=== PATIENT | male | born 1935 | race Caucasian/White ===

== ENCOUNTER 2017-04-21 10:52 | Outpatient (CLI) | payer MEDICARE, OTHER ==
--- NOTE | 2017-04-21 18:25 | XRAY Report ---
EXAM: RIGHT TIBIA/FIBULA RADIOGRAPHY EXAM DATE: 04/21/2017 12:42 PM. CLINICAL HISTORY: PAINFUL SWELLING RT LEG,. COMPARISON: None. TECHNIQUE: 2 views. FINDINGS: Bones: Old, healed proximal tibia and fibula fractures. No acute fracture. Joints: Osteoarthritis of the knee. Soft Tissues: Normal. No soft tissue swelling. IMPRESSION: Old, healed proximal tibia and fibula fractures. Right knee osteoarthritis. [facility] Referring Provider Line: [phone] SITE ID: [id number]
--- NOTE | 2017-04-23 09:01 | Ultrasound Report ---
EXAM: LEFT LOWER EXTREMITY ARTERIAL DOPPLER ULTRASOUND EXAM DATE: 04/21/2017 11:15 AM. CLINICAL HISTORY: Painful swelling left leg. History of fracture. Decreased vascular pulse COMPARISON: None. TECHNIQUE: Real-time sonographic vascular imaging was performed by the automobile service station manager, utilizing color-f low, Doppler flow, and spectral analysis. Multiple international sales representative static images were saved for review . FINDINGS: Left Leg: SEMICONDUCTOR PROCESSING TECHNICIAN: PSV 169 cm/sec. Triphasic waveform. PSFA: PSV 66 cm/sec. Triphasic waveform. MSFA: PSV 59 cm/sec. Biphasic waveform. DSFA: PSV 82 cm/sec. Triphasic waveform. PFA: PSV 59 cm/sec. Biphasic waveform. POP: PSV 63 cm/sec. Biphasic waveform. JANAY: PSV 47 cm/sec. Biphasic waveform. ACCOUNTS PAYABLE ADMINISTRATOR: PSV 60 cm/sec. Biphasic waveform. PER: PSV 30 cm/sec. Biphasic waveform. DPA: PSV 25 cm/sec. Biphasic waveform. IMPRESSION: No evidence of a hemodynamically significant stenosis in the left lower extremity. Tripha sic blood flow in the common femoral and femoral arteries. Biphasic blood flow in the remaining left lower extremity arterial system. [facility] Referring Provider Line: [phone] SITE ID: [id number]
== END 2017-04-21 10:53 | disposition home or self-care (01) ==
LOC: DI 10:52
PROVIDERS: ATTEND Specialist
DX: M17.11 Unilateral primary osteoarthritis, right knee (principal); I99.8 Other disorder of circulatory system

== ENCOUNTER 2017-06-21 14:21 | Outpatient (CLI) | payer MEDICARE, OTHER ==
--- NOTE | 2017-06-21 14:56 | XRAY Preliminary Report ---
Exam: XR HAND 3 VIEW LT IMPRESSION: 1. Mildly displaced and mildly angulated fracture of the fifth metacarpal shaft. 2. Multifocal osteoarthritis. [facility] SITE ID: [id number]
--- NOTE | 2017-06-21 14:59 | XRAY Report ---
EXAM: LEFT HAND RADIOGRAPHY EXAM DATE: 06/21/2017 02:36 PM. CLINICAL HISTORY: Left hand pain. COMPARISON: None. TECHNIQUE: 4 views. FINDINGS: Bones: Acute oblique and vertically oriented fractures of the mid-distal fifth metacarpal shaft, with up to 3 mm medial displacement and mild radial volar angulation of the dominant distal component. No apparent intra-articular fracture extension. No other acute bony abnormality. Joints: No subluxation. Multifocal hypertrophic osteoarthritis including IP joints, most advanced and severe at the third DIP joint. Moderate to severe degenerative changes radial intercarpal and first CMC joints. Soft Tissues: Soft tissue swelling about the fifth metacarpal fracture. IMPRESSION: 1. Mildly displaced and mildly angulated fracture of the fifth metacarpal shaft. 2. Multifocal osteoarthritis. [facility] Referring Provider Line: [phone] SITE ID: [id number]
== END 2017-06-21 14:22 | disposition home or self-care (01) ==
LOC: DI.N 14:21
PROVIDERS: ATTEND Specialist
DX: S62.327A Displaced fracture of shaft of fifth metacarpal bone, left hand, initial encounter for closed fracture (principal); M19.042 Primary osteoarthritis, left hand

== ENCOUNTER 2018-01-28 13:34 | Outpatient (CLI) | payer MEDICARE, OTHER ==
--- NOTE | 2018-01-28 14:35 | XRAY Report ---
Procedure Date: 01/28/2018 Accession Number: [id number] / [id number] Procedure: XR - Hip w/Pelvis 2-3V LT CPT Code: FULL RESULT: EXAM: Hip w/Pelvis 2-3V LT DATE: 01/28/2018 2:20 PM CLINICAL HISTORY: L HIP PAIN COMPARISON: None. TECHNIQUE: 1 view of the pelvis and 1 view of the hip. FINDINGS: Bones: No fracture or aggressive osseous lesion. Joints: Loss of the bilateral femoral acetabular joint space, right somewhat greater than left. Advanced degenerative changes of the lower lumbar spine are partially imaged. Soft Tissues: Vascular calcifications are noted. IMPRESSION: Osteoarthrosis. [facility]
== END 2018-01-28 13:35 | disposition home or self-care (01) ==
LOC: DI 13:34
PROVIDERS: ATTEND Specialist
DX: M25.552 Pain in left hip (principal); M16.12 Unilateral primary osteoarthritis, left hip

== ENCOUNTER 2018-06-25 09:39 | Outpatient (CLI) | payer MEDICARE, OTHER | END 2018-06-25 09:40 | disposition EMS.NT | LOC: EMS 09:39 | PROVIDERS: ATTEND Surgery | DX: R53.1 Weakness (principal) ==

== ENCOUNTER 2018-06-26 13:18 | Emergency (ER) | payer MEDICARE, OTHER ==
--- NOTE | 2018-06-26 16:16 | ED Physician Documentation ---
History of Present Illness - Stated complaint Stated Complaint: BACK PX - Chief complaint Chief Complaint: General - History obtained from History obtained from: Patient, Family - History of Present Illness Timing: Today Pain level max: 0 Pain level now: 0 - Additonal information Additional information: 83-year-old male with history of Parkinson's here with family for evaluation because they noticed that the patient was sleeping more today. Per patient had a fall 3 days ago but did not hit his head and she was able to hold onto him so he slowly drops on the floor. However he had been sleeping more since then. Patient did not go to his sleep study today because the son noticed that patient was not responding and sleeping To deeply while seated in the chair. However,Patient while waiting in the emergency room had Perk up and is back to his baseline. Review of Systems Ten Systems: 10 systems reviewed and negative Constitutional: denies: Fever, Chills, Myalgias Throat: denies: Sore throat Cardiac: denies: Chest pain / pressure Respiratory: denies: Dyspnea, Cough GI: denies: Abdominal Pain, Nausea, Vomiting, Diarrhea : denies: Dysuria, Frequency, Hematuria Musculoskeletal: denies: Neck pain, Back pain, Extremity pain Neurologic: denies: Generalized weakness, Focal weakness, Syncope, Altered mental status, Head injury, LOC PD PAST MEDICAL HISTORY - Past Medical History Cardiovascular: High cholesterol, Coronary artery disease, Atrial fibrillation, Murmur Respiratory: None Endocrine/Autoimmune: None GI: Ulcers : Benign prostate hypertrophy, Nocturia HEENT: Glaucoma Psych: None Musculoskeletal: Scoliosis Derm: None - Past Surgical History Past Surgical History: Yes General: Colonoscopy, Other Ortho: Other Cardiovascular: Coronary stent, Cardiac catheterization Neuro: Other HEENT: Cataracts, Tonsil/Adenoidectomy - Present Medications Home Medications: Ambulatory Orders Medication Instructions Recorded Confirmed Aspirin Chewable [St Kevin 81 mg PO DAILY 06/19/13 06/19/13 Aspirin] Brimonidine 0.15% Ophth Drops 1 drops OPTH BID 06/19/13 06/19/13 [Alphagan P 0.15%] Calcium Carbonate/Vitamin D3 1 each PO DAILY 06/19/13 06/19/13 [Calcium + Vitamin D Tablet] Glucosa Baum 2Kcl/Chondroitin Baum 1 each PO BID 06/19/13 06/19/13 [Glucosamine & Chondroitin Cap] Multivitamin [Multivitamins] 1 each PO DAILY 06/19/13 06/19/13 Saw [place] 500 mg PO BID 06/19/13 06/19/13 Timolol 0.25% Ophth Drops 1 drops OPTH BID 06/19/13 06/19/13 [Timoptic] Atorvastatin Calcium [Lipitor] 40 mg PO 06/20/13 06/20/13 Carbidopa/Levodopa [Carbidopa-Levo 1 each PO 05/28/16 05/28/16 ER 50-200 Tab] Mirabegron [Myrbetriq] 50 mg PO DAILY 06/26/18 06/26/18 Rivastigmine Tartrate 6 mg PO BID 06/26/18 06/26/18 [Rivastigmine] - Allergies Allergies/Adverse Reactions: Allergies Allergy/AdvReac Type Severity Reaction Status Date / Time No Known Drug Allergies Allergy Verified 06/19/13 10:13 - Social History Does the pt smoke?: No Smoking Status: Never smoker - Immunizations Immunizations are current?: No Immunizations: TDAP >10years/unknown PD ED PE NORMAL - Vitals Vital signs reviewed: Yes - General General: Alert and oriented X 3, No acute distress, Well developed/nourished - HEENT HEENT: PERRL, EOMI, Moist mucous membranes, Pharynx benign - Neck Neck: Supple, no meningeal sign, No bony TTP - Cardiac Cardiac: RRR, No murmur - Respiratory Respiratory: Clear bilaterally - Abdomen Abdomen: Normal bowel sounds, Soft, Non tender, Non distended - Back Back: No CVA TTP, No spinal TTP - Derm Derm: Warm and dry - Extremities Extremities: No deformity - Neuro Neuro: Alert and oriented X 3, Normal speech - Psych Psych: Normal mood, Normal affect Results - Vitals Vitals: Vital Signs - 24 hr 06/26/18 13:27 Temperature 36.2 C L Heart Rate 88 Respiratory 16 Rate Blood Pressure 104/68 O2 Saturation 100 Oxygen O2 Source Room air PD MEDICAL DECISION MAKING - ED course Complexity details: considered differential (Parkinson's, sleep disorder), d/w patient, d/w family ED course: Family believes that he does not require any kinds of labs or radiological studies. Patient was able to stand up from the wheelchair with very minimal assistance and ambulated carefully with very minimal assistance. Family stated that this is his norm. So they would just want to go home and follow-up with his primary doctor and reschedule his sleep study appointment. Departure - Departure Disposition: 01 Home, Self Care Clinical Impression: Parkinsons disease Condition: Stable Instructions: Parkinson Disease Comments: Follow-up with your primary doctor and sleep study program. Maintain safety. I f worse return to the emergency room.
[2018-06-26 16:36] VITALS: BP 106/65
== END 2018-06-26 16:34 | disposition home or self-care (01) ==
LOC: ED 13:18
DX: G20 Parkinson's disease (principal)
CPT/HCPCS: 99282; 99283

== ENCOUNTER 2018-09-06 12:35 | Outpatient (CLI) | payer MEDICARE, OTHER ==
--- NOTE | 2018-09-06 15:38 | CONSULTATION NOTE ---
Palliative Care Consultation - Referral Referring Provider: Dr. Chas Coughlin Time of Visit: [id number] Referral setting: Home (It is a taxing considerable effort for the patient to leave the home, also to facilitate a family conference and improve treatment plan.) Referral Reason: Parkinsons with lewey body dementia/narcolepsy - Information Sources Records reviewed: Previous records reviewed History/Review of Systems obtained from: Patient, Family (met with Lara, son Lonnie, and DIL Kyra) Exam limitations: Clinical condition (patient with few words only) - History of Present Illness Brief History of Present Illness: This is an 83-year-old gentleman who has atypical Parkinson's, poorly responsive to carbidopa levodopa. He does have a shuffling gait, has had a decline in his walking, and increased lower extremity weakness. He fluctuates as far as his ability to participate in his day-to-day activities, including sleeping for long periods of time and difficulty getting out of bed. He has most likely been diagnosed about 5 years ago, has had some fluctuating delusions, hallucinations, but is cooperative and care. He does get quite fatigued when he gets out and is more active. He does have frequent falls, has had limited trauma but did have epidural hematoma as a result of 1 fall. Patient presents with high anxiety with new player in the room, was eventually able to engage. He does have difficulty getting from sitting to standing, severe shuffling gait, difficulty falling cues. As he relaxed, he was more likely to make eye contact, and smile, and answer yes no questions though not always accurately. Family are concerned about moving into the future, expected changes, have multiple questions regarding current caregiving issues. Patient has participated in the big and loud program, paid caregivers to try to keep up activity program. Palliative care to provide support regarding defining goals of care, evaluating and addressing caregiving issues regarding incontinence, and provide anticipatory guidance regarding expected ongoing decline Medical/Surgical History - Past Medical History Cardiovascular: reports: High cholesterol, Coronary artery disease, Atrial fibrillation, Murmur Respiratory: reports: None Neuro: reports: Dementia (lewey body), Head injury (eipdural hematoma 2017), Parkinson's, Tremors Endocrine/Autoimmune: reports: None GI: reports: Ulcers, Chronic constipation : reports: Benign prostate hypertrophy, Incontinence, Nocturia HEENT: reports: Glaucoma Psych: reports: None Musculoskeletal: reports: Scoliosis Derm: reports: None MRSA Hx?: No - Past Surgical History General: reports: Colonoscopy, Other Ortho: reports: Other (leg surgery) Cardiovascular: reports: Coronary stent, Cardiac catheterization Neuro: reports: Other (evacuation epidural hematoma) HEENT: reports: Cataracts, Tonsil/Adenoidectomy - Substance History Use: Uses substance without health or social issues: NONE, Alcohol (rare) Social History - Living Situation Living arrangement: At home Living Situation: With spouse/s.o. 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 He and his have been 58 years, he did have long-term care insurance, so they do have caregivers 4 days a week for 4-5 hours. The sons Tarun and Lonnie, rotate every other weekend from Sunday to Sunday to assist with care. Patient is incontinent, requiring increased care needs, recently had episode where he was minimally responsive for almost 3 days. Family History - Family History Family History: Mother: (unknown cause of in 70s; mother of pneumonia 65), Father: , Other family: Alive and Well (2 siblings alive and well) Medications/Allergies - Medications Home Medications: Ambulatory Orders Medication Instructions Recorded Confirmed Aspirin Chewable [St Kevin 81 mg PO DAILY 06/19/13 09/06/18 Aspirin] Brimonidine 0.15% Ophth Drops 1 drops OPTH BID 06/19/13 09/06/18 [Alphagan P 0.15%] Glucosa Baum 2Kcl/Chondroitin Baum 1 each PO BID 06/19/13 09/06/18 [Glucosamine & Chondroitin Cap] Atorvastatin Calcium [Lipitor] 40 mg PO ACHS 06/20/13 09/06/18 Carbidopa/Levodopa [Carbidopa-Levo 1 each PO ACHS 05/28/16 09/06/18 ER 50-200 Tab] Mirabegron [Myrbetriq] 50 mg PO DAILY 06/26/18 09/06/18 Rivastigmine Tartrate 6 mg PO BID 06/26/18 09/06/18 [Rivastigmine] Carbidopa/Levodopa [Carbidopa-Levo 25 - 100 mg PO .1.5 TAB 8,12, 09/06/18 09/06/18 ER 25-100 Tab] Dorzolamide/Timolol Ophth Soln 1 drops EACHEYE BID 09/06/18 09/06/18 [Cosopt] Latanoprost 0.005% Ophth Drops 1 drops EACHEYE BID 09/06/18 09/06/18 [Xalatan Ophth Drops] Multivitamin/Iron/Folic Acid 1 tab PO DAILY 09/06/18 09/06/18 [Centrum Adults Tablet] Senna [Senokot] 2 tab PO .QOD MDD 50 mg docusate 09/06/18 09/06/18 sodium+ Tamsulosin [Flomax] 0.4 mg PO DAILY 09/06/18 09/06/18 - Allergies Allergies/Adverse Reactions: Allergies Allergy/AdvReac Type Severity Reaction Status Date / Time No Known Drug Allergies Allergy Verified 06/19/13 10:13 Review of Systems - Constitutional Constitutional: reports: Fatigue, Weakness, Night sweats, Weight loss - Eyes Eyes: reports: Vision loss, Other (glaucoma) - Ears, Nose & Throat Ears, Nose & Throat: reports: Hearing loss - Cardiovascular Cardiovascular: reports: Decr. exercise tolerance - Respiratory Respiratory: reports: SOB with exertion - Gastrointestinal Gastrointestinal: reports: Constipation (intermittent), Good appetite - Genitourinary Genitourinary: reports: Hematuria, Incontinence - Musculoskeletal Musculoskeletal: reports: Muscle pain, Back pain, Muscle aches, Stiffness, Limited range of motion, Muscle weakness, Assistive devices (walker) - Integumentary Integumentary: reports: Lesions, Dryness - Neurological Neurological: reports: General weakness, Memory problems - Psychiatric Psychiatric: reports: Anxiety, Hallucinations - All Other Systems All Other Systems: reports: Other (limited ROS) Physical Exam - Physical Exam General Appearance: positive: No acute distress, Anxious Eyes Bilateral: positive: Normal inspection Neck: positive: No JVD, Trachea midline Cardiovascular: positive: Regular rate & rhythm Respiratory: positive: Diminished in bases. negative: Wheezes, Rales, Rhonchi Abdomen: positive: Non-tender, Soft, Nml bowel sounds Skin: positive: Dryness Extremities: positive: No pedal edema, Other (stiffness; gait shuffled; difficulty getting from sitting to standing; using walker with cueing; needing visual cues/not always able to follow verbal cues) Neurologic/Psychiatric: positive: Disoriented to person, Disoriented to place, Disoriented to time, Weakness, Flat affect, Other (speech fluctuating; delayed in response; some answers appropriate;sentences inconsistent in content/length; no word salad currently;) Palliative Care - POLST Patient has POLST: No Pain: No pain Tiredness/Fatigue: Severe (7-10) Drowsiness/Sedation: Severe (7-10) Nausea: None Depression: None Anxiety: None Dyspnea: None Anorexia: None Sleep: Variable sleep pattern (up at night to void;) Constipation: Yes, Intermittent constipation Feelings of wellbeing/Perceived Quality of Life: Fair, Worsening Performance Status: Patient has caregiving support, they do assist him with dressing, cueing, ambulation. Patient is totally dependent for bathing and incontinence management. Patient fluctuates as far as his ability to participate and engage. Patient does have periods of time he is more sedentary, this makes it more difficult to manage his care needs. They are unable to get him out of the bed particularly first thing in the morning. - Palliative Care Discussion: Patient unable to participate in any goals of care conversation, I did try and set up some rapport with patient he was unable to smile in response to some of our interactions. He did agree I could come back and visit. Met with separately, she does definitely feel overwhelmed and stressed. Some of this is related to his fluctuating status, but also with his increasing care needs despite caregiver support. She does have significant feelings of guilt, when considering placement or respite. He has had frequent falls, which is difficult for the both of them. They have been 58 years, she appears to have very little insight into the expected decline and disease trajectory. She does notice he has days of extreme fatigue, this is difficult to differentiate related to his underlying diagnosis of narcolepsy. He is also has a pending sleep study. Patient's gait on observation is not steady, he should be using a gait belt and walker at all times, this seems somewhat overwhelming to the . Did discuss about caregiver fatigue, need to participate in self- care activities. Family meeting with patient in the room, , son Lonnie and [id number] Kyra. Did introduce the IESHA as T, patient on his living well was a do not attempt resuscitation. We did discuss though in the context of EMS, we would need to complete the pulsed. Reviewed the different choices, poor outcomes would be expected for him and his current fragile state, as well as being able to weigh benefits and burdens in the future for care needs. D POA for healthcare is Lonnie Cesar [phone]. had not participated in any advanced care planning conversations with her prior to his decline, does feel overwhelmed by this. Did provide her with a copy of the IESHA ST, and the book "hard choices for loving People". Did discuss separately with the son we can follow through incomplete list at her next meeting, given has not really explored much looking at the end of life. Lonnie and Tarun, sons, by spending every other weekend, wondering if mother would make a different choice regarding patient's care needs if she had to manage more on her own. Reports though she does get overwhelmed and distressed easily. Impression and Recommendations - Palliative Care Impression: This is an 83-year-old gentleman with atypical Parkinson's, presents with dementia, and ongoing functional and cognitive decline. Part of his caregiving issues is he is fluctuating in status, very supportive family which does include regular paid caregivers. Palliative care to provide support regarding and focus on caregiving issues, caregiver, quality of life and symptom management as well as anticipatory guidance Recommendations/Counseling Done: 1. Parkinson's, atypical with dementia/Lewy body. Patient is declining both functionally and cognitively. It does appear overestimates patient's abilities, patient has had frequent falls and does have lower extremity weaknes s. I did encourage them to use the walker as well as gait belt for safety. Reviewed fall recovery with use of lift assist from 911. Discussed benefits and burdens of moving forward with a hospital bed. Patient most likely would not meet criteria, they could get one from [facility], or we could prevent one from [facility]. Encouraged to balance activity with patient's energy. They are looking at a sleep study appointment, counseling provided regarding weighing benefits and burdens of tests depending on expected outcome to change treatment plan. I suspect patient would not be able to tolerate any kind of BiPAP/CPAP support. Patient has longtime history of narcolepsy, does seem to be intensified over the last few years with his Parkinson's. Anticipatory guidance provided regarding disease process. 2. Urinary incontinence. Counseling provided regarding incontinence management, skin care with the initiation of Cavilon barrier cream, suggested explore truckers/condom urinal set up did not do well with condom catheter. 3. Advanced care planning. Patient does have D POA in [facility] [phone]. Initiate conversation regarding goals of care and IESHA as T. Counseling provided along with form, encouraged him to talk among themselves and read the information to be able to translate at our next visit. Counseling provided regarding anticipatory guidance and the role of palliative care. Explored with ways to engage in self-care, encouraged support groups, and began conversation regarding end-of-life care and wishes for her . Time Spent: 75 minutes with greater than 50% of this done in counseling regarding advanced care planning, disease education, setting up rapport, caregiving issues, and family conference
== END 2018-09-06 12:36 | disposition home or self-care (01) ==
LOC: PC 12:35
PROVIDERS: ATTEND Nurse Practitioner Adult Health
DX: Z51.5 Encounter for palliative care (principal); G31.83 Neurocognitive disorder with Lewy bodies; F02.80 Dementia in other diseases classified elsewhere, unspecified severity, without behavioral disturbance, psychotic disturbance, mood disturbance, and anxiety; G47.419 Narcolepsy without cataplexy; N40.1 Benign prostatic hyperplasia with lower urinary tract symptoms; N39.498 Other specified urinary incontinence; R35.1 Nocturia; Z91.81 History of falling
CPT/HCPCS: 99345

== ENCOUNTER 2018-09-11 13:15 | Outpatient (CLI) | payer MEDICARE, OTHER | END 2018-09-11 13:16 | disposition critical access hospital (66) | LOC: EMS 13:15 | PROVIDERS: ATTEND Surgery | DX: R40.20 Unspecified coma (principal) | CPT/HCPCS: A0425; A0427 ==

== ENCOUNTER 2018-09-11 13:31 | Inpatient (IN) | payer MEDICARE, OTHER ==
[2018-09-11] MEDS ORDERED: SODIUM CHLORIDE 0.9% 1,000 ML IV ONE ×2 (13:39→15:04)
--- NOTE | 2018-09-11 13:41 | ED Physician Documentation ---
PD HPI ALTERED MENTAL STATUS - Stated complaint Stated Complaint: UNRESPONSIVE - History obtained from History obtained from: Family (), EMS - History of Present Illness Timing - onset: Today (This is an 83-year-old gentleman with Parkinson's and Lewy body dementia. At baseline he still walks with assistance and feeds himself. He is incontinent and has in-home care. They have not decided on CODE STATUS nor have they filled out a IES[facility] form. He had an episode maybe a month ago where he was unresponsive for 3 days. That may have been related to UTI, he was treated with antibiotics maybe 3 weeks ago. Today he slept and then they just were not able to get him out of bed and he was pretty much unresponsive. All of the history is from the family, the patient will say yes in response to questions, but is otherwise in unhelpful historian.) Review of Systems Unable to obtain: AMS, Confused PD PAST MEDICAL HISTORY - Past Medical History Cardiovascular: High cholesterol, Coronary artery disease, Atrial fibrillation, Murmur Respiratory: None Endocrine/Autoimmune: None GI: Ulcers, Chronic constipation : Benign prostate hypertrophy, Incontinence, Nocturia HEENT: Glaucoma Psych: None Musculoskeletal: Scoliosis Derm: None - Past Surgical History Past Surgical History: Yes General: Colonoscopy, Other Ortho: Other (leg surgery) Cardiovascular: Coronary stent, Cardiac catheterization Neuro: Other (evacuation epidural hematoma) HEENT: Cataracts, Tonsil/Adenoidectomy - Present Medications Home Medications: Ambulatory Orders Medication Instructions Recorded Confirmed Aspirin Chewable [St Kevin 81 mg PO DAILY 06/19/13 09/06/18 Aspirin] Brimonidine 0.15% Ophth Drops 1 drops OPTH BID 06/19/13 09/06/18 [Alphagan P 0.15%] Glucosa Baum 2Kcl/Chondroitin Baum 1 each PO BID 06/19/13 09/06/18 [Glucosamine & Chondroitin Cap] Atorvastatin Calcium [Lipitor] 40 mg PO ACHS 06/20/13 09/06/18 Carbidopa/Levodopa [Carbidopa-Levo 1 each PO ACHS 05/28/16 09/06/18 ER 50-200 Tab] Mirabegron [Myrbetriq] 50 mg PO DAILY 06/26/18 09/06/18 Rivastigmine Tartrate 6 mg PO BID 06/26/18 09/06/18 [Rivastigmine] Carbidopa/Levodopa [Carbidopa-Levo 25 - 100 mg PO .1.5 TAB 8,12, 09/06/18 09/06/18 ER 25-100 Tab] Dorzolamide/Timolol Ophth Soln 1 drops EACHEYE BID 09/06/18 09/06/18 [Cosopt] Latanoprost 0.005% Ophth Drops 1 drops EACHEYE BID 09/06/18 09/06/18 [Xalatan Ophth Drops] Multivitamin/Iron/Folic Acid 1 tab PO DAILY 09/06/18 09/06/18 [Centrum Adults Tablet] Senna [Senokot] 2 tab PO .QOD MDD 50 mg docusate 09/06/18 09/06/18 sodium+ Tamsulosin [Flomax] 0.4 mg PO DAILY 09/06/18 09/06/18 Docusate Sodium [Colace Clear] 50 mg PO DAILY 09/11/18 09/11/18 - Allergies Allergies/Adverse Reactions: Allergies Allergy/AdvReac Type Severity Reaction Status Date / Time niacin Allergy Unknown Verified 09/11/18 13:40 - Social History Does the pt smoke?: No Smoking Status: Never smoker Does the pt drink ETOH?: No Does the pt have substance abuse?: No - Immunizations Immunizations are current?: No Immunizations: TDAP >10years/unknown - POLST Patient has POLST: No PD ED PE NORMAL - Vitals Vital signs reviewed: Yes - General General: Other (He is laying in bed with his eyes closed. He will actually follow very simple commands and say yes to certain things like when I asked him if he is Chandra Cesar. Otherwise he is not saying anything.) - HEENT HEENT: PERRL, Other (Dry mucous membranes) - Neck Neck: Supple, no meningeal sign, No bony TTP - Cardiac Cardiac: RRR, No murmur - Respiratory Respiratory: No respiratory distress, Clear bilaterally - Abdomen Abdomen: Normal bowel sounds, Soft, Non tender - Back Back: No CVA TTP, No spinal TTP - Derm Derm: Normal color, Warm and dry - Extremities Extremities: No edema, No calf tenderness / cord - Neuro Eye Opening: None Motor: Obeys Commands Verbal: Inappropriate GCS Score: 10 Results - Vitals Vitals: Vital Signs - 24 hr 09/11/18 09/11/18 13:36 14:52 Temperature 37.4 C Heart Rate 87 87 Respiratory 20 10 L Rate Blood Pressure 123/81 H 148/78 H O2 Saturation 96 99 Oxygen O2 Source Room air - Labs Labs: Laboratory Tests 09/11/18 09/11/18 09/11/18 13:38 13:47 14:03 WBC 13.1 H RBC 4.43 L Hgb 14.2 Hct 42.1 MCV 95.0 H MCH 32.0 H MCHC 33.7 RDW 14.4 Plt Count 232 MPV 8.1 Neut # (Auto) 10.9 H Lymph # (Auto) 1.0 L [place] # (Auto) 1.0 Eos # (Auto) 0.0 Baso # (Auto) 0.1 Absolute Nucleated RBC 0.01 Nucleated RBC % 0.1 Sodium 138 Potassium 3.8 Chloride 103 Carbon Dioxide 26 Anion Gap 9.0 BUN 15 Creatinine 0.7 Estimated GFR (MDRD) 108 Glucose 94 Calcium 8.8 Total Bilirubin 1.9 H AST 17 ALT < 10 L Alkaline Phosphatase 62 Total Creatine Kinase 13 L CK-MB (CK-2) Troponin I Total Protein 6.7 Albumin 3.4 Globulin 3.3 Albumin/Globulin Ratio 1.0 Lipase 26 Urine Color RED/BLOODY Urine Clarity CLOUDY Urine pH 7.0 Ur Specific [place] 1.020 Urine Protein Urine Glucose (UA) NEGATIVE Urine Ketones 15 H Urine Occult Blood Urine Nitrite Urine Bilirubin COLOR INTERFERENCE Urine Urobilinogen Ur Leukocyte Esterase Urine RBC TNTC H Urine WBC 6-10 H Ur Squamous Epith Cells RARE Squamous Urine Bacteria Few Ur Microscopic Review INDICATED Urine Culture Comments INDICATED 09/11/18 14:03 WBC RBC Hgb Hct MCV MCH MCHC RDW Plt Count MPV Neut # (Auto) Lymph # (Auto) [place] # (Auto) Eos # (Auto) Baso # (Auto) Absolute Nucleated RBC Nucleated RBC % Sodium Potassium Chloride Carbon Dioxide Anion Gap BUN Creatinine Estimated GFR (MDRD) Glucose Calcium Total Bilirubin AST ALT Alkaline Phosphatase Total Creatine Kinase CK-MB (CK-2) 0.9 Troponin I < 0.04 Total Protein Albumin Globulin Albumin/Globulin Ratio Lipase Urine Color Urine Clarity Urine pH Ur Specific [place] Urine Protein Urine Glucose (UA) Urine Ketones Urine Occult Blood Urine Nitrite Urine Bilirubin Urine Urobilinogen Ur Leukocyte Esterase Urine RBC Urine WBC Ur Squamous Epith Cells Urine Bacteria Ur Microscopic Review Urine Culture Comments PD MEDICAL DECISION MAKING - ED course ED course: This is an 83-year-old gentleman with Lewy body dementia and Parkinson's who presents with altered mental status that starts today. His examination is notable for evidence of dehydration. Workup demonstrates unremarkable head CT and chest x-ray and elevated white count and evidence of urinary tract infection for which she was administered IV fluids and Rocephin. Call to Dr. Romo for admission at 3:05 PM. Departure - Departure Disposition: [facility] DC/Xfer Clinical Impression: Altered mental status Qualifiers: Altered mental status type: delirium Qualified Code(s): R41.0 - Disorientation, unspecified UTI (urinary tract infection) Qualifiers: Urinary tract infection type: site unspecified Hematuria presence: with hematuria Qualified Code(s): N39.0 - Urinary tract infection, site not specified Condition: Serious
[2018-09-11] MEDS ORDERED: LIDOCAINE 2% URO-JET 5 ML SYRINGE UR STA (13:51)
[2018-09-11 14:11] LABS: BASOPHILS # (AUTO) 0.1 10^3/uL (0.0-0.1); EOSINOPHILS % (AUTO) 0.3 %; HGB - HEMOGLOBIN 14.2 g/dL (14.0-18.0); LYMPHOCYTES % (AUTO) 7.8 %; MEAN CORPUSCULAR HGB CONC 33.7 g/dL (32.0-36.0); MEAN PLATELET VOLUME 8.1 fL (7.4-11.4); MONOCYTES % (AUTO) 7.4 %; NEUTROPHILS # (AUTO) 10.9 10^3/uL (1.5-6.6); NEUTROPHILS % (AUTO) 83.5 %; PLT - PLATELET COUNT 232 10^3/uL (130-450); RED BLOOD COUNT 4.43 10^6/uL (4.70-6.10); RED CELL DISTRIBUTION WIDTH 14.4 % (12.0-15.0); WHITE BLOOD COUNT 13.1 x10^3/uL (4.8-10.8)
[2018-09-11 14:18] LABS: GLUCOSE, URINE (UA) NEGATIVE (NEGATIVE); KETONES,URINE (UA) 15 mg/dL (NEGATIVE)
[2018-09-11 14:21] LABS: CLARITY,URINE CLOUDY (CLEAR)
[2018-09-11 14:24] LABS: BILIRUBIN,URINE COLOR INTERFERENCE (NEGATIVE)
[2018-09-11 14:29] LABS: TROPONIN I < 0.04 ng/mL (<0.49)
[2018-09-11 14:31] LABS: CREATINE KINASE MB 0.9 ng/mL (0.6-6.3)
--- NOTE | 2018-09-11 14:32 | CT Report ---
Reason: altered Procedure Date: 09/11/2018 Accession Number: [id number] / [id number] Procedure: CT - HEAD WO CPT Code: FULL RESULT: EXAM: CT HEAD EXAM DATE: 09/11/2018 02:12 PM. CLINICAL HISTORY: Altered mental status. COMPARISON: HEAD W/O 05/28/2016 9:29 PM. TECHNIQUE: Multiaxial CT images were obtained from the foramen magnum to the vertex. Reformats: Sagittal and coronal. IV contrast: None. In accordance with CT protocol optimization, one or more of the following dose reduction techniques were utilized for this exam: automated exposure control, adjustment of mA and/or KV based on patient size, or use of iterative reconstructive technique. FINDINGS: Parenchyma: No intraparenchymal hemorrhage. No evidence of mass, midline shift, or CT findings of acute infarction. Bell-white differentiation is distinct. Diffuse chronic microangiopathic white matter changes. Extraaxial Spaces: Normal for age. No subdural or epidural collections. Ventricles: The ventricles and cortical sulci are enlarged, consistent with age-related tissue loss. Sinuses and orbits: Imaged paranasal sinuses, orbits, and mastoids show no significant abnormality. Bones: Unremarkable. Other: None. IMPRESSION: Generalized age-related cortical atrophic changes without evidence of acute intracranial abnormality. RADIA
[2018-09-11 14:35] LABS: ALBUMIN 3.4 g/dL (3.2-5.5); ALKALINE PHOSPHATASE 62 IU/L (42-121); ALT ALANINE AMINOTRANSFERASE < 10 IU/L (10-60); AST ASPARTATE AMINOTRANSFERASE 17 IU/L (10-42); BILIRUBIN,TOTAL 1.9 mg/dL (0.2-1.0); BUN - BLOOD UREA NITROGEN 15 mg/dL (6-20); CALCIUM 8.8 mg/dL (8.5-10.3); CARBON DIOXIDE - CO2 26 mmol/L (21-32); CHLORIDE 103 mmol/L (101-111); CK- CREATINE KINASE 13 IU/L (22-269); CREATININE 0.7 mg/dL (0.6-1.2); GFR - MDRD 108 (>89); GLUCOSE 94 mg/dL (70-100); LIPASE 26 U/L (22-51); SODIUM 138 mmol/L (135-145); TOTAL PROTEIN 6.7 g/dL (6.7-8.2)
[2018-09-11 14:37] LABS: RBC,URINE TNTC /HPF (0-5)
[2018-09-11 14:38] LABS: BACTERIA,URINE Few /HPF (None Seen); SQUAMOUS EPITHELIAL CELL,UR RARE Squamous (<= Few)
--- NOTE | 2018-09-11 14:58 | XRAY Report ---
Reason: altered Procedure Date: 09/11/2018 Accession Number: [id number] / [id number] Procedure: XR - Chest 1 View X-Ray CPT Code: 03728 FULL RESULT: EXAM: CHEST RADIOGRAPHY EXAM DATE: 09/11/2018 02:35 PM. CLINICAL HISTORY: Confusion COMPARISON: XR CHEST PA AND LAT 06/27/2007 8:42 AM. TECHNIQUE: 1 view. FINDINGS: Lungs/Pleura: No focal opacities evident. No pleural effusion. No pneumothorax. Mediastinum: Normal heart size. There is thoracic aortic tortuosity. Other: None. IMPRESSION: No acute intrathoracic plain film abnormality. RADIA
[2018-09-11] MEDS ORDERED: cefTRIAXone 1 GM in SODIUM CHLORIDE 0.9% MINIBAG 100 ML IV STA (15:04)
[2018-09-11] MEDS ORDERED: ONDANSETRON ODT 4 MG TABLET TL PRN (15:28)
[2018-09-11] MEDS ORDERED: ACETAMINOPHEN 325 MG TABLET PO PRN (15:28)
[2018-09-11] MEDS ORDERED: SODIUM CHLORIDE FLUSH 0.9% 10 ML SYRINGE IVP PRN (15:28)
--- NOTE | 2018-09-11 15:43 | HISTORY & PHYSICAL EXAMINATION ---
Chief Complaint - Chief Complaint Chief Complaint: Delirium and change from baseline Parkinson's dementia. Patient has been m Stroke/TIA/Neuro Template - Admitted From Admitted from: ED - History Obtained From Records Reviewed: RN notes reviewed, Old records reviewed History obtained from: Family, Caregiver Exam limitations: Clinical condition, Other (Due to patient's obtunded status difficult to examine And obtain a thorough history and physical.) - History of Present Illness Severity at the worst: reports: Moderate Symptom Quality: reports: Other Context- Symptoms started w/: reports: Other (Obtunded) Timing: reports: Gradual onset Duration: reports: Unknown Worsened by: denies: Exertion Associated symptoms: denies: Vomiting, Feeling faint / dizzy, Palpitations HPI Comment/Other: This is an 83-year-old gentleman who has atypical Parkinson's, poorly responsive to carbidopa levodopa, Presents with hematuria and unresponsive at home subs equently being transferred to the emergency department for further evaluation management and treatment. CT head did not show acute infarct. Patient does take multiple medications for his Parkinson's disease/Lewy body dementia. Was found to have a UTI on UA. Clinically was found to be dehydrated. He does have a shuffling gait, has had a decline in his walking, and increased lower extremity weakness. He fluctuates as far as his ability to participate in his day-to-day activities, including sleeping for long periods of time and difficulty getting out of bed. He has most likely been diagnosed about 5 years ago, has had some fluctuating delusions, hallucinations, but is cooperative and care. He does get quite fatigued when he gets out and is more active. He does have frequent falls, has had limited trauma but did have epidural hematoma as a result of 1 fall. Patient was last seen by palliative care service on 09/06/18; Palliative care to provide support regarding defining goals of care, evaluating and addressing caregiving issues regarding incontinence, and provide anticipatory guidance regarding expected ongoing decline. 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 PMH/PSH - Past Medical History Cardiovascular: positive: High cholesterol, Coronary artery disease, Atrial fibrillation, Murmur Respiratory: positive: None Endocrine/Autoimmune: positive: None GI: positive: Ulcers, Chronic constipation : positive: Benign prostate hypertrophy, Incontinence, Nocturia HEENT: positive: Glaucoma Psych: positive: None Musculoskeletal: positive: Scoliosis Derm: positive: None MRSA Hx?: No - Past Surgical History General: positive: Colonoscopy, Other Ortho: positive: Other (leg surgery) Cardiovascular: positive: Coronary stent, Cardiac catheterization Neuro: positive: Other (evacuation epidural hematoma) HEENT: positive: Cataracts, Tonsil/Adenoidectomy Social & Family Hx - Social History Does the pt smoke?: No Smoking Status: Never smoker Does the pt drink ETOH?: No Does the pt have substance abuse?: No - POLST Patient has POLST: No Meds/Allgy - Home Medications Home Medications: Ambulatory Orders Medication Instructions Recorded Confirmed Aspirin Chewable [St Kevin 81 mg PO DAILY 06/19/13 09/06/18 Aspirin] Brimonidine 0.15% Ophth Drops 1 drops OPTH BID 06/19/13 09/06/18 [Alphagan P 0.15%] Glucosa Baum 2Kcl/Chondroitin Baum 1 each PO BID 06/19/13 09/06/18 [Glucosamine & Chondroitin Cap] Atorvastatin Calcium [Lipitor] 40 mg PO ACHS 06/20/13 09/06/18 Carbidopa/Levodopa [Carbidopa-Levo 1 each PO ACHS 05/28/16 09/06/18 ER 50-200 Tab] Mirabegron [Myrbetriq] 50 mg PO DAILY 06/26/18 09/06/18 Rivastigmine Tartrate 6 mg PO BID 06/26/18 09/06/18 [Rivastigmine] Carbidopa/Levodopa [Carbidopa-Levo 25 - 100 mg PO .1.5 TAB 8,12, 09/06/18 09/06/18 ER 25-100 Tab] Dorzolamide/Timolol Ophth Soln 1 drops EACHEYE BID 09/06/18 09/06/18 [Cosopt] Latanoprost 0.005% Ophth Drops 1 drops EACHEYE BID 09/06/18 09/06/18 [Xalatan Ophth Drops] Multivitamin/Iron/Folic Acid 1 tab PO DAILY 09/06/18 09/06/18 [Centrum Adults Tablet] Senna [Senokot] 2 tab PO .QOD MDD 50 mg docusate 09/06/18 09/06/18 sodium+ Tamsulosin [Flomax] 0.4 mg PO DAILY 09/06/18 09/06/18 Docusate Sodium [Colace Clear] 50 mg PO DAILY 09/11/18 09/11/18 - Allergies Allergies/Adverse Reactions: Allergies Allergy/AdvReac Type Severity Reaction Status Date / Time niacin Allergy Unknown Verified 09/11/18 13:40 Review of Systems - All Other Systems All Other Systems: reports: Reviewed and negative Prior Level of Functionality: Per family patient has been ambulating independently with a shuffling gait at times but there are other times where his home ADLs are poor at times waxing and waning. Exam - Vital Signs Reviewed Vital Signs: Yes Vital Signs: Vital Signs x48h Temp Pulse Resp BP Pulse Ox 09/11/18 14:52 87 10 L 148/78 H 99 09/11/18 13:36 37.4 C 87 20 123/81 H 96 - Physical Exam General Appearance: positive: No acute distress, Lethargic, Other (obtunded, hard to arouse, responds to painful stimuli.) Eyes Bilateral: positive: PERRL, Conjunctivae nml ENT: positive: Pharynx nml, Dry mucous membranes Neck: positive: Nml inspection, Thyroid nml, Trachea midline. negative: No JVD, Thyromegaly, Carotid bruit Respiratory: positive: Chest non-tender, No respiratory distress, Breath sounds nml. negative: Wheezes, Rales, Rhonchi Cardiovascular: positive: Regular rate & rhythm, No murmur, No gallop Peripheral Pulses: positive: 2+ Abdomen: positive: Non-tender, No organomegaly, Nml bowel sounds, No distention Skin: positive: Color nml, No rash Extremities: positive: Non-tender, No pedal edema Neurologic/Psychiatric: positive: Disoriented to person, Disoriented to place, Disoriented to time, Weakness, Depressed mood/affect, Other (Unable to asses gait due to mental status) Babinski Reflex: Right: Absent, Left: Absent Comments/Other: : Has blood urine FC. Results - Lab Results Lab results reviewed: Yes Fish Bones: 09/11/18 13:38 09/11/18 14:03 Other Lab Results: Lab Results x24hrs 09/11/18 09/11/18 09/11/18 Range/Units 14:03 14:03 14:03 WBC (4.8-10.8) x10^3/uL RBC (4.70-6.10) 10^6/uL Hgb (14.0-18.0) g/dL Hct (42.0-52.0) % MCV (80.0-94.0) fL MCH (27.0-31.0) pg MCHC (32.0-36.0) g/dL RDW (12.0-15.0) % Plt Count (130-450) 10^3/uL MPV (7.4-11.4) fL Neut # (Auto) (1.5-6.6) 10^3/uL Lymph # (Auto) (1.5-3.5) 10^3/uL [place] # (Auto) (0.0-1.0) 10^3/uL Eos # (Auto) (0.0-0.7) 10^3/uL Baso # (Auto) (0.0-0.1) 10^3/uL Absolute Nucleated RBC x10^3/uL Nucleated RBC % /100WBC Sodium 138 (135-145) mmol/L Potassium 3.8 (3.5-5.0) mmol/L Chloride 103 (101-111) mmol/L Carbon Dioxide 26 (21-32) mmol/L Anion Gap 9.0 (6-13) BUN 15 (6-20) mg/dL Creatinine 0.7 (0.6-1.2) mg/dL Estimated GFR (MDRD) 108 (>89) Glucose 94 (70-100) mg/dL Lactic Acid 0.8 (0.5-2.2) mmol/L Calcium 8.8 (8.5-10.3) mg/dL Total Bilirubin 1.9 H (0.2-1.0) mg/dL AST 17 (10-42) IU/L ALT < 10 L (10-60) IU/L Alkaline Phosphatase 62 (42-121) IU/L Total Creatine Kinase 13 L (22-269) IU/L CK-MB (CK-2) 0.9 (0.6-6.3) ng/mL Troponin I < 0.04 (<0.49) ng/mL Total Protein 6.7 (6.7-8.2) g/dL Albumin 3.4 (3.2-5.5) g/dL Globulin 3.3 (2.1-4.2) g/dL Albumin/Globulin Ratio 1.0 (1.0-2.2) Lipase 26 (22-51) U/L Urine Color Urine Clarity (CLEAR) Urine pH (5.0-7.5) PH Ur Specific [place] (1.002-1.030) Urine Protein (NEGATIVE) mg/dL Urine Glucose (UA) (NEGATIVE) mg/dL Urine Ketones (NEGATIVE) mg/dL Urine Occult Blood (NEGATIVE) Urine Nitrite (NEGATIVE) Urine Bilirubin (NEGATIVE) Urine Urobilinogen (NORMAL) E.U./dL Ur Leukocyte Esterase (NEGATIVE) Urine RBC (0-5) /HPF Urine WBC (0-3) /HPF Ur Squamous Epith Cells (<= Few) Urine Bacteria (None Seen) /HPF Ur Microscopic Review Urine Culture Comments 09/11/18 09/11/18 Range/Units 13:47 13:38 WBC 13.1 H (4.8-10.8) x10^3/uL RBC 4.43 L (4.70-6.10) 10^6/uL Hgb 14.2 (14.0-18.0) g/dL Hct 42.1 (42.0-52.0) % MCV 95.0 H (80.0-94.0) fL MCH 32.0 H (27.0-31.0) pg MCHC 33.7 (32.0-36.0) g/dL RDW 14.4 (12.0-15.0) % Plt Count 232 (130-450) 10^3/uL MPV 8.1 (7.4-11.4) fL Neut # (Auto) 10.9 H (1.5-6.6) 10^3/uL Lymph # (Auto) 1.0 L (1.5-3.5) 10^3/uL [place] # (Auto) 1.0 (0.0-1.0) 10^3/uL Eos # (Auto) 0.0 (0.0-0.7) 10^3/uL Baso # (Auto) 0.1 (0.0-0.1) 10^3/uL Absolute Nucleated RBC 0.01 x10^3/uL Nucleated RBC % 0.1 /100WBC Sodium (135-145) mmol/L Potassium (3.5-5.0) mmol/L Chloride (101-111) mmol/L Carbon Dioxide (21-32) mmol/L Anion Gap (6-13) BUN (6-20) mg/dL Creatinine (0.6-1.2) mg/dL Estimated GFR (MDRD) (>89) Glucose (70-100) mg/dL Lactic Acid (0.5-2.2) mmol/L Calcium (8.5-10.3) mg/dL Total Bilirubin (0.2-1.0) mg/dL AST (10-42) IU/L ALT (10-60) IU/L Alkaline Phosphatase (42-121) IU/L Total Creatine Kinase (22-269) IU/L CK-MB (CK-2) (0.6-6.3) ng/mL Troponin I (<0.49) ng/mL Total Protein (6.7-8.2) g/dL Albumin (3.2-5.5) g/dL Globulin (2.1-4.2) g/dL Albumin/Globulin Ratio (1.0-2.2) Lipase (22-51) U/L Urine Color RED/BLOODY Urine Clarity CLOUDY (CLEAR) Urine pH 7.0 (5.0-7.5) PH Ur Specific [place] 1.020 (1.002-1.030) Urine Protein (NEGATIVE) mg/dL Urine Glucose (UA) NEGATIVE (NEGATIVE) mg/dL Urine Ketones 15 H (NEGATIVE) mg/dL Urine Occult Blood (NEGATIVE) Urine Nitrite (NEGATIVE) Urine Bilirubin COLOR INTERFERENCE (NEGATIVE) Urine Urobilinogen (NORMAL) E.U./dL Ur Leukocyte Esterase (NEGATIVE) Urine RBC TNTC H (0-5) /HPF Urine WBC 6-10 H (0-3) /HPF Ur Squamous Epith Cells RARE Squamous (<= Few) Urine Bacteria Few (None Seen) /HPF Ur Microscopic Review INDICATED Urine Culture Comments INDICATED - Diagnostic Imaging Results Diagnostic Imaging Results: positive: Final report reviewed (Chest x-ray and CT head did not show acute pathology) - EKG Results EKG Interpreted Independently: No Sepsis Event Note (H) - Evaluation Current Stage of Sepsis: Ruled out Impression/Plan - Problem List Problem List: Assessment: 1. Acute delirium secondary to UTI with associated hematuria 2. UTI with associated hematuria 3. Acute Moderate dehydration 4. Leukocytosis without sepsis 5. History of falls with gait disturbance as it pertains to patient's progressive Parkinson's disease 6. Parkinson's disease with Lewy body dementia 7. Advanced care planning and counseling 8. Palliative care continued service 9. BPH with associated hematuria 10. History of narcolepsy Plan: We will admit to observation, telemetry. Provide IV fluid resuscitation for acute moderate dehydration placed on empiric IV Rocephin to address patient's UTI with coexisting hematuria as patient has existing BPH will continue home medications with reconciliation. We will engage palliative care services to see patient and address goals of care along with other services such as symptom management. Leukocytosis likely as a result of UTI without evidence of sepsis and other delirious or clinical changes to vital signs lactic acid was 0.8 with no evidence of cardiac abnormality seen on chest x-ray with a troponin unremarkable despite patient having a history of coronary artery disease with A. fib does not appear to be in RVR A. fib has a systolic murmur present. Continue with home medications for patient's glaucoma along with statin aspirin. Patient does have history of peptic ulcer disease but did not present with any bleeding episodes. Patient lives with and 2 sons at alternate taking care of patient. We will continue with physical therapy and assessment on gait disturbance to see if patient qualifies for a TCU placement. Orthostats. Ammonia level. Alcohol level. Bladder irrigation for patient's gross hematuria seen on Lui bag and Lui catheter site. Patient has a history of narcolepsy and may benefit from Provigil Or similar pharmacological agent. Initiate DVT prophylaxis with H2 misbah, SCD boots as well as Lovenox for DVT prophylaxis CODE STATUS: DNR with family having patient's POLST. Core Measures - Anticipated LOS I expect patient to be DC'd or transferred within 96 hours.: Yes - Issues Hospital Issues and Management Plan: Patient with worsening gait disturbance and presenting with change in mental status from his current baseline of Parkinson's disease with Lewy body dementia with acute delirium secondary to likely UTI with associated hematuria and clinical moderate dehydration along with gait disturbance and a history of falls will engage in providing aggressive medical management physical therapy as well as improving gait. - DVT/VTE - Prophylaxis VTE/DVT Device ordered at admit?: Yes VTE/DVT Prophylaxis med ordered at admit?: Yes - Stroke - Rehab Assessment Rehab services assessment to be ordered?: No Not Ordered - Medical Reason: Not indicated - AMI - Statin at Admit Aspirin Prescribed on Admit: Yes
--- NOTE | 2018-09-11 15:53 | ADVANCE CARE PLANNING NOTE ---
Advance Care Planning - Date/Time Date: 09/11/18 Time: 15:51 - Purpose of encounter Text: To address goals of care, disease management, trajectory of illness. In addition, to provide support regarding and focus on caregiving issues, caregiver, quality of life and symptom management as well as anticipatory guidance - Parties in attendance Parties in attendance: Patient - Decisional capacity Decisional capacity of: Currently decisional capacity is altered due to obtunded status - Subjective/Patient's story Subjective/Patient's story: Palliative care service had engage patient on 07/27 and determined patient's subjective information. He does have difficulty getting from sitting to standing, severe shuffling gait, difficulty falling cues. As he relaxed, he was more likely to make eye contact, and smile, and answer yes no questions though not always accurately. Family are concerned about moving into the future, expected changes, have multiple questions regarding current caregiving issues. Patient has participated in the big and loud program, paid caregivers to try to keep up activity program. - Objective/Medical story Objective/Medical Story: This is an 83-year-old gentleman with atypical Parkinson's, BPH, gait disturbance, atrial fibrillation, systolic murmur, coronary disease status post stent and cardiac catheterization, hyperlipidemia, peptic ulcer disease, glaucoma, history of fall with remote history of epidural hematoma, gait disturbance with abnormalities presents with Obtunded status with coexisting Parkinson's/Lewy body-dementia, and ongoing functional and cognitive decline. Part of his caregiving issues is he is fluctuating in status, very supportive family which does include regular paid caregivers. Patient was found unresponsive today and taken to the emergency department where he was found to have a UTI with associated moderate dehydration leukocytosis with no evidence of an acute ischemic insult and was placed on IV antibiotics. Vital signs were hemodynamically stable and no evidence of CO2 narcosis with no evidence of acute [place]. Palliative care service will be called upon again to provide support regarding and focus on caregiving issues, caregiver, quality of life and symptom management as well as anticipatory guidance - Goals of Care Goals of care determinations: Goals of care to be determined on this admission as previously delineated by palliative care service - Plan Plan: Patient will be stabilized with medical management IV fluids correction of underlying disturbances that would address patient's encephalopathy with acute delirium superimposed on patient's existing Parkinson's disease with Lewy body dementia will also try to see if this is orthostatic induced along with gait disturbance with physical therapy to be engaged with the patient throughout hospitalization.Neuro imaging studies do not appear to have ischemic cause such as stroke however will continue to have labs to follow with an ammonia level alcohol level and TSH level.She was also scheduled to have sleep study as an outpatient. - Code Status Code Status: Attempt Resuscitation - Time Spent on Advance Care Planning Time spent on advance care plannin minutes spent for which more than 50% was dedicated to patient education
[2018-09-11] MEDS ORDERED: ATORVASTATIN 40 MG TABLET PO SCH ×2 (16:00→21:00)
[2018-09-11] MEDS ORDERED: CARBIDOPA/LEVODOPA ER 50 MG/200 MG TABLET PO SCH (16:00)
[2018-09-11] MEDS: SODIUM CHLORIDE FLUSH 0.9% 10 ML SYRINGE IVP SCH (18:12)
[2018-09-11] MEDS: SENNA 8.6 MG TABLET PO SCH (18:12)
[2018-09-11] MEDS ORDERED: CARBIDOPA/LEVODOPA ER 25 MG/100 MG TABLET PO SCH ×2 (21:00→22:00)
[2018-09-11] MEDS: SODIUM CHLORIDE 0.9% 1,000 ML IV SCH (22:16)
[2018-09-11] MEDS: RIVASTIGMINE 1.5 MG CAPSULE PO SCH (22:17)
[2018-09-11] MEDS: ATORVASTATIN 40 MG TABLET PO SCH (22:17)
[2018-09-11] MEDS: LATANOPROST 0.005% OPHTH DROPS EACHEYE SCH (22:27)
[2018-09-11] MEDS: FAMOTIDINE 20 MG/2 ML VIAL IVP SCH (22:28)
[2018-09-11] MEDS: BRIMONIDINE 0.15% OPHTH DROPS 5 ML EACHEYE SCH (22:28)
[2018-09-11] MEDS: DORZOLAMIDE/TIMOLOL OPHTH DROPS EACHEYE SCH (22:28)
[2018-09-12] MEDS: SODIUM CHLORIDE FLUSH 0.9% 10 ML SYRINGE IVP SCH ×4 (01:55→23:51)
--- NOTE | 2018-09-12 05:54 | Ultrasound Report ---
Reason: Gross hematuria evaluation for nephrolithiasis Procedure Date: 09/12/2018 Accession Number: [id number] / [id number] Procedure: US - Retroperitoneal CPT Code: FULL RESULT: EXAM: RENAL ULTRASOUND EXAM DATE: 09/12/2018 05:04 AM. CLINICAL HISTORY: Gross hematuria evaluation for nephrolithiasis. COMPARISON: None. TECHNIQUE: Real-time scanning was performed with static images obtained. FINDINGS: Right Kidney: 10.8 x 6.8 x 6.0 cm. Likely nonobstructing calculi. No hydronephrosis. Left Kidney: 11.2 x 6.4 x 5.4 cm. Incidental cyst. No hydronephrosis. Bladder: Decompressed with a Lui catheter. Other: None. IMPRESSION: Likely nonobstructing right renal calculi. No hydronephrosis. Lui catheter in the urinary bladder. RADIA
[2018-09-12] MEDS: SODIUM CHLORIDE 0.9% 1,000 ML IV SCH (07:30)
[2018-09-12] MEDS: FAMOTIDINE 20 MG/2 ML VIAL IVP SCH ×2 (09:49→22:32)
[2018-09-12] MEDS: cefTRIAXone 1 GM in SODIUM CHLORIDE 0.9% MINIBAG 100 ML IV SCH (09:54)
[2018-09-12] MEDS: BRIMONIDINE 0.15% OPHTH DROPS 5 ML EACHEYE SCH ×2 (10:20→21:58)
[2018-09-12] MEDS: DORZOLAMIDE/TIMOLOL OPHTH DROPS EACHEYE SCH ×2 (10:48→22:00)
[2018-09-12] MEDS: LATANOPROST 0.005% OPHTH DROPS EACHEYE SCH ×3 (11:13→22:00)
[2018-09-12] MEDS ORDERED: CAFFEINE IV ONE (12:00)
[2018-09-12] MEDS ORDERED: SODIUM BENZOATE IV ONE (12:00)
[2018-09-12] MEDS ORDERED: SODIUM CHLORIDE 0.9% IV ONE (12:00)
--- NOTE | 2018-09-12 12:17 | CONSULTATION NOTE ---
Palliative Care Follow Up - Referral Referring Provider: Vicente Romo Time of Visit: 8:50-9:40 Referral setting: Hospitalized patient Referral Reason: Parkinson's/UTI/Goals of care - Information Sources Records reviewed: Previous records reviewed History/Review of Systems obtained from: Family (son Lonnie at bedside) Exam limitations: Clinical condition (patient lethargic; noncommunicative at baseline with lewy body dementia) - History of Present Illness Update Brief HPI Update: This is an 83-year-old gentleman has atypical Parkinson's, has been poorly responsive to carbidopa levodopa. I was introduced to him on 09-06-2018 with the goal to provide support the palliative care, as patient has had functional de devlin and recent UTI, and episode he was nonresponsive and bedbound for most of the weekend. Had recovered from the episode, but by the time admit him, unknown if it was recurrent UTI, TIA, or related to his parkinsonian. He is due to be seen at the sleep lab, patient has underlying narcolepsy. He has needed increased support at home for managing his care needs, he lives with his , has paid caregivers during the week, and his sons alternate weekends providing total care. Patient was found to have a hematuria yesterday, with decreased responsiveness, and was with paid caregivers who were obligated to call 911. He was admitted overnight, has had actually significant hematuria with blood clots, I am unable to tell from the documentation if patient had urinary retention on placement of the Reynolds cath, it is lightening up, but still passing small clots. Patient has no history of bleeding in the past. But does have known BPH. Patient is difficult to arouse, and able to get him to squeeze my hand, flutter his eyes, and answer a few yes/no questions. His mouth is quite dry, assisted by RN for initiating oral care. Awaiting speech therapy evaluation. Patient has not had any choking, or difficulty eating prior to this hospitalization. I am meeting with his son Lonnie at bedside, his went home to get some sleep. We did discuss that it would be a good time to complete and follow-up on the ST. Patient though given his ongoing hematuria, does not awake and eating or drinking, would be expected to be transition to inpatient status. Social History - Living Situation Living arrangement: At home Living Situation: With spouse/s.o. Support System: He and his have been 58 years, they do have long-term care insurance so they do have caregivers 4 days a week for 4-5 hours. His sons Tarun and Lonnie, rotate every other weekend from Sunday to Sunday to assist with care. They have been exploring other options, particularly regarding respite care as patient's care needs have been increasing. They have explored memory units, including [facility] which they were impressed with. Medications/Allergies - Medications Active Medication List: Active Medications Acetaminophen (Tylenol) 650 mg PO Q4HR PRN PRN Reason: Pain 1 to 4 Aspirin (St Kevin Aspirin) 81 mg PO DAILY [facility] Atorvastatin Calcium (Lipitor) 40 mg PO QPM [facility] Last Admin: 09/11/18 22:17 Dose: Not Given Brimonidine Tartrate (Alphagan P 0.15% Ophth Drops) 1 drops EACHEYE BID [facility] Last Admin: 09/12/18 10:20 Dose: 1 drops Carbidopa/Levodopa (Sinemet Cr 50 Mg/200 Mg) 1 tab PO HS [facility] Carbidopa/Levodopa (Sinemet 25 Mg/100 Mg) 1.5 tab PO 0800,1200,1700 [facility] Dorzolamide/Timolol (Cosopt) 1 drops EACHEYE BID [facility] Last Admin: 09/12/18 10:48 Dose: 1 drops Enoxaparin Sodium (Lovenox) 40 mg SUBQ DAILY [facility] Famotidine (Pepcid) 20 mg IVP BID [facility] Last Admin: 09/12/18 09:49 Dose: 20 mg Ceftriaxone Sodium 1 gm/ (Sodium Chloride) 100 mls @ 200 mls/hr IV DAILY [facility] Last Infusion: 09/12/18 10:30 Dose: Infused Sodium Chloride (Normal Saline 0.9%) 1,000 mls @ 100 mls/hr IV .Q10H [facility] Last Admin: 09/12/18 07:30 Dose: 100 mls/hr Caffeine/Sodium Benzoate 250 (mg/ Sodium Chloride) 501 mls @ 501 mls/hr IV ONCE ONE Stop: 09/12/18 12:59 Latanoprost (Xalatan Ophth Drops) 1 drops EACHEYE BID [facility] Last Admin: 09/11/18 22:27 Dose: 1 drops Multivitamins (Theragran) 1 tab PO DAILY [facility] Ondansetron HCl (Zofran Odt) 4 mg TL Q6HR PRN PRN Reason: Nausea / Vomiting Patient Own Med ( Docusate Sodium [ Colace Clear] 50 Mg) 1 each PO DAILY [facility] Patient Own Med ( Mirabegron [ Myrbetriq] 50 Mg) 1 each PO DAILY [facility] Polyethylene Glycol (Miralax) 17 gm PO DAILY [facility] Rivastigmine Tartrate (Exelon) 6 mg PO BID [facility] Last Admin: 09/11/18 22:17 Dose: Not Given Senna (Senokot) 17.2 mg PO Q48H [facility] Last Admin: 09/11/18 18:12 Dose: Not Given Sodium Chloride (Normal Saline Flush 0.9%) 10 ml IVP PRN PRN PRN Reason: NEEDED PER PROVIDER ORDERS Sodium Chloride (Normal Saline Flush 0.9%) 10 ml IVP 0100,0900,1700 [facility] Last Admin: 09/12/18 01:55 Dose: Not Given Tamsulosin HCl (Flomax) 0.4 mg PO DAILY [facility] Aspirin Chewable [St Kevin Aspirin] 81 mg PO DAILY 06/19/13 Brimonidine 0.15% Ophth Drops [Alphagan P 0.15%] 1 drops EACHEYE BID 06/19/13 Atorvastatin Calcium [Lipitor] 40 mg PO QPM 06/20/13 Carbidopa/Levodopa [Carbidopa-Levo ER 50-200 Tab] 1 tab PO QPM 05/28/16 Rivastigmine Tartrate [Rivastigmine] 6 mg PO BID 06/26/18 Dorzolamide/Timolol Ophth Soln [Cosopt] 1 drops EACHEYE BID 09/06/18 Latanoprost 0.005% Ophth Drops [Xalatan Ophth Drops] 1 drops EACHEYE QPM 09/06/18 Multivitamin/Iron/Folic Acid [Centrum Adults Tablet] 1 tab PO DAILY 09/06/18 Senna [Senokot] 17.2 mg PO Q2D MDD 50 mg docusate sodium+ 09/06/18 Tamsulosin [Flomax] 0.4 mg PO DAILY 09/06/18 Carbidopa/Levodopa 25/100 [Sinemet 25 mg/100 mg] 1.5 tab PO TID 09/11/18 Docusate Sodium [Colace Clear] 50 mg PO DAILY 09/11/18 - Allergies Allergies/Adverse Reactions: Allergies Allergy/AdvReac Type Severity Reaction Status Date / Time niacin Allergy Unknown Verified 09/11/18 13:40 Review of Systems - Eyes Eyes: reports: Other (patient with eyes closed; does flicker with stimulation and opens briefly with painful stimulation) - Ears, Nose & Throat Ears, Nose & Throat: reports: Dry mouth - Respiratory Respiratory: denies: Cough - Genitourinary Genitourinary: reports: Other (reynolds catheter with bladder irrigation) - Musculoskeletal Musculoskeletal: reports: Stiffness, Limited range of motion, Muscle weakness, Other (scoliosis) - Integumentary Integumentary: reports: Dryness - Neurological Neurological: reports: General weakness, Memory problems (lewy body; mostly short yes/no answers) - Hematologic/Lymphatic Hematologic/Lymphatic: reports: Recurrent infections (UTI;last UA was taken to MD office so not in Xceive; had been started on AB unclear if C & S taken last time;) Physical Exam - Vital Signs Vital Signs: Vital Signs x48h Temp Pulse Resp BP Pulse Ox 09/12/18 09:00 36.8 C 64 16 145/83 H 96 09/12/18 05:30 36.8 C 68 18 124/90 H 97 - Physical Exam General Appearance: positive: No acute distress, Lethargic Eyes Bilateral: positive: Other (eyes closed) ENT: positive: Dry mucous membranes Neck: positive: Stiff neck Cardiovascular: positive: Regular rate & rhythm Respiratory: positive: No respiratory distress, Breath sounds nml Abdomen: positive: Soft, Nml bowel sounds Skin: positive: Pallor, Dryness Extremities: positive: No pedal edema, Other (left foot with tenderness) Neurologic/Psychiatric: positive: Other (patient minimally responsive) Palliative Care - POLST Patient has POLST: Yes POLST Status: DNR, Selective Treatment Pain: No pain Drowsiness/Sedation: Severe (7-10) - Palliative Care Discussion: Lonnie Cesar his son, and Sajan ANNALenka is at the bedside. Did report in follow-up after a conversation last palliative visit, felt quite clear when they came into the ED he was able to designate him as a do not attempt resuscitation. Feels like this was consistent with their goals and his mother was in agreement. We did discuss follow up in completing IESHA ST, unclear if patient will be discharged later to day, though unlikely given his current condition. not present, though have had some conversation, and he does feel would be able to sign when she gets there. We did discuss what their goals were for his father, he does understand he is having decline, but he has had fairly good quality of life up to this point in the context he still interactive, able to go out on short rides, is interactive with family. He does recognize he has had decline, and now with yet another episode of nonresponsiveness, worried about patient's increasing care needs and the ability to continue to manage him. We did discuss in the context of today's conversation and also previous, would recommend DNA R and selective treatment. This allows her supports weighing benefits and burdens of decisions as they come along, as they are still interested in further treatment to be able to treat reversible conditions, but not wanting to prolong suffering. Lonnie feels fairly strongly that he and his brother would like to have the patient in the home for end-of-life care, they have recently been through a loss of his 's mother, with hospice in the home and found that to be a very positive and powerful experience.Currently excepting antibiotic treatment for prolongation of life is acceptable, and marked no medically assisted nutrition, with the understanding can weigh benefits and burdens disease decisions, along. Short-term goal is to have him return to previous level of function, if patient has continued decline, may need to explore respite stay or transition plan before returning home. Results - Lab Results Lab results reviewed: Yes Fish Bones: 09/11/18 13:38 09/11/18 14:03 Lab and Imaging Results: Lab Results x24hrs 09/11/18 09/11/18 09/11/18 Range/Units 16:10 16:10 16:10 WBC (4.8-10.8) x10^3/uL RBC (4.70-6.10) 10^6/uL Hgb (14.0-18.0) g/dL Hct (42.0-52.0) % MCV (80.0-94.0) fL MCH (27.0-31.0) pg MCHC (32.0-36.0) g/dL RDW (12.0-15.0) % Plt Count (130-450) 10^3/uL MPV (7.4-11.4) fL Neut # (Auto) (1.5-6.6) 10^3/uL Lymph # (Auto) (1.5-3.5) 10^3/uL [place] # (Auto) (0.0-1.0) 10^3/uL Eos # (Auto) (0.0-0.7) 10^3/uL Baso # (Auto) (0.0-0.1) 10^3/uL Absolute Nucleated RBC x10^3/uL Nucleated RBC % /100WBC Sodium (135-145) mmol/L Potassium (3.5-5.0) mmol/L Chloride (101-111) mmol/L Carbon Dioxide (21-32) mmol/L Anion Gap (6-13) BUN (6-20) mg/dL Creatinine (0.6-1.2) mg/dL Estimated GFR (MDRD) (>89) Glucose (70-100) mg/dL Lactic Acid (0.5-2.2) mmol/L Calcium (8.5-10.3) mg/dL Total Bilirubin (0.2-1.0) mg/dL AST (10-42) IU/L ALT (10-60) IU/L Alkaline Phosphatase (42-121) IU/L Ammonia 12.4 (7-35) umol/L Total Creatine Kinase (22-269) IU/L CK-MB (CK-2) (0.6-6.3) ng/mL Troponin I (<0.49) ng/mL Total Protein (6.7-8.2) g/dL Albumin (3.2-5.5) g/dL Globulin (2.1-4.2) g/dL Albumin/Globulin Ratio (1.0-2.2) Lipase (22-51) U/L TSH 0.83 (0.34-5.60) uIU/mL Urine Color Urine Clarity (CLEAR) Urine pH (5.0-7.5) PH Ur Specific [place] (1.002-1.030) Urine Protein (NEGATIVE) mg/dL Urine Glucose (UA) (NEGATIVE) mg/dL Urine Ketones (NEGATIVE) mg/dL Urine Occult Blood (NEGATIVE) Urine Nitrite (NEGATIVE) Urine Bilirubin (NEGATIVE) Urine Urobilinogen (NORMAL) E.U./dL Ur Leukocyte Esterase (NEGATIVE) Urine RBC (0-5) /HPF Urine WBC (0-3) /HPF Ur Squamous Epith Cells (<= Few) Urine Bacteria (None Seen) /HPF Ur Microscopic Review Urine Culture Comments Ethyl Alcohol < 5.0 mg/dL 09/11/18 09/11/18 09/11/18 Range/Units 14:03 14:03 14:03 WBC (4.8-10.8) x10^3/uL RBC (4.70-6.10) 10^6/uL Hgb (14.0-18.0) g/dL Hct (42.0-52.0) % MCV (80.0-94.0) fL MCH (27.0-31.0) pg MCHC (32.0-36.0) g/dL RDW (12.0-15.0) % Plt Count (130-450) 10^3/uL MPV (7.4-11.4) fL Neut # (Auto) (1.5-6.6) 10^3/uL Lymph # (Auto) (1.5-3.5) 10^3/uL [place] # (Auto) (0.0-1.0) 10^3/uL Eos # (Auto) (0.0-0.7) 10^3/uL Baso # (Auto) (0.0-0.1) 10^3/uL Absolute Nucleated RBC x10^3/uL Nucleated RBC % /100WBC Sodium 138 (135-145) mmol/L Potassium 3.8 (3.5-5.0) mmol/L Chloride 103 (101-111) mmol/L Carbon Dioxide 26 (21-32) mmol/L Anion Gap 9.0 (6-13) BUN 15 (6-20) mg/dL Creatinine 0.7 (0.6-1.2) mg/dL Estimated GFR (MDRD) 108 (>89) Glucose 94 (70-100) mg/dL Lactic Acid 0.8 (0.5-2.2) mmol/L Calcium 8.8 (8.5-10.3) mg/dL Total Bilirubin 1.9 H (0.2-1.0) mg/dL AST 17 (10-42) IU/L ALT < 10 L (10-60) IU/L Alkaline Phosphatase 62 (42-121) IU/L Ammonia (7-35) umol/L Total Creatine Kinase 13 L (22-269) IU/L CK-MB (CK-2) 0.9 (0.6-6.3) ng/mL Troponin I < 0.04 (<0.49) ng/mL Total Protein 6.7 (6.7-8.2) g/dL Albumin 3.4 (3.2-5.5) g/dL Globulin 3.3 (2.1-4.2) g/dL Albumin/Globulin Ratio 1.0 (1.0-2.2) Lipase 26 (22-51) U/L TSH (0.34-5.60) uIU/mL Urine Color Urine Clarity (CLEAR) Urine pH (5.0-7.5) PH Ur Specific [place] (1.002-1.030) Urine Protein (NEGATIVE) mg/dL Urine Glucose (UA) (NEGATIVE) mg/dL Urine Ketones (NEGATIVE) mg/dL Urine Occult Blood (NEGATIVE) Urine Nitrite (NEGATIVE) Urine Bilirubin (NEGATIVE) Urine Urobilinogen (NORMAL) E.U./dL Ur Leukocyte Esterase (NEGATIVE) Urine RBC (0-5) /HPF Urine WBC (0-3) /HPF Ur Squamous Epith Cells (<= Few) Urine Bacteria (None Seen) /HPF Ur Microscopic Review Urine Culture Comments Ethyl Alcohol mg/dL 09/11/18 09/11/18 Range/Units 13:47 13:38 WBC 13.1 H (4.8-10.8) x10^3/uL RBC 4.43 L (4.70-6.10) 10^6/uL Hgb 14.2 (14.0-18.0) g/dL Hct 42.1 (42.0-52.0) % MCV 95.0 H (80.0-94.0) fL MCH 32.0 H (27.0-31.0) pg MCHC 33.7 (32.0-36.0) g/dL RDW 14.4 (12.0-15.0) % Plt Count 232 (130-450) 10^3/uL MPV 8.1 (7.4-11.4) fL Neut # (Auto) 10.9 H (1.5-6.6) 10^3/uL Lymph # (Auto) 1.0 L (1.5-3.5) 10^3/uL [place] # (Auto) 1.0 (0.0-1.0) 10^3/uL Eos # (Auto) 0.0 (0.0-0.7) 10^3/uL Baso # (Auto) 0.1 (0.0-0.1) 10^3/uL Absolute Nucleated RBC 0.01 x10^3/uL Nucleated RBC % 0.1 /100WBC Sodium (135-145) mmol/L Potassium (3.5-5.0) mmol/L Chloride (101-111) mmol/L Carbon Dioxide (21-32) mmol/L Anion Gap (6-13) BUN (6-20) mg/dL Creatinine (0.6-1.2) mg/dL Estimated GFR (MDRD) (>89) Glucose (70-100) mg/dL Lactic Acid (0.5-2.2) mmol/L Calcium (8.5-10.3) mg/dL Total Bilirubin (0.2-1.0) mg/dL AST (10-42) IU/L ALT (10-60) IU/L Alkaline Phosphatase (42-121) IU/L Ammonia (7-35) umol/L Total Creatine Kinase (22-269) IU/L CK-MB (CK-2) (0.6-6.3) ng/mL Troponin I (<0.49) ng/mL Total Protein (6.7-8.2) g/dL Albumin (3.2-5.5) g/dL Globulin (2.1-4.2) g/dL Albumin/Globulin Ratio (1.0-2.2) Lipase (22-51) U/L TSH (0.34-5.60) uIU/mL Urine Color RED/BLOODY Urine Clarity CLOUDY (CLEAR) Urine pH 7.0 (5.0-7.5) PH Ur Specific [place] 1.020 (1.002-1.030) Urine Protein (NEGATIVE) mg/dL Urine Glucose (UA) NEGATIVE (NEGATIVE) mg/dL Urine Ketones 15 H (NEGATIVE) mg/dL Urine Occult Blood (NEGATIVE) Urine Nitrite (NEGATIVE) Urine Bilirubin COLOR INTERFERENCE (NEGATIVE) Urine Urobilinogen (NORMAL) E.U./dL Ur Leukocyte Esterase (NEGATIVE) Urine RBC TNTC H (0-5) /HPF Urine WBC 6-10 H (0-3) /HPF Ur Squamous Epith Cells RARE Squamous (<= Few) Urine Bacteria Few (None Seen) /HPF Ur Microscopic Review INDICATED Urine Culture Comments INDICATED Ethyl Alcohol mg/dL Impression and Recommendations - Palliative Care Impression: This is an 83-year-old gentleman with atypical Parkinson's, with Lewy body dementia, and history of functional and ongoing cognitive decline. Now presents with hematuria, UTI, and decreased level of consciousness. Patient with increasing care needs, though has had low symptom burden, may need to look at transition plan if patient unable to return to previous level of functioning. Palliative care will continue to provide support for goals of care, quality of life issues, transitions planning and anticipatory guidance. Recommendations/Counseling Done: 1. Parkinson's, atypical with Lewy body dementia. Patient now presents with an acute infection, decreased level of consciousness, and most likely we will transition to inpatient status for further support. Patient scheduled for speech therapy eval, when patient awake and able to participate, patient was functional and ambulatory at home. Patient though having increased care needs, may need transition plan between hospital and home, had long discussion regarding using caregiver burden, may benefit from hospital bed if patient is going to be transition back home. 2. Advanced care planning. Patient does have D POA in place, Lonnie Cesar [phone]. He does though include his mother in decision-making, and support. IESHA ST was completed with summation of goals and DNA R/selective treatment options. He will follow-up with his mother, they will call if any further questions, but will sign and get that completed. We will continue to follow patient through acute hospitalization if further goals of care conversation or decisions need to be explored. Palliative care already following patient outpatient, will continue to provide support and anticipatory guidance Time Spent: 50 minutes with greater than 50% of this done in counseling regarding goals of care, advanced care planning completion of the IESHA ST, and coordination of care with hospitalist regarding significant change of status from baseline palliative care visit last week.
[2018-09-12] MEDS: ASPIRIN CHEW 81 MG TABLET PO SCH (12:38)
[2018-09-12] MEDS: CARBIDOPA/LEVODOPA 25 MG/100 MG TABLET PO SCH ×3 (12:38→17:36)
[2018-09-12] MEDS: ENOXAPARIN 40 MG/0.4 ML SYRINGE SUBQ SCH (12:38)
[2018-09-12] MEDS: DOCUSATE SODIUM 50 MG PO SCH (12:39)
[2018-09-12] MEDS: RIVASTIGMINE 1.5 MG CAPSULE PO SCH (12:39)
[2018-09-12] MEDS: MULTIVITAMIN TABLET PO SCH (12:39)
[2018-09-12] MEDS: POLYETHYLENE GLYCOL 3350 17 GM PACKET PO SCH (12:39)
[2018-09-12] MEDS: MIRABEGRON 50 MG PO SCH (12:39)
[2018-09-12] MEDS: TAMSULOSIN 0.4 MG CAPSULE PO SCH (12:40)
--- NOTE | 2018-09-12 14:30 | PROVIDER PROGRESS NOTE ---
Subjective - Prog Note Date Prog Note Date: 09/12/18 Prog Note Time: 14:28 - Subjective Pt reports feeling: No change Subjective: No significant improvement to patient's somnolent status unable to convey subjective symptoms due to semi-obtunded status. Current Medications - Current Medications Current Medications: Active Medications Acetaminophen (Tylenol) 650 mg PO Q4HR PRN PRN Reason: Pain 1 to 4 Aspirin (St Kevin Aspirin) 81 mg PO DAILY [facility] Last Admin: 09/12/18 12:38 Dose: Not Given Atorvastatin Calcium (Lipitor) 40 mg PO QPM [facility] Last Admin: 09/11/18 22:17 Dose: Not Given Brimonidine Tartrate (Alphagan P 0.15% Ophth Drops) 1 drops EACHEYE BID [facility] Last Admin: 09/12/18 10:20 Dose: 1 drops Carbidopa/Levodopa (Sinemet Cr 50 Mg/200 Mg) 1 tab PO HS [facility] Carbidopa/Levodopa (Sinemet 25 Mg/100 Mg) 1.5 tab PO 0800,1200,1700 [facility] Last Admin: 09/12/18 12:38 Dose: Not Given Dorzolamide/Timolol (Cosopt) 1 drops EACHEYE BID [facility] Last Admin: 09/12/18 10:48 Dose: 1 drops Enoxaparin Sodium (Lovenox) 40 mg SUBQ DAILY [facility] Last Admin: 09/12/18 12:38 Dose: Not Given Famotidine (Pepcid) 20 mg IVP BID [facility] Last Admin: 09/12/18 09:49 Dose: 20 mg Ceftriaxone Sodium 1 gm/ (Sodium Chloride) 100 mls @ 200 mls/hr IV DAILY [facility] Last Infusion: 09/12/18 10:30 Dose: Infused Sodium Chloride (Normal Saline 0.9%) 1,000 mls @ 100 mls/hr IV .Q10H [facility] Last Admin: 09/12/18 07:30 Dose: 100 mls/hr Latanoprost (Xalatan Ophth Drops) 1 drops EACHEYE BID [facility] Last Admin: 09/12/18 12:39 Dose: Not Given Multivitamins (Theragran) 1 tab PO DAILY [facility] Last Admin: 09/12/18 12:39 Dose: Not Given Ondansetron HCl (Zofran Odt) 4 mg TL Q6HR PRN PRN Reason: Nausea / Vomiting Patient Own Med ( Docusate Sodium [ Colace Clear] 50 Mg) 1 each PO DAILY [facility] Last Admin: 09/12/18 12:39 Dose: Not Given Patient Own Med ( Mirabegron [ Myrbetriq] 50 Mg) 1 each PO DAILY [facility] Last Admin: 09/12/18 12:39 Dose: Not Given Polyethylene Glycol (Miralax) 17 gm PO DAILY [facility] Last Admin: 09/12/18 12:39 Dose: Not Given Rivastigmine Tartrate (Exelon) 6 mg PO BID [facility] Last Admin: 09/12/18 12:39 Dose: Not Given Senna (Senokot) 17.2 mg PO Q48H [facility] Last Admin: 09/11/18 18:12 Dose: Not Given Sodium Chloride (Normal Saline Flush 0.9%) 10 ml IVP PRN PRN PRN Reason: NEEDED PER PROVIDER ORDERS Sodium Chloride (Normal Saline Flush 0.9%) 10 ml IVP 0100,0900,1700 [facility] Last Admin: 09/12/18 12:39 Dose: Not Given Tamsulosin HCl (Flomax) 0.4 mg PO DAILY [facility] Last Admin: 09/12/18 12:40 Dose: Not Given Aspirin Chewable [St Kevin Aspirin] 81 mg PO DAILY 06/19/13 Brimonidine 0.15% Ophth Drops [Alphagan P 0.15%] 1 drops EACHEYE BID 06/19/13 Atorvastatin Calcium [Lipitor] 40 mg PO QPM 06/20/13 Carbidopa/Levodopa [Carbidopa-Levo ER 50-200 Tab] 1 tab PO QPM 05/28/16 Rivastigmine Tartrate [Rivastigmine] 6 mg PO BID 06/26/18 Dorzolamide/Timolol Ophth Soln [Cosopt] 1 drops EACHEYE BID 09/06/18 Latanoprost 0.005% Ophth Drops [Xalatan Ophth Drops] 1 drops EACHEYE QPM 09/06/18 Multivitamin/Iron/Folic Acid [Centrum Adults Tablet] 1 tab PO DAILY 09/06/18 Senna [Senokot] 17.2 mg PO Q2D MDD 50 mg docusate sodium+ 09/06/18 Tamsulosin [Flomax] 0.4 mg PO DAILY 09/06/18 Carbidopa/Levodopa 25/100 [Sinemet 25 mg/100 mg] 1.5 tab PO TID 09/11/18 Docusate Sodium [Colace Clear] 50 mg PO DAILY 09/11/18 Objective - Vital Signs/Intake & Output Reviewed Vital Signs: Yes Vital Signs: Vital Signs x48h Temp Pulse Resp BP Pulse Ox 09/12/18 09:00 36.8 C 64 16 145/83 H 96 Intake & Output: Intake & Output 09/09/18 09/10/18 09/11/18 09/12/18 23:59 23:59 23:59 23:59 Intake Total 4100 5023.333 Output Total 3000 6100 Balance 1100 -1076.667 - Objective General Appearance: positive: Other (Semi-obtunded status is responsive to tactile and painful stimuli) Eyes Bilateral: positive: PERRL, Conjunctivae nml Neck: positive: Nml inspection, Thyroid nml, No JVD, Trachea midline. negative: Thyromegaly, Stiff neck, Kernig's sign, Brudzinski's sign, Carotid bruit Respiratory: positive: Chest non-tender, No respiratory distress, Breath sounds nml Cardiovascular: positive: Regular rate & rhythm, No murmur, No gallop. negative: Irregularly irregular Peripheral Pulses: 2+ Dorsalis pedis (R), 2+ Dorsalis pedis (L) Abdomen: positive: Non-tender, No organomegaly, Nml bowel sounds, No distention. negative: Tenderness Skin: positive: Color nml, No rash, Warm Extremities: positive: Other (Painful stimuli to left plantar surface per). negative: Pedal edema, Calf tenderness, Joint swelling Neurologic/Psychiatric: positive: Motor nml, Disoriented to person, Disoriented to place, Disoriented to time, Depressed mood/affect. negative: Facial droop, Slurred/abnml speech Babinski Reflex: Right: Absent, Left: Absent - Lab Results Fish Bones: 09/11/18 13:38 09/11/18 14:03 Other Labs: Lab Results x24hrs 09/11/18 09/11/18 09/11/18 Range/Units 16:10 16:10 16:10 Sodium (135-145) mmol/L Potassium (3.5-5.0) mmol/L Chloride (101-111) mmol/L Carbon Dioxide (21-32) mmol/L Anion Gap (6-13) BUN (6-20) mg/dL Creatinine (0.6-1.2) mg/dL Estimated GFR (MDRD) (>89) Glucose (70-100) mg/dL Lactic Acid (0.5-2.2) mmol/L Calcium (8.5-10.3) mg/dL Total Bilirubin (0.2-1.0) mg/dL AST (10-42) IU/L ALT (10-60) IU/L Alkaline Phosphatase (42-121) IU/L Ammonia 12.4 (7-35) umol/L Total Creatine Kinase (22-269) IU/L CK-MB (CK-2) (0.6-6.3) ng/mL Troponin I (<0.49) ng/mL Total Protein (6.7-8.2) g/dL Albumin (3.2-5.5) g/dL Globulin (2.1-4.2) g/dL Albumin/Globulin Ratio (1.0-2.2) Lipase (22-51) U/L TSH 0.83 (0.34-5.60) uIU/mL Urine RBC (0-5) /HPF Urine WBC (0-3) /HPF Ur Squamous Epith Cells (<= Few) Urine Bacteria (None Seen) /HPF Urine Culture Comments Ethyl Alcohol < 5.0 mg/dL 09/11/18 09/11/18 09/11/18 Range/Units 14:03 14:03 14:03 Sodium 138 (135-145) mmol/L Potassium 3.8 (3.5-5.0) mmol/L Chloride 103 (101-111) mmol/L Carbon Dioxide 26 (21-32) mmol/L Anion Gap 9.0 (6-13) BUN 15 (6-20) mg/dL Creatinine 0.7 (0.6-1.2) mg/dL Estimated GFR (MDRD) 108 (>89) Glucose 94 (70-100) mg/dL Lactic Acid 0.8 (0.5-2.2) mmol/L Calcium 8.8 (8.5-10.3) mg/dL Total Bilirubin 1.9 H (0.2-1.0) mg/dL AST 17 (10-42) IU/L ALT < 10 L (10-60) IU/L Alkaline Phosphatase 62 (42-121) IU/L Ammonia (7-35) umol/L Total Creatine Kinase 13 L (22-269) IU/L CK-MB (CK-2) 0.9 (0.6-6.3) ng/mL Troponin I < 0.04 (<0.49) ng/mL Total Protein 6.7 (6.7-8.2) g/dL Albumin 3.4 (3.2-5.5) g/dL Globulin 3.3 (2.1-4.2) g/dL Albumin/Globulin Ratio 1.0 (1.0-2.2) Lipase 26 (22-51) U/L TSH (0.34-5.60) uIU/mL Urine RBC (0-5) /HPF Urine WBC (0-3) /HPF Ur Squamous Epith Cells (<= Few) Urine Bacteria (None Seen) /HPF Urine Culture Comments Ethyl Alcohol mg/dL 09/11/18 Range/Units 13:47 Sodium (135-145) mmol/L Potassium (3.5-5.0) mmol/L Chloride (101-111) mmol/L Carbon Dioxide (21-32) mmol/L Anion Gap (6-13) BUN (6-20) mg/dL Creatinine (0.6-1.2) mg/dL Estimated GFR (MDRD) (>89) Glucose (70-100) mg/dL Lactic Acid (0.5-2.2) mmol/L Calcium (8.5-10.3) mg/dL Total Bilirubin (0.2-1.0) mg/dL AST (10-42) IU/L ALT (10-60) IU/L Alkaline Phosphatase (42-121) IU/L Ammonia (7-35) umol/L Total Creatine Kinase (22-269) IU/L CK-MB (CK-2) (0.6-6.3) ng/mL Troponin I (<0.49) ng/mL Total Protein (6.7-8.2) g/dL Albumin (3.2-5.5) g/dL Globulin (2.1-4.2) g/dL Albumin/Globulin Ratio (1.0-2.2) Lipase (22-51) U/L TSH (0.34-5.60) uIU/mL Urine RBC TNTC H (0-5) /HPF Urine WBC 6-10 H (0-3) /HPF Ur Squamous Epith Cells RARE Squamous (<= Few) Urine Bacteria Few (None Seen) /HPF Urine Culture Comments INDICATED Ethyl Alcohol mg/dL - Other Results/Comments Other Results/Comments: Unable to assess patient's full neurological status due to patient's semi- obtunded status and underlying narcolepsy with hypersomnolence seen on initial physical exam. ABX Reporting Has patient been on IV antibiotics over the past 48 hours?: No Sepsis Event Note (H) - Evaluation Current Stage of Sepsis: Ruled out Assessment/Plan - Problem List (1) Encephalopathy acute Impression: Unclear of current etiology however underlying narcolepsy is of high on differen tial to also include possibility that patient has UTI contributing to persistent semi-obtunded status. Will obtain a lumbar puncture if still persistent and likelihood of proceeding to MRI of the brain to rule out for any lacunar infarcts. Labs and prior CT head do not reveal infectious etiologies and patient does not have any underlying drug-induced side effects contributing to persistent encephalopathy state. (2) Narcolepsy Impression: IV caffeine will be administered and this has been shown to improve narcolepsy state and however patient is currently n.p.o. due to him being semi-obtunded and is obligate breathing at this point. Contributing factors would be possibly un- diagnosed obstructive sleep apnea. Ritalin may be administered only if patient is tolerating p.o. at this time. Patient has been given most of IV caffeine and this has produced an autonomic dysfunction as patient has Parkinson's disease with Lewy body dementia with sinus tachycardia being observed. 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 Qualifiers: Leukocytosis type: unspecified Qualified Code(s): D72.829 - Elevated white blood cell count, unspecified (4) Hematuria due to cystitis Impression: Gross hematuria likely as a result of hemorrhagic cystitis related to UTI with coexisting BPH and urinary retention likely. We will continue with IV Rocephin along with bladder irrigation. Check H&H status tomorrow if needing transfusions currently not needing transfusions. 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 Patient unable to take in his home medication regimen of Sinemet as patient is n.p.o. pending swallowing evaluation by ST and currently receiving IV fluids, is semi-obtunded and would be a high risk for aspiration may have coexisting oral pharyngeal dysphasia will await ST assessment and recommendations for food consistency. (7) Sinus tachycardia Impression: Patient has a history of chronic atrial fibrillation with coronary artery disease is not anticoagulated on telemetry shows normal sinus rhythm however. Likely as a result of IV caffeine with underlying autonomic dysfunction as it pertains to atypical Parkinson's disease. Continue to monitor on telemetry.
[2018-09-12] MEDS: CARBIDOPA/LEVODOPA ER 50 MG/200 MG TABLET PO SCH ×2 (15:42→20:52)
[2018-09-12] MEDS: DEXTROSE 5%-0.9% NACL 1,000 ML IV SCH (16:42)
[2018-09-12] MEDS: ATORVASTATIN 40 MG TABLET PO SCH (20:52)
[2018-09-12] MEDS ORDERED: METHYLPHENIDATE 10 MG TABLET PO SCH (21:00)
[2018-09-13] MEDS: DEXTROSE 5%-0.9% NACL 1,000 ML IV SCH ×2 (02:22→12:55)
[2018-09-13 06:06] LABS: ALBUMIN 2.7 g/dL (3.2-5.5); CALCIUM 8.1 mg/dL (8.5-10.3); CREATININE 0.5 mg/dL (0.6-1.2); PHOSPHORUS 2.1 mg/dL (2.5-4.6)
[2018-09-13 06:11] LABS: BASOPHILS % (AUTO) 0.4 %; EOSINOPHILS # (AUTO) 0.2 10^3/uL (0.0-0.7); EOSINOPHILS % (AUTO) 1.7 %; HGB - HEMOGLOBIN 12.6 g/dL (14.0-18.0); LYMPHOCYTES # (AUTO) 0.9 10^3/uL (1.5-3.5); MEAN CORPUSCULAR HEMOGLOBIN 32.5 pg (27.0-31.0); MEAN CORPUSCULAR HGB CONC 34.3 g/dL (32.0-36.0); MEAN PLATELET VOLUME 8.5 fL (7.4-11.4); MONOCYTES # (AUTO) 0.5 10^3/uL (0.0-1.0); MONOCYTES % (AUTO) 5.7 %; NEUTROPHILS # (AUTO) 7.4 10^3/uL (1.5-6.6); NEUTROPHILS % (AUTO) 82.2 %; PLT - PLATELET COUNT 239 10^3/uL (130-450); RED BLOOD COUNT 3.88 10^6/uL (4.70-6.10); RED CELL DISTRIBUTION WIDTH 14.5 % (12.0-15.0)
--- NOTE | 2018-09-13 08:15 | DISCHARGE SUMMARY ---
"Discharge Summary Admit Date: 09/11/18 Discharge Date: 09/13/18 Discharging Provider: Dr. Romo Primary Care Provider: Chas Coughlin Code Status: Attempt Resuscitation Condition at Discharge: Good Discharge Disposition: Home Health Service Discharge Facility [facility]: [facility] - DIAGNOSES Admission Diagnoses: 1. Acute delirium secondary to UTI with associated hematuria 2. Traumatic Lui catheter insertion with gross hematuria 3. UTI with associated hematuria 4. Acute Moderate dehydration 5. Leukocytosis without sepsis 6. History of falls with gait disturbance as it pertains to patient's progressive Parkinson's disease 7. Parkinson's disease with Lewy body dementia 8. Advanced care planning and counseling 9. Palliative care continued service 10. BPH with associated hematuria 11. History of narcolepsy Discharge Diagnoses with Status of Each Condition: 1. Acute delirium secondary to UTI with associated hematuria; Resolved 2. Acute traumatic Lui catheter insertion associated with gross hematuria, Status post bladder irrigation: Resolving 3. Encephalopathy acute Secondary to multifactorial etiology, resolved 4. Sinus tachycardia secondary to IV caffeine resolved 5. UTI with associated hematuria; Improved 6. Acute Moderate dehydration; Resolved 7. Leukocytosis without sepsis; Resolved 8. History of falls with gait disturbance as it pertains to patient's progressive Parkinson's disease; Chronic and stable 9. Parkinson's disease with Lewy body dementia; Chronic and stable 10. Advanced care planning and counseling 11. Palliative care continued service 12. BPH with associated hematuria; With indwelling Lui catheter chronic and stable 13. History of narcolepsy; Progressive, stable - HPI History of Present Illness: This is an 83-year-old gentleman who has atypical Parkinson's, poorly responsive to carbidopa levodopa, Presents with hematuria and unresponsive at home subsequently being transferred to the emergency department for further evaluation management and treatment. CT head did not show acute infarct. Patient does take multiple medications for his Parkinson's disease/Lewy body dementia. Was found to have a UTI on UA. Clinically was found to be dehydrated. Patient had a traumatic Lui catheter insertion in the emergency department. Patient was found to have gross hematuria after Lui catheter insertion. He does have a shuffling gait, has had a decline in his walking, and increased lower extremity weakness. He fluctuates as far as his ability to participate in his day-to-day activities, including sleeping for long periods of time and difficulty getting out of bed. He has most likely been diagnosed about 5 years ago, has had some fluctuating delusions, hallucinations, but is cooperative and care. He does get quite fatigued when he gets out and is more active. He does have frequent falls, has had limited trauma but did have epidural hematoma as a result of 1 fall. Patient was last seen by palliative care service on 09/06/18; Palliative care to provide support regarding defining goals of care, evaluating and addressing caregiving issues regarding incontinence, and provide anticipatory guidance regarding expected ongoing decline. 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 - CONSULTS | PROCEDURES Procedures: Continuous Bladder Irrigation - HOSPITAL COURSE Hospital Course: Mr. Chandra Cesar was admitted for acute encephalopathy which was at first unclear etiology either due to his atypical Parkinson's with drug-induced comorbidities versus ischemic insults which was ruled out on CT of the head. Patient also was admitted for UTI with gross hematuria seen on his Lui cath which Grew out Citrobacter koseri pansensitive. Gross hematuria was present on admission as patient came in with a traumatic Lui catheter insertion in the emergency department. Bladder irrigation was initiated. 2 sets of blood cultures were negative growth to date. Patient had a remote history of narcolepsy as a young adult however he has had one previous bout for which he was semi-obtunded and somnolent for approximately 72 hours per family. Patient had leukocytosis upon presentation and appeared to be mildly to moderately dehydrated. Patient was placed on IV Rocephin empirically and given IV fluids with electrolyte repletion. Patient was kept n.p.o. as patient was unable to tolerate a diet as he is an obligate mouth breather for which speech pathology was called upon. Patient had been somnolent for up to 24 hours for which MRI of the brain was contemplated however this was not done as patient responded to a dose of IV caffeine which was administered at 250 mg IV fluid bolus.Palliative care service provided support regarding defining goals of care, evaluating and addressing caregiving issues regarding incontinence and providing anticipatory guidance regarding expected ongoing decline. Patient responded well after the administra tion of IV caffeine. Patient did have a bout of sinus tachycardia with some autonomic dysfunction as anticipated due to patient's atypical Parkinson's disease. Contributing factors would be possibly un-diagnosed obstructive sleep apnea. Ritalin Was then commenced to be started the following morning as to increase cognitive awareness and prevent further relapse of narcolepsy. Patient had a retroperitoneal ultrasound in the context of patient's gross hematuria and leukocytosis, Likely related to patient's UTI with hematuria with underlying cystitis however AFTAB shows calculi that is nonobstructing in the right kidney with no hydronephrosis and no masses. There was no observable acute blood loss anemia therefore no transfusions were required. Patient has a history of chronic atrial fibrillation with coronary artery disease is not anticoagulated on telemetry shows normal sinus rhythm however. Likely as a result of IV caffeine with underlying autonomic dysfunction as it pertains to atypical Parkinson's disease. Overall patient responded well to medical management IV fluid resuscitation, Bladder irrigation, as well as IV antibiotics which will now be de-escalated to cephalosporin likely Keflex or a quinolone depending on sensitivities and identification and urine culture. Instructions will be given to family to dispense Ritalin every morning and due to the half-life of approximately 6 hours may dispense as late as 5 PM on a twice daily schedule if needed. Patient will resume Sinemet as well as other Parkinson's disease medication as per primary neurologist. Further assessment in terms of underlying sleep apnea will be followed up as an outpatient as patient has already scheduled appointments for this. PCP to follow-up in 1 or 2 weeks. - ALLERGIES Allergies/Adverse Reactions: Allergies Allergy/AdvReac Type Severity Reaction Status Date / Time niacin Allergy Unknown Verified 09/11/18 13:40 - MEDICATIONS Home Medications: Ambulatory Orders Medication Instructions Recorded Confirmed Aspirin Chewable [St Kevin 81 mg PO DAILY 06/19/13 09/12/18 Aspirin] Brimonidine 0.15% Ophth Drops 1 drops EACHEYE BID 06/19/13 09/12/18 [Alphagan P 0.15% Ophth Drops] Atorvastatin Calcium [Lipitor] 40 mg PO QPM 06/20/13 09/12/18 Carbidopa/Levodopa [Carbidopa-Levo 1 tab PO QPM 05/28/16 09/12/18 ER 50-200 Tab] Rivastigmine Tartrate 6 mg PO BID 06/26/18 09/12/18 [Rivastigmine] Dorzolamide/Timolol Ophth Soln 1 drops EACHEYE BID 09/06/18 09/12/18 [Cosopt] Latanoprost 0.005% Ophth Drops 1 drops EACHEYE QPM 09/06/18 09/12/18 [Xalatan Ophth Drops] Multivitamin/Iron/Folic Acid 1 tab PO DAILY 09/06/18 09/12/18 [Centrum Adults Tablet] Senna [Senokot] 17.2 mg PO Q2D MDD 50 mg docusate 09/06/18 09/12/18 sodium+ Tamsulosin [Flomax] 0.4 mg PO DAILY 09/06/18 09/12/18 Carbidopa/Levodopa 25/100 [Sinemet 1.5 tab PO TID 09/11/18 09/12/18 25 mg/100 mg] Docusate Sodium [Colace Clear] 50 mg PO DAILY 09/11/18 09/11/18 Cephalexin [Keflex] 1,000 mg PO BID #20 capsule 09/13/18 Methylphenidate [Ritalin] 5 mg PO BID PRN #60 tablet 09/13/18 - PHYSICAL EXAM AT DISCHARGE General Appearance: positive: No acute distress, Alert, Other (Masslike facies with underlying dementia) Eyes Bilateral: positive: Normal inspection, PERRL, EOMI ENT: positive: ENT inspection nml, Pharynx nml, No signs of dehydration Neck: positive: Nml inspection, Thyroid nml, No JVD, Trachea midline, Thyromegaly Respiratory: positive: Chest non-tender, No respiratory distress, Breath sounds nml Cardiovascular: positive: Regular rate & rhythm, No murmur, No gallop Peripheral Pulses: positive: 2+ Abdomen: positive: Non-tender, No organomegaly, Nml bowel sounds, No distention, Tenderness Skin: positive: Color nml, No rash, Warm Extremities: positive: Non-tender, Full ROM Neurologic/Psychiatric: positive: Disoriented to place, Disoriented to time, Other (Baseline dyskinesias at the akithesias present). negative: Slurred/abnml speech Physical Exam Other/Comments: CBI with FC in place with lynda to cloudy turbid urine without gross hematuria. - LABS Result Diagrams: 09/13/18 05:40 09/14/18 05:20 - SEPSIS Current Stage of Sepsis: Ruled out - FOLLOW UP Follow Up: To follow-up with primary neurologist as scheduled, Dr. Phillip, PCP in 1-2 weeks, patient has scheduled outpatient sleep clinic to be seen for eval on EMILY. Patient will be set up with a urologist [facility] for Lui catheter removal in approximately 1-2 weeks. - TIME SPENT Time Spent in Discharge (Minutes): 35"
--- NOTE | 2018-09-13 08:30 | Discharge Plan ---
Discharge Plan Disposition: 06 Home Health Service Condition: Good Prescriptions: Cephalexin [Keflex] 1,000 mg PO BID #20 capsule Methylphenidate [Ritalin] 5 mg PO BID PRN #60 tablet PRN Reason: somnolence Diet: Regular (Dysphagia mechanical altered diet with thin liquid consistency) Activity Restrictions: Activity as Tolerated Shower Restrictions: No Driving Restrictions: Yes Assistance Devices: Walker Weight Bearing: Full Weight Instruction Topics: Methylphenidate tablets, UTI, Parkinson Disease, Parkinson Disease Tips Meds, Narcolepsy, Narcolepsy Tx, Catheter Bag Urinary Empty Clean, Parkinson Disease Home Safety, ED Catheter Care Lui Additional Instructions or Follow Up instructions: Patient's family has been instructed on the use of Ritalin which will be a new medication for patient's underlying narcolepsy as it pertains to his hospitalization. Patient will likely be using this medication to prevent recurrence and would ideally be in place in the morning and can be dispensed as twice daily no later than 5 PM due to patient likely side effect of insomnia. servants as it relates to atypical Parkinson's disease will be continued to be followed up as an outpatient with primary neurologist to be titrating and or adding any additional agents to control patient's Parkinson's disease with Lewy body dementia. Patient will be continued on antibiotics for an additional 5 days to eradicate UTI which does not appear to be complicated as patient Had a traumatic Lui catheter insertion with gross hematuria which received extensive bladder irrigation likely as a result of friable bladder wall in conjunction with BPH. Patient will be discharged with a Lui catheter and to be cared for as an outpatient and instructed to follow-up with either urologist in 1-2 weeks or PCP in 1-2 weeks. Patient had an exchange of Lui catheter upon admission. Patient will have physical therapy assess patient's gait strength and balance. Patient's family have elected to place patient in a respite memory care unit Center for which patient will be continued to be monitored and with home health physical therapy with RN to see patient at this unit. No Smoking: If you smoke, Please STOP! Call for help. Follow-up with: Chas Coughlin DO [Primary Care Provider] - 2 Weeks Neal Wade MD [Physician No Access] - (Please disregard) Aidan Francis MD [Physician No Access] - (Please set up an appointment in 1-2 weeks for removal of Lui catheter) Tracy Pack MD [Physician No Access] - (To follow-up with primary neurologist in 2-3 weeks)
[2018-09-13] MEDS: ASPIRIN CHEW 81 MG TABLET PO SCH (09:32)
[2018-09-13] MEDS: CARBIDOPA/LEVODOPA 25 MG/100 MG TABLET PO SCH ×3 (09:32→17:18)
[2018-09-13] MEDS: MULTIVITAMIN TABLET PO SCH (09:32)
[2018-09-13] MEDS: TAMSULOSIN 0.4 MG CAPSULE PO SCH (09:32)
[2018-09-13] MEDS: cefTRIAXone 1 GM in SODIUM CHLORIDE 0.9% MINIBAG 100 ML IV SCH (09:34)
[2018-09-13] MEDS: POLYETHYLENE GLYCOL 3350 17 GM PACKET PO SCH (09:34)
[2018-09-13] MEDS: FAMOTIDINE 20 MG/2 ML VIAL IVP SCH ×2 (09:34→21:04)
[2018-09-13] MEDS: ENOXAPARIN 40 MG/0.4 ML SYRINGE SUBQ SCH (09:34)
[2018-09-13] MEDS: DORZOLAMIDE/TIMOLOL OPHTH DROPS EACHEYE SCH ×2 (09:35→21:10)
[2018-09-13] MEDS: BRIMONIDINE 0.15% OPHTH DROPS 5 ML EACHEYE SCH ×2 (09:35→21:09)
[2018-09-13] MEDS: LATANOPROST 0.005% OPHTH DROPS EACHEYE SCH ×2 (09:36→21:05)
[2018-09-13] MEDS: MIRABEGRON 50 MG PO SCH (09:37)
[2018-09-13] MEDS: DOCUSATE SODIUM 50 MG PO SCH (09:38)
[2018-09-13] MEDS: SODIUM CHLORIDE FLUSH 0.9% 10 ML SYRINGE IVP SCH ×2 (09:39→17:18)
[2018-09-13] MEDS: METHYLPHENIDATE 5 MG TABLET PO SCH (09:51)
--- NOTE | 2018-09-13 17:01 | CONSULTATION NOTE ---
Palliative Care Follow Up - Referral Referring Provider: Vicente Romo Time of Visit: [id number] Referral setting: Hospitalized patient Referral Reason: Parkinsons with Lewy Body Dementia/UTI/Goals of Care - Information Sources Records reviewed: RN notes reviewed, Previous records reviewed History/Review of Systems obtained from: Patient, Family ( Lara, son Lonnie, and DIL Kyra at bedside/family conference) Exam limitations: Clinical condition (patient more alert; with dementia; few yes/no's but unable to participate) Social History - Living Situation Living arrangement: At home Living Situation: With spouse/s.o. Medications/Allergies - Medications Active Medication List: Active Medications Acetaminophen (Tylenol) 650 mg PO Q4HR PRN PRN Reason: Pain 1 to 4 Aspirin (St Kevin Aspirin) 81 mg PO DAILY [facility] Last Admin: 09/13/18 09:32 Dose: 81 mg Atorvastatin Calcium (Lipitor) 40 mg PO QPM [facility] Last Admin: 09/12/18 20:52 Dose: 40 mg Brimonidine Tartrate (Alphagan P 0.15% Ophth Drops) 1 drops EACHEYE BID [facility] Last Admin: 09/13/18 09:35 Dose: 1 drops Carbidopa/Levodopa (Sinemet Cr 50 Mg/200 Mg) 1 tab PO HS [facility] Last Admin: 09/12/18 20:52 Dose: 1 tab Carbidopa/Levodopa (Sinemet 25 Mg/100 Mg) 1.5 tab PO 0800,1200,1700 [facility] Last Admin: 09/13/18 12:54 Dose: 1.5 tab Dorzolamide/Timolol (Cosopt) 1 drops EACHEYE BID [facility] Last Admin: 09/13/18 09:35 Dose: 1 drops Enoxaparin Sodium (Lovenox) 40 mg SUBQ DAILY [facility] Last Admin: 09/13/18 09:34 Dose: 40 mg Famotidine (Pepcid) 20 mg IVP BID [facility] Last Admin: 09/13/18 09:34 Dose: 20 mg Ceftriaxone Sodium 1 gm/ (Sodium Chloride) 100 mls @ 200 mls/hr IV DAILY [facility] Last Infusion: 09/13/18 10:04 Dose: Infused Dextrose/Sodium Chloride (D5ns) 1,000 mls @ 100 mls/hr IV .Q10H [facility] Last Admin: 09/13/18 12:55 Dose: 100 mls/hr Latanoprost (Xalatan Ophth Drops) 1 drops EACHEYE BID [facility] Last Admin: 09/13/18 09:36 Dose: Not Given Methylphenidate HCl (Ritalin) 5 mg PO QDBREAKFAST [facility] Last Admin: 09/13/18 09:51 Dose: 5 mg Multivitamins (Theragran) 1 tab PO DAILY [facility] Last Admin: 09/13/18 09:32 Dose: 1 tab Ondansetron HCl (Zofran Odt) 4 mg TL Q6HR PRN PRN Reason: Nausea / Vomiting Patient Own Med ( Docusate Sodium [ Colace Clear] 50 Mg) 1 each PO DAILY [facility] Last Admin: 09/13/18 09:38 Dose: Not Given Patient Own Med ( Mirabegron [ Myrbetriq] 50 Mg) 1 each PO DAILY [facility] Last Admin: 09/13/18 09:37 Dose: Not Given Polyethylene Glycol (Miralax) 17 gm PO DAILY [facility] Last Admin: 09/13/18 09:34 Dose: 17 gm Senna (Senokot) 17.2 mg PO Q48H [facility] Last Admin: 09/11/18 18:12 Dose: Not Given Sodium Chloride (Normal Saline Flush 0.9%) 10 ml IVP PRN PRN PRN Reason: NEEDED PER PROVIDER ORDERS Sodium Chloride (Normal Saline Flush 0.9%) 10 ml IVP 0100,0900,1700 [facility] Last Admin: 09/13/18 09:39 Dose: 10 ml Tamsulosin HCl (Flomax) 0.4 mg PO DAILY [facility] Last Admin: 09/13/18 09:32 Dose: 0.4 mg Aspirin Chewable [St Kevin Aspirin] 81 mg PO DAILY 06/19/13 Brimonidine 0.15% Ophth Drops [Alphagan P 0.15% Ophth Drops] 1 drops EACHEYE BID 06/19/13 Atorvastatin Calcium [Lipitor] 40 mg PO QPM 06/20/13 Carbidopa/Levodopa [Carbidopa-Levo ER 50-200 Tab] 1 tab PO QPM 05/28/16 Rivastigmine Tartrate [Rivastigmine] 6 mg PO BID 06/26/18 Dorzolamide/Timolol Ophth Soln [Cosopt] 1 drops EACHEYE BID 09/06/18 Latanoprost 0.005% Ophth Drops [Xalatan Ophth Drops] 1 drops EACHEYE QPM Multivitamin/Iron/Folic Acid [Centrum Adults Tablet] 1 tab PO DAILY 09/06/18 Senna [Senokot] 17.2 mg PO Q2D MDD 50 mg docusate sodium+ 09/06/18 Tamsulosin [Flomax] 0.4 mg PO DAILY 09/06/18 Carbidopa/Levodopa 25/100 [Sinemet 25 mg/100 mg] 1.5 tab PO TID 09/11/18 Docusate Sodium [Colace Clear] 50 mg PO DAILY 09/11/18 - Allergies Allergies/Adverse Reactions: Allergies Allergy/AdvReac Type Severity Reaction Status Date / Time niacin Allergy Unknown Verified 09/11/18 13:40 Review of Systems - Constitutional Constitutional: reports: Weight stable - Ears, Nose & Throat Ears, Nose & Throat: reports: Dry mouth - Gastrointestinal Gastrointestinal: reports: Good appetite - Genitourinary Genitourinary: reports: Other (reynolds catheter; plan for urology follow up after discharge; will be discharged with catheter) - Musculoskeletal Musculoskeletal: reports: Stiffness, Muscle weakness, Other (awaiting PT evaluation;) - Integumentary Integumentary: reports: Dryness - Neurological Neurological: reports: General weakness, Memory problems (patient baseline mostly one word answers/not accurate/occasional sentences/word salad) - Psychiatric Psychiatric: reports: Other (patient more alert; engage today;) - Hematologic/Lymphatic Hematologic/Lymphatic: reports: Bleeding tendencies (hematuria resolving) - All Other Systems All Other Systems: reports: Other (limited ROS) Physical Exam - Vital Signs Vital Signs: Vital Signs x48h Temp Pulse Pulse Resp BP BP Pulse Ox 09/13/18 15:40 36.6 C 80 20 160/121 H 95 09/13/18 11:00 68 116/78 - Physical Exam General Appearance: positive: No acute distress, Anxious. negative: Lethargic Eyes Bilateral: positive: Normal inspection ENT: positive: Dry mucous membranes Neck: positive: No JVD, Trachea midline Cardiovascular: positive: Regular rate & rhythm Respiratory: positive: No respiratory distress Abdomen: positive: Soft Skin: positive: Pallor, Dryness Extremities: positive: No pedal edema Neurologic/Psychiatric: positive: Mood/affect nml (smiling; appears to appreciate company and interaction), Disoriented to person, Disoriented to place, Disoriented to time, Weakness, Unintelligible speech Palliative Care - POLST Patient has POLST: Yes POLST Status: DNR, Selective Treatment Pain: No pain Performance Status: Patient has been mostly bedbound through hospital stay, awaiting PT evaluation; appears stronger but difficulty following cues. Family assisting with feeding. - Palliative Care Discussion: Met with Lonnie Bermudez son who is D POA, and [id number] Kyra. Discussed in the context the patient is Much improved from yesterday, does shows symptoms of decline both functionally and cognitively. very hopeful, patient may eventually be able to return home, but does admit patient currently is too much care for her. She does have 4 hours a day caregiving and her sons on the weekend but this would not be adequate at this point given his increased level of care. Son Lonnie has been in touch with [facility] they do have an opening for respite care, recommended that they do make arrangements to proceed with those plans. We did discuss in the context of someone with dementia, and serious illness, that hospitalization can exacerbate both functional and cognitive decline, and at this point in time we do not know what his "new normal is going to be". He will be seeing urology on discharge, this is most likely to happen in the next couple weeks, this is added some complexity to his care. Everyone is somewhat exhausted given not only the patient's decline in hospitalization, as son has been staying the night, But [id number]'s mother just recently on hospice last week. Reviewed with all the stressors that would be of benefit to have support. Permission given to go ahead and facilitate [facility] interview with nurse, given pending discharge. Would also recommend home health nursing and physical therapy, nursing to follow-up for any Reynolds catheter problems and monitoring of medications, physical therapy to move toward the goal to return back to previous level of functioning. Separate conversation with Lonnie and [id number], shared that is having difficulty, does want patient home but unrealistic about what she is able to do as far as providing support. She herself has some health problems, but very much wants him with her. Results - Lab Results Lab results reviewed: Yes Fish Bones: 09/13/18 05:40 09/13/18 05:40 Lab and Imaging Results: Lab Results x24hrs 09/13/18 09/13/18 Range/Units 05:40 05:40 WBC 9.0 (4.8-10.8) x10^3/uL RBC 3.88 L (4.70-6.10) 10^6/uL Hgb 12.6 L (14.0-18.0) g/dL Hct 36.9 L (42.0-52.0) % MCV 95.0 H (80.0-94.0) fL MCH 32.5 H (27.0-31.0) pg MCHC 34.3 (32.0-36.0) g/dL RDW 14.5 (12.0-15.0) % Plt Count 239 (130-450) 10^3/uL MPV 8.5 (7.4-11.4) fL Neut # (Auto) 7.4 H (1.5-6.6) 10^3/uL Lymph # (Auto) 0.9 L (1.5-3.5) 10^3/uL Pitt # (Auto) 0.5 (0.0-1.0) 10^3/uL Eos # (Auto) 0.2 (0.0-0.7) 10^3/uL Baso # (Auto) 0.0 (0.0-0.1) 10^3/uL Absolute Nucleated RBC 0.01 x10^3/uL Nucleated RBC % 0.1 /100WBC Sodium 136 (135-145) mmol/L Potassium 3.3 L (3.5-5.0) mmol/L Chloride 105 (101-111) mmol/L Carbon Dioxide 24 (21-32) mmol/L Anion Gap 7.0 (6-13) BUN 10 (6-20) mg/dL Creatinine 0.5 L (0.6-1.2) mg/dL Estimated GFR (MDRD) 159 (>89) Glucose 136 H (70-100) mg/dL Calcium 8.1 L (8.5-10.3) mg/dL Phosphorus 2.1 L (2.5-4.6) mg/dL Albumin 2.7 L (3.2-5.5) g/dL Impression and Recommendations - Palliative Care Impression: Is an 83-year-old gentleman with atypical Parkinson's with Lewy body dementia, history of functional and ongoing cognitive decline. Patient presented acutely, with UTI, and decreased level of consciousness. Patient has improved from yesterday's baseline, but remains significantly compromised. Patient with increased care needs, family willing to look at transition plan as patient currently is not back to previous level of functioning. Palliative care continue to provide support for goals of care, quality of life issues, transition planning and anticipatory guidance. Recommendations/Counseling Done: 1. Parkinson's with Lewy body dementia. Patient has had both functional and cognitive decline with acute illness. Patient with increased care needs, family conference with agreement to transition to respite stay at [facility]. They have toured and had previous experience. Call to Paola theatre director, she will, and do a evaluation 11:00. Plan discussed with a 2-week respite, with goal to define "new normal", and provide support regarding increased care needs. Would recommend home health RN and physical therapy, will provide [id number] at end of visit note. 2. UTI. Follow-up, patient actually had traumatic cath from the ED per hospitalist. Unclear patient was having urinary retention, adding to his risk of UTI. Patient currently being maximally treated, and will follow up with urology. Patient will be discharged with Reynolds catheter, continues with just mild hematuria. Patient denies any pain or discomfort at this point in time. 3. Advanced care planning. IESHA ST completed yesterday with Sajan Cesar. Family conference to define goals moving forward, short-term goals are for patient to return to previous level of functioning, be at a safe place secondary to increased care needs, and to trial respite stay. Provided anticipatory guidance regarding acute hospitalization and impact on function and cognition, hoping for the best to return home with previous level of support, but needing to look at what patient's new level will be. Palliative care to continue provide support regarding transition to new setting, continue to define goals of care based on outcome of patient's recovery, and anticipatory guidance. [id number]. Patient is homebound secondary is considerable and taxing effort for the patient to leave the facility secondary to advanced dementia, and recent decline in function secondary to deconditioning lower extremity weakness. Physical therapy for safety eval, Home exercise program for strengthening and endurance, and gait training with walker.RN for evaluation and support of Reynolds catheter, care of catheter, and evaluation in response to new medications and transition to new setting. Time Spent: 60 minutes was given 50% of this done in counseling regarding goals of care, family conference, anticipatory guidance and coordination of care with [facility], FIRE ALARM TECHNICIAN, and hospitalist and clinical staff.
[2018-09-13] MEDS: SENNA 8.6 MG TABLET PO SCH (17:17)
--- NOTE | 2018-09-13 17:44 | MISCELLANEOUS PROVIDER NOTE ---
Miscellaneous Provider Note - - Note: Subjective: Patient with cognitive functioning capacity and back to his baseline Parkinson's/Lewy body dementia state. Patient does not convey any chest pain, shortness of breath, fevers, chills, or any neurological deficits. Patient was scheduled to be discharged today. Objective: Vital signs are hemostatically stable. Afebrile, heart rate 61, blood pressure 138/66, RR 16, 100% O2 saturation on room air HEENT, pupils equal round react light and accommodation/extraocular muscles are bilateral and intact, NCAT Neck: No JVD motor no bruits CV lungs: RRR, CTA BL Extremities/skin: no edema, or cyanosis Neuro: Patient with baseline akathisia as dystonias and Maski-like facies. Intention tremor visible along with shuffling gait Labs: Reviewed Imaging studies: Reviewed next Assessment: 1. Acute delirium secondary to UTI with associated hematuria; Resolved 2. Acute traumatic Lui catheter insertion associated with gross hematuria, Status post bladder irrigation: Resolving 3. Encephalopathy acute Secondary to multifactorial etiology, resolved 4. Sinus tachycardia secondary to IV caffeine resolved 5. UTI with associated hematuria; Improved 6. Acute Moderate dehydration; Resolved 7. Leukocytosis without sepsis; Resolved 8. History of falls with gait disturbance as it pertains to patient's progressive Parkinson's disease; Chronic and stable 9. Parkinson's disease with Lewy body dementia; Chronic and stable 10. Advanced care planning and counseling 11. Palliative care continued service 12. BPH with associated hematuria; With indwelling Lui catheter chronic and stable 13. History of narcolepsy; Progressive, stable Plan: Would continue with current medical management and continue treating patient with IV Rocephin to transition over to p.o. Keflex to continue for an additional 7 days. Patient continues with gross hematuria and will continue with bladder irrigation with normal saline. Unfortunately patient previously had a bag of sterile water hung up which essentially pulled electrolytes therefore producing a hypokalemia which was seen on labs which was corrected. Patient is growing out pansensitive Citrobacter Kosair he which is sensitive to cephalosporins as well as quinolones. Patient's family has elected for respite care service/memory unit for which currently awaiting PCP to sign admitting orders and follow patient at this location. Home health services with home physical therapy as well as skilled nurse has been ordered and requested. Patient has been scheduled for primary neurologist Marifer Phillip along with a new appointment for urologist at [facility] to be seen in 1-2 weeks. PCP to follow at memory care unit. Discharge planning. Per palliative care service: Met with Lonnie Bermudez son who is D POA, and [id number] Kyra. Discussed in the context the patient is Much improved from yesterday, does shows symptoms of decline both functionally and cognitively. very hopeful, patient may eventually be able to return home, but does admit patient currently is too much care for her. She does have 4 hours a day caregiving and her sons on the weekend but this would not be adequate at this point given his increased level of care. Son Lonnie has been in touch with [facility] they do have an opening for respite care, recommended that they do make arrangements to proceed with those plans. We did discuss in the context of someone with dementia, and serious illness, that hospitalization can exacerbate both functional and cognitive decline, and at this point in time we do not know what his "new normal is going to be". He will be seeing urology on discharge, this is most likely to happen in the next couple weeks, this is added some complexity to his care. Everyone is somewhat exhausted given not only the patient's decline in hospitalization, as son has been staying the night, But da edibrh-bu-aij's mother just recently on hospice last week. Reviewed with all the stressors that would be of benefit to have support. Permission given to go ahead and facilitate [facility] interview with nurse, given pending discharge. Would also recommend home health nursing and physical therapy, nursing to follow-up for any Lui catheter problems and monitoring of medications, physical therapy to move toward the goal to return back to previous level of functioning. Separate conversation with Lonnie and [id number], shared that is having difficulty, does want patient home but unrealistic about what she is able to do as far as providing support. She herself has some health problems, but very much wants him with her.
[2018-09-13] MEDS: ATORVASTATIN 40 MG TABLET PO SCH (21:04)
[2018-09-13] MEDS: CARBIDOPA/LEVODOPA ER 50 MG/200 MG TABLET PO SCH (21:04)
[2018-09-13] MEDS: NS W/20 MEQ KCL 1,000 ML IV SCH (22:45)
[2018-09-13] MEDS: POTASSIUM CHLORIDE 20 MEQ TABLET PO SCH (22:45)
[2018-09-14] MEDS: SODIUM CHLORIDE FLUSH 0.9% 10 ML SYRINGE IVP SCH ×2 (00:03→08:49)
--- NOTE | 2018-09-14 07:33 | Discharge Plan ---
"Discharge Plan for SNF / [facility] - Discharge Plan And Transition Orders Disposition: 06 Home Health Service Condition: Good Allergies and Adverse Reactions: Allergies Allergy/AdvReac Type Severity Reaction Status Date / Time niacin Allergy Unknown Verified 09/11/18 13:40 - SN[facility] / [facility] Transition Orders Admit to (Facility): [facility] Under the care of (Name): PCP Dr Coughlin Medicare Certification Statement: I certify that Post Hospital custodial care is medically necessary on a continuing basis for any of the conditions for which she/he is receiving care d uring hospitalization. Notify PCP of admission and forward orders to primary provider for signature. Weight on admission and: Weekly Other Notification Orders: Call PCP immediately if patient develops dyspnea, chest pain/tightness or edema. House Bowel Program: Yes Additional Bowel Program Orders: If no BM after 2 days, nurse may give M.O.M. 30ml PO PRN and/or ducolax Supp 1 NH and/or SHAUN 250mg P.O., and/or senna 1-2 tabs PO. On day 3 nurse may give repeat above order until residents constipation is resolved. Annual Influenza Vaccine (between Mar 09 and October 06): Yes Two-step PPD per [facility] [phone] or approved exception documents: No Treatments & Other Orders: Patient's family has been instructed on the use of Ritalin which will be a new medication for patient's underlying narcolepsy as it pertains to his hospitalization. Patient will likely be using this medication to prevent recurrence and would ideally be in place in the morning and can be dispensed as twice daily no later than 5 PM due to patient likely side effect of insomnia. servants as it relates to atypical Parkinson's disease will be continued to be followed up as an outpatient with primary neurologist to be titrating and or adding any additional agents to control patient's Parkinson's disease with Lewy body dementia. Patient will be continued on antibiotics for an additional 5 days to eradicate UTI which does not appear to be complicated as patient Had a traumatic Lui catheter insertion with gross hematuria which received extensive bladder irrigation likely as a result of friable bladder wall in conjunction with BPH. Patient will be discharged with a Lui catheter and to be cared for as an outpatient and instructed to follow-up with either urologist in 1-2 weeks or PCP in 1-2 weeks. Patient had an exchange of Lui catheter upon admission. Patient will have physical therapy assess patient's gait strength and balance. Patient's family have elected to place patient in a respite memory care unit Center for which patient will be continued to be monitored and with home health physical therapy with RN to see patient at this unit. Medication Orders: PLEASE REFER TO THE DISCHARGE MEDICATION LIST. Insulin Orders?: No - Medications New Prescriptions: Cephalexin [Keflex] 1,000 mg PO BID #20 capsule Methylphenidate [Ritalin] 5 mg PO BID PRN #60 tablet PRN Reason: somnolence - Diet Type: No added salt Texture: Dysphagia mech (MAy have meds) Liquids: Thin May have monthly special meal: Yes - Therapies | Activity Therapy: Evaluation | Treat if indicated: PT, OT, Swallowing / ST Rehabilitation Potential: Maximize functional status, Return to independent living, Maintain present ADL Functional Activity: Activity as Tolerated Weight Bearing: Full Weight Assistance Devices: Walker Additional Instructions: Patient's family has been instructed on the use of Ritalin which will be a new medication for patient's underlying narcolepsy as it pertains to his hospitalization. Patient will likely be using this medication to prevent recurrence and would ideally be in place in the morning and can be dispensed as twice daily no later than 5 PM due to patient likely side effect of insomnia. servants as it relates to atypical Parkinson's disease will be continued to be followed up as an outpatient with primary neurologist to be titrating and or adding any additional agents to control patient's Parkinson's disease with Lewy body dementia. Patient will be continued on antibiotics for an additional 5 days to eradicate UTI which does not appear to be complicated as patient Had a traumatic Lui catheter insertion with gross hematuria which received extensive bladder irrigation likely as a result of friable bladder wall in conjunction with BPH. Patient will be discharged with a Lui catheter and to be cared for as an outpatient and instructed to follow-up with either urologist in 1-2 weeks or PCP in 1-2 weeks. Patient had an exchange of Lui catheter upon admission. Patient will have physical therapy assess patient's gait strength and balance. Patient's family have elected to place patient in a respite memory care unit Center for which patient will be continued to be monitored and with home health physical therapy with RN to see patient at this unit. Follow Up: Follow up with PCP and Neurologist/Urologist as scheduled."
[2018-09-14] MEDS: cefTRIAXone 1 GM in SODIUM CHLORIDE 0.9% MINIBAG 100 ML IV SCH (08:03)
[2018-09-14] MEDS: BRIMONIDINE 0.15% OPHTH DROPS 5 ML EACHEYE SCH (08:05)
[2018-09-14] MEDS: ENOXAPARIN 40 MG/0.4 ML SYRINGE SUBQ SCH (08:09)
[2018-09-14 08:13] VITALS: BP 114/74
[2018-09-14] MEDS: LATANOPROST 0.005% OPHTH DROPS EACHEYE SCH (08:14)
[2018-09-14] MEDS: CARBIDOPA/LEVODOPA 25 MG/100 MG TABLET PO SCH ×2 (08:19→12:32)
[2018-09-14] MEDS: ASPIRIN CHEW 81 MG TABLET PO SCH (08:20)
[2018-09-14] MEDS: MULTIVITAMIN TABLET PO SCH (08:20)
[2018-09-14] MEDS: POTASSIUM CHLORIDE 20 MEQ TABLET PO SCH (08:20)
[2018-09-14] MEDS: DOCUSATE SODIUM 50 MG PO SCH (08:21)
[2018-09-14] MEDS: TAMSULOSIN 0.4 MG CAPSULE PO SCH (08:22)
[2018-09-14] MEDS: POLYETHYLENE GLYCOL 3350 17 GM PACKET PO SCH (08:22)
[2018-09-14] MEDS: MIRABEGRON 50 MG PO SCH (08:22)
[2018-09-14] MEDS: METHYLPHENIDATE 5 MG TABLET PO SCH (08:23)
[2018-09-14] MEDS: DORZOLAMIDE/TIMOLOL OPHTH DROPS EACHEYE SCH (08:33)
[2018-09-14] MEDS: FAMOTIDINE 20 MG/2 ML VIAL IVP SCH (08:48)
[2018-09-14] MEDS: NS W/20 MEQ KCL 1,000 ML IV SCH (12:32)
== END 2018-09-14 12:32 | disposition home health service (06) | DRG 690 ==
LOC: EDUNIT# → ED 13:31 → OBS 15:28 → OBSVTOIN 09-12 10:56 → MS2 09-12 19:24
PROVIDERS: ADMIT Family Medicine; ATTEND Family Medicine
DX: N39.0 Urinary tract infection, site not specified (principal); N30.91 Cystitis, unspecified with hematuria; R31.9 Hematuria, unspecified; T83.83XA Hemorrhage due to genitourinary prosthetic devices, implants and grafts, initial encounter; G93.40 Encephalopathy, unspecified; R31.0 Gross hematuria; G20 Parkinson's disease; R32 Unspecified urinary incontinence; I48.91 Unspecified atrial fibrillation; R41.82 Altered mental status, unspecified; E78.00 Pure hypercholesterolemia, unspecified; I25.10 Atherosclerotic heart disease of native coronary artery without angina pectoris; Z95.5 Presence of coronary angioplasty implant and graft; R01.1 Cardiac murmur, unspecified; K59.09 Other constipation; N40.1 Benign prostatic hyperplasia with lower urinary tract symptoms; R35.1 Nocturia; H40.9 Unspecified glaucoma; M41.9 Scoliosis, unspecified; Z79.82 Long term (current) use of aspirin; R00.0 Tachycardia, unspecified; E86.0 Dehydration; Z91.81 History of falling; R26.9 Unspecified abnormalities of gait and mobility; Z51.5 Encounter for palliative care; G47.419 Narcolepsy without cataplexy; N20.0 Calculus of kidney; I48.2 Chronic atrial fibrillation; F45.8 Other somatoform disorders; K27.9 Peptic ulcer, site unspecified, unspecified as acute or chronic, without hemorrhage or perforation; Z66 Do not resuscitate; Z74.01 Bed confinement status
CPT/HCPCS: 36415; 51701; 70450; 71045; 76770; 80053; 80069; 81001; 82140; 82550; 82553; 83605; 83690; 84132; 84443; 84484; 85025; 87040; 87086; 87181; 92526; 92610; 96361; 96365; 96375; 96376; 97162; 99233; 99284; 99285; A9270; G0378; J1650; 51702; 80320; 81003

== ENCOUNTER 2018-09-14 11:56 | Outpatient (CLI) | payer MEDICARE, OTHER | END 2018-09-14 11:57 | disposition home or self-care (01) | LOC: EMS 11:56 | PROVIDERS: ATTEND Surgery | DX: Z51.5 Encounter for palliative care (principal); Z74.01 Bed confinement status | CPT/HCPCS: A0425; A0428 ==

== ENCOUNTER 2018-09-18 13:20 | Outpatient (CLI) | payer MEDICARE, OTHER ==
--- NOTE | 2018-09-18 19:57 | CONSULTATION NOTE ---
Palliative Care Follow Up - Referral Referring Provider: Dr Coughlin Time of Visit: Sun09/18/2018. 13:20 - 14:20 Referral setting: Assisted living (Seen in home setting due to taxing and considerable effort required to leave the home secondary to Parkinson's and dementia. In addition access to facility records is required.) - Information Sources Records reviewed: RN notes reviewed History/Review of Systems obtained from: Patient, Family Exam limitations: Clinical condition (Dementia) - History of Present Illness Update Brief HPI Update: 83-year-old man with atypical Parkinson's and Lewy body dementia. He has ongoing functional and cognitive decline, and was hospitalized at [facility] last week for the second of 2 UTIs within the past month. He is now at [facility] memory unit. His has been counting on being able to take him home fairly rapidly. Medical history: Parkinson's (atypical); Lewy body dementia; atrial fibrillation; HLD; PVD; narcolepsy; OA; CAD; scoliosis; BPH; glaucoma. Patient's has been adamant about taking him home from [facility] as soon as possible. Prior to his hospitalization, patient had been living at home with his , and with paid daytime caregiver 4 days a week, 4-5 hours/day. He had a long-term care insurance, which was covering of the cost for this. In addition, his 2 sons, Tarun and Lonnie, would alternate every other weekend at home providing caregiving for the patient, and relief for the spouse. Lonnie, the DPOA, had decided that he was going to pull back on caregiving and management of the patient's care, and would no longer spend every other weekend with his mother and father. His brother Tarun will also pull back from the hands-on care giving duties. Once the patient was in [facility], Tarun had told Lonnie how nice it was just spend time visiting with his Dad instead of doing the care giving. So just prior to this palliative care visit, Lonnie had a long conversation with his mother at [facility]. He explained that he's pulling back from hands-on care and also decision making. He feels it has to be her decisions from now on. Lara, the , was visibly shaken and upset, having just been told this news. She realizes this means what she had anticipated doing will need to be reconsidered. During assessment, patient is pleasant and responds to my greetings, and is somewhat able to respond to questions, with one-syllable answers. He becomes somnolent during the course of the visit. He was looking through "Roverto's book" a self-published picture book that Kyra, Lonnie's , had made for the patient about his life. It appeared he treasured the book. He remains on Lui catheter; urine is clear, pale yellow. Family reports it is significantly improved from previously. They have a urology appointment September 25 in [facility] to remove the Lui. The family asked about Home Health PT for the patient. Present today was Lonnie and Lara, the spouse. Lara left early for an appointment, and Kyra joined us for the assessment/visit with the patient. Social History - Living Situation Living arrangement: Assisted living Living Situation: With caregiver(s) Support System: Patient was living at home up until his hospitalization September 11. He is now at [facility]. His spouse will be deciding on whether or not she can manage taking him back home. Their two sons both live in the [facility] area, but [place]. TONY Fleming, lives in [facility]. Sherice, the other son, lives in [place]. Medications/Allergies - Medications Home Medications: Ambulatory Orders Medication Instructions Recorded Confirmed Aspirin Chewable [St Kevin 81 mg PO DAILY 06/19/13 09/18/18 Aspirin] Brimonidine 0.15% Ophth Drops 1 drops EACHEYE BID 06/19/13 09/18/18 [Alphagan P 0.15% Ophth Drops] Atorvastatin Calcium [Lipitor] 40 mg PO QPM 06/20/13 09/18/18 Carbidopa/Levodopa [Carbidopa-Levo 1 tab PO QPM 05/28/16 09/18/18 ER 50-200 Tab] Rivastigmine Tartrate 6 mg PO BID 06/26/18 09/18/18 [Rivastigmine] Dorzolamide/Timolol Ophth Soln 1 drops EACHEYE BID 09/06/18 09/18/18 [Cosopt] Latanoprost 0.005% Ophth Drops 1 drops EACHEYE QPM 09/06/18 09/18/18 [Xalatan Ophth Drops] Multivitamin/Iron/Folic Acid 1 tab PO DAILY 09/06/18 09/18/18 [Centrum Adults Tablet] Senna [Senokot] 17.2 mg PO Q2D MDD 50 mg docusate 09/06/18 09/18/18 sodium+ Tamsulosin [Flomax] 0.4 mg PO DAILY 09/06/18 09/18/18 Carbidopa/Levodopa 25/100 [Sinemet 1.5 tab PO TID 09/11/18 09/18/18 25 mg/100 mg] Docusate Sodium [Colace Clear] 100 mg PO DAILY 09/11/18 09/18/18 Cephalexin [Keflex] 1,000 mg PO BID #20 capsule 09/13/18 09/18/18 Methylphenidate [Ritalin] 5 mg PO BID PRN #60 tablet 09/13/18 09/18/18 Acetaminophen [Tylenol] 650 mg PO Q6H PRN 09/18/18 09/18/18 Bisacodyl Supp [Dulcolax Supp] 10 mg IN . NEEDED PRN 09/18/18 09/18/18 Magnesium Hydroxide [Milk of 30 ml PO . NEEDED PRN 09/18/18 09/18/18 Magnesia] Mylanta 30 ml PO Q4H PRN 09/18/18 - Allergies Allergies/Adverse Reactions: Allergies Allergy/AdvReac Type Severity Reaction Status Date / Time niacin Allergy Unknown Verified 09/11/18 13:40 Review of Systems - Constitutional Constitutional: reports: Fatigue, Weight stable (176.6 lbs on 09/12/18 (80.28 kg - in the hospital)). denies: Poor appetite - Eyes Eyes: reports: Vision loss, Other (glaucoma) - Ears, Nose & Throat Ears, Nose & Throat: reports: Hearing loss - Cardiovascular Cardiovascular: reports: Decr. exercise tolerance - Gastrointestinal Gastrointestinal: reports: Constipation (intermittent), Good appetite - Genitourinary Genitourinary: reports: Other (Lui catheter) - Musculoskeletal Musculoskeletal: reports: Stiffness, Limited range of motion, Muscle weakness, Assistive devices (wheelchair) - Integumentary Integumentary: reports: Dryness - Neurological Neurological: reports: General weakness, Memory problems - All Other Systems All Other Systems: reports: Other (limited ROS) Physical Exam - Vital Signs Temperature: 96.6 F Pulse Rate: 80 O2 Saturation: 97 (room air) Blood Pressure: 110/70 (arm cuff) - Physical Exam General Appearance: positive: No acute distress, Alert (became somnolent as the visit proressed) Eyes Bilateral: positive: Normal inspection ENT: positive: No signs of dehydration Neck: positive: No JVD, Trachea midline Cardiovascular: positive: Regular rate & rhythm, Systolic murmur (08/14) Respiratory: positive: Chest non-tender, No respiratory distress, Diminished in bases. negative: Wheezes, Rales, Rhonchi Abdomen: positive: Non-tender, Soft, Nml bowel sounds Skin: positive: Dryness Extremities: positive: No pedal edema Neurologic/Psychiatric: positive: Mood/affect nml, Disoriented to person, Disoriented to place, Disoriented to time, Other (long processing time for verbal responses; some appropriate responses, other times appeared confused) Palliative Care - POLST Patient has POLST: Yes POLST Status: DNR, Selective Treatment Pain: No pain Tiredness/Fatigue: Moderate (4-6) Drowsiness/Sedation: Moderate (4-6) Anxiety: None Dyspnea: None Anorexia: None Performance Status: Requires extensive support for ADLs. Dependent for bathing and incontinence management. Sleeps a lot, sporadic hours. Wheelchair bound. Verbal, able to participate and engage at times. - Palliative Care Discussion: Just rior to this visit, Lara, the patient's , had just had a very long discussion with her son, Lonnie, the DPOA, and the news he gave her was not expected: that he was backing away from care giving decisions, as well as the hands-on cargiving he had been providing every other weekend (staying at their place). She was clearly in some shock, was upset and holding back tears, and hadn't yet had a chance to process this. Up to this point, from the notes from previous visits, she had been intent on bringing her back home as soon as possible. She may not have a very realistic appraisal of his health status, nor of the trajectory of the disease. At one point she said that "he's not that old" (he's 83). She also expresses distress when he tells her he wants to "go home." She wasn't able to say much today. She does says that he'll need to stay at [facility] for at least another week. One suggestion she was interested in was to take the pt home for a short trial period of 1-2 days to see how the care giving goes. I offered empathetic presence and assured her Palliative Care is available for questions and to provide support and will continue to follow and monitor the patient at [facility] or at home. When Lara left early for another appointment, Lonnie spoke about how he felt good about [facility]. I encouraged them to ask any questions of the staff and advocate for the patient. Impression and Recommendations - Palliative Care Impression: 83-year-old man with atypical Parkinson's and Lewy body dementia. He has ongoing functional and cognitive decline, and was hospitalized at [facility] last week for the second of 2 UTIs within the past month. He is now at [facility] memory unit. His has been counting on being able to take him home fairly rapidly, but with his increased care needs, his sons are pulling back from the hands-on care giving they have been contributing, and pt's is considering whether she will be able to handle his increased needs at home without their help. Palliative care will continue to provide support and monitoring. Recommendations/Counseling Done: Parkinson's with Lewy body dementia: Post-hospitalization functional and cognitive decline after the two UTIs. Patient currently residing at at [facility]. Order has been made for [facility] RN, PT and bath aid. [facility] is following up with [facility] and the PCP. UTI: Resolving. Cephalexin regimen will complete in a day or two. He remains on Lui catheter, urine is clear, pale yellow, no sediment. They have urology appointment for September 25 to remove Lui. Advance care planning: POLST is DNR and selective. had planned to take patient home as quickly as possible. Now she is in the process of reconsidering her options due to sons deciding to terminate their hands-on care giving on the weekends. Patient had daytime caregiver help 4 days/week for 4-5 hours. They also have LTC insurance that covers care giving. It will also cover the LTC facility, and provides substantial financial support ($5k/month, up to $245k). Lonnie states that the family also has financial means to provide on-going care andsupport. Lara needs time to process, and to administrative support assistant what the patient's new level of functioning will be. One possibility is doing a trial run at home for a few days, prior to discharging the patient, if she were to go that route. Palliative care will continue to provide ongoing support and monitoring.
== END 2018-09-18 13:21 | disposition home or self-care (01) ==
LOC: PC 13:20
PROVIDERS: ATTEND Nurse Practitioner
DX: Z51.5 Encounter for palliative care (principal); G31.83 Neurocognitive disorder with Lewy bodies; F02.80 Dementia in other diseases classified elsewhere, unspecified severity, without behavioral disturbance, psychotic disturbance, mood disturbance, and anxiety; N39.0 Urinary tract infection, site not specified; I48.91 Unspecified atrial fibrillation; E78.5 Hyperlipidemia, unspecified; I73.9 Peripheral vascular disease, unspecified; G47.419 Narcolepsy without cataplexy; M19.90 Unspecified osteoarthritis, unspecified site; I25.10 Atherosclerotic heart disease of native coronary artery without angina pectoris; M41.9 Scoliosis, unspecified; N40.0 Benign prostatic hyperplasia without lower urinary tract symptoms; H40.9 Unspecified glaucoma; H91.90 Unspecified hearing loss, unspecified ear; Z66 Do not resuscitate; Z99.3 Dependence on wheelchair; Z79.82 Long term (current) use of aspirin; Z87.440 Personal history of urinary (tract) infections

== ENCOUNTER 2018-09-27 10:30 | Outpatient (CLI) | payer MEDICARE, OTHER ==
--- NOTE | 2018-09-28 12:57 | CONSULTATION NOTE ---
Palliative Care Follow Up - Referral Referring Provider: Dr. Couglhin Time of Visit: Sunday09/27/2018 [id number] Referral setting: Assisted living Referral Reason: Parkinsons with Dementia - Information Sources Records reviewed: RN notes reviewed, Previous records reviewed History/Review of Systems obtained from: Family ( Lara present for visit;), Caregiver (clinical staff) Exam limitations: Clinical condition (patient with advanced dementia;) - History of Present Illness Update Brief HPI Update: This is an 83-year-old gentleman with atypical Parkinson's, who has been poorly responsive to carbidopa levodopa. He was hospitalized at [facility] 6- 8 with acute delirium secondary to UTI with associated hematuria, traumatic Lui catheter insertion with gross hematuria, acute dehydration, and history of falls, and history of narcolepsy. Because of his decline in functional status Lui catheter and increased care needs he was [facility] to [facility]. Providing oversight and care, he is also being supported by [facility] with nursing, physical therapy, and occupational therapy. Patient did have his Lui catheter removed yesterday, has been incontinent, unclear if going to be able to communicate if he needs to urinate or not. He is awake and clear, but his reports he was somnolent through most of the day yesterday with very little intake, staff also report he declined breakfast this morning. I do not have a comparative weight, to see if he has had further weight loss. is been spending most of the days with him for several hours. She is concerned he is lonely, her son Garth his pulled back, and there is some tension but this is not mentioned by . His other sons Tarun is coming up next weekend, there is some conversation about trialing a couple days at home. Past medical history includes Parkinson's atypical; Lewy body dementia, atrial fib, hyperlipidemia, risk of vascular disease, narcolepsy, OA, CAD, scoliosis, BPH, and glaucoma Social History - Living Situation Living arrangement: Assisted living Support System: [facility]. They do have long-term care insurance, but with a limited Amount. Currently they are signed up for a respite stay, they have extended this as patient is not back to functional baseline. Lara was managing at home with a shift to 5 hours a day of caregiving. She is able to acknowledge this is most likely not adequate at this point in time, and patient would need to be ambulatory. Medications/Allergies - Medications Home Medications: Ambulatory Orders Medication Instructions Recorded Confirmed Aspirin Chewable [St Kevin 81 mg PO DAILY 06/19/13 09/29/18 Aspirin] Brimonidine 0.15% Ophth Drops 1 drops EACHEYE BID 06/19/13 09/29/18 [Alphagan P 0.15% Ophth Drops] Atorvastatin Calcium [Lipitor] 40 mg PO QPM 06/20/13 09/29/18 Carbidopa/Levodopa [Carbidopa-Levo 1 tab PO QPM 05/28/16 09/29/18 ER 50-200 Tab] Rivastigmine Tartrate 6 mg PO BID 06/26/18 09/29/18 [Rivastigmine] Dorzolamide/Timolol Ophth Soln 1 drops EACHEYE BID 09/06/18 09/29/18 [Cosopt] Latanoprost 0.005% Ophth Drops 1 drops EACHEYE QPM 09/06/18 09/29/18 [Xalatan Ophth Drops] Multivitamin/Iron/Folic Acid 1 tab PO DAILY 09/06/18 09/29/18 [Centrum Adults Tablet] Senna [Senokot] 17.2 mg PO DAILY 09/06/18 09/29/18 Tamsulosin [Flomax] 0.4 mg PO DAILY 09/06/18 09/29/18 Carbidopa/Levodopa 25/100 [Sinemet 1.5 tab PO TID 09/11/18 09/29/18 25 mg/100 mg] Docusate Sodium [Colace Clear] 100 mg PO DAILY 09/11/18 09/29/18 Cephalexin [Keflex] 1,000 mg PO BID #20 capsule MDD 1 09/13/18 09/29/18 week Acetaminophen [Tylenol] 650 mg PO Q6H PRN 09/18/18 09/29/18 Bisacodyl Supp [Dulcolax Supp] 10 mg ID DAILY PRN 09/18/18 09/29/18 Magnesium Hydroxide [Milk of 30 ml PO DAILY PRN 09/18/18 09/29/18 Magnesia] Mylanta 30 ml PO Q4H PRN 09/18/18 09/29/18 Methylphenidate [Ritalin] 5 mg PO .AFTERNOON PRN MDD 09/29/18 09/29/18 somnulence Methylphenidate [Ritalin] 5 mg PO DAILY 09/29/18 09/29/18 Saccharomyces Boulardii [Florastor] 250 mg PO BID MDD 2 weeks 09/30/18 09/30/18 - Allergies Allergies/Adverse Reactions: Allergies Allergy/AdvReac Type Severity Reaction Status Date / Time niacin Allergy Unknown Verified 09/11/18 13:40 Review of Systems - Constitutional Constitutional: reports: Fatigue, Poor appetite, Weight loss (150.4 3/16; on discharge from hospital 176 (unclear if accurate)) - Eyes Eyes: reports: Vision loss - Ears, Nose & Throat Ears, Nose & Throat: reports: Hearing loss - Cardiovascular Cardiovascular: reports: Decr. exercise tolerance - Respiratory Respiratory: denies: Cough, SOB at rest - Gastrointestinal Gastrointestinal: reports: Constipation (has required MOM twice this last week), Other (not consistently eating meals) - Genitourinary Genitourinary: reports: Other (catheter removed yesterday) - Musculoskeletal Musculoskeletal: reports: Stiffness, Limited range of motion, Muscle weakness, Transfer issues (has been mostly wheelchair bound; working with PT) - Integumentary Integumentary: reports: Dryness - Neurological Neurological: reports: General weakness, Memory problems (few words; no sentences; yes/no but no accurate) - Psychiatric Psychiatric: reports: Other (continues with episodes of lethargy; use of ritalin noted one time) - Hematologic/Lymphatic Hematologic/Lymphatic: reports: Recurrent infections (extended antibiotics with catheter removal) - All Other Systems All Other Systems: reports: Other (limited ROS because of dementia) Physical Exam - Vital Signs Temperature: 97.2 C Pulse Rate: 61 Respiratory Rate: 18 O2 Saturation: 95 (ra @ rest) Blood Pressure: 92/62 - Physical Exam General Appearance: positive: No acute distress, Alert Eyes Bilateral: positive: Normal inspection Neck: positive: No JVD, Trachea midline Cardiovascular: positive: Regular rate & rhythm Respiratory: positive: No respiratory distress, Diminished in bases. negative: Wheezes, Rales, Rhonchi Abdomen: positive: Soft, Nml bowel sounds, Other (palpation over bladder area; no noted distension or signs of discomfort). negative: Distended Skin: positive: Dryness Extremities: positive: Other (working with PT; end of visit able to lift self up; few steps taken; contact assist and cueing needed) Neurologic/Psychiatric: positive: Weakness, Unintelligible speech, Flat affect Palliative Care - POLST Patient has POLST: Yes POLST Status: DNR, Selective Treatment Pain: No pain (no pain behaviors noted) Tiredness/Fatigue: Severe (7-10) Drowsiness/Sedation: Moderate (4-6) Constipation: Yes, Unmanaged Performance Status: Patient was ambulatory in the home setting previous to hospitalization, did o ccasionally need assistance from sitting to standing, did need assistance with bathing. Patient did have episodes where he was more sedentary, and sleeping more, these periods often spent in bed. At facility, patient is a 1-2 person transfer to the wheelchair, is working with physical therapy and occupational therapy with the goal to be able to ambulate with standby assist if going to return home. - Palliative Care Discussion: Agreement with Windy HODGES, I would meet with Lara as he is pulling out of a long-term plan. Lara is overwhelmed, she is expressing that she wants him to return home, though is able to admit it would be quite difficult given his current level of functioning. We did discuss the threshold would need to be, him being able to ambulate and toilet at some level. She would extend caregiving hours, she feels currently that he is much more with it than the facility residents in his "neighborhood". She is quite tearful, and misses him at home and feels lonely. In reviewing her understanding of his illness, had to gently explore most likely not going to return to his previous level of functioning, and will need to define what "a new normal is". Her son Tarun, who had alternated with Lonnie, every other weekend for caregiving is coming up next weekend. She is hoping they will trial some time at home, to see how patient does. She is feeling overwhelmed, asking questions about caregiving resources, did float the idea of an alternative, which would be to have patient resident at [facility], and be able to spend time at home as occasions or support allowed. Impression and Recommendations - Palliative Care Impression: This is an 83-year-old gentleman with atypical Parkinson's and Lewy body dementia. He has had significant functional decline as well as cognitive, and was recently hospitalized at [facility] as result of altered mental status, encephalopathy, related to UTI. [facility], for [facility]. He has had his catheter removed at the urology appointment yesterday, continues to have fluctuating levels of alertness, poor oral intake, and there is concern for long-term care planning. Palliative care to provide support and monitoring regarding quality of life issues, and transition plans. Recommendations/Counseling Done: 1. Constipation. I will go ahead and schedule daily the Senna 8.6 mg 2 tabs, patient has had to use MOM twice this last week. 2. Weight loss. Patient is on a meal monitoring program, fluctuates as far as amount, has skipped breakfast several times, this is often related to lethargy and difficulty awakening. Counseling with , will initiate Ensure, order written if less than 50% of meal consumed, provide Ensure. And will schedule insurance bedtime. Patient reports his favorite flavor is chocolate, when questioned. 3. BPH. Patient's catheter has been removed, saw urology yesterday. Post residual was 87 mils at visit. Palpation of bladder without any signs or symptoms of discomfort, patient remains incontinent, is hoping he will be able to communicate if he needs to go to the bathroom. I suspect this may be not realistic goal. Encourage staff to push fluids, patient is on extended antibiotics. We will go ahead and add Florastor 250 mg twice daily for 2 weeks given the length of time now he has been on antibiotics. 4. Generalized weakness. He is working with [facility] health physical and occupational therapy, goal is to be able to ambulate with only supervisory assist. Coordination of care with [facility], recommended have present at visits, to be able to get a realistic view of patient's functional status for long-term care planning. 5. Lethargy. Patient does present with fluctuating of alertness. This was attributed to his narcolepsy, he did have a pending sleep study, though this will be deferred at this time. Had a good response to the Ritalin in the hospital, staff have used it only once, discussed with considering scheduling it in the morning, as this is when it seems most beneficial. Originally try to schedule half tab, unable to split and accommodate dosing. Order sent for 5 mg daily, will trial for a week and see side effects and or results. 5. Advanced care planning. 's goal is to bring him back home, feels like he does not fit, we did discuss there are other neighborhoods that have more functional cognitive patient's, will follow up if respite stay is in current neighborhood, or because he needs often 2 person assist. Counseling provided regarding feelings of grief and loss for , reviewed long-term planning options and caregiving, as well as recommendation to trial prior to discharging home. Anticipatory guidance also provided regarding disease process, expected changes for left once with dementia, and helping her understand his current decline. Time Spent: 65 minutes with greater than 50% of this done with counseling with regarding anticipatory guidance, disease process, goals of care. Coordination of care with clinical/facility staff and [facility].
== END 2018-09-27 10:31 | disposition home or self-care (01) ==
LOC: PC 10:30
PROVIDERS: ATTEND Nurse Practitioner Adult Health
DX: G31.83 Neurocognitive disorder with Lewy bodies (principal); F02.80 Dementia in other diseases classified elsewhere, unspecified severity, without behavioral disturbance, psychotic disturbance, mood disturbance, and anxiety; K59.00 Constipation, unspecified; R63.4 Abnormal weight loss; R53.83 Other fatigue; N40.1 Benign prostatic hyperplasia with lower urinary tract symptoms; N39.498 Other specified urinary incontinence; G47.419 Narcolepsy without cataplexy; Z79.899 Other long term (current) drug therapy; Z99.3 Dependence on wheelchair; Z66 Do not resuscitate; Z87.440 Personal history of urinary (tract) infections

== ENCOUNTER 2018-10-15 14:00 | Outpatient (CLI) | payer MEDICARE, OTHER ==
--- NOTE | 2018-10-15 16:56 | CONSULTATION NOTE ---
Palliative Care Follow Up - Referral Referring Provider: Dr. Chas Coughlin Time of Visit: [id number] Referral setting: Assisted living Referral Reason: Parkinsons with Lewy Body dementia - Information Sources Records reviewed: Previous records reviewed History/Review of Systems obtained from: Patient, Family ( Lara at visit) Exam limitations: Clinical condition (patient with severe dementia) - History of Present Illness Update Brief HPI Update: This is an 83-year-old gentleman with atypical Parkinson's, who is been poorly responsive to carbidopa levodopa. He was hospitalized at [facility] 09/11/09- 09/13/2018 With acute delirium secondary to UTI with associated hematuria related to a traumatic reynolds catheter insertion. He also presented with acute dehydration, ongoing history of falls, and history of narcolepsy. He did have a Reynolds catheter, that is since been removed at the urologist's. He is due for follow-up this next week. He is now incontinent of urine, previously had been able to do timed toileting. Patient also has had a decline in functional status, he is mostly wheelchair bound, he is able to self Propel this is actually most likely an improvement as far as his fall risk. Still has been working with physical therapy, can walk short distances with cueing and walker as well as assistance. He is able to pivot with 1-2 person assist. Given his decline in function, and his increased care needs he is now currently a permanent resident of home [facility]. This is been a difficult transition for his , though she does recognize his decline, does still appear to have poor insight to the severity of his dementia and the terminal status of his disease though slow in progression. Today he presents is quite alert, interactive. Staff and do feel a.m. scheduling of Ritalin has been of assistance, they have not needed afternoon. Patient does appear to be settling well, does sometimes get frustrated with staff when they are trying to awaken him. He is still able to self feed, has not had any choking, or difficulty eating. His weight has remained stable. They had added some Ensure which has been supportive, he does fluctuate as far as his meal intake, but most often at least takes 1-2 meals at 75-100 %/day. Patient is able to make eye contact, does attempt to answer questions, yes and noes are not consistent with a accurate. He will spit out a few phrases, occasionally they are appropriate, but does not appear orientated to place, and did take some time to orient to . He denies pain, and review of his records, still is having difficulty with constipation. Staff report his diapers have been wet, no signs or symptoms of urinary retention or recurrent hematuria or signs or symptoms of infection. Past medical history includes Parkinson's atypical; Lewy body dementia; atrial fib; hyperlipidemia, peripheral vascular disease; narcolepsy; OA; CAD; scolio sis; BPH; and glaucoma Social History - Living Situation Living arrangement: Assisted living Support System: tries to visit daily, particular at lunchtime to assist with feeding. They did have him home over weekend, with the support of his sons Tarun. She really enjoyed this, but is able to admit that his care needs are beyond what she could provide given his functional decline. She is hoping to have more opportunities to get him out, though this would not be possible unless she had her son howard rodriguez. Medications/Allergies - Medications Home Medications: Ambulatory Orders Medication Instructions Recorded Confirmed Aspirin Chewable [St Kevin 81 mg PO DAILY 06/19/13 10/16/18 Aspirin] Brimonidine 0.15% Ophth Drops 1 drops EACHEYE BID 06/19/13 10/16/18 [Alphagan P 0.15% Ophth Drops] Atorvastatin Calcium [Lipitor] 40 mg PO QPM 06/20/13 10/16/18 Carbidopa/Levodopa [Carbidopa-Levo 1 tab PO QPM 05/28/16 10/16/18 ER 50-200 Tab] Rivastigmine Tartrate 6 mg PO BID 06/26/18 10/16/18 [Rivastigmine] Dorzolamide/Timolol Ophth Soln 1 drops EACHEYE BID 09/06/18 10/16/18 [Cosopt] Latanoprost 0.005% Ophth Drops 1 drops EACHEYE QPM 09/06/18 10/16/18 [Xalatan Ophth Drops] Multivitamin/Iron/Folic Acid 1 tab PO DAILY 09/06/18 10/16/18 [Centrum Adults Tablet] Senna [Senokot] 17.2 mg PO DAILY 09/06/18 10/16/18 Tamsulosin [Flomax] 0.4 mg PO DAILY 09/06/18 10/16/18 Carbidopa/Levodopa 25/100 [Sinemet 1.5 tab PO TID 09/11/18 10/16/18 25 mg/100 mg] Acetaminophen [Tylenol] 650 mg PO Q6H PRN 09/18/18 10/16/18 Bisacodyl Supp [Dulcolax Supp] 10 mg [place] DAILY PRN 09/18/18 10/16/18 Magnesium Hydroxide [Milk of 30 ml PO DAILY PRN 09/18/18 10/16/18 Magnesia] Mylanta 30 ml PO Q4H PRN 09/18/18 10/16/18 Methylphenidate [Ritalin] 5 mg PO .AFTERNOON PRN MDD 09/29/18 10/16/18 somnulence Methylphenidate [Ritalin] 5 mg PO DAILY 09/29/18 10/16/18 Saccharomyces Boulardii [Florastor] 250 mg PO BID MDD 2 weeks 09/30/18 10/16/18 Polyethylene Glycol 3350 [Miralax] 17 gm PO .Q2 DAYS 10/16/18 10/16/18 - Allergies Allergies/Adverse Reactions: Allergies Allergy/AdvReac Type Severity Reaction Status Date / Time niacin Allergy Unknown Verified 09/11/18 13:40 Review of Systems - Constitutional Constitutional: reports: Weight stable (148.8) - Eyes Eyes: reports: Other (glaucoma) - Gastrointestinal Gastrointestinal: reports: Constipation (needed MOM/bisacodyl supp this week), Good appetite (fluctuates intake; using Ensure to supplement) - Genitourinary Genitourinary: reports: Incontinence. denies: Dysuria, Hematuria - Musculoskeletal Musculoskeletal: reports: Stiffness, Muscle weakness, Assistive devices (uses walker with PT; family will need to continue with maintenance walking; patient able to self propel w/c; decreases risk of falls) - Integumentary Integumentary: reports: Rash (right worship), Dryness - Neurological Neurological: reports: Memory problems - All Other Systems All Other Systems: reports: Other (limited ROS) Physical Exam - Vital Signs Temperature: 97.3 C Pulse Rate: 92 Respiratory Rate: 18 O2 Saturation: 98 (ra @ rest) Blood Pressure: 112/72 - Physical Exam General Appearance: positive: No acute distress, Alert Eyes Bilateral: positive: Normal inspection ENT: positive: No signs of dehydration Neck: positive: No JVD, Trachea midline Cardiovascular: positive: Regular rate & rhythm Respiratory: positive: No respiratory distress, Breath sounds nml Abdomen: positive: Non-tender, Soft, Nml bowel sounds Skin: positive: Rash (dry over right worship) Extremities: positive: No pedal edema Neurologic/Psychiatric: positive: Mood/affect nml, Disoriented to person, Disoriented to place, Disoriented to time, Flat affect Palliative Care - POLST Patient has POLST: Yes POLST Status: DNR, Selective Treatment Pain: No pain Constipation: Yes, Intermittent constipation Performance Status: Patient has improved with strength, is able to pivot transfer with cueing. Patient is self propelling himself in wheelchair. Can ambulate with assistance and cueing. Reviewed with though her disappointment in his inability to walk around facility, that is most likely more safe to self propel in wheelchair related to his ongoing fall risk. Patient is dependent for bathing, dressing, and meals set up. I would put him at a PPS of 40% - Palliative Care Discussion: Patient does have a IESHA ST in place with DNA R and selective treatment. Patient's D POA is his son Lonnie Cesar [phone]. Met with Lara his , regarding patient. Provide ongoing counseling and anticipatory guidance, discussed again disease process, expected decline, patient has improved but most likely not improved to previous baseline. This would be not unexpected in his disease process, patient able to actually say he is okay with where he is at. How much he understands this, it was still reassuring to . She continues to miss him, and is hopeful to have more opportunities to have him at home. She herself is struggling with some of her own health problems, they have been 59 years. Encouraged expression of her feelings of grief and loss. 10/16 Aloe up with son Lonnie JIMENEZ, he is visiting his father couple times a week. Does take him for walks when he is there. Is providing support for his mother, she continues to have limited insight per his observation as well. He feels like he is settling in pretty well there, they are happy with the care, do not perceive any significant issues. We did discuss patient is at high risk for falls just given patient's impulsivity, and underlying advanced dementia. He is aware this is a risk even though he is in a facility. They do not have any other concerns at this point in time for palliative care to follow-up on, did discuss with check in every 4-6 weeks and be available for as needed visits as issues arise. This did seem satisfactory to the son as well Impression and Recommendations - Palliative Care Impression: This is an 83-year-old gentleman with atypical Parkinson's and Lewy body dementia, with recent decline after hospitalization. He has now transitioned as permanent resident at home place, memory care unit. He is settling in well, presents with low symptom burden, has had some constipation, weight remains stable, and no further falls. Palliative care to provide support and monitoring regarding quality of life issues, and transition to hospice when appropriate. Recommendations/Counseling Done: 1. Constipation. Patient has had some improvement with addition of senna 8.6 mg 2 tabs in the evening, will discontinue the do cassette sodium and add MiraLAX 17 g every other day. 2. Weight loss. Patient has been on monitoring program, continues to fluctuate, but has stabilized with initiation of Ensure. 3. BPH. Patient to follow-up with urology still, at this point in time does present with ongoing incontinence, staff report briefs are wet. Patient denies any dysuria. Palpation over bladder without any symptoms of discomfort. We will continue to monitor, patient has been at risk for UTIs in past. 4. Generalized weakness. Patient does appear somewhat stronger, is of course more alert today. Is able to self propel actually quite easily in wheelchair. Has been ambulating short distances with family members and physical therapy. Would actually recommend continue to use wheelchair as decreases fall risk and gives patient some independence. 5. Lethargy. Patient does appear to be benefiting from a.m. Ritalin, given his setting and difficult to to get a good grasp on this, we will continue the Ritalin in the morning as he presents alert and awake today. Has not needed second dose, he does sleep through the night, sometimes difficult to arouse in the morning, he at home had baseline sleepiness as well. We will continue to monitor, difficult to get a good sense of percent of time he is awake and alert versus sleeping. 6. Advanced care planning. Patient at this point in time is a permanent resident at home place, the expresses grief and loss regarding this, she does admit his care needs would exceed which she would be able to manage even with caregivers. Family do have the ability to take him out of the facility, she is hoping this will continue on a intermittent basis. Palliative care to continue to follow and monitor patient's progress and decline. Time Spent: 45 minutes with greater than 50% of this done in counseling with regarding anticipatory guidance, adjustment to current setting, coordination of care with staff and titration of bowel program.
== END 2018-10-15 14:01 | disposition home or self-care (01) ==
LOC: PC 14:00
PROVIDERS: ATTEND Nurse Practitioner Adult Health
DX: Z51.5 Encounter for palliative care (principal); G20 Parkinson's disease; G31.83 Neurocognitive disorder with Lewy bodies; K59.00 Constipation, unspecified; N40.1 Benign prostatic hyperplasia with lower urinary tract symptoms; R32 Unspecified urinary incontinence; R53.1 Weakness; R53.83 Other fatigue; H40.9 Unspecified glaucoma; G47.419 Narcolepsy without cataplexy; I73.9 Peripheral vascular disease, unspecified; I48.91 Unspecified atrial fibrillation; M19.90 Unspecified osteoarthritis, unspecified site; E78.5 Hyperlipidemia, unspecified; I25.10 Atherosclerotic heart disease of native coronary artery without angina pectoris; Z66 Do not resuscitate; Z99.3 Dependence on wheelchair; Z79.82 Long term (current) use of aspirin; Z87.440 Personal history of urinary (tract) infections; Z91.81 History of falling

== ENCOUNTER 2018-11-29 12:54 | Outpatient (CLI) | payer MEDICARE, OTHER ==
--- NOTE | 2018-11-29 13:24 | CONSULTATION NOTE ---
Palliative Care Follow Up - Referral Referring Provider: Dr. Chas Coughlin Time of Visit: [id number] Referral setting: Assisted living Referral Reason: Parkisons with dementia - Information Sources Records reviewed: Previous records reviewed History/Review of Systems obtained from: Patient, Family ( Lara at visit), Nursing Exam limitations: Clinical condition (patient with dementia) - History of Present Illness Update Brief HPI Update: This is an 83-year-old gentleman with atypical Parkinson's is been poorly responsive to carbidopa/levodopa. His acute hospitalization at [facility] in September with acute delirium secondary UTI, and dehydration resulted in transition to home place, memory unit. This is related due to decline in functional status, he is mostly wheelchair-bound, though is able to ambulate with contact assist. He is still working with physical therapy, can walk short distance with cueing and walker, and pivot with assistance as well. This is a difficult transition for his , she does visit and spends several hours daily with him. Patient actually has settled in fairly well, there is son Tarun does bring him home every 3 weeks for a few days. But this does seem to tire him out. He has had progression in the context of incontinence of urine, intermittent incontinence of stool. He can speak a few word sentences, does appear to follow the conversation, but his functional and cognitive status does fluctuate. There is been no report of delusions, agitation, or anxiety. Patient does sometimes resist care. Staff have been able to improve his mornings, medicating him with his carbidopa levodopa and Ritalin prior to getting him up. Today he presents as alert, engaged, making good eye contact and able to participate some in the conversation with few syllable responses, and yes/no questions. He does have upper extremity tremors, right greater than left. He does present with some stiffness though is able to follow directions and easily cued. His reports no symptoms of choking, he has remained weight neutral after his initial weight loss, reports good weight for him is 1 55-1 60. Patient's past medical history includes narcolepsy, atypical Parkinson's, Lewy body dementia, atrial fib, hyperlipidemia, peripheral vascular disease, OA, CAD, scoliosis, BPH, and glaucoma. Social History - Living Situation Living arrangement: Assisted living Support System: Patient's son Lonnie is medical D POA, he oversees and advocates for medical appointments. His does visit on a regular basis, is still grieving not being able to bring him home. His other son Tarun does bring him home and provides caregiving every few weeks. Medications/Allergies - Medications Home Medications: Ambulatory Orders Medication Instructions Recorded Confirmed Aspirin Chewable [St Kevin 81 mg PO DAILY 06/19/13 11/29/18 Aspirin] Brimonidine 0.15% Ophth Drops 1 drops EACHEYE BID 06/19/13 11/29/18 [Alphagan P 0.15% Ophth Drops] Atorvastatin Calcium [Lipitor] 40 mg PO QPM 06/20/13 11/29/18 Carbidopa/Levodopa [Carbidopa-Levo 1 tab PO QPM 05/28/16 11/29/18 ER 50-200 Tab] Rivastigmine Tartrate 6 mg PO BID 06/26/18 11/29/18 [Rivastigmine] Dorzolamide/Timolol Ophth Soln 1 drops EACHEYE BID 09/06/18 11/29/18 [Cosopt] Latanoprost 0.005% Ophth Drops 1 drops EACHEYE QPM 09/06/18 11/29/18 [Xalatan Ophth Drops] Multivitamin/Iron/Folic Acid 1 tab PO DAILY 09/06/18 11/29/18 [Centrum Adults Tablet] Senna [Senokot] 17.2 mg PO DAILY 09/06/18 11/29/18 Tamsulosin [Flomax] 0.4 mg PO DAILY 09/06/18 11/29/18 Carbidopa/Levodopa 25/100 [Sinemet 1.5 tab PO TID 09/11/18 11/29/18 25 mg/100 mg] Acetaminophen [Tylenol] 650 mg PO Q6H PRN 09/18/18 11/29/18 Bisacodyl Supp [Dulcolax Supp] 10 mg [place] DAILY PRN 09/18/18 11/29/18 Magnesium Hydroxide [Milk of 30 ml PO DAILY PRN 09/18/18 11/29/18 Magnesia] Mylanta 30 ml PO Q4H PRN 09/18/18 11/29/18 Methylphenidate [Ritalin] 5 mg PO .AFTERNOON PRN MDD 09/29/18 11/29/18 somnulence Methylphenidate [Ritalin] 5 mg PO DAILY 09/29/18 11/29/18 Polyethylene Glycol 3350 [Miralax] 17 gm PO .Q2 DAYS 10/16/18 11/29/18 - Allergies Allergies/Adverse Reactions: Allergies Allergy/AdvReac Type Severity Reaction Status Date / Time niacin Allergy Unknown Verified 09/11/18 13:40 Review of Systems - Constitutional Constitutional: reports: Weight gain (159). denies: Fever - Respiratory Respiratory: denies: Cough, SOB at rest - Gastrointestinal Gastrointestinal: reports: Good appetite. denies: Constipation - Genitourinary Genitourinary: reports: Incontinence - Musculoskeletal Musculoskeletal: reports: Stiffness, Limited range of motion, Muscle weakness, Transfer issues (mostly w/c bound) - Integumentary Integumentary: reports: Rash (right temporal area), Dryness - Neurological Neurological: reports: General weakness, Memory problems, Abnormal gait - Psychiatric Psychiatric: denies: Depression, Anxiety - Hematologic/Lymphatic Hematologic/Lymphatic: denies: Recurrent infections - All Other Systems All Other Systems: reports: Other (limited ROS) Physical Exam - Vital Signs Temperature: 96.5 C Pulse Rate: 72 Respiratory Rate: 18 O2 Saturation: 98 (ra @ rest) Blood Pressure: 112/78 - Physical Exam General Appearance: positive: No acute distress, Alert Eyes Bilateral: positive: Normal inspection ENT: positive: No signs of dehydration Neck: positive: No JVD, Trachea midline, Other (mild scoliosis) Cardiovascular: positive: Regular rate & rhythm Respiratory: positive: No respiratory distress, Breath sounds nml, Diminished in bases Abdomen: positive: Non-tender, Soft, Nml bowel sounds Skin: positive: Pallor, Dryness Extremities: positive: No pedal edema Neurologic/Psychiatric: positive: Mood/affect nml, Disoriented to place, Disoriented to time, Flat affect Palliative Care - POLST Patient has POLST: Yes POLST Status: DNR, Selective Treatment Pain: No pain Sleep: Sleeps well (per staff report) Constipation: No Performance Status: Patient is dependent on staff for pivot transfers, bathing, is able to feed himself but needs meal set up. He is mostly wheelchair-bound, tends to ambulate him when with him. Continues to work with physical therapy, has had no recent falls. - Palliative Care Discussion: Patient much more bright and alert than previous appointments. Is able to engage, make eye contact. Did try to do a little bit of life review, able to participate some with yes/no questions. 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 Patient does deny depression, or feeling sad. seems somewhat settled and less stressed but still wishing he was home. Staff report has been less anxious, and patient adjusting to new setting. Patient does have POLST in place, DNA R,/selective treatments. With a goal to focus on comfort and quality of life, Lonnie carmichael [phone] is asked to the [facility]GES for medical decision making. Impression and Recommendations - Palliative Care Impression: This is an 83-year-old gentleman with atypical Parkinson's and Lewy body dementia, who appears to be doing better and adjusting to new setting at memory unit. He presents with low symptom burden, his weight has stabilized. His cognitive and physical status continues to fluctuate, but overall has improved from previous baseline after hospitalization. Palliative care to continue provide support monitoring regarding quality of life issues, and transition to hospice when appropriate. Recommendations/Counseling Done: 1. Constipation. Patient's current bowel program is effective, patient is intermittently incontinent but is going on a regular basis. 2. Weight loss. Patient has gained weight with initiation of Ensure, will discontinue nightly Ensure and restart if weight dips below 155. He is still on monitoring program and will replace if less than 50% of meal eaten. 3. BPH. Patient is incontinent, has not had any further difficulties, no signs or symptoms of retention nor recurrent UTIs at this point. 4. Lethargy. Patient continues to benefit from a.m. Ritalin, has not needed second dose, is sleeping through the night. They are working with getting him his medications prior to rising this is per staff perception. Patient is awake and alert and engaged during conversation today. reports he is having good and bad days, but they do seem to be improved overall. 5. Parkinson's. Patient with some stiffness, noted tremors, functional status appears plateaued. No changes to medication regimen recommended. 6. Advanced care planning. Patient at this point remains a permanent residence at home place, they are taking him out every few weeks for stay at home. Advanced care planning documents in place, palliative care to continue to follow monitor patient's status. Time Spent: 40 minutes with getting 50% of this done with counseling with patient and , anticipatory guidance provided, coordination of care with clinical staff as well as left voicemail with update to D POA/son.
== END 2018-11-29 12:55 | disposition home or self-care (01) ==
LOC: PC 12:54
PROVIDERS: ATTEND Nurse Practitioner Adult Health
DX: Z51.5 Encounter for palliative care (principal); K59.00 Constipation, unspecified; R15.9 Full incontinence of feces; N40.1 Benign prostatic hyperplasia with lower urinary tract symptoms; N39.498 Other specified urinary incontinence; R53.83 Other fatigue; G31.83 Neurocognitive disorder with Lewy bodies; F02.80 Dementia in other diseases classified elsewhere, unspecified severity, without behavioral disturbance, psychotic disturbance, mood disturbance, and anxiety; G47.419 Narcolepsy without cataplexy; Z99.3 Dependence on wheelchair; Z87.440 Personal history of urinary (tract) infections; Z79.899 Other long term (current) drug therapy; Z66 Do not resuscitate

== ENCOUNTER 2019-02-28 11:15 | Outpatient (CLI) | payer MEDICARE, OTHER ==
--- NOTE | 2019-02-28 18:26 | CONSULTATION NOTE ---
Palliative Care Follow Up - Referral Referring Provider: Dr. Chas Coughlin Time of Visit: 11:15-11:45 Referral setting: Assisted living (Patient is seen at assisted living facility, memory care. 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 This was following an acute hospitalization at [facility] in September, which resulted in acute delirium secondary to UTI, and ongoing functional decline. He is mostly wheelchair-bound, though is able to ambulate with contact assist but has had a decline in his ability, this is attributed both to changes in his cognitive status, increasing lower extremity weakness, and does have some current concerning signs of increased jean marie in his knee and shoulder j oints. Patient does sit most of the day in his wheelchair, with his feet dependent, he still self-feeds, but this is becoming more difficult, he also has progression in the context of incontinence of urine, increasing incontinence of stool, and less verbalization. Patient is alert, is able to make eye contact, able to follow simple cues. Does offer up a few syllable responses that are appropriate during the exam. continues to visit him daily for 3 or 4 hours, she continues to express feelings of grief and loss and loneliness with his transition to the memory care unit. He does remain weight neutral after his initial weight loss. They are using Ensure to supplement if patient has decreased intake. No behavioral problems reported by staff. Patient does have 2 sons, occasionally they take him out to his home, but are no longer able to take him home for the weekend as his functional status and ability to follow cues has diminished. 's hope is that patient can have therapy, with the goal to improve transfers, focus on some shoulder strengthening to assist with maintaining what functional status he has, and my concern is for range of motion and possibly developing contractures. Provider Dr. Lemme he has ordered, but will need a [id number]. Social History - Living Situation Living arrangement: Assisted living Support System: Patient has been a resident since September, has settled in quite nicely, patient himself perceives no problems. Patient's son Lonnie is his medical D POA, he oversees and advocates for medical appointments. 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 He and his been 58 years. They do have long-term care insurance. Medications/Allergies - Medications Home Medications: Ambulatory Orders Medication Instructions Recorded Confirmed Aspirin Chewable [St Kevin 81 mg PO DAILY 06/19/13 03/01/19 Aspirin] Brimonidine 0.15% Ophth Drops 1 drops EACHEYE BID 06/19/13 03/01/19 [Alphagan P 0.15% Ophth Drops] Atorvastatin Calcium [Lipitor] 40 mg PO QPM 06/20/13 03/01/19 Carbidopa/Levodopa [Carbidopa-Levo 1 tab PO QPM 05/28/16 03/01/19 ER 50-200 Tab] Rivastigmine Tartrate 6 mg PO BID 06/26/18 03/01/19 [Rivastigmine] Dorzolamide/Timolol Ophth Soln 1 drops EACHEYE BID 09/06/18 03/01/19 [Cosopt] Latanoprost 0.005% Ophth Drops 1 drops EACHEYE QPM 09/06/18 03/01/19 [Xalatan Ophth Drops] Multivitamin/Iron/Folic Acid 1 tab PO DAILY 09/06/18 03/01/19 [Centrum Adults Tablet] Senna [Senokot] 17.2 mg PO DAILY 09/06/18 03/01/19 Tamsulosin [Flomax] 0.4 mg PO DAILY 09/06/18 03/01/19 Carbidopa/Levodopa 25/100 [Sinemet 1.5 tab PO TID 09/11/18 03/01/19 25 mg/100 mg] Acetaminophen [Tylenol] 650 mg PO Q6H PRN 09/18/18 03/01/19 Bisacodyl Supp [Dulcolax Supp] 10 mg AK DAILY PRN 09/18/18 03/01/19 Magnesium Hydroxide [Milk of 30 ml PO DAILY PRN 09/18/18 03/01/19 Magnesia] Mylanta 30 ml PO Q4H PRN 09/18/18 03/01/19 Methylphenidate [Ritalin] 5 mg PO .AFTERNOON PRN MDD 09/29/18 03/01/19 somnulence Methylphenidate [Ritalin] 5 mg PO DAILY 09/29/18 03/01/19 Polyethylene Glycol 3350 [Miralax] 17 gm PO .Q2 DAYS 10/16/18 03/01/19 - Allergies Allergies/Adverse Reactions: Allergies Allergy/AdvReac Type Severity Reaction Status Date / Time niacin Allergy Unknown Verified 09/11/18 13:40 Review of Systems - Constitutional Constitutional: reports: Weight stable (151.4). denies: Fever, Chills - Respiratory Respiratory: denies: Cough, SOB at rest - Gastrointestinal Gastrointestinal: reports: Good appetite (sometimes does not eat breakfast/uses ensure). denies: Constipation, Reflux/heartburn - Genitourinary Genitourinary: reports: Incontinence - Musculoskeletal Musculoskeletal: reports: Limited range of motion (unable to straighten knees ; shoulders right greater than left), Muscle weakness, Assistive devices (ambulating less; sons help when visit but need cuing and more difficulty with quad strength) - Integumentary Integumentary: reports: Dryness - Neurological Neurological: reports: General weakness, Memory problems - Psychiatric Psychiatric: denies: Behavior disturbances - Hematologic/Lymphatic Hematologic/Lymphatic: denies: Recurrent infections - All Other Systems All Other Systems: reports: Other (limited ROS with dementia) Physical Exam - Vital Signs Temperature: 96.8 C Pulse Rate: 80 Respiratory Rate: 16 O2 Saturation: 93 (ra @ rest) Blood Pressure: 112/68 - Physical Exam General Appearance: positive: No acute distress, Alert Eyes Bilateral: positive: Normal inspection ENT: positive: No signs of dehydration, Other ( has not noted any choking) Neck: positive: No JVD, Trachea midline Cardiovascular: positive: Regular rate & rhythm Respiratory: positive: No respiratory distress, Breath sounds nml Abdomen: positive: Non-tender, Soft, Nml bowel sounds Skin: positive: Dryness, Other (staff report no skin issues with skin check) Extremities: positive: No pedal edema Neurologic/Psychiatric: positive: Mood/affect nml, Disoriented to place, Disoriented to time, Weakness, Flat affect Palliative Care - POLST Patient has POLST: Yes POLST Status: DNR, Selective Treatment Pain: No pain (patient denies discomfort) Constipation: No Performance Status: Patient is dependent on caregivers for all ADLs, is a 2 person pivot transfer as has difficulty bearing weight safely for caregivers. He is able to self feed. He is sedentary and sits most the day in the wheelchair.PPS 50% - Palliative Care Discussion: Patient does appear to have settled in well, he himself when asked if he had any complaints or worries, did not appear or to be distressed. He does still recognize Otf, and does obviously still enjoy being with her. She does admit to anxiety and loneliness. She is looking at getting a kitten, we did spend time talking about this and is really engaged Roverto as well. They have had a very rich life together, including travel and cars. Counseling around life review, patient was able to engage, and did appear to enjoy conversation. She does have a POLST in place with DNA R/selective treatments. The goal is to focus on comfort and quality of life. Lonnie Cesar [phone] is the D POA for medical decision-making. Impression and Recommendations - Palliative Care Impression: This is an 83-year-old gentleman with atypical Parkinson's and Lewy body dementia, who is adjusting to the new setting of his memory unit. He presents with low symptom burden and his weight is stabilized. His cognitive and func tional status continues to decline but very slowly. Palliative care to continue to provide support and monitoring regarding quality of life issues. Recommendations/Counseling Done: 1. Difficulty walking. Patient has lost more ground as far as functional capacity. Am concerned patient also may be developing some hip and knee contractures, as well as some shoulder stiffening. This can also be attributed multifactorial to his disease as well and wheelchair-bound status. Family goals remain to continue to keep him as functional as possible particularly in the context of being able to pivot transfer. Dr. Coughlin has ordered home health, will provide [id number]. 2. Atypical Parkinson's. Patient does present with some increased stiffness, increase in upper extremity tremors which he confirms as noting as well. Has seen neurologist with no changes in medication. 3. Weight loss. Patient is remaining stable between 150 and 155, he is on a meal monitoring program and gets replacement if less than 50% of meal is eaten. This most often is at breakfast as he is not quite ready to eat. 4. BPH. Patient is incontinent, has had no further difficulties or signs or symptoms of retention nor recurrent UTIs at this point in time. 5. Constipation current bowel program is effective, patient has had increased incontinence but is going on a regular basis. 6. Advanced care planning. POLST is in place, goal at this point in time is to continue to keep him at the memory unit. Counseling provided for support for , encouraged again for caregiver support and support group. Have reached out if education program is still being offered this fall, will refer to it. She continues to struggle with his decline and her loneliness. Positive reinforcement given as she is going to seeking out further support for her anxiety. Encouraged follow through on getting her kitten. [id number]. Patient is homebound secondary is a taxing considerable effort for the patient to leave the facility given difficulty walking lower extremity weakness and advanced dementia. Patient would benefit from physical therapy for range of motion, evaluation and treatment of lower extremity weakness, shoulder weakness/decreased ROM, and continued focus on transfers and maintaining or improving current functional status and car transfers. Time Spent: 30 minutes with greater than 50% of this done in counseling regarding disease process, review of medications, [id number] for eating, and coordination of care with staff, and anticipatory guidance. CANDACE MORALES
== END 2019-02-28 11:16 | disposition home or self-care (01) ==
LOC: PC 11:15
PROVIDERS: ATTEND Nurse Practitioner Adult Health
DX: Z51.5 Encounter for palliative care (principal); G31.83 Neurocognitive disorder with Lewy bodies; F02.80 Dementia in other diseases classified elsewhere, unspecified severity, without behavioral disturbance, psychotic disturbance, mood disturbance, and anxiety; R26.2 Difficulty in walking, not elsewhere classified; R63.4 Abnormal weight loss; R15.9 Full incontinence of feces; R32 Unspecified urinary incontinence; Z79.899 Other long term (current) drug therapy; Z79.82 Long term (current) use of aspirin; Z99.3 Dependence on wheelchair; Z66 Do not resuscitate

== ENCOUNTER 2019-05-21 19:02 | Outpatient (CLI) | payer MEDICARE, OTHER | END 2019-05-21 19:03 | disposition critical access hospital (66) | LOC: EMS 19:02 | PROVIDERS: ATTEND Surgery | DX: R50.9 Fever, unspecified (principal); R10.814 Left lower quadrant abdominal tenderness; R10.813 Right lower quadrant abdominal tenderness | CPT/HCPCS: A0425; A0429 ==

== ENCOUNTER 2019-05-21 19:19 | Inpatient (IN) | payer MEDICARE, OTHER ==
[2019-05-21 20:07] LABS: BILIRUBIN,URINE NEGATIVE (NEGATIVE); GLUCOSE, URINE (UA) NEGATIVE (NEGATIVE); KETONES,URINE (UA) NEGATIVE (NEGATIVE); LEUKOCYTE ESTERASE, URINE LARGE (NEGATIVE); NITRITE,URINE POSITIVE (NEGATIVE); OCCULT BLOOD,URINE MODERATE (NEGATIVE); PROTEIN,URINE TRACE mg/dL (NEGATIVE); UROBILINOGEN,URINE 0.2 (NORMAL) E.U./dL (NORMAL)
--- NOTE | 2019-05-21 20:18 | ED Physician Documentation ---
PD HPI ALTERED MENTAL STATUS - Stated complaint Stated Complaint: FEVER - Chief complaint Chief Complaint: Fever - History obtained from History obtained from: Patient, EMS, Caregiver - History of Present Illness Timing - onset: Today Timing - details: Gradual onset, Still present Quality / character: Less responsive. No: Agitated Associated symptoms: Fever. No: Cough, NVD Contributing factors: No: Diabetic, Recent illness Basline status: Confused, Walker Similar symptoms before: Diagnosis (similar symptoms with UTI in the past.) Recently seen: Not recently seen Review of Systems Unable to obtain: Other (he is resting and family says he is confused.) Constitutional: reports: Fever (today) Cardiac: denies: Chest pain / pressure Respiratory: denies: Dyspnea, Cough GI: denies: Vomiting, Diarrhea Skin: denies: Rash PD PAST MEDICAL HISTORY - Past Medical History Cardiovascular: High cholesterol, Coronary artery disease, Atrial fibrillation, Murmur Respiratory: None Neuro: Parkinson's Endocrine/Autoimmune: None GI: Ulcers, Chronic constipation : Benign prostate hypertrophy, Incontinence, Nocturia HEENT: Glaucoma Psych: None Musculoskeletal: Scoliosis Derm: None - Past Surgical History Past Surgical History: Yes General: Colonoscopy, Other Ortho: Other Cardiovascular: Coronary stent, Cardiac catheterization Neuro: Other HEENT: Cataracts, Tonsil/Adenoidectomy - Present Medications Home Medications: Ambulatory Orders Medication Instructions Recorded Confirmed Aspirin Chewable [St Kevin 81 mg PO DAILY 06/19/13 03/01/19 Aspirin] Brimonidine 0.15% Ophth Drops 1 drops EACHEYE BID 06/19/13 03/01/19 [Alphagan P 0.15% Ophth Drops] Atorvastatin Calcium [Lipitor] 40 mg PO QPM 06/20/13 03/01/19 Carbidopa/Levodopa [Carbidopa-Levo 1 tab PO QPM 05/28/16 03/01/19 ER 50-200 Tab] Rivastigmine Tartrate 6 mg PO BID 06/26/18 03/01/19 [Rivastigmine] Dorzolamide/Timolol Ophth Soln 1 drops EACHEYE BID 09/06/18 03/01/19 [Cosopt] Latanoprost 0.005% Ophth Drops 1 drops EACHEYE QPM 09/06/18 03/01/19 [Xalatan Ophth Drops] Multivitamin/Iron/Folic Acid 1 tab PO DAILY 09/06/18 03/01/19 [Centrum Adults Tablet] Senna [Senokot] 17.2 mg PO DAILY 09/06/18 03/01/19 Tamsulosin [Flomax] 0.4 mg PO DAILY 09/06/18 03/01/19 Carbidopa/Levodopa 25/100 [Sinemet 1.5 tab PO TID 09/11/18 03/01/19 25 mg/100 mg] Acetaminophen [Tylenol] 650 mg PO Q6H PRN 09/18/18 03/01/19 Bisacodyl Supp [Dulcolax Supp] 10 mg MS DAILY PRN 09/18/18 03/01/19 Magnesium Hydroxide [Milk of 30 ml PO DAILY PRN 09/18/18 03/01/19 Magnesia] Mylanta 30 ml PO Q4H PRN 09/18/18 03/01/19 Methylphenidate [Ritalin] 5 mg PO .AFTERNOON PRN MDD 09/29/18 03/01/19 somnulence Methylphenidate [Ritalin] 5 mg PO DAILY 09/29/18 03/01/19 Polyethylene Glycol 3350 [Miralax] 17 gm PO .Q2 DAYS 10/16/18 03/01/19 - Allergies Allergies/Adverse Reactions: Allergies Allergy/AdvReac Type Severity Reaction Status Date / Time niacin Allergy Unknown Verified 09/11/18 13:40 - Social History Does the pt smoke?: No Smoking Status: Never smoker Does the pt drink ETOH?: No Does the pt have substance abuse?: No - Immunizations Immunizations are current?: No Immunizations: TDAP >10years/unknown - POLST Patient has POLST: Yes PD ED PE NORMAL - Vitals Vital signs reviewed: Yes - General General: Alert and oriented X 3, No acute distress, Well developed/nourished - HEENT HEENT: Pharynx benign - Neck Neck: Supple, no meningeal sign, No adenopathy - Cardiac Cardiac: RRR, No murmur - Respiratory Respiratory: Clear bilaterally - Abdomen Abdomen: Soft, Non tender, Non distended - Male Male : Other (normal external genitalia. ) - Rectal Rectal: Deferred - Back Back: No CVA TTP - Derm Derm: Normal color, Warm and dry - Extremities Extremities: No edema, No calf tenderness / cord Results - Vitals Vitals: Vital Signs - 24 hr 05/21/19 05/21/19 05/21/19 19:25 20:07 20:30 Temperature 38.3 C H Heart Rate 99 100 100 Respiratory 14 18 15 Rate Blood Pressure 135/69 H 117/66 110/65 O2 Saturation 100 98 97 05/21/19 05/21/19 05/21/19 20:43 21:00 21:30 Temperature Heart Rate 99 100 99 Respiratory 18 15 15 Rate Blood Pressure 110/65 99/57 L 89/58 L O2 Saturation 95 99 100 Oxygen O2 Source Room air - Labs Labs: Laboratory Tests 05/21/19 05/21/19 05/21/19 19:40 20:47 20:47 WBC 14.5 H RBC 4.28 L Hgb 13.8 L Hct 41.5 L MCV 97.0 H MCH 32.2 H MCHC 33.3 RDW 13.9 Plt Count 161 MPV 10.6 Neut # (Auto) 14.2 H Lymph # (Auto) 0.1 L [place] # (Auto) 0.1 Eos # (Auto) 0.0 Baso # (Auto) 0.0 Absolute Nucleated RBC 0.00 Nucleated RBC % 0.0 Sodium 140 Potassium 3.4 L Chloride 104 Carbon Dioxide 25 Anion Gap 11.0 BUN 19 Creatinine 1.0 Estimated GFR (MDRD) 72 L Glucose 106 H Lactic Acid Calcium 8.9 Magnesium 1.9 Total Bilirubin 1.8 H AST 27 ALT < 10 L Alkaline Phosphatase 65 Total Protein 6.0 L Albumin 3.2 Globulin 2.8 Albumin/Globulin Ratio 1.1 Lipase 26 Urine Color YELLOW Urine Clarity CLOUDY Urine pH 6.0 Ur Specific [place] 1.010 Urine Protein TRACE Urine Glucose (UA) NEGATIVE Urine Ketones NEGATIVE Urine Occult Blood MODERATE H Urine Nitrite POSITIVE H Urine Bilirubin NEGATIVE Urine Urobilinogen 0.2 (NORMAL) Ur Leukocyte Esterase LARGE H Urine RBC 6-10 H Urine WBC >25 H Ur Squamous Epith Cells NONE SEEN Urine Bacteria Moderate H Ur Microscopic Review INDICATED Urine Culture Comments INDICATED 05/21/19 20:47 WBC RBC Hgb Hct MCV MCH MCHC RDW Plt Count MPV Neut # (Auto) Lymph # (Auto) [place] # (Auto) Eos # (Auto) Baso # (Auto) Absolute Nucleated RBC Nucleated RBC % Sodium Potassium Chloride Carbon Dioxide Anion Gap BUN Creatinine Estimated GFR (MDRD) Glucose Lactic Acid 2.1 Calcium Magnesium Total Bilirubin AST ALT Alkaline Phosphatase Total Protein Albumin Globulin Albumin/Globulin Ratio Lipase Urine Color Urine Clarity Urine pH Ur Specific [place] Urine Protein Urine Glucose (UA) Urine Ketones Urine Occult Blood Urine Nitrite Urine Bilirubin Urine Urobilinogen Ur Leukocyte Esterase Urine RBC Urine WBC Ur Squamous Epith Cells Urine Bacteria Ur Microscopic Review Urine Culture Comments - Rads (name of study) chest xray Radiology: Prelim report reviewed (no infiltrates), See rad report PD MEDICAL DECISION MAKING - ED course Complexity details: reviewed results (Chest x-ray is clear. White count is elevated at 14,000. His lactate is normal. His urine does show signs of infection.), considered differential (The patient was having fever and general weakness and decreased interaction today. He seemed generally weaker a little bit yesterday as well. He had had similar with UTI in the past. He is a resident at [facility]. Caregivers there called the family and had him brought to the ER with fevers today. Will check blood tests and urine test and chest x-ray and give him some IV fluids for hydration.), d/w family Departure - Departure Disposition: ED Place in Observation Clinical Impression: Fever Qualifiers: Fever type: unspecified Qualified Code(s): R50.9 - Fever, unspecified UTI (urinary tract infection) Qualifiers: Urinary tract infection type: site unspecified Hematuria presence: without hematuria Qualified Code(s): N39.0 - Urinary tract infection, site not specified Condition: Stable Record reviewed to determine appropriate education?: Yes
[2019-05-21 20:21] LABS: CLARITY,URINE CLOUDY (CLEAR)
[2019-05-21 20:22] LABS: BACTERIA,URINE Moderate /HPF (None Seen); SQUAMOUS EPITHELIAL CELL,UR NONE SEEN (<= Few)
[2019-05-21] MEDS ORDERED: cefTRIAXone 1 GM VIAL IVP STA (20:47)
[2019-05-21 21:00] LABS: BASOPHILS % (AUTO) 0.3 %; EOSINOPHILS % (AUTO) 0.2 %; HGB - HEMOGLOBIN 13.8 g/dL (14.0-18.0); LYMPHOCYTES # (AUTO) 0.1 10^3/uL (1.5-3.5); LYMPHOCYTES % (AUTO) 0.7 %; MEAN CORPUSCULAR HEMOGLOBIN 32.2 pg (27.0-31.0); MEAN CORPUSCULAR HGB CONC 33.3 g/dL (32.0-36.0); MEAN PLATELET VOLUME 10.6 fL (7.4-11.4); MONOCYTES # (AUTO) 0.1 10^3/uL (0.0-1.0); MONOCYTES % (AUTO) 0.3 %; NEUTROPHILS # (AUTO) 14.2 10^3/uL (1.5-6.6); NEUTROPHILS % (AUTO) 97.6 %; PLT - PLATELET COUNT 161 10^3/uL (130-450); RED BLOOD COUNT 4.28 10^6/uL (4.70-6.10); RED CELL DISTRIBUTION WIDTH 13.9 % (12.0-15.0); WHITE BLOOD COUNT 14.5 x10^3/uL (4.8-10.8)
[2019-05-21 21:17] LABS: ALBUMIN 3.2 g/dL (3.2-5.5); ALBUMIN/GLOBULIN RATIO 1.1 (1.0-2.2); ALKALINE PHOSPHATASE 65 IU/L (42-121); ALT ALANINE AMINOTRANSFERASE < 10 IU/L (10-60); AST ASPARTATE AMINOTRANSFERASE 27 IU/L (10-42); BILIRUBIN,TOTAL 1.8 mg/dL (0.2-1.0); BUN - BLOOD UREA NITROGEN 19 mg/dL (6-20); CALCIUM 8.9 mg/dL (8.5-10.3); CARBON DIOXIDE - CO2 25 mmol/L (21-32); CHLORIDE 104 mmol/L (101-111); GFR - MDRD 72 (>89); GLUCOSE 106 mg/dL (70-100); LIPASE 26 U/L (22-51); MAGNESIUM 1.9 mg/dL (1.7-2.8); SODIUM 140 mmol/L (135-145)
--- NOTE | 2019-05-21 21:26 | XRAY Report ---
Reason: fever Procedure Date: 05/21/2019 Accession Number: [id number] / [id number] Procedure: XR - Chest 1 View X-Ray CPT Code: 67113 Final Report FULL RESULT: EXAM: CHEST RADIOGRAPHY EXAM DATE: 05/21/2019 09:03 PM. CLINICAL HISTORY: Fever. COMPARISON: CHEST 1 VIEW 09/11/2018 2:18 PM XR CHEST PA AND LAT 06/27/2007 8:42 AM. TECHNIQUE: 1 view. FINDINGS: Lungs/Pleura: No focal opacities evident. No pleural effusion. No pneumothorax. Mediastinum: Within exam limitations, the cardiomediastinal contour is normal. Moderate calcific aortic sclerosis. Other: There is moderate left shoulder degenerative change. IMPRESSION: No significant change. No acute cardiopulmonary abnormality demonstrated. RADIA
[2019-05-21] MEDS ORDERED: SODIUM CHLORIDE 0.9% 1,000 ML IV ONE ×2 (21:54→22:01)
[2019-05-21] MEDS ORDERED: ONDANSETRON ODT 4 MG TABLET TL PRN (22:00)
[2019-05-21] MEDS ORDERED: ACETAMINOPHEN 325 MG TABLET PO PRN (22:00)
[2019-05-21] MEDS ORDERED: ONDANSETRON 4 MG/2 ML VIAL IVP PRN (22:00)
[2019-05-21] MEDS ORDERED: oxyCODONE 5 MG TABLET PO PRN (22:00)
[2019-05-21] MEDS ORDERED: SODIUM CHLORIDE FLUSH 0.9% 10 ML SYRINGE IVP PRN (22:00)
[2019-05-21] MEDS ORDERED: ACETAMINOPHEN 1,000 MG/100 ML 100 ML IV STA (22:36)
[2019-05-21] MEDS: SODIUM CHLORIDE FLUSH 0.9% 10 ML SYRINGE IVP SCH (23:43)
[2019-05-21] MEDS: SODIUM CHLORIDE 0.9% 1,000 ML IV SCH (23:44)
[2019-05-22] MEDS ORDERED: SODIUM CHLORIDE 0.9% 500 ML IV ONE (00:07)
[2019-05-22] MEDS ORDERED: ACETAMINOPHEN 1,000 MG/100 ML 100 ML IV PRN (00:57)
[2019-05-22] MEDS ORDERED: MIN OIL/DIMETHICON/COCONUT OIL 92 GM TUBE TOP PRN (01:52)
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
[2019-05-22 04:59] LABS: BASOPHILS % (AUTO) 0.1 %; EOSINOPHILS % (AUTO) 0.1 %; HGB - HEMOGLOBIN 13.1 g/dL (14.0-18.0); LYMPHOCYTES % (AUTO) 1.2 %; MEAN CORPUSCULAR HEMOGLOBIN 32.9 pg (27.0-31.0); MEAN CORPUSCULAR HGB CONC 32.3 g/dL (32.0-36.0); MEAN CORPUSCULAR VOLUME 101.8 fL (80.0-94.0); MEAN PLATELET VOLUME 10.9 fL (7.4-11.4); MONOCYTES % (AUTO) 3.5 %; PLT - PLATELET COUNT 167 10^3/uL (130-450); RED BLOOD COUNT 3.98 10^6/uL (4.70-6.10); RED CELL DISTRIBUTION WIDTH 13.9 % (12.0-15.0)
[2019-05-22] MEDS: CARBIDOPA/LEVODOPA 25 MG/100 MG TABLET PO SCH ×3 (05:06→20:15)
[2019-05-22 05:07] LABS: CALCIUM 8.9 mg/dL (8.5-10.3); CREATININE 1.5 mg/dL (0.6-1.2)
[2019-05-22 05:08] LABS: ABNORMAL LYMPHS % (MANUAL) 0 %
[2019-05-22 05:31] LABS: BAND NEUTROPHILS % (MANUAL) 29 %; DIFFERENTIAL COMMENT MANUAL DIFFERENTIAL; LYMPHOCYTES # (MANUAL) 0.8 10^3/uL (1.5-3.5); LYMPHOCYTES % (MANUAL) 2 %; MONOCYTES # (MANUAL) 1.2 10^3/uL (0.0-1.0); PLATELET ESTIMATE, MANUAL NORMAL (130-450,000) (NORMAL); RBC MORPHOLOGY (MULTIPLE) NORMAL APPEARANCE (NORMAL)
[2019-05-22] MEDS ORDERED: PIPERACILLIN/TAZOBACTAM 4.5 GM in SODIUM CHLORIDE 0.9% MINIBAG 100 ML IV ONE (08:00)
--- NOTE | 2019-05-22 08:40 | Ultrasound Report ---
Reason: eval for hydronephrosis Procedure Date: 05/22/2019 Accession Number: [id number] / [id number] Procedure: US - Retroperitoneal CPT Code: Addended Final Report FULL RESULT: EXAM: RENAL ULTRASOUND EXAM DATE: 05/22/2019 08:11 AM. CLINICAL HISTORY: Recurrent urosepsis. Parkinson's disease. Eval for hydronephrosis. COMPARISON: RETROPERITONEAL 09/12/2018 5:04 AM. TECHNIQUE: Real-time scanning was performed with static images obtained. FINDINGS: Right Kidney: 12.4 x 7.7 x 6.5 cm. Normal echotexture. Mild hydronephrosis. Hyperechoic shadowing 1.9 cm calculus at the right ureteropelvic junction. Left Kidney: 11.5 x 7.3 x 6.0 cm. Normal echotexture with no gross stones, contour-deforming masses, or hydronephrosis. 2.0 x 1.7 x 2.4 cm simple cortical cyst in the lateral mid kidney. Bladder: Ureteral jets are not visualized. The prevoid bladder volume was 102 cc. There is a large amount of dependent echogenic debris in the bladder with color Doppler foci of twinkle artifact without evidence of arterial or venous waveform on spectral Doppler. The patient was unable to void. The prostate gland is mildly enlarged measuring approximately 5.1 x 5.1 x 3.3 cm. Other: None. IMPRESSION: 1. Apparent 1.9 cm obstructing calculus at the right ureteropelvic junction. There is mild hydronephrosis. 2. Large amount of debris in the bladder consistent with bladder infection. 3. Mild prostatomegaly. RADIA The call report notification system was initiated by Dr. Steven Maradiaga at 08:38 AM on 05/22/2019. ADDENDUM: 05/22/19 08:43 The above call report findings were discussed with Bertha Gomez by Dr. Steven Maradiaga at 08:43 AM on 05/22/2019.
[2019-05-22] MEDS: SODIUM CHLORIDE FLUSH 0.9% 10 ML SYRINGE IVP SCH ×2 (09:20→18:01)
[2019-05-22] MEDS: RIVASTIGMINE 1.5 MG CAPSULE PO SCH ×2 (09:20→20:14)
[2019-05-22] MEDS: BRIMONIDINE 0.15% OPHTH DROPS 5 ML EACHEYE SCH ×2 (09:50→20:14)
[2019-05-22] MEDS: DORZOLAMIDE/TIMOLOL OPHTH DROPS EACHEYE SCH ×2 (09:50→20:14)
[2019-05-22] MEDS: SODIUM CHLORIDE 0.9% 1,000 ML IV SCH (11:25)
--- NOTE | 2019-05-22 12:49 | PROVIDER PROGRESS NOTE ---
Subjective - Prog Note Date Prog Note Date: 05/22/19 - Subjective Subjective: Patient not awake to verbalize Son indicates no indication of pain Later when in patient said "I love you" also when son leaving to eat earlier patient "ok" Current Medications - Current Medications Current Medications: Active Medications Acetaminophen (Tylenol) 650 mg PO Q4HR PRN PRN Reason: Pain 1 to 4 Brimonidine Tartrate (Alphagan P 0.15% Ophth Drops) 1 drops EACHEYE BID [facility] Last Admin: 05/22/19 09:50 Dose: 1 drops Carbidopa/Levodopa (Sinemet 25 Mg/100 Mg) 1.5 tab PO TID [facility] Last Admin: 05/22/19 14:03 Dose: Not Given Carbidopa/Levodopa (Sinemet Cr 50 Mg/200 Mg) 1 tab PO QPM [facility] Dorzolamide/Timolol (Cosopt) 1 drops EACHEYE BID [facility] Last Admin: 05/22/19 09:50 Dose: 1 drops Sodium Chloride (Normal Saline 0.9%) 1,000 mls @ 100 mls/hr IV .Q10H [facility] Stop: 05/22/19 17:59 Last Admin: 05/22/19 11:25 Dose: 100 mls/hr Acetaminophen (Ofirmev) 100 mls @ 400 mls/hr IV Q6HR PRN PRN Reason: PAIN Piperacillin Sod/Tazobactam (Sod 3.375 gm/ Sodium Chloride) 100 mls @ 25 mls/hr IV Q8H [facility] Last Admin: 05/22/19 12:57 Dose: 25 mls/hr Latanoprost (Xalatan Ophth Drops) 1 drops EACHEYE QPM [facility] Mineral Oil (Cavilon) 1 applic TOP PRN PRN PRN Reason: Skin Care Ondansetron HCl (Zofran Inj) 4 mg IVP Q6HR PRN PRN Reason: Nausea / Vomiting Ondansetron HCl (Zofran Odt) 4 mg TL Q6HR PRN PRN Reason: Nausea / Vomiting Oxycodone HCl (Roxicodone) 5 mg PO Q4HR PRN PRN Reason: Pain 5 to 7 Rivastigmine Tartrate (Exelon) 6 mg PO BID [facility] Last Admin: 05/22/19 09:20 Dose: Not Given Sodium Chloride (Normal Saline Flush 0.9%) 10 ml IVP PRN PRN PRN Reason: NEEDED PER PROVIDER ORDERS Sodium Chloride (Normal Saline Flush 0.9%) 10 ml IVP 0100,0900,1700 TE Last Admin: 05/22/19 09:20 Dose: Not Given Aspirin Chewable [St Kevin Aspirin] 81 mg PO DAILY 06/19/13 Brimonidine 0.15% Ophth Drops [Alphagan P 0.15% Ophth Drops] 1 drops EACHEYE BID 06/19/13 Atorvastatin Calcium [Lipitor] 40 mg PO QPM 06/20/13 Carbidopa/Levodopa [Carbidopa-Levo ER 50-200 Tab] 1 tab PO QPM 05/28/16 Rivastigmine Tartrate [Rivastigmine] 6 mg PO BID 06/26/18 Dorzolamide/Timolol Ophth Soln [Cosopt] 1 drops EACHEYE BID 09/06/18 Latanoprost 0.005% Ophth Drops [Xalatan Ophth Drops] 1 drops EACHEYE QPM 09/06/18 Multivitamin/Iron/Folic Acid [Centrum Adults Tablet] 1 tab PO DAILY 09/06/18 Senna [Senokot] 17.2 mg PO DAILY 09/06/18 Tamsulosin [Flomax] 0.4 mg PO DAILY 09/06/18 Carbidopa/Levodopa 25/100 [Sinemet 25 mg/100 mg] 1.5 tab PO TID 09/11/18 Acetaminophen [Tylenol] 650 mg PO Q6H PRN 09/18/18 Bisacodyl Supp [Dulcolax Supp] 10 mg PA DAILY PRN 09/18/18 Magnesium Hydroxide [Milk of Magnesia] 30 ml PO DAILY PRN 09/18/18 Mylanta 30 ml PO Q4H PRN 09/18/18 Methylphenidate [Ritalin] 5 mg PO .AFTERNOON PRN MDD somnulence 09/29/18 Methylphenidate [Ritalin] 5 mg PO DAILY 09/29/18 Polyethylene Glycol 3350 [Miralax] 17 gm PO .Q2 DAYS 10/16/18 Objective - Vital Signs/Intake & Output Reviewed Vital Signs: Yes Vital Signs: systolic checked by me manually ~ 9am 100Vital Signs x48h Temp Pulse Resp BP Pulse Ox 05/22/19 08:16 74 20 110/60 97 05/22/19 05:21 36.8 C 76 14 95/55 L 95 Intake & Output: Intake & Output 05/19/19 05/20/19 05/21/19 05/22/19 23:59 23:59 23:59 23:59 Intake Total 1700 Balance 1700 - Objective General Appearance: positive: Other (Elderly gentleman lying on back in bed, mouth slightly open, unlabored resps, frquent tremor temi RUE, slight bruise on chin, oral care swabs at bedside) Eyes Bilateral: positive: Other (did notopen eyes for exam) Respiratory: positive: No respiratory distress, Breath sounds nml (no wheezing, rhonchi nor labored resps) Cardiovascular: positive: Regular rate & rhythm, No murmur (with initial exam did not appreciate murmur, repeat exam 2/ harsh SM temi LSB, axilla) Abdomen: positive: Nml bowel sounds, No distention (No appreciable bladder distension on palpation or percussion, With placement of reynolds , purulent urine, became less purulent over course of day) Skin: positive: Warm, Dry, Other (no mottling, color this afternoon is improved (comparitively there was pallor this am)). negative: Diaphoresis, Pallor Extremities: positive: Other (TEDS). negative: Pedal edema Neurologic/Psychiatric: positive: Other (unable to assess orientation i ndicates he said "I love you " to her (~ 11am) - Lab Results Fish Bones: 05/23/19 04:20 05/23/19 04:20 Other Labs: Lab Results x24hrs 05/22/19 05/22/19 05/21/19 Range/Units 04:45 04:45 20:47 WBC 39.0 H* (4.8-10.8) x10^3/uL RBC 3.98 L (4.70-6.10) 10^6/uL Hgb 13.1 L (14.0-18.0) g/dL Hct 40.5 L (42.0-52.0) % MCV 101.8 H (80.0-94.0) fL MCH 32.9 H (27.0-31.0) pg MCHC 32.3 (32.0-36.0) g/dL RDW 13.9 (12.0-15.0) % Plt Count 167 (130-450) 10^3/uL MPV 10.9 (7.4-11.4) fL Neut # (Auto) Not Reportable (1.5-6.6) 10^3/uL Lymph # (Auto) Not Reportable (1.5-3.5) 10^3/uL [place] # (Auto) Not Reportable (0.0-1.0) 10^3/uL Eos # (Auto) Not Reportable (0.0-0.7) 10^3/uL Baso # (Auto) Not Reportable (0.0-0.1) 10^3/uL Absolute Nucleated RBC Not Reportable x10^3/uL Total Counted 100 Band Neuts % (Manual) 29 H (0 - 10) % Abnorm Lymph % (Manual) 0 % Nucleated RBC % Not Reportable /100WBC Neutrophils # (Manual) 37.1 H (1.5-6.6) 10^3/uL Lymphocytes # (Manual) 0.8 L (1.5-3.5) 10^3/uL Monocytes # (Manual) 1.2 H (0.0-1.0) 10^3/uL Eosinophils # (Manual) 0.0 (0-0.7) 10^3/uL Basophils # (Manual) 0.0 (0-0.1) 10^3/uL Differential Comment MANUAL DIFFERENTIAL Platelet Estimate NORMAL (130-450,000) (NORMAL) RBC Morph Micro Appear NORMAL APPEARANCE (NORMAL) Sodium 143 (135-145) mmol/L Potassium 4.3 (3.5-5.0) mmol/L Chloride 106 (101-111) mmol/L Carbon Dioxide 25 (21-32) mmol/L Anion Gap 12.0 (6-13) BUN 23 H (6-20) mg/dL Creatinine 1.5 H (0.6-1.2) mg/dL Estimated GFR (MDRD) 45 L (>89) Glucose 120 H (70-100) mg/dL Lactic Acid 2.1 (0.5-2.2) mmol/L Calcium 8.9 (8.5-10.3) mg/dL Magnesium (1.7-2.8) mg/dL Total Bilirubin (0.2-1.0) mg/dL AST (10-42) IU/L ALT (10-60) IU/L Alkaline Phosphatase (42-121) IU/L Total Protein (6.7-8.2) g/dL Albumin (3.2-5.5) g/dL Globulin (2.1-4.2) g/dL Albumin/Globulin Ratio (1.0-2.2) Lipase (22-51) U/L Urine Color Urine Clarity (CLEAR) Urine pH (5.0-7.5) PH Ur Specific [place] (1.002-1.030) Urine Protein (NEGATIVE) mg/dL Urine Glucose (UA) (NEGATIVE) mg/dL Urine Ketones (NEGATIVE) mg/dL Urine Occult Blood (NEGATIVE) Urine Nitrite (NEGATIVE) Urine Bilirubin (NEGATIVE) Urine Urobilinogen (NORMAL) E.U./dL Ur Leukocyte Esterase (NEGATIVE) Urine RBC (0-5) /HPF Urine WBC (0-3) /HPF Ur Squamous Epith Cells (<= Few) Urine Bacteria (None Seen) /HPF Ur Microscopic Review Urine Culture Comments 05/21/19 05/21/19 05/21/19 Range/Units 20:47 20:47 19:40 WBC 14.5 H (4.8-10.8) x10^3/uL RBC 4.28 L (4.70-6.10) 10^6/uL Hgb 13.8 L (14.0-18.0) g/dL Hct 41.5 L (42.0-52.0) % MCV 97.0 H (80.0-94.0) fL MCH 32.2 H (27.0-31.0) pg MCHC 33.3 (32.0-36.0) g/dL RDW 13.9 (12.0-15.0) % Plt Count 161 (130-450) 10^3/uL MPV 10.6 (7.4-11.4) fL Neut # (Auto) 14.2 H (1.5-6.6) 10^3/uL Lymph # (Auto) 0.1 L (1.5-3.5) 10^3/uL [place] # (Auto) 0.1 (0.0-1.0) 10^3/uL Eos # (Auto) 0.0 (0.0-0.7) 10^3/uL Baso # (Auto) 0.0 (0.0-0.1) 10^3/uL Absolute Nucleated RBC 0.00 x10^3/uL Total Counted Band Neuts % (Manual) (0 - 10) % Abnorm Lymph % (Manual) % Nucleated RBC % 0.0 /100WBC Neutrophils # (Manual) (1.5-6.6) 10^3/uL Lymphocytes # (Manual) (1.5-3.5) 10^3/uL Monocytes # (Manual) (0.0-1.0) 10^3/uL Eosinophils # (Manual) (0-0.7) 10^3/uL Basophils # (Manual) (0-0.1) 10^3/uL Differential Comment Platelet Estimate (NORMAL) RBC Morph Micro Appear (NORMAL) Sodium 140 (135-145) mmol/L Potassium 3.4 L (3.5-5.0) mmol/L Chloride 104 (101-111) mmol/L Carbon Dioxide 25 (21-32) mmol/L Anion Gap 11.0 (6-13) BUN 19 (6-20) mg/dL Creatinine 1.0 (0.6-1.2) mg/dL Estimated GFR (MDRD) 72 L (>89) Glucose 106 H (70-100) mg/dL Lactic Acid (0.5-2.2) mmol/L Calcium 8.9 (8.5-10.3) mg/dL Magnesium 1.9 (1.7-2.8) mg/dL Total Bilirubin 1.8 H (0.2-1.0) mg/dL AST 27 (10-42) IU/L ALT < 10 L (10-60) IU/L Alkaline Phosphatase 65 (42-121) IU/L Total Protein 6.0 L (6.7-8.2) g/dL Albumin 3.2 (3.2-5.5) g/dL Globulin 2.8 (2.1-4.2) g/dL Albumin/Globulin Ratio 1.1 (1.0-2.2) Lipase 26 (22-51) U/L Urine Color YELLOW Urine Clarity CLOUDY (CLEAR) Urine pH 6.0 (5.0-7.5) PH Ur Specific [place] 1.010 (1.002-1.030) Urine Protein TRACE (NEGATIVE) mg/dL Urine Glucose (UA) NEGATIVE (NEGATIVE) mg/dL Urine Ketones NEGATIVE (NEGATIVE) mg/dL Urine Occult Blood MODERATE H (NEGATIVE) Urine Nitrite POSITIVE H (NEGATIVE) Urine Bilirubin NEGATIVE (NEGATIVE) Urine Urobilinogen 0.2 (NORMAL) (NORMAL) E.U./dL Ur Leukocyte Esterase LARGE H (NEGATIVE) Urine RBC 6-10 H (0-5) /HPF Urine WBC >25 H (0-3) /HPF Ur Squamous Epith Cells NONE SEEN (<= Few) Urine Bacteria Moderate H (None Seen) /HPF Ur Microscopic Review INDICATED Urine Culture Comments INDICATED Assessment/Plan - Problem List (1) UTI (urinary tract infection) Impression: intiial ceftriaxone changed to zosyn with progrssive sepsis earlier now hemodynamically stable follow up cultures (most recent was citrobacter, Sandra sensitive Renal u/s : + 1.9 cm UPJ stone, with mild hydronephrosis d/w'd family if they wanted possible source of infection addressed (obstructive stone) vs conservative w/ IVF / abx Family discussing (also with Steffi Barrett) Dr Tracy Wade [facility] [phone] from [facility] indicated he COULD accept patient for cystoscopy/ ureteral stenting today with stone addressed at later time IF the family wants to go that route; (Per son , still not able to be comfortable with just comfort care. Dr Wade pointed out this COULD be a just a cystitis,and the stone is not related/infected. Ideally, given stone obstructive/ hydronephrosis it would be stented if family wants to go that route. Not clear stone is the source at this time (is the infection is proxiimal or distal to obstruction?). Cystoscopy WOULD require general anesthesia and family aware that would likley result in worse delerium post procedure given underlying dementia . Nephrostomy also consideration if acutely worsens (but urgent transfer does not seem most reasonable given approaching goal of just comfort. O. Family, in discussion with Steffi are interested in seeing how he does on the antibiotics. They might still consider transfer if it is more clear he is improving for possible stenting. If he does improve with this acute infection, also allows time to discuss WHEN he has next acute infection , are they ready to decide to NOT treat with antibiotics/volume next time CT in am will more clearly delinate the stone repeat Cr and WBC in am will give more info as to how responding to antibtiotics Continue zosyn follow cultures/deescalate when possible Reynolds placed as ultrasound note "debris" in bladder; Initial urine is purulent but urine clearer later in shift Qualifiers: Urinary tract infection type: site unspecified Hematuria presence: without hematuria Qualified Code(s): N39.0 - Urinary tract infection, site not specified (2) UPJ (ureteropelvic junction) obstruction Impression: 1.9 cm stone R UPJ as above Plan as under UtI conservative management for now ; eval how does with iVF and antibiotics if this is "just " severe cystitis and could conceivably have stenting done as outpatient once recovers (3) Sepsis Impression: related to urinary source Initial VS 38.3, 99, 135/69,reducd to 80/50 at lowerst RR 14 Lactate 2.1 hemodynamically stable now, now afebrile Hypotension resolved but still "soft" systolic , not tachycardia, no evident hypoperfusion on exam/ Continue IVF at 100 (SBP consistently ~ 100, still ~ 100 at 6p, will reduce rate when condition allows. No evidence of volume overload , continue antibiotics til sensitivities No blood cultures in system Appreciate Steffi Jocjluis miguelshasta involvement as she knows family well Family aware that even if recovers from sepsis, UTI; likely will have recurrent UtI, this episode also allows opportunity to discuss how want to aproach with subsequent severe infection (4) Coronary artery disease Impression: hx stenting 2010 no recent ischemic symptoms per family no evident volume overload with fluid resuscitation Resume asa whe possible, If not taking PO by tomorrow will considr Pr ASA but ACS unlikely (family would not want intervention) (5) Lewy body dementia Impression: on Carbidopa/levodopa at home 1 pm, 1.5 tabs 8a, and noon , and Rivastigmine If more awake will try to give those tominimize delerium (although per notes, there has not been improvement) (6) Atrial fibrillation Impression: history of afib and Hx aortic stenosis Rate regular, tolerating volume (7) BPH (benign prostatic hyperplasia) Impression: Hx retention in past on flomax, proscar at home Had nontraumatic easy reynolds placement today (hx hematuria, requiring reynolds in past, and retention requiring Reynolds in 09/2018. (followed by Monty Maldonado urol) Hopefully progressive improvement Reynolds out as soon as possible Sat? or sun
[2019-05-22] MEDS: PIPERACILLIN/TAZOBACTAM 3.375 GM in SODIUM CHLORIDE 0.9% MINIBAG 100 ML IV SCH ×2 (12:57→20:13)
[2019-05-22] MEDS ORDERED: SODIUM CHLORIDE 0.9% 1,000 ML IV SCH (19:00)
[2019-05-22] MEDS: CARBIDOPA/LEVODOPA ER 50 MG/200 MG TABLET PO SCH (20:14)
[2019-05-22] MEDS: LATANOPROST 0.005% OPHTH DROPS EACHEYE SCH (20:18)
[2019-05-22] MEDS ORDERED: cefTRIAXone 1 GM in SODIUM CHLORIDE 0.9% MINIBAG 100 ML IV SCH (21:00)
[2019-05-23] MEDS: SODIUM CHLORIDE FLUSH 0.9% 10 ML SYRINGE IVP SCH ×4 (01:30→23:58)
[2019-05-23] MEDS: PIPERACILLIN/TAZOBACTAM 3.375 GM in SODIUM CHLORIDE 0.9% MINIBAG 100 ML IV SCH ×3 (03:58→20:12)
[2019-05-23 04:40] LABS: BASOPHILS % (AUTO) 0.5 %; EOSINOPHILS % (AUTO) 0.6 %; LYMPHOCYTES % (AUTO) 3.3 %; MEAN CORPUSCULAR HEMOGLOBIN 32.3 pg (27.0-31.0); MEAN CORPUSCULAR HGB CONC 31.5 g/dL (32.0-36.0); MEAN CORPUSCULAR VOLUME 102.7 fL (80.0-94.0); MEAN PLATELET VOLUME 11.4 fL (7.4-11.4); MONOCYTES % (AUTO) 3.4 %; NEUTROPHILS % (AUTO) 89.1 %; PLT - PLATELET COUNT 143 10^3/uL (130-450); RED BLOOD COUNT 3.71 10^6/uL (4.70-6.10); RED CELL DISTRIBUTION WIDTH 14.4 % (12.0-15.0); WHITE BLOOD COUNT 28.4 x10^3/uL (4.8-10.8)
[2019-05-23 04:49] LABS: ABNORMAL LYMPHS % (MANUAL) 0 %; ALBUMIN 2.7 g/dL (3.2-5.5); BILIRUBIN,TOTAL 1.5 mg/dL (0.2-1.0); CALCIUM 8.8 mg/dL (8.5-10.3); CREATININE 0.9 mg/dL (0.6-1.2); TOTAL PROTEIN 5.5 g/dL (6.7-8.2)
[2019-05-23 05:07] LABS: BAND NEUTROPHILS % (MANUAL) 17 %; BASOPHILS # (MANUAL) 0.3 10^3/uL (0-0.1); BASOPHILS % (MANUAL) 1 %; EOSINOPHILS # (MANUAL) 0.3 10^3/uL (0-0.7); LYMPHOCYTES % (MANUAL) 7 %; MONOCYTES # (MANUAL) 0.9 10^3/uL (0.0-1.0); RBC MORPHOLOGY (MULTIPLE) NORMAL APPEARANCE (NORMAL)
[2019-05-23 05:08] LABS: DIFFERENTIAL COMMENT MANUAL DIFFERENTIAL; PLATELET ESTIMATE, MANUAL NORMAL (130-450,000) (NORMAL)
[2019-05-23] MEDS: CARBIDOPA/LEVODOPA 25 MG/100 MG TABLET PO SCH ×3 (05:27→20:14)
--- NOTE | 2019-05-23 08:09 | CT Report ---
Reason: evaluate R UPJ stone seen on ultrasound Procedure Date: 05/23/2019 Accession Number: [id number] / [id number] Procedure: CT - ABDOMEN WO CPT Code: Final Report FULL RESULT: EXAM: CT ABDOMEN EXAM DATE: 05/23/2019 06:23 AM. CLINICAL HISTORY: Right ureteropelvic junction stone. COMPARISON: RETROPERITONEAL LIMITED 05/22/2019 7:31 AM. TECHNIQUE: Routine helical CT imaging was performed through the abdomen. IV contrast: None Enteric contrast: No. Reconstruction: Coronal and sagittal. In accordance with CT protocol optimization, one or more of the following dose reduction techniques were utilized for this exam: automated exposure control, adjustment of mA and/or KV based on patient size, or use of iterative reconstructive technique. FINDINGS: Lung Bases: Bilateral dependent atelectasis. Coronary artery atherosclerotic calcifications. Trace pericardial fluid. Normal heart size. Aortic valve calcifications. Liver: Within normal limits on this limited noncontrast exam. Gallbladder/Bile Ducts: Suggestion of 3 mm stone near the gallbladder neck (series 4, image 50). No intrahepatic or extrahepatic biliary dilatation. Spleen: Within normal limits on this limited noncontrast exam. Pancreas: Within normal limits. Adrenal Glands: Within normal limits. Kidneys: Right: 7 mm calculus at the right ureteropelvic junction with moderate right hydronephrosis and perinephric fat stranding. Proximal periureteral fat stranding. No additional calculi. Left: Several small calculi are seen in the left kidney. The largest measures 4 mm and is located in the lower pole. There is no left hydronephrosis. Mild left perinephric fat stranding is seen. No left ureteral calcifications are present. There is an ill-defined hypoattenuating lesion in the midpole of the left kidney measuring 2.7 cm in the maximum dimensions. This likely represents the cyst seen on the prior renal ultrasound. Bladder: A Lui catheter is seen in the decompressed bladder. Apparent bladder wall thickening is likely secondary to its decompressed state. Prostatic calcifications are seen. Peritoneal Cavity/Bowel: No abnormally dilated loops of bowel are seen. Stool is seen throughout the colon. There is a large stool ball in the rectum. Diverticulosis is seen in the proximal sigmoid colon. There is mild diffuse mesenteric edema, most pronounced in the right lower quadrant. No ascites. No pneumoperitoneum. No lymphadenopathy. Vasculature: There is mild dilatation of the thoracoabdominal aorta measuring up to 3.3 cm. The abdominal aorta is ectatic. Atherosclerotic calcifications are seen throughout the arterial vasculature. Bones: S-shaped thoracolumbar scoliosis. Multilevel degenerative changes in the thoracolumbar spine. Chronic-appearing compression deformity at L1. Other: None. IMPRESSION: 1. 7 mm right ureteropelvic junction calculus with moderate right hydronephrosis and perinephric/periureteral fat stranding. No additional ureteral calculi. 2. Left renal calculi without evidence of hydronephrosis. 3. 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 RADIA
[2019-05-23] MEDS ORDERED: D5.45NS W/20 MEQ KCL 1,000 ML IV STA ×2 (08:14→19:26)
[2019-05-23] MEDS: RIVASTIGMINE 1.5 MG CAPSULE PO SCH ×2 (08:45→20:15)
[2019-05-23] MEDS: DORZOLAMIDE/TIMOLOL OPHTH DROPS EACHEYE SCH ×2 (08:46→20:15)
[2019-05-23] MEDS: BRIMONIDINE 0.15% OPHTH DROPS 5 ML EACHEYE SCH ×2 (08:46→20:15)
--- NOTE | 2019-05-23 13:19 | PROVIDER PROGRESS NOTE ---
Subjective - Prog Note Date Prog Note Date: 05/23/19 Prog Note Time: 13:18 (seen 8a, 12p, spoke w/ family x2) - Subjective Subjective: Patient unable to comment on status ("ok", but per family definate improvement in afternoon, taking some sips and eating dinner this evening (!) Current Medications - Current Medications Current Medications: Active Medications Acetaminophen (Tylenol) 650 mg PO Q4HR PRN PRN Reason: Pain 1 to 4 Brimonidine Tartrate (Alphagan P 0.15% Ophth Drops) 1 drops EACHEYE BID [facility] Last Admin: 05/23/19 08:46 Dose: 1 drops Carbidopa/Levodopa (Sinemet 25 Mg/100 Mg) 1.5 tab PO TID [facility] Last Admin: 05/23/19 05:27 Dose: Not Given Carbidopa/Levodopa (Sinemet Cr 50 Mg/200 Mg) 1 tab PO QPM [facility] Last Admin: 05/22/19 20:14 Dose: Not Given Dorzolamide/Timolol (Cosopt) 1 drops EACHEYE BID [facility] Last Admin: 05/23/19 08:46 Dose: 1 drops Acetaminophen (Ofirmev) 100 mls @ 400 mls/hr IV Q6HR PRN PRN Reason: PAIN Piperacillin Sod/Tazobactam (Sod 3.375 gm/ Sodium Chloride) 100 mls @ 25 mls/hr IV Q8H [facility] Last Admin: 05/23/19 12:17 Dose: 25 mls/hr Potassium Chloride/Dextrose/Sod Cl (D5.45ns W/20 Meq Kcl) 1,000 mls @ 75 mls/hr IV .[id number] STA Stop: 05/23/19 21:33 Last Admin: 05/23/19 08:45 Dose: 75 mls/hr Latanoprost (Xalatan Ophth Drops) 1 drops EACHEYE QPM [facility] Last Admin: 05/22/19 20:18 Dose: 1 drops Mineral Oil (Cavilon) 1 applic TOP PRN PRN PRN Reason: Skin Care Ondansetron HCl (Zofran Inj) 4 mg IVP Q6HR PRN PRN Reason: Nausea / Vomiting Ondansetron HCl (Zofran Odt) 4 mg TL Q6HR PRN PRN Reason: Nausea / Vomiting Oxycodone HCl (Roxicodone) 5 mg PO Q4HR PRN PRN Reason: Pain 5 to 7 Rivastigmine Tartrate (Exelon) 6 mg PO BID [facility] Last Admin: 05/23/19 08:45 Dose: Not Given Sodium Chloride (Normal Saline Flush 0.9%) 10 ml IVP PRN PRN PRN Reason: NEEDED PER PROVIDER ORDERS Sodium Chloride (Normal Saline Flush 0.9%) 10 ml IVP 0100,0900,1700 [facility] Last Admin: 05/23/19 08:45 Dose: 10 ml Aspirin Chewable [St Kevin Aspirin] 81 mg PO DAILY 06/19/13 Brimonidine 0.15% Ophth Drops [Alphagan P 0.15% Ophth Drops] 1 drops EACHEYE BID 06/19/13 Atorvastatin Calcium [Lipitor] 40 mg PO QPM 06/20/13 Carbidopa/Levodopa [Carbidopa-Levo ER 50-200 Tab] 1 tab PO QPM 05/28/16 Rivastigmine Tartrate [Rivastigmine] 6 mg PO BID 06/26/18 Dorzolamide/Timolol Ophth Soln [Cosopt] 1 drops EACHEYE BID 09/06/18 Latanoprost 0.005% Ophth Drops [Xalatan Ophth Drops] 1 drops EACHEYE QPM 09/06/18 Multivitamin/Iron/Folic Acid [Centrum Adults Tablet] 1 tab PO DAILY 09/06/18 Senna [Senokot] 17.2 mg PO DAILY 09/06/18 Tamsulosin [Flomax] 0.4 mg PO DAILY 09/06/18 Carbidopa/Levodopa 25/100 [Sinemet 25 mg/100 mg] 1.5 tab PO TID 09/11/18 Acetaminophen [Tylenol] 650 mg PO Q6H PRN 09/18/18 Bisacodyl Supp [Dulcolax Supp] 10 mg [place] DAILY PRN 09/18/18 Magnesium Hydroxide [Milk of Magnesia] 30 ml PO DAILY PRN 09/18/18 Methylphenidate [Ritalin] 5 mg PO .AFTERNOON PRN MDD somnulence 09/29/18 Methylphenidate [Ritalin] 5 mg PO DAILY 09/29/18 Polyethylene Glycol 3350 [Miralax] 17 gm PO Q48H 10/16/18 Mag Hydrox/Al Hydrox/Simeth [Antacid Suspension] 30 ml PO Q4H PRN MDD 4 doses in 24 hours 05/22/19 Objective - Vital Signs/Intake & Output Reviewed Vital Signs: Yes Vital Signs: Vital Signs x48h Temp Pulse Resp BP Pulse Ox 05/23/19 08:00 36.5 C 73 16 112/66 95 Intake & Output: Intake & Output 05/20/19 05/21/19 05/22/19 05/23/19 23:59 23:59 23:59 23:59 Intake Total 2800 1200 Output Total 550 775 Balance 2250 425 - Objective General Appearance: positive: No acute distress, Other (arousable to name today, and even opens eyes responded to some questions and smiles, per family would not normally be oriented to time or place occass bilat arm tremor, L>R) Eyes Bilateral: positive: Normal inspection, EOMI (opens eyes today on request , some crusting left lid, eyes track evenly) ENT: positive: Dry mucous membranes Respiratory: positive: No respiratory distress, Breath sounds nml Cardiovascular: positive: Regular rate & rhythm. negative: No murmur (2/6 harsh murmur thruout, loudest LSB, axillae) Abdomen: positive: Nml bowel sounds, No distention, Other (Reynolds draining yellow urine with some sediment (much clearer than 05/22)). negative: Tenderness, Guarding Skin: positive: Warm, Dry Extremities: negative: Pedal edema Neurologic/Psychiatric: positive: Other (as above not oriented to place or time at baseline, arousable today, laughed, able to tell me his 's name.). negative: Oriented x3 - Lab Results Fish Bones: 05/23/19 04:20 05/23/19 04:20 Other Labs: Lab Results x24hrs 05/23/19 05/23/19 Range/Units 04:20 04:20 WBC 28.4 H (4.8-10.8) x10^3/uL RBC 3.71 L (4.70-6.10) 10^6/uL Hgb 12.0 L (14.0-18.0) g/dL Hct 38.1 L (42.0-52.0) % MCV 102.7 H (80.0-94.0) fL MCH 32.3 H (27.0-31.0) pg MCHC 31.5 L (32.0-36.0) g/dL RDW 14.4 (12.0-15.0) % Plt Count 143 (130-450) 10^3/uL MPV 11.4 (7.4-11.4) fL Neut # (Auto) Not Reportable Lymph # (Auto) Not Reportable [place] # (Auto) Not Reportable Eos # (Auto) Not Reportable Baso # (Auto) Not Reportable Absolute Nucleated RBC Not Reportable Total Counted 100 Band Neuts % (Manual) 17 H (0 - 10) % Abnorm Lymph % (Manual) 0 % Nucleated RBC % Not Reportable Neutrophils # (Manual) 25.0 H (1.5-6.6) 10^3/uL Lymphocytes # (Manual) 2.0 (1.5-3.5) 10^3/uL Monocytes # (Manual) 0.9 (0.0-1.0) 10^3/uL Eosinophils # (Manual) 0.3 (0-0.7) 10^3/uL Basophils # (Manual) 0.3 H (0-0.1) 10^3/uL Differential Comment MANUAL DIFFERENTIAL Platelet Estimate NORMAL (130-450,000) (NORMAL) RBC Morph Micro Appear NORMAL APPEARANCE (NORMAL) Sodium 146 H (135-145) mmol/L Potassium 3.9 (3.5-5.0) mmol/L Chloride 110 (101-111) mmol/L Carbon Dioxide 28 (21-32) mmol/L Anion Gap 8.0 (6-13) BUN 25 H (6-20) mg/dL Creatinine 0.9 (0.6-1.2) mg/dL Estimated GFR (MDRD) 81 L (>89) Glucose 83 (70-100) mg/dL Calcium 8.8 (8.5-10.3) mg/dL Total Bilirubin 1.5 H (0.2-1.0) mg/dL AST 21 (10-42) IU/L ALT 12 (10-60) IU/L Alkaline Phosphatase 42 (42-121) IU/L Total Protein 5.5 L (6.7-8.2) g/dL Albumin 2.7 L (3.2-5.5) g/dL Globulin 2.8 (2.1-4.2) g/dL Albumin/Globulin Ratio 1.0 (1.0-2.2) Assessment/Plan - Problem List (1) UTI (urinary tract infection) Impression: Impression: Day 2 zosyn (initial ceftriaxone in ED) Preliminary urine culture 50-100K GNR (most recent UTI 09/2018 was citrobacter, Sandra sensitive) Overall clinically improving, hemodynamically stable , reducing IVF rate, arousable, responds, just starting to take pO (3p 05/23) Leukocytosis improving WBC 39K 29% bands>>> 28.4K, 17% bands today 05/23 elevated Cl, NA (no acidosis) post volume resusc; changed IVF to D51/2NS Deescalate ABX once sensitivities result Recheck WBC in am Conservative management of UPJ stone (see below) VTE prophylaxis; TEDS changed to lovenox given severity of infxn 05/22 Renal u/s : + 1.9 cm UPJ stone, with mild hydronephrosis Corresponding CT 7 mm UPJ stone, moderate hydro, some perinephric stranding, Discussed case 05/[address] Neal Wade Urology [phone] from [facility] In d/w family yesterday COULD have transferred pt to [facility] for possible stenting, with stone addressed in future, but in d/w myself, guilherme Guerrero chose conservative route since clinically improving. See how does with continued antibiotics. (see 05/22 note) (overall moving toward palliative care, Son Lonnie is POA Dr Wade is not convinced infection is proximal to obstruction (given prior hx , suspects may be severe cystitis as 09/2018 and obstrutive stone may be incidental finding Dr Wade also notes stranding may be related to hydronephrosis rather than a pyelonephritis As patient is clinically improving, continuing w/ zosyn until sensitivities result Per Dr. Wade, assuming continued improvedment, once on PO abx and discharged, family to arrange f/u with Dr. Vieira and could onceivably stent if family desires. (aware would require general anesthesia) Nephrostomy is also possibility; Family already indicates he would likley pull (2) UPJ (ureteropelvic junction) obstruction Impression: 1.9 cm stone R UPJ as above Plan as under [facility] conservative management for now ; Family will consider oupt appt w/ Dr Vieira (urology) after d/c (3) Sepsis Urinary source/ Sepsis resolved No blood cultures done (4)BPH (benign prostatic hyperplasia) Impression: Hx retention in past on flomax, proscar at home nontraumatic easy reynolds placement 05/22 (hx hematuria, requiring reynolds in past, and retention requiring Reynolds in 09/2018. (followed by Monty Maldonado uropino) Reynolds out as soon as possible Sat? 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 Impression: No significant tremor or evident hallucinating since here on Carbidopa/levodopa at home 1 pm, 1.5 tabs 8a, and noon , and Rivastigmine Starting to take PO this ann Continue home PD meds as able 6 Coronary artery disease Impression: hx stenting 2010 no recent ischemic symptoms per family no evident volume overload with fluid resuscitation Resume ASA (7) Atrial fibrillation Impression: history of afib and Hx aortic stenosis Rate regular, tolerating volume (8) DNR Ongoing process of moving towards comfort care Family putting thought into plan if/when next has severe infection whether to not treat Dispo; if continues to improve plan is for return to [facility] memory care unit, ideally with no reynolds, and complete 14 day course of antibiotics (Day 1 05/21) Outpatient follow up with Dr Vieira Ongoing d/w Steffi Barrett Qualifiers: Urinary tract infection type: site unspecified Hematuria presence: without hematuria Qualified Code(s): N39.0 - Urinary tract infection, site not specified
--- NOTE | 2019-05-23 16:43 | ADVANCE CARE PLANNING NOTE ---
Advance Care Planning - Planning Encounter Date: 05/22/19 Time: 15:00 Purpose: discuss whether to pursue aggressive or conservative management of severe sepsis with the new finding of obstructive UPJ stone which may complicate the resolution of infection Patient has advanced Parkinsons, and likely lewy body dementia with occasional hallucinations, currently resident of [facility] care unit. He was admitted with sepsis, due to urinary source, marked leukocytosis 39K with high bandemia, hypotension in ED to 80's / 50's and on us of bladder is found to have a UPJ stone on Right with hydronephrosis. Urologist has indicated he COULD accept patient at [facility] for ureteral stenting and eventual stone retrieval. Steffi Barrett/ palliative care has already been involved with patients family as they are in the proceess of slowly moving toward comfort care. Discussed that intervention would be under general anesthesia and could worsen patients baseline dementia with delerium. Procedure is low risk, but not without risk. Per urologist this MAY be a cystitis that will respond to conservative management with antibiotics and volume. After d/w all involved , plan currently is for conservative management as he is showing signs of clinical improvement; Blood pressure is improved, fever has resolved, with reynolds placement iniital pus like urine is improving. Family aware I will speak with urologist again tomorrow after a CT scan , and after his WBC and renalfunction are rechecked . Also discussed was if, patient recovers from this acute infection, is outpatient stenting feasible (again, risks of anesthesia) AND , if he has another severe infection, perhaps to not intervene with IVF or antibiotics and allow for a natural from infection. Family is considering this for future if he does improve to the point of return to [facility] Parties in Attendance: Son Lonnie later discussion daughter in law present with Lonnie Patient later in day in room for 3rd conversatoin Decisional Capacity of the Patient: patient currently nonresponsive - Diagnosis for Encounter (1) UTI (urinary tract infection) Qualifiers: Urinary tract infection type: site unspecified Hematuria presence: without hematuria Qualified Code(s): N39.0 - Urinary tract infection, site not specified - Encounter Code Status: Do Not Attempt Resuscitation Time spent on advance care plannin minutes
[2019-05-23] MEDS: LATANOPROST 0.005% OPHTH DROPS EACHEYE SCH (20:15)
[2019-05-23] MEDS: CARBIDOPA/LEVODOPA ER 50 MG/200 MG TABLET PO SCH (20:15)
[2019-05-24] MEDS: PIPERACILLIN/TAZOBACTAM 3.375 GM in SODIUM CHLORIDE 0.9% MINIBAG 100 ML IV SCH (03:52)
[2019-05-24 05:20] LABS: BASOPHILS # (AUTO) 0.1 10^3/uL (0.0-0.1); BASOPHILS % (AUTO) 0.4 %; EOSINOPHILS # (AUTO) 0.4 10^3/uL (0.0-0.7); EOSINOPHILS % (AUTO) 2.2 %; HGB - HEMOGLOBIN 11.2 g/dL (14.0-18.0); LYMPHOCYTES % (AUTO) 5.5 %; MEAN CORPUSCULAR HEMOGLOBIN 32.7 pg (27.0-31.0); MEAN CORPUSCULAR HGB CONC 32.4 g/dL (32.0-36.0); MEAN CORPUSCULAR VOLUME 101.2 fL (80.0-94.0); MEAN PLATELET VOLUME 12.1 fL (7.4-11.4); MONOCYTES # (AUTO) 0.6 10^3/uL (0.0-1.0); MONOCYTES % (AUTO) 3.4 %; NEUTROPHILS # (AUTO) 15.2 10^3/uL (1.5-6.6); NEUTROPHILS % (AUTO) 87.1 %; PLT - PLATELET COUNT 134 10^3/uL (130-450); RED BLOOD COUNT 3.42 10^6/uL (4.70-6.10); RED CELL DISTRIBUTION WIDTH 13.9 % (12.0-15.0); WHITE BLOOD COUNT 17.5 x10^3/uL (4.8-10.8)
[2019-05-24 05:30] LABS: CALCIUM 8.4 mg/dL (8.5-10.3); CREATININE 0.7 mg/dL (0.6-1.2)
[2019-05-24] MEDS: DORZOLAMIDE/TIMOLOL OPHTH DROPS EACHEYE SCH ×2 (09:14→20:22)
[2019-05-24] MEDS: ENOXAPARIN 40 MG/0.4 ML SYRINGE SUBQ SCH (09:14)
[2019-05-24] MEDS: BRIMONIDINE 0.15% OPHTH DROPS 5 ML EACHEYE SCH ×2 (09:14→20:14)
[2019-05-24] MEDS: SODIUM CHLORIDE FLUSH 0.9% 10 ML SYRINGE IVP SCH ×2 (09:15→20:46)
[2019-05-24] MEDS: RIVASTIGMINE 1.5 MG CAPSULE PO SCH ×2 (09:15→20:26)
[2019-05-24] MEDS: CARBIDOPA/LEVODOPA 25 MG/100 MG TABLET PO SCH ×3 (09:15→17:05)
--- NOTE | 2019-05-24 11:03 | PROVIDER PROGRESS NOTE ---
Subjective - Prog Note Date Prog Note Date: 05/24/19 - Subjective Subjective: Patient reports feeling well. Denies abdominal pain. Family is present at bedside. He has slept most of the day but was able to eat lunch. Current Medications - Current Medications Current Medications: Active Medications Acetaminophen (Tylenol) 650 mg PO Q4HR PRN PRN Reason: Pain 1 to 4 Brimonidine Tartrate (Alphagan P 0.15% Ophth Drops) 1 drops EACHEYE BID [facility] Last Admin: 05/24/19 09:14 Dose: 1 drops Carbidopa/Levodopa (Sinemet 25 Mg/100 Mg) 1.5 tab PO TID [facility] Last Admin: 05/24/19 09:15 Dose: 1.5 tab Carbidopa/Levodopa (Sinemet Cr 50 Mg/200 Mg) 1 tab PO QPM [facility] Last Admin: 05/23/19 20:15 Dose: 1 tab Cefuroxime Axetil (Ceftin) 500 mg PO BID [facility] Dorzolamide/Timolol (Cosopt) 1 drops EACHEYE BID [facility] Last Admin: 05/24/19 09:14 Dose: 1 drops Enoxaparin Sodium (Lovenox) 40 mg SUBQ DAILY [facility] Last Admin: 05/24/19 09:14 Dose: 40 mg Acetaminophen (Ofirmev) 100 mls @ 400 mls/hr IV Q6HR PRN PRN Reason: PAIN Latanoprost (Xalatan Ophth Drops) 1 drops EACHEYE QPM [facility] Last Admin: 05/23/19 20:15 Dose: 1 drops Mineral Oil (Cavilon) 1 applic TOP PRN PRN PRN Reason: Skin Care Ondansetron HCl (Zofran Inj) 4 mg IVP Q6HR PRN PRN Reason: Nausea / Vomiting Ondansetron HCl (Zofran Odt) 4 mg TL Q6HR PRN PRN Reason: Nausea / Vomiting Oxycodone HCl (Roxicodone) 5 mg PO Q4HR PRN PRN Reason: Pain 5 to 7 Rivastigmine Tartrate (Exelon) 6 mg PO BID [facility] Last Admin: 05/24/19 09:15 Dose: 6 mg Sodium Chloride (Normal Saline Flush 0.9%) 10 ml IVP PRN PRN PRN Reason: NEEDED PER PROVIDER ORDERS Sodium Chloride (Normal Saline Flush 0.9%) 10 ml IVP 0100,0900,1700 [facility] Last Admin: 05/24/19 09:15 Dose: 10 ml Aspirin Chewable [St Kevin Aspirin] 81 mg PO DAILY 06/19/13 Brimonidine 0.15% Ophth Drops [Alphagan P 0.15% Ophth Drops] 1 drops EACHEYE BID 06/19/13 Atorvastatin Calcium [Lipitor] 40 mg PO QPM 06/20/13 Carbidopa/Levodopa [Carbidopa-Levo ER 50-200 Tab] 1 tab PO QPM 05/28/16 Rivastigmine Tartrate [Rivastigmine] 6 mg PO BID 06/26/18 Dorzolamide/Timolol Ophth Soln [Cosopt] 1 drops EACHEYE BID 09/06/18 Latanoprost 0.005% Ophth Drops [Xalatan Ophth Drops] 1 drops EACHEYE QPM 09/06/18 Multivitamin/Iron/Folic Acid [Centrum Adults Tablet] 1 tab PO DAILY 09/06/18 Senna [Senokot] 17.2 mg PO DAILY 09/06/18 Tamsulosin [Flomax] 0.4 mg PO DAILY 09/06/18 Carbidopa/Levodopa 25/100 [Sinemet 25 mg/100 mg] 1.5 tab PO TID 09/11/18 Acetaminophen [Tylenol] 650 mg PO Q6H PRN 09/18/18 Bisacodyl Supp [Dulcolax Supp] 10 mg [place] DAILY PRN 09/18/18 Magnesium Hydroxide [Milk of Magnesia] 30 ml PO DAILY PRN 09/18/18 Methylphenidate [Ritalin] 5 mg PO .AFTERNOON PRN MDD somnulence 09/29/18 Methylphenidate [Ritalin] 5 mg PO DAILY 09/29/18 Polyethylene Glycol 3350 [Miralax] 17 gm PO Q48H 10/16/18 Mag Hydrox/Al Hydrox/Simeth [Antacid Suspension] 30 ml PO Q4H PRN MDD 4 doses in 24 hours 05/22/19 Objective - Vital Signs/Intake & Output Reviewed Vital Signs: Yes Vital Signs: Vital Signs x48h Temp Pulse Resp BP Pulse Ox 05/24/19 07:50 36.7 C 72 18 145/83 H 97 Intake & Output: Intake & Output 05/21/19 05/22/19 05/23/19 05/24/19 23:59 23:59 23:59 23:59 Intake Total 2800 2201.25 808.75 Output Total 550 1425 250 Balance 2250 776.25 558.75 - Objective General Appearance: positive: No acute distress, Alert Eyes Bilateral: positive: Normal inspection ENT: positive: ENT inspection nml Neck: positive: Nml inspection Respiratory: positive: No respiratory distress. negative: Wheezes, Rales, Rhonchi Cardiovascular: positive: Regular rate & rhythm, Systolic murmur. negative: Tachycardia, Bradycardia Skin: positive: Warm, Dry Extremities: positive: No pedal edema Neurologic/Psychiatric: positive: Other (He was not able to answer questions when asked if he knew where he was or who his family members are. No focal motor deficits.) - Lab Results Fish Bones: 05/24/19 04:45 05/24/19 04:45 Other Labs: Lab Results x24hrs 05/24/19 05/24/19 Range/Units 04:45 04:45 WBC 17.5 H (4.8-10.8) x10^3/uL RBC 3.42 L (4.70-6.10) 10^6/uL Hgb 11.2 L (14.0-18.0) g/dL Hct 34.6 L (42.0-52.0) % MCV 101.2 H (80.0-94.0) fL MCH 32.7 H (27.0-31.0) pg MCHC 32.4 (32.0-36.0) g/dL RDW 13.9 (12.0-15.0) % Plt Count 134 (130-450) 10^3/uL MPV 12.1 H (7.4-11.4) fL Neut # (Auto) 15.2 H (1.5-6.6) 10^3/uL Lymph # (Auto) 1.0 L (1.5-3.5) 10^3/uL [place] # (Auto) 0.6 (0.0-1.0) 10^3/uL Eos # (Auto) 0.4 (0.0-0.7) 10^3/uL Baso # (Auto) 0.1 (0.0-0.1) 10^3/uL Absolute Nucleated RBC 0.00 x10^3/uL Nucleated RBC % 0.0 /100WBC Sodium 141 (135-145) mmol/L Potassium 3.5 (3.5-5.0) mmol/L Chloride 108 (101-111) mmol/L Carbon Dioxide 26 (21-32) mmol/L Anion Gap 7.0 (6-13) BUN 18 (6-20) mg/dL Creatinine 0.7 (0.6-1.2) mg/dL Estimated GFR (MDRD) 108 (>89) Glucose 105 H (70-100) mg/dL Calcium 8.4 L (8.5-10.3) mg/dL ABX Reporting Has patient been on IV antibiotics over the past 48 hours?: Yes Sepsis Event Note (H) - Evaluation Current Stage of Sepsis: Resolved Possible source of Sepsis: positive: Genitourinary - Sepsis Criteria Sepsis Criteria: Recorded Temperature greater than 38.3C or Less than 36C, Recorded Heart Rate greater than 90 bpm, WBC count greater than 10% bands, WBC count greater than 12,000 or less than 4000, ELECTROPHYSIOLOGY NURSE PRACTITIONER: altered consciousness (unrelated to primary neuro pathology), Metabolic: lactate > 2 mmol/L Assessment/Plan - Problem List (1) Severe sepsis Impression: Sepsis has since resolved. Presented with fever, tachycardia, leukocytosis, elevated bands, elevated lactic. This was secondary to Citrobacter UTI. Blood cultures were never drawn so unclear if he was bacteremic. His white count con tinues to improve. We will transition him to oral antibiotics today and watch him for one more day. Will discharge tomorrow on oral Ceftin to complete 14 days of treatment as per his urologist. (2) UTI (urinary tract infection) Impression: This was present on admission. His urine culture grew Citrobacter. We will transition to oral Ceftin today. Qualifiers: Urinary tract infection type: site unspecified Hematuria presence: without hematuria Qualified Code(s): N39.0 - Urinary tract infection, site not specified (3) Encephalopathy acute Impression: This was secondary to sepsis in the setting of Lewy body dementia. His mental status continues to improve each day. Continue to treat the underlying urinary tract infection. (4) UPJ (ureteropelvic junction) obstruction Impression: This was evident on imaging. He has a right 7 mm ureteropelvic junction calculi with moderate right hydronephrosis. There is also a left renal calculi without evidence of hydronephrosis. This case has been discussed with urology and he will have outpatient follow-up with his urologist, Dr. Vieira. (5) Atrial fibrillation Impression: History of paroxysmal atrial fibrillation. He is currently in sinus rhythm and rate controlled without medications. (6) Lewy body dementia Impression: His mental status is improving as we treat his urinary tract infection. We will continue his home Sinemet and rivastigmine. (7) BPH (benign prostatic hyperplasia) Impression: Stable. We will continue home Flomax. We will remove Lui today and attempt voiding trial. (8) Coronary artery disease Impression: He has history of coronary stenting in 2010. Currently stable. Will continue aspirin and Lipitor
[2019-05-24] MEDS: cefUROXime axetil 250 MG TABLET PO SCH ×2 (11:05→20:16)
[2019-05-24] MEDS: TAMSULOSIN 0.4 MG CAPSULE PO SCH (11:39)
[2019-05-24] MEDS: CARBIDOPA/LEVODOPA ER 50 MG/200 MG TABLET PO SCH (20:27)
[2019-05-24] MEDS: LATANOPROST 0.005% OPHTH DROPS EACHEYE SCH (20:46)
[2019-05-24] MEDS ORDERED: ATORVASTATIN 40 MG TABLET PO SCH (21:00)
[2019-05-25] MEDS: SODIUM CHLORIDE FLUSH 0.9% 10 ML SYRINGE IVP SCH ×2 (00:28→10:04)
[2019-05-25 04:51] LABS: BASOPHILS # (AUTO) 0.1 10^3/uL (0.0-0.1); BASOPHILS % (AUTO) 0.7 %; EOSINOPHILS # (AUTO) 0.3 10^3/uL (0.0-0.7); EOSINOPHILS % (AUTO) 2.7 %; HGB - HEMOGLOBIN 12.1 g/dL (14.0-18.0); LYMPHOCYTES # (AUTO) 1.2 10^3/uL (1.5-3.5); LYMPHOCYTES % (AUTO) 11.1 %; MEAN CORPUSCULAR HEMOGLOBIN 31.9 pg (27.0-31.0); MEAN CORPUSCULAR HGB CONC 32.2 g/dL (32.0-36.0); MEAN CORPUSCULAR VOLUME 99.2 fL (80.0-94.0); MEAN PLATELET VOLUME 11.2 fL (7.4-11.4); MONOCYTES # (AUTO) 0.4 10^3/uL (0.0-1.0); MONOCYTES % (AUTO) 4.1 %; NEUTROPHILS # (AUTO) 8.5 10^3/uL (1.5-6.6); NEUTROPHILS % (AUTO) 80.6 %; PLT - PLATELET COUNT 145 10^3/uL (130-450); RED BLOOD COUNT 3.79 10^6/uL (4.70-6.10); RED CELL DISTRIBUTION WIDTH 13.7 % (12.0-15.0); WHITE BLOOD COUNT 10.6 x10^3/uL (4.8-10.8)
[2019-05-25 04:58] LABS: CALCIUM 8.8 mg/dL (8.5-10.3); CREATININE 0.6 mg/dL (0.6-1.2)
--- NOTE | 2019-05-25 07:33 | Discharge Plan ---
"Discharge Plan for SNF / [facility] - Discharge Plan And Transition Orders Problem Reviewed?: Yes Disposition: 03 [facility] DC/Xfer Condition: Stable Allergies and Adverse Reactions: Allergies Allergy/AdvReac Type Severity Reaction Status Date / Time niacin Allergy Unknown Verified 09/11/18 13:40 Health Concerns: The patient was admitted to the hospital for sepsis secondary to urinary tract infection. He was treated with IV Zosyn. He was initially quite altered and minimally responsive. This improved as we treated his infection. A renal ultrasound and CT of the abdomen revealed an obstructing renal stone. The case was discussed with urology regarding the need for possible intervention. They felt that the stone may not necessarily be the cause of the infection and if the family was not keen on transfer, to continue antibiotics and monitor for improvement. Fortunately he did improve with antibiotics. He was no longer febrile and his white count continued to trend down. The case was then discussed with urology again and they recommended outpatient follow-up for the renal stone. This was discussed with the family and they were agreeable to this. He is now nearly back to his baseline mental status. He will need to continue oral Ceftin twice a day for 10 more days to complete 14 days of antibiotics as per urology. Plan of Treatment: Continue Ceftin 500 mg twice a day for 10 days to complete 14 days of treatment. There were no other changes made to his prior medications. Care Goals: He will need to follow-up with urology in about 2 weeks. He can continue to follow-up with palliative care on an outpatient basis. Assessment: The family expressed understanding of the treatment plan. - SNF / [facility] Transition Orders Admit to (Facility): [facility] Discharge Diagnosis: Severe sepsis - Resolved. Initially treated with Zosyn IV. His fever, tachycardia, leukocytosis have resolved. We will continue Ceftin twice a day for 10 days. Urinary tract infection - Improving. Was present on admission and he grew Citrobacter. Continue oral Ceftin for 10 more days. Encephalopathy - Resolved. This was secondary to sepsis and urinary tract infection. He is nearly back to his baseline mental status. Ureteropelvic junction obstruction - Stable. Has a right 7 mm ureteropelvic junction calculi with moderate right hydronephrosis. Urology is recommending outpatient follow-up. This can be completed in 10 to 14 days. Atrial fibrillation - Stable. He has been rate controlled in sinus rhythm. Lewy body dementia - Stable. Continue his home Sinemet and Rivastigmine. BPH - Stable. Continue Flomax. Coronary artery disease - Stable. Continue Aspirin and Lipitor. Medicare Certification Statement: I certify that Post Hospital custodial care is medically necessary on a continuing basis for any of the conditions for which she/he is receiving care during hospitalization. Notify PCP of admission and forward orders to primary provider for signature. Other Notification Orders: Call PCP immediately if patient develops dyspnea, chest pain/tightness, fever, change in mental status. Additional Bowel Program Orders: If no BM after 2 days, nurse may give M.O.M. 30ml PO PRN and/or ducolax Supp 1 NE and/or SHAUN 250mg P.O., and/or senna 1-2 tabs PO. On day 3 nurse may give repeat above order until residents constipation is resolved. Medication Orders: PLEASE REFER TO THE DISCHARGE MEDICATION LIST. - Medications New Prescriptions: cefUROXime axetil [Ceftin] 500 mg PO BID 10 Days #42 tablet - Diet Texture: Mech soft Liquids: Thin - Therapies | Activity Activity: Activity as Tolerated Assistance Devices: Wheelchair, Walker Follow Up: He will require follow up with Urology. His Urologist is Dr. Vieira. This should happen in 10-14 days for evaluation of his renal stone."
[2019-05-25 07:58] VITALS: BP 139/101
[2019-05-25] MEDS: BRIMONIDINE 0.15% OPHTH DROPS 5 ML EACHEYE SCH (10:01)
[2019-05-25] MEDS: DORZOLAMIDE/TIMOLOL OPHTH DROPS EACHEYE SCH (10:01)
[2019-05-25] MEDS: CARBIDOPA/LEVODOPA 25 MG/100 MG TABLET PO SCH (10:02)
[2019-05-25] MEDS: cefUROXime axetil 250 MG TABLET PO SCH (10:03)
[2019-05-25] MEDS: RIVASTIGMINE 1.5 MG CAPSULE PO SCH (10:03)
[2019-05-25] MEDS: TAMSULOSIN 0.4 MG CAPSULE PO SCH (10:03)
[2019-05-25] MEDS: ENOXAPARIN 40 MG/0.4 ML SYRINGE SUBQ SCH (10:03)
--- NOTE | 2019-05-25 10:42 | DISCHARGE SUMMARY ---
Discharge Summary Admit Date: 05/21/19 Discharge Date: 05/25/19 Discharging Provider: Yossi Breaux Primary Care Provider: Chas Coughlin Code Status: Do Not Attempt Resuscitation Condition at Discharge: Stable Discharge Disposition: 03 SNF DC/Xfer Discharge Facility Name: [facility] - DIAGNOSES Admission Diagnoses: Sepsis secondary to urinary tract infection Metabolic encephalopathy Parkinson's disease with Lewy body dementia History of urinary retention History of coronary artery disease Discharge Diagnoses with Status of Each Condition: Severe sepsis - Resolved. Initially treated with Zosyn IV. His fever, tachycardia, leukocytosis have resolved. We will continue Ceftin twice a day for 10 days. Urinary tract infection - Improving. Was present on admission and he grew Citrobacter. Continue oral Ceftin for 10 more days. Encephalopathy - Resolved. This was secondary to sepsis and urinary tract infection. He is nearly back to his baseline mental status. Ureteropelvic junction obstruction - Stable. Has a right 7 mm ureteropelvic junction calculi with moderate right hydronephrosis. Urology is recommending outpatient follow-up. This can be completed in 10 to 14 days. Atrial fibrillation - Stable. He has been rate controlled in sinus rhythm. Lewy body dementia - Stable. Continue his home Sinemet and Rivastigmine. BPH - Stable. Continue Flomax. Coronary artery disease - Stable. Continue Aspirin and Lipitor. - HPI History of Present Illness: H&P per Dr. Jefferson on 05/22/19: This is an elderly gentleman who has been living at [facility] unit since September of this year. He was diagnosed with Parkinson disease approximately 2013 and has been steadily deteriorating since that time. He most likely also has Lewy body dementia. He has been unresponsive to medications under the care of a neurologist, and they have been transitioning to "as needed "visit to the neurologist since he has not been improving very much. He was hospitalized with sepsis and a UTI in June 2018. At that point in time, he was living with his son and [id number] because he needed so much care. He had gone from being an independent ambulatory gentleman to needing quite a bit of help because of shuffling gait, falls, memory loss. He was sleeping more and more. He recovered enough to return to go live with his son in June 2018. In September 2018, he then was admitted here with severe metabolic encephalopathy in relation to sepsis with a UTI. In an effort to "jump start "his energy level, he was given IV caffeine during his stay, but that this resulted in tachycardia. A lot of his problem with regards to sleep by dementia and Parkinson's is a withdrawal and generalized sleepiness. He can sometimes sleep 65 hours in a row. As such, with the sepsis and UTI stay, he was put on Ritalin to see if that would improve his mentation and alertness, and it did. However, it was apparent to the family that he could not return back to living with his son and [id number], and he was transitioned to the memory care unit at [facility]. He has been followed by palliative consultation services with Steffi Barrett. He has not really responded to the carbidopa/levodopa. He continues to have a shuffling gait, and increasing lower extremity weakness, and decreasing use of his upper extremities. He has had fluctuating delusions, hallucinations but he has been for the most part cooperative with his , son or providers take care of him. One of his falls resulted in epidural hematoma. While his son, who is power of trademark attorney, is well aware of the big picture with regards to his dad's diagnosis and slow expected deterioration, his mother is not. She was very unhappy that he was moved to [facility] and in fact denies that she was ever part of the decision-making process, even though she went to [facility] to see the facility before her was move there. She is grieving, misses her tremendously, still lives in her own place independent from her . She goes to see her 3 to 4 hours a day. His son, power of trademark attorney, goes by for 3 or 4 days at a time, probably every other week. He lives in [place] and will come spend the weekend here on the [place] to be close to his dad. The other son lives in [place]. He also will come and spend long weekends with his father to stay in contact. Sometimes that has good days where he is awake, alert and interactive with family members. Most of the time, he has been having more and more bad days when he is just sleepier, less mobile. He is incontinent of urine but is able to still feed himself at times. Starting about a day and 1/2 to 2 days ago, he had more sleepiness than his usual sleepiness. Yesterday, he seemed "out of it "according to his son. Today he is so sleepy, he is obtunded and he was brought into the emergency room. There is no antecedent history of fevers, chills, chest congestion, aspiration. There is no diarrhea. His initial temperature was 38.3, heart rate 99, blood pressure 135/69, respirations 14, and he is 100% on room air. He is obtunded and laboratory evaluation so sent of a slight bump in his creatinine to 1.0. Lactic acid is 2.1. White cell count is elevated at 14.5, and hemoglobin is 13.8. Urinalysis is positive for occult blood, nitrites, leukocyte Estrace, red cells, white cells, moderate bacteria. No squamous epithelial cells. His chest x-ray has no significant change. No acute cardiopulmonary abnormality. He has moderate left shoulder degenerative changes. In the emergency room, he has received IV fluids and IV antibiotics. It was hoped that he would respond enough to be able to go back to memory care unit. The focus on this gentleman is comfort measures, he is DO NOT RESUSCITATE. However, he did not respond in the emergency room. He was initially placed in observation status. However as the hours have gone on with his stay in the ER, he is not becoming hypotensive, more obtunded, and he may be sliding into joanne sepsis in spite of treatment. His blood pressure, which started at 135 systolic, is 95/54. At one point, it got down to as low as 80/50. - CONSULTS | PROCEDURES Consultations: Palliatve, Urology via phone Procedures: CT of the abdomen and pelvis, renal ultrasound. - HOSPITAL COURSE Hospital Course: The patient was admitted to the hospital for sepsis secondary to urinary tract infection. He was treated with IV Zosyn. He was initially quite altered and minimally responsive. This improved as we treated his infection. A renal ultrasound and CT of the abdomen revealed an obstructing renal stone. The case was discussed with urology regarding the need for possible intervention. They felt that the stone may not necessarily be the cause of the infection and if the family was not keen on transfer, to continue antibiotics and monitor for improvement. Fortunately he did improve with antibiotics. He was no longer febrile and his white count continued to trend down. The case was then discussed with urology again and they recommended outpatient follow-up for the renal stone. This was discussed with the family and they were agreeable to this. He is now nearly back to his baseline mental status. He will need to c ontinue oral Ceftin twice a day for 10 more days to complete 14 days of antibiotics as per urology. - ALLERGIES Allergies/Adverse Reactions: Allergies Allergy/AdvReac Type Severity Reaction Status Date / Time niacin Allergy Unknown Verified 09/11/18 13:40 - MEDICATIONS Home Medications: Ambulatory Orders Medication Instructions Recorded Confirmed Aspirin Chewable [St Kevin 81 mg PO DAILY 06/19/13 05/22/19 Aspirin] Brimonidine 0.15% Ophth Drops 1 drops EACHEYE BID 06/19/13 05/22/19 [Alphagan P 0.15% Ophth Drops] Atorvastatin Calcium [Lipitor] 40 mg PO QPM 06/20/13 05/22/19 Carbidopa/Levodopa [Carbidopa-Levo 1 tab PO QPM 05/28/16 05/22/19 ER 50-200 Tab] Rivastigmine Tartrate 6 mg PO BID 06/26/18 05/22/19 [Rivastigmine] Dorzolamide/Timolol Ophth Soln 1 drops EACHEYE BID 09/06/18 05/22/19 [Cosopt] Latanoprost 0.005% Ophth Drops 1 drops EACHEYE QPM 09/06/18 05/22/19 [Xalatan Ophth Drops] Multivitamin/Iron/Folic Acid 1 tab PO DAILY 09/06/18 05/22/19 [Centrum Adults Tablet] Senna [Senokot] 17.2 mg PO DAILY 09/06/18 05/22/19 Tamsulosin [Flomax] 0.4 mg PO DAILY 09/06/18 05/22/19 Carbidopa/Levodopa 25/100 [Sinemet 1.5 tab PO TID 09/11/18 05/22/19 25 mg/100 mg] Acetaminophen [Tylenol] 650 mg PO Q6H PRN 09/18/18 05/22/19 Bisacodyl Supp [Dulcolax Supp] 10 mg SC DAILY PRN 09/18/18 05/22/19 Magnesium Hydroxide [Milk of 30 ml PO DAILY PRN 09/18/18 05/22/19 Magnesia] Methylphenidate [Ritalin] 5 mg PO .AFTERNOON PRN MDD 09/29/18 05/22/19 somnulence Methylphenidate [Ritalin] 5 mg PO DAILY 09/29/18 05/22/19 Polyethylene Glycol 3350 [Miralax] 17 gm PO Q48H 10/16/18 05/22/19 Mag Hydrox/Al Hydrox/Simeth 30 ml PO Q4H PRN MDD 4 doses in 24 05/22/19 05/22/19 [Antacid Suspension] hours cefUROXime axetil [Ceftin] 500 mg PO BID 10 Days #42 tablet 05/25/19 - PHYSICAL EXAM AT DISCHARGE General Appearance: positive: No acute distress, Alert Eyes Bilateral: positive: Normal inspection ENT: positive: ENT inspection nml Neck: positive: Nml inspection Respiratory: positive: No respiratory distress. negative: Wheezes, Rales, Rhonchi Cardiovascular: positive: Regular rate & rhythm, Systolic murmur. negative: Tachycardia, Bradycardia Abdomen: positive: Non-tender, No distention. negative: Tenderness Skin: positive: No rash, Warm, Dry Extremities: positive: No pedal edema Neurologic/Psychiatric: positive: Other (He is able to answer yes and no to questions. Not oriented to place.) - LABS Result Diagrams: 05/25/19 04:35 05/25/19 04:35 - SEPSIS Current Stage of Sepsis: Resolved Possible source of Sepsis: Genitourinary Sepsis Criteria: Recorded Temperature greater than 38.3C or Less than 36C, Recorded Heart Rate greater than 90 bpm, WBC count greater than 10% bands, WBC count greater than 12,000 or less than 4000, AFTER SCHOOL COUNSELOR: altered consciousness (unrelated to primary neuro pathology), Metabolic: lactate > 2 mmol/L - FOLLOW UP Follow Up: He will need follow-up with urology in 10 to 14 days to discuss possible cystoscopy for the renal stone. - TIME SPENT Time Spent in Discharge (Minutes): 35
== END 2019-05-25 11:55 | disposition home or self-care (01) | DRG 871 ==
LOC: EDUNIT# → ED 19:19 → MS2 22:00 → OBSVTOIN 05-22 00:13
PROVIDERS: ADMIT Specialist; ATTEND Internal Medicine
DX: A41.59 Other Gram-negative sepsis (principal); G93.41 Metabolic encephalopathy; N13.2 Hydronephrosis with renal and ureteral calculous obstruction; N30.91 Cystitis, unspecified with hematuria; R65.20 Severe sepsis without septic shock; I95.9 Hypotension, unspecified; G31.83 Neurocognitive disorder with Lewy bodies; F02.80 Dementia in other diseases classified elsewhere, unspecified severity, without behavioral disturbance, psychotic disturbance, mood disturbance, and anxiety; N40.1 Benign prostatic hyperplasia with lower urinary tract symptoms; N39.498 Other specified urinary incontinence; I25.10 Atherosclerotic heart disease of native coronary artery without angina pectoris; I10 Essential (primary) hypertension; I35.0 Nonrheumatic aortic (valve) stenosis; K59.09 Other constipation; H26.9 Unspecified cataract; S00.83XA Contusion of other part of head, initial encounter; X58.XXXA Exposure to other specified factors, initial encounter; Y92.099 Unspecified place in other non-institutional residence as the place of occurrence of the external cause; Z66 Do not resuscitate; Z51.5 Encounter for palliative care; Z95.5 Presence of coronary angioplasty implant and graft; Z91.81 History of falling; Z79.82 Long term (current) use of aspirin; Z79.899 Other long term (current) drug therapy; Z86.79 Personal history of other diseases of the circulatory system
CPT/HCPCS: 36415; 71045; 74150; 76770; 80048; 80053; 81001; 83605; 83690; 83735; 85025; 87077; 87086; 87181; 96365; 96375; 99285; A6250; A9270; G0378; J0131; J1650; 81003

== ENCOUNTER 2019-05-25 11:54 | Outpatient (CLI) | payer MEDICARE, OTHER | END 2019-05-25 11:55 | disposition home or self-care (01) | LOC: EMS 11:54 | PROVIDERS: ATTEND Surgery | DX: G31.83 Neurocognitive disorder with Lewy bodies (principal); N39.0 Urinary tract infection, site not specified; Z74.01 Bed confinement status | CPT/HCPCS: A0425; A0428 ==

== ENCOUNTER 2019-06-04 16:07 | Outpatient (CLI) | payer MEDICARE, OTHER ==
--- NOTE | 2019-06-04 16:29 | CONSULTATION NOTE ---
Palliative Care Follow Up - Referral Referring Provider: Dr. Chas Coughlin Time of Visit: [id number] Referral setting: Assisted living Referral Reason: f/u urosepsis / Parkinsons with dementia - Information Sources Records reviewed: Previous records reviewed History/Review of Systems obtained from: Family (phone check in with and DPOA son Lonnie), Caregiver (clinical staff) Exam limitations: Clinical condition (patient with advanced dementia; single word answers at times) - History of Present Illness Update Brief HPI Update: This is an 83-year-old gentleman with atypical Parkinson's poorly responsive to carbidopa levodopa, who is currently at [facility] unit, following an acute hospitalization at [facility] in September. He is mostly wheelchair- bound, has remained fairly weights steady, he has had decline in his functional and cognitive status, he continues to self feed, and actually is settled in pretty well. He also has had progression in the context of incontinence of urine, increasing incontinence of stool, and less verbalization. Patient was recently hospitalized 05/21 to 05/25, as he presented with severe sepsis secondary to a urinary tract infection. He was found to have a 7 mm ureteropelvic junction calculi with moderate right hydronephrosis, Is unclear if this added to his risk, there had been some conversation about transitioning to [facility] for ureteral stenting and eventual stone retrieval, family did wait though and patient did respond to conservative management with antibiotics and fluids. Patient was returned home on antibiotics, he is took his last dose of Ceftin today, he has been eating and drinking, they are encouraging fluids. Patient has actually returned to almost his previous level of functioning, which though has been on a slow decline over the last several months. I did speak with son, they are going to do a follow-up with urology, no date set yet. They continue to weigh benefits and burdens of moving forward, regarding what to do for the "next time", whether they want to transition to comfort measures and choose not to treat, treat conservatively, or consider hospitalization again. He is unclear if they were offered procedure, if they would pursue it, but they are gathering information. Patient presents today as somewhat sleepy, he was just put down for nap. This was actually helpful in the context was able to palpate his abdomen, no bladder distention, no pain on palpation, patient is incontinent of urine but does deny any kind of pain on exam. His vital signs are stable. He looks well-hydrated. He does not present with any concerns. Patient's past medical history includes Parkinson's with Lewy bodies, atrial fib, now second hospitalization with urosepsis. CAD, epidural hematoma 2016, history of ulcers, chronic constipation, BPH, glaucoma, and scoliosis. Social History - Living Situation Living arrangement: Assisted living Support System: Patient lives at memory care unit, he is no longer going home on the weekends, his care needs are too high even for his son Tarun. They do visit on a regular basis, his Lara who has had recent health problems, does come on a daily basis to help him with lunch. This is been a difficult transition for her. Lonnie his oldest son, is his D POA, he and Tarun are in alignment of their goals. Medications/Allergies - Medications Home Medications: Ambulatory Orders Medication Instructions Recorded Confirmed Aspirin Chewable [St Kevin 81 mg PO DAILY 06/19/13 06/04/19 Aspirin] Brimonidine 0.15% Ophth Drops 1 drops EACHEYE BID 06/19/13 06/04/19 [Alphagan P 0.15% Ophth Drops] Atorvastatin Calcium [Lipitor] 40 mg PO QPM 06/20/13 06/04/19 Carbidopa/Levodopa [Carbidopa-Levo 1 tab PO QPM 05/28/16 06/04/19 ER 50-200 Tab] Rivastigmine Tartrate 6 mg PO BID 06/26/18 06/04/19 [Rivastigmine] Dorzolamide/Timolol Ophth Soln 1 drops EACHEYE BID 09/06/18 06/04/19 [Cosopt] Latanoprost 0.005% Ophth Drops 1 drops EACHEYE QPM 09/06/18 06/04/19 [Xalatan Ophth Drops] Multivitamin/Iron/Folic Acid 1 tab PO DAILY 09/06/18 06/04/19 [Centrum Adults Tablet] Senna [Senokot] 17.2 mg PO DAILY 09/06/18 06/04/19 Tamsulosin [Flomax] 0.4 mg PO DAILY 09/06/18 06/04/19 Carbidopa/Levodopa 25/100 [Sinemet 1.5 tab PO TID 09/11/18 06/04/19 25 mg/100 mg] Acetaminophen [Tylenol] 650 mg PO Q6H PRN 09/18/18 06/04/19 Bisacodyl Supp [Dulcolax Supp] 10 mg DE DAILY PRN 09/18/18 06/04/19 Magnesium Hydroxide [Milk of 30 ml PO DAILY PRN 09/18/18 06/04/19 Magnesia] Methylphenidate [Ritalin] 5 mg PO .AFTERNOON PRN MDD 09/29/18 06/04/19 somnulence Methylphenidate [Ritalin] 5 mg PO DAILY 09/29/18 06/04/19 Polyethylene Glycol 3350 [Miralax] 17 gm PO Q48H 10/16/18 06/04/19 Mag Hydrox/Al Hydrox/Simeth 30 ml PO Q4H PRN MDD 4 doses in 24 05/22/19 06/04/19 [Antacid Suspension] hours - Allergies Allergies/Adverse Reactions: Allergies Allergy/AdvReac Type Severity Reaction Status Date / Time niacin Allergy Unknown Verified 09/11/18 13:40 Review of Systems - Constitutional Constitutional: reports: Fatigue, Weight stable (149.5). denies: Fever, Chills - Eyes Eyes: reports: Vision loss, Other (glaucoma) - Ears, Nose & Throat Ears, Nose & Throat: denies: Dry mouth - Respiratory Respiratory: denies: SOB at rest - Gastrointestinal Gastrointestinal: reports: Good appetite, Other (uses ensure mostly at breakfast time when eats less than 50%). denies: Abdominal pain, Abdominal distention, Constipation, Diarrhea, Nausea - Genitourinary Genitourinary: reports: Incontinence - Musculoskeletal Musculoskeletal: reports: Stiffness, Limited range of motion, Muscle weakness, Transfer issues (mostly wheelchair bound; can do standing pivot transfer; can walk few steps with son;) - Integumentary Integumentary: reports: Dryness - Neurological Neurological: reports: General weakness, Other (quiet voice) - Psychiatric Psychiatric: reports: Hallucinations (hx none described by staff). denies: Depression, Anxiety, Behavior disturbances - Endocrine Endocrine: reports: Intolerance to cold - Hematologic/Lymphatic Hematologic/Lymphatic: reports: Recurrent infections (second hospitalization for sepsis this year) - All Other Systems All Other Systems: reports: Other (limited ROS with dementia) Physical Exam - Vital Signs Temperature: 97.1 C Pulse Rate: 68 Respiratory Rate: 18 O2 Saturation: 97 (ra @ rest) Blood Pressure: 112/72 - Physical Exam General Appearance: positive: No acute distress, Lethargic Eyes Bilateral: positive: Normal inspection ENT: positive: No signs of dehydration. negative: Dry mucous membranes Neck: positive: No JVD, Trachea midline Cardiovascular: positive: Regular rate & rhythm Respiratory: positive: No respiratory distress, Diminished in bases. negative: Wheezes, Rales, Rhonchi Abdomen: positive: Non-tender, Soft, Nml bowel sounds. negative: Guarding, Mass, Distended Skin: positive: Pallor, Dryness, Other (faded left win discoloration). negative: Pressure wound Extremities: positive: No pedal edema Neurologic/Psychiatric: positive: Weakness, Flat affect, Other (few words) Palliative Care - POLST Patient has POLST: Yes POLST Status: DNR, Selective Treatment Pain: No pain Anxiety: None Sleep: Sleeps well Constipation: No Performance Status: Patient is mostly wheelchair-bound, can pivot transfer, is a 2 person lift assist. He is able to self feed. He is more sleepy in the morning, less likely to get up and eat for breakfast, continues with the Ritalin. He is more awake and interactive at lunchtime. He is dependent on staff for all ADLs, his does come and provide some assistance and company almost daily. - Palliative Care Discussion: Follow-up with , hope had been to talk to a little bit more about disease progression and goals, she herself though is not feeling well, she does feel lik e patients back to baseline, does not express any concerns or fears at this point. Did speak with Lonnie HODGES, he is coming to see him on and Sunday, he has been out of town. He is aware he is just finished antibiotic, and they continue to struggle going forward weighing benefits and burdens of treatments in the context of patient's declining quality of life. He has to walk a fine line, as his mother has very little insight to the trajectory of the disease, nor patient's decline. Reassured can continue to weigh benefits and burdens as they come up, in the context again of quality of life, patient currently has "bounced back", which makes it quite difficult. Patient is really quite domicile and easy to be around, this does make it difficult emotionally and making decisions.And does have a POLST which is DNA R and selective treatments, antibiotics prolong life and no tube feedings, his D POA is Lonnie Cesar son [phone] Impression and Recommendations - Palliative Care Impression: This is an 83-year-old gentleman with atypical Parkinson's and Lewy body dementia, who was recently hospitalized for urosepsis, and discovered stone possibly adding to his risk and hydronephrosis. Patient has done well on his antibiotics, with no side effects, has returned somewhat back to baseline. His weight is remained stable, he has low symptom burden. His cognitive and functional status continues to decline but very slowly. Palliative care to continue provide support and anticipatory guidance regarding quality of life issues. Recommendations/Counseling Done: 1. UTI. Patient is completed his antibiotics, is tolerating without any side effects. They are pushing fluids, and noted watch for progressive signs or symptoms. Spoke with son Lonnie, they are planning to follow-up on urology consult, and weigh benefits and burdens of moving forward regarding any procedures. 2. Atypical Parkinson's. Patient does present with ongoing stiffness, upper extremity tremors, is developing some contractures. He does not present with any behavioral issues, sometimes he is resistant to care but not aggressive or presents with anxiety. 3. Weight loss. Patient is remaining stable, he has maybe lost 2 pounds since hospitalization, he has some male monitoring and gets replacement if less than 50% of meal is eaten. This happens most often at breakfast. 4. Constipation. His current bowel program is effective, he does have ongoing increased incontinence. 5. Advanced care planning. POLST is in place, goal at this time is again to try and keep with the memory unit, and avoid hospitalization. Patient with acute hospitalization and noted difficulty defining goals of care, patient did recover, which is always complicated in the context of planning for the future. Counseling provided to son regarding trajectory, will continue to make palliative care available for any symptoms or air decision-making in the future, as patient has low symptom burden no current visit planned. Time Spent: 40 minutes with greater than 50% of this done in counseling regarding coordination of care, follow-up on hospitalization, and anticipatory guidance and decision-making with son.
== END 2019-06-04 16:08 | disposition home or self-care (01) ==
LOC: PC 16:07
PROVIDERS: ATTEND Nurse Practitioner Adult Health
DX: Z51.5 Encounter for palliative care (principal); N39.0 Urinary tract infection, site not specified; G31.83 Neurocognitive disorder with Lewy bodies; F02.80 Dementia in other diseases classified elsewhere, unspecified severity, without behavioral disturbance, psychotic disturbance, mood disturbance, and anxiety; R63.4 Abnormal weight loss; K59.00 Constipation, unspecified; N13.2 Hydronephrosis with renal and ureteral calculous obstruction; Z79.899 Other long term (current) drug therapy; Z79.82 Long term (current) use of aspirin; Z66 Do not resuscitate

== ENCOUNTER 2019-08-19 11:20 | Outpatient (CLI) | payer MEDICARE, OTHER ==
--- NOTE | 2019-08-19 12:57 | CONSULTATION NOTE ---
Palliative Care Follow Up - Referral Referring Provider: Dr. Chas Coughlin Time of Visit: [id number] Referral setting: Adult Family Home Referral Reason: Parkinson's with dementia - Information Sources Records reviewed: Previous records reviewed History/Review of Systems obtained from: Family (spouse, Lara), Caregiver (facility staff) Exam limitations: Clinical condition (Minimally verbal 2/2 dementia with one word replies) - History of Present Illness Update Brief HPI Update: This is an 84-year-old gentleman with atypical Parkinson's and dementia that has had poor response to medications. He is presently followed by neurology on a "as needed basis." [facility] due to his cognitive impairment. He is wheelchair-bound. He has had a slight decrease in weight. Weight was 149.4 pounds on July 22 and is presently 146 pounds today, August 19. He consumes approximately 75 to 100% of most meals. If he consumes less than 50% of his meals he is provided 1 can of Ensure. He has had a steady decline in function and cognition. He was last hospitalized from 05 21-05 25 with severe sepsis secondary to a urinary tract infection. He was found to have a 7 mm ureteropelvic junction calculi with moderate right hydro-nephrosis. They responded to conservative management with antibiotics and fluids. It was recommended that he follow-up with urology. His reports that he follow-up with urology at [facility]. Present notes from urology visit not present and son, Sajan Fleming is presently out of the country. Per the no interventions were recommended. Patient is seen today day with his , Lara present. He appeared tired keeping his eyes closed for much of the visit. He did perk up with the mention of coffee. His reports that he typically has a couple coffee daily and if he does not have this he remains more sleepy during the day. The patient himself denies any acute concerns. His reports to some concerns regarding him maintaining his weight. Past medical history includes Parkinson's disease with Lewy body dementia, atrial fibrillation, BPH, coronary artery disease s/p stent, narcolepsy, hypertension, aortic stenosis with murmur, history of urinary retention, left inguinal and right inguinal hernia repairs, scoliosis, epidural hematoma 2016. Social History - Living Situation Living arrangement: Assisted living Support System: The patient and his have been for over 60 years. 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 They moved to [place] and [facility] in 1970. He has 2 sons. Lonnie, is Sajan HODGES and his oldest son. He has [facility] since approximately September 2018. This is been a difficult transition for the patient's , Lara. His cas chinues to visit him daily and assist him with his lunch. She presently is not driving and is seeking bus transport to spend time with her . Lonnie is presently out of the country and will return at the end of August 2019. Medications/Allergies - Medications Home Medications: Ambulatory Orders Medication Instructions Recorded Confirmed Aspirin Chewable [St Kevin 81 mg PO DAILY 06/19/13 06/04/19 Aspirin] Brimonidine 0.15% Ophth Drops 1 drops EACHEYE BID 06/19/13 06/04/19 [Alphagan P 0.15% Ophth Drops] Atorvastatin Calcium [Lipitor] 40 mg PO QPM 06/20/13 06/04/19 Carbidopa/Levodopa [Carbidopa-Levo 1 tab PO QPM 05/28/16 06/04/19 ER 50-200 Tab] Rivastigmine Tartrate 6 mg PO BID 06/26/18 06/04/19 [Rivastigmine] Dorzolamide/Timolol Ophth Soln 1 drops EACHEYE BID 09/06/18 06/04/19 [Cosopt] Latanoprost 0.005% Ophth Drops 1 drops EACHEYE QPM 09/06/18 06/04/19 [Xalatan Ophth Drops] Multivitamin/Iron/Folic Acid 1 tab PO DAILY 09/06/18 06/04/19 [Centrum Adults Tablet] Senna [Senokot] 17.2 mg PO DAILY 09/06/18 06/04/19 Tamsulosin [Flomax] 0.4 mg PO DAILY 09/06/18 06/04/19 Carbidopa/Levodopa 25/100 [Sinemet 1.5 tab PO TID 09/11/18 06/04/19 25 mg/100 mg] Acetaminophen [Tylenol] 650 mg PO Q6H PRN 09/18/18 06/04/19 Bisacodyl Supp [Dulcolax Supp] 10 mg [place] DAILY PRN 09/18/18 06/04/19 Magnesium Hydroxide [Milk of 30 ml PO DAILY PRN 09/18/18 06/04/19 Magnesia] Methylphenidate [Ritalin] 5 mg PO .AFTERNOON PRN MDD 09/29/18 06/04/19 somnulence Methylphenidate [Ritalin] 5 mg PO DAILY 09/29/18 06/04/19 polyethylene glycoL 3350 [Miralax] 17 gm PO Q48H 10/16/18 06/04/19 Mag Hydrox/Al Hydrox/Simeth 30 ml PO Q4H PRN MDD 4 doses in 24 05/22/19 06/04/19 [Antacid Suspension] hours - Allergies Allergies/Adverse Reactions: Allergies Allergy/AdvReac Type Severity Reaction Status Date / Time niacin Allergy Unknown Verified 09/11/18 13:40 Review of Systems - Constitutional Constitutional: reports: Fatigue, Weight loss (07/22/2019 weight 149.4lb; 08/19/2019 weight 146lb). denies: Fever - Eyes Eyes: reports: Corrective lenses, Other (crusting to bilateral eyes today) - Ears, Nose & Throat Ears, Nose & Throat: denies: Dry mouth - Cardiovascular Cardiovascular: denies: Chest pain - Respiratory Respiratory: denies: Cough - Gastrointestinal Gastrointestinal: reports: Good appetite. denies: Abdominal pain, Constipation, Diarrhea - Genitourinary Genitourinary: reports: Incontinence - Musculoskeletal Musculoskeletal: reports: Stiffness, Muscle weakness, Assistive devices, Transfer issues (mostly wheelchair bound). denies: Joint pain - Integumentary Integumentary: reports: Dryness - Neurological Neurological: reports: General weakness, Memory problems, Other (+parkinson's disease) - Psychiatric Psychiatric: denies: Depression, Anxiety - Hematologic/Lymphatic Hematologic/Lymphatic: reports: Bruising - All Other Systems All Other Systems: reports: Other (ROS limited as patient is a poor historian due to dementia) Physical Exam - Vital Signs Temperature: 36.7 C Pulse Rate: 79 O2 Saturation: 97 (on RA at rest) Blood Pressure: 131/84 - Physical Exam General Appearance: positive: No acute distress, Other (keeping his eyes closed during interaction, OOB in wheelchair) Eyes Bilateral: positive: Other (crusting to upper eyelids that was removed with warm washcloth; +corrective lenses) ENT: positive: Other (+MMM) Neck: positive: No JVD, Trachea midline Cardiovascular: positive: Regular rate & rhythm, Systolic murmur (+1/6 WINIFRED) Respiratory: positive: Chest non-tender, No respiratory distress, Breath sounds nml. negative: Rhonchi Abdomen: positive: Non-tender, Soft, Nml bowel sounds. negative: Guarding, Distended Skin: positive: Bruising (resolving scattered ecchymoses to BUE) Extremities: negative: Pedal edema Neurologic/Psychiatric: positive: Disoriented to place, Disoriented to time, Weakness, Other (noted tremor to right upper extremity with action; decreased overall muscle tone; soft speech with single word responses) Palliative Care - POLST Patient has POLST: Yes POLST Status: DNR, Selective Treatment Pain: No pain Sleep: Sleeps well Constipation: No Performance Status: Patient is mostly wheelchair-bound. He is able to self feed. He tends to be more sleepy in the mornings but does get up for meals. His reports y that he was more alert and engaged at lunchtime. He continues with Ritalin for reduction of somnolence. He is dependent on the facility staff for all ADLs. His continues to provide assistance and company during lunchtime almost daily. - Palliative Care Discussion: Patient appears to have settled into home place. No recent concerns reported by the or facility staff. He continues to have a steady, slow functional and cognitive decline. His does not offer any concerns outside of the patient's weight. Presently moving forward to continue to weigh benefits and burdens regarding treatments in the context of the patient's quality of life. Patient does have a pulse which is DNR and selective treatments with antibiotics to prolong life and no medically assisted nutrition. His D POA is his son Lonnie who is presently traveling internationally and will return at the end of August 2019. Impression and Recommendations - Palliative Care Impression: This is an 84-year-old man who presents with atypical Parkinson's and Lewy body dementia who has had a steady slow functional and cognitive decline. He was last hospitalized with sepsis with a UTI in May 2019 with a ureteropelvic junction obstruction with outpatient follow-up with urology. He has had a mild decrease in weight but appetite remains steady and stable. Palliative care can to continue to provide support and symptom management and anticipatory guidance. Recommendations/Counseling Done: 1. Ueteropelvic junction obstruction s/p sepsis with UTI 05/21-05/25/19 hospitalization. Request obtainment of office visit note from urologist at [facility]. 2. Parkinson's Disease with dementia. Atypical. Chronic. Progressive. Poorly responsive to carbidopa/levodopa. Continue carbidopay/levodopa as ordered and neurology PRN. Fall precautions. Continue rivastigmine as ordered BID. No behavioral concerns reported by staff or . 3. Weight loss. Slight decrease. Remains on meal monitoring with use of Ensure 1 can if he consumes less than 50% of his meal, seeming to occur more at dinner. Continue weekly weights. Additional factor could be due to use of methylphenidate. Continue to monitor. 4. Constipation. Controlled. Continue bowel regimen as ordered. 5. Daytime somnolence in the setting of history of narcolepsy. per , he responds well to caffeine first thing in the morning. Continue methylphenidate 5mg qAM and may have an additional dose as needed before 1600. Continue to monitor if adjustment to regimen is needed. 6. CAD with history of stent. Continue ASA and statin therapy as ordered. 7. Advanced care planning. POLST in place with DNAR with selective treatment. Time Spent: Total time spent 40 minutes with greater than 50% of this spent in counseling and coordination of care with and facility staff, examination of patient, review of symptom management and anticipatory guidance. Disclaimer: The chart note was formulated using voice recognition technology and unfortunately sound alike errors may occur.
== END 2019-08-19 11:21 | disposition home or self-care (01) ==
LOC: PC 11:20
PROVIDERS: ATTEND Nurse Practitioner Family
DX: Z51.5 Encounter for palliative care (principal); G31.83 Neurocognitive disorder with Lewy bodies; F02.80 Dementia in other diseases classified elsewhere, unspecified severity, without behavioral disturbance, psychotic disturbance, mood disturbance, and anxiety; R63.4 Abnormal weight loss; R40.0 Somnolence; I25.10 Atherosclerotic heart disease of native coronary artery without angina pectoris; R53.1 Weakness; I10 Essential (primary) hypertension; Z87.442 Personal history of urinary calculi; Z86.19 Personal history of other infectious and parasitic diseases; Z99.3 Dependence on wheelchair; Z66 Do not resuscitate

== ENCOUNTER 2019-09-04 09:19 | Outpatient (CLI) | payer MEDICARE, OTHER | END 2019-09-04 09:20 | disposition critical access hospital (66) | LOC: EMS 09:19 | PROVIDERS: ATTEND Surgery | DX: R41.82 Altered mental status, unspecified (principal); R50.9 Fever, unspecified | CPT/HCPCS: A0425; A0427 ==

== ENCOUNTER 2019-09-04 09:36 | Inpatient (IN) | payer MEDICARE, OTHER ==
[2019-09-04] MEDS ORDERED: ACETAMINOPHEN 650 MG SUPP PR STA (09:48)
[2019-09-04] MEDS ORDERED: SODIUM CHLORIDE 0.9% 1,000 ML IV ONE ×2 (09:48→12:25)
--- NOTE | 2019-09-04 09:51 | ED Physician Documentation ---
History of Present Illness - Stated complaint Stated Complaint: DEC LOC - Chief complaint Chief Complaint: Neuro - History obtained from History obtained from: EMS - History of Present Illness Timing: Today - Additonal information Additional information: Patient is brought to the emergency department by EMS from here assisted living facility for altered level of consciousness. The patient is severely demented and not able to offer any information on his own. He is not even able to arouse and answer simple questions. Per report, patient is DNR with limited interventions, including IV fluids and antibiotics. He was found to be febrile en-route, with a temperature of 101. Medics do not report any other symptoms reported to them by [facility] staff. Review of Systems Unable to obtain: Unresponsive PD PAST MEDICAL HISTORY - Past Medical History Cardiovascular: High cholesterol, Coronary artery disease, Atrial fibrillation, Murmur Respiratory: None Neuro: Parkinson's Endocrine/Autoimmune: None GI: Ulcers, Chronic constipation : Benign prostate hypertrophy, Incontinence, Nocturia HEENT: Glaucoma Psych: None Musculoskeletal: Scoliosis Derm: None - Past Surgical History Past Surgical History: Yes General: Colonoscopy, Other Ortho: Other Cardiovascular: Coronary stent, Cardiac catheterization Neuro: Other HEENT: Cataracts, Tonsil/Adenoidectomy - Present Medications Home Medications: Ambulatory Orders Medication Instructions Recorded Confirmed Aspirin Chewable [St Kevin 81 mg PO DAILY 06/19/13 09/04/19 Aspirin] Brimonidine 0.15% Ophth Drops 1 drops EACHEYE BID 06/19/13 09/04/19 [Alphagan P 0.15% Ophth Drops] Atorvastatin Calcium [Lipitor] 40 mg PO QPM 06/20/13 09/04/19 Carbidopa/Levodopa [Carbidopa-Levo 1 tab PO QPM 05/28/16 09/04/19 ER 50-200 Tab] Rivastigmine Tartrate 6 mg PO BID 06/26/18 09/04/19 [Rivastigmine] Dorzolamide/Timolol Ophth Soln 1 drops EACHEYE BID 09/06/18 09/04/19 [Cosopt] Latanoprost 0.005% Ophth Drops 1 drops EACHEYE QPM 09/06/18 09/04/19 [Xalatan Ophth Drops] Multivitamin/Iron/Folic Acid 1 tab PO DAILY 09/06/18 09/04/19 [Centrum Adults Tablet] Senna [Senokot] 17.2 mg PO DAILY 09/06/18 09/04/19 Tamsulosin [Flomax] 0.4 mg PO QPM 09/06/18 09/04/19 Carbidopa/Levodopa 25/100 [Sinemet 1.5 tab PO TID 09/11/18 09/04/19 25 mg/100 mg] Acetaminophen [Tylenol] 650 mg PO Q6H PRN 09/18/18 09/04/19 Bisacodyl Supp [Dulcolax Supp] 10 mg [place] DAILY PRN 09/18/18 09/04/19 Magnesium Hydroxide [Milk of 30 ml PO DAILY PRN 09/18/18 09/04/19 Magnesia] Methylphenidate [Ritalin] 5 mg PO .AFTERNOON PRN MDD 09/29/18 09/04/19 somnulence Methylphenidate [Ritalin] 5 mg PO DAILY 09/29/18 09/04/19 polyethylene glycoL 3350 [Miralax] 17 gm PO Q48H 10/16/18 09/04/19 Mag Hydrox/Al Hydrox/Simeth 30 ml PO Q4H PRN MDD 4 doses in 24 05/22/19 09/04/19 [Antacid Suspension] hours Loperamide [Imodium] 2 - 4 mg PO PRN PRN MDD 16MG 09/04/19 09/04/19 - Allergies Allergies/Adverse Reactions: Allergies Allergy/AdvReac Type Severity Reaction Status Date / Time niacin Allergy Unknown Verified 09/11/18 13:40 - Social History Does the pt smoke?: No Smoking Status: Never smoker Does the pt drink ETOH?: No Does the pt have substance abuse?: No - Immunizations Immunizations are current?: No Immunizations: TDAP >10years/unknown - POLST Patient has POLST: Yes PD ED PE NORMAL - Vitals Vital signs reviewed: Yes - General General: No acute distress, Other (Patient is asleep and unresponsive with mouth gaping open.) - HEENT HEENT: Atraumatic, PERRL. No: Moist mucous membranes - Neck Neck: Thyroid normal - Cardiac Cardiac: RRR, No murmur, Strong equal pulses - Respiratory Respiratory: No respiratory distress, Clear bilaterally - Abdomen Abdomen: Soft, Non tender, Non distended - Male Male : Deferred - Derm Derm: Normal color, Warm and dry, No rash - Extremities Extremities: No deformity, No edema - Neuro Neuro: Other (Patient is unresponsive to voice.) - Psych Psych: Normal mood, Normal affect Results - Vitals Vitals: Vital Signs - 24 hr 09/04/19 09/04/19 09/04/19 09:40 10:00 10:15 Temperature 37.9 C H Heart Rate 102 H 95 95 Respiratory 16 16 16 Rate Blood Pressure 81/57 L 81/54 L 101/61 O2 Saturation 100 100 100 09/04/19 09/04/19 09/04/19 10:30 10:45 11:00 Temperature Heart Rate 99 100 82 Respiratory 16 16 16 Rate Blood Pressure 94/56 L 82/56 L 82/56 L O2 Saturation 100 100 100 09/04/19 11:30 Temperature Heart Rate 84 Respiratory 16 Rate Blood Pressure 81/67 L O2 Saturation 100 Oxygen O2 Source Room air - Labs Labs: Laboratory Tests 09/04/19 09/04/19 09/04/19 09:45 09:45 09:45 WBC 32.0 H RBC 3.53 L Hgb 11.3 L Hct 35.2 L MCV 99.7 H MCH 32.0 H MCHC 32.1 RDW 14.3 Plt Count 345 MPV 11.0 Neut # (Auto) Not Reportable Lymph # (Auto) Not Reportable [place] # (Auto) Not Reportable Eos # (Auto) Not Reportable Baso # (Auto) Not Reportable Absolute Nucleated RBC Not Reportable Total Counted 100 Band Neuts % (Manual) 15 H Reactive Lymphs % (Man) 1 Abnorm Lymph % (Manual) 0 Myelocytes % 2 H Nucleated RBC % Not Reportable Neutrophils # (Manual) 30.1 H Lymphocytes # (Manual) 1.0 L Monocytes # (Manual) 0.3 Eosinophils # (Manual) 0.0 Basophils # (Manual) 0.0 Differential Comment MANUAL DIFFERENTIAL Manual Slide Review Indicated RBC Morph Micro Appear 2+ ANISOCYTOSIS PT INR Sodium 142 Potassium 3.1 L Chloride 108 Carbon Dioxide 24 Anion Gap 10.0 BUN 25 H Creatinine 1.5 H Estimated GFR (MDRD) 45 L Glucose 100 Lactic Acid 2.4 H Calcium 8.1 L Total Bilirubin 0.9 AST 39 ALT 16 Alkaline Phosphatase 57 Total Protein 5.6 L Albumin 2.1 L Globulin 3.5 Albumin/Globulin Ratio 0.6 L Lipase 26 Urine Color Urine Clarity Urine pH Ur Specific [place] Urine Protein Urine Glucose (UA) Urine Ketones Urine Occult Blood Urine Nitrite Urine Bilirubin Urine Urobilinogen Ur Leukocyte Esterase Urine RBC Urine WBC Ur Squamous Epith Cells Urine Bacteria Ur Microscopic Review Urine Culture Comments 09/04/19 09/04/19 10:15 10:17 WBC RBC Hgb Hct MCV MCH MCHC RDW Plt Count MPV Neut # (Auto) Lymph # (Auto) [place] # (Auto) Eos # (Auto) Baso # (Auto) Absolute Nucleated RBC Total Counted Band Neuts % (Manual) Reactive Lymphs % (Man) Abnorm Lymph % (Manual) Myelocytes % Nucleated RBC % Neutrophils # (Manual) Lymphocytes # (Manual) Monocytes # (Manual) Eosinophils # (Manual) Basophils # (Manual) Differential Comment Manual Slide Review RBC Morph Micro Appear PT 17.9 H INR 1.6 H Sodium Potassium Chloride Carbon Dioxide Anion Gap BUN Creatinine Estimated GFR (MDRD) Glucose Lactic Acid Calcium Total Bilirubin AST ALT Alkaline Phosphatase Total Protein Albumin Globulin Albumin/Globulin Ratio Lipase Urine Color YELLOW Urine Clarity CLOUDY Urine pH 6.0 Ur Specific [place] 1.020 Urine Protein 30 H Urine Glucose (UA) NEGATIVE Urine Ketones NEGATIVE Urine Occult Blood LARGE H Urine Nitrite NEGATIVE Urine Bilirubin NEGATIVE Urine Urobilinogen 1 (NORMAL) Ur Leukocyte Esterase LARGE H Urine RBC 6-10 H Urine WBC >25 H Ur Squamous Epith Cells NONE SEEN Urine Bacteria Moderate H Ur Microscopic Review INDICATED Urine Culture Comments INDICATED - Rads (name of study) Chest x-ray Radiology: Final report received, EMP read indepedently (Final radiologist impression: Unremarkable chest for age and body size, stable. No pneumonia, CHF or other demonstrated cause for the patient's symptoms.) PD MEDICAL DECISION MAKING - ED course Complexity details: reviewed old records, reviewed results, re-evaluated patient, considered differential ED course: Patient was febrile and hypotensive in the emergency department, and evaluated immediately by myself. He was started on IV fluids and given rectal Tylenol. He was worked up with labs, urinalysis, chest x-ray, and blood cultures, and found to have a strongly positive urinalysis, a white blood cell count of 32,000, and a lactic acid of 2.4. I spoke with , who is the hospitalist on duty, and she did agree to accept the patient for admission. Patient was given IV Levaquin in the emergency department with the IV fluids he had already received. He was found to be doing somewhat better upon reevaluation, and remained stable throughout the rest of his stay in the emergency department. - Critical Care Time(min): 45 Comments: Critical care time was necessary to prevent imminent decline and , secondary to septic shock. Time Includes: Direct patient care, Review records, Reassess patient, Document care, Coordinate care, Medical consult, See progress note Data interpretation: Labs, Pulse ox, CXR, Cardiac output, See progress note Departure - Departure Disposition: 66 [facility] DC/Xfer Clinical Impression: Sepsis Qualifiers: Qualified Code(s): A41.9 - Sepsis, unspecified organism UTI (urinary tract infection) Qualifiers: Urinary tract infection type: acute cystitis Hematuria presence: with hematuria Qualified Code(s): N30.01 - Acute cystitis with hematuria Discharge Date/Time: 09/04/19 11:54
[2019-09-04 09:57] LABS: BASOPHILS % (AUTO) 0.4 %; HGB - HEMOGLOBIN 11.3 g/dL (14.0-18.0); LYMPHOCYTES % (AUTO) 1.1 %; MEAN CORPUSCULAR HGB CONC 32.1 g/dL (32.0-36.0); MEAN CORPUSCULAR VOLUME 99.7 fL (80.0-94.0); MONOCYTES % (AUTO) 0.3 %; NEUTROPHILS % (AUTO) 96.3 %; PLT - PLATELET COUNT 345 10^3/uL (130-450); RED BLOOD COUNT 3.53 10^6/uL (4.70-6.10); RED CELL DISTRIBUTION WIDTH 14.3 % (12.0-15.0)
[2019-09-04 10:07] LABS: ABNORMAL LYMPHS % (MANUAL) 0 %
[2019-09-04 10:10] LABS: ALBUMIN 2.1 g/dL (3.2-5.5); ALBUMIN/GLOBULIN RATIO 0.6 (1.0-2.2); BILIRUBIN,TOTAL 0.9 mg/dL (0.2-1.0); CALCIUM 8.1 mg/dL (8.5-10.3); CREATININE 1.5 mg/dL (0.6-1.2); TOTAL PROTEIN 5.6 g/dL (6.7-8.2)
[2019-09-04 10:19] LABS: BAND NEUTROPHILS % (MANUAL) 15 %; DIFFERENTIAL COMMENT MANUAL DIFFERENTIAL; LYMPHOCYTES % (MANUAL) 2 %; MONOCYTES # (MANUAL) 0.3 10^3/uL (0.0-1.0); MYELOCYTES % (MANUAL) 2 %; RBC MORPHOLOGY (MULTIPLE) 2+ ANISOCYTOSIS (NORMAL)
[2019-09-04 10:27] LABS: INR 1.6 (0.8-1.2); PT - PROTHROMBIN TIME 17.9 secs (9.9-12.6)
[2019-09-04 10:58] LABS: BILIRUBIN,URINE NEGATIVE (NEGATIVE); CLARITY,URINE CLOUDY (CLEAR); GLUCOSE, URINE (UA) NEGATIVE (NEGATIVE); KETONES,URINE (UA) NEGATIVE (NEGATIVE); LEUKOCYTE ESTERASE, URINE LARGE (NEGATIVE); NITRITE,URINE NEGATIVE (NEGATIVE); OCCULT BLOOD,URINE LARGE (NEGATIVE); PROTEIN,URINE 30 mg/dL (NEGATIVE); UROBILINOGEN,URINE 1 (NORMAL) E.U./dL (NORMAL)
[2019-09-04 11:07] LABS: BACTERIA,URINE Moderate /HPF (None Seen); SQUAMOUS EPITHELIAL CELL,UR NONE SEEN (<= Few)
[2019-09-04] MEDS ORDERED: levoFLOXacin 500 MG/100 ML 500 MG/100 ML BAG IV ONE (11:09)
--- NOTE | 2019-09-04 11:10 | XRAY Report ---
Reason: chest pain Procedure Date: 09/04/2019 Accession Number: [id number] / [id number] Procedure: XR - Chest 1 View X-Ray CPT Code: 98505 Final Report FULL RESULT: EXAM: CHEST RADIOGRAPHY, PORTABLE 1 VIEW EXAM DATE: 09/04/2019 10:47 AM. CLINICAL HISTORY: Chest pain in an 84-year-old male, pale with shallow breathing. Possible sepsis. COMPARISON: CHEST 1 VIEW 05/21/2019 8:47 PM. CHEST 1 VIEW 09/11/2018 2:18 PM. XR CHEST PA AND LAT 06/27/2007 8:42 AM. TECHNIQUE: 1030 hour AP semierect portable view. FINDINGS: Lungs/Pleura: No focal opacities evident. No pleural effusion. No pneumothorax. Mediastinum: Heart size normal with mild to moderate aortic tortuosity, similar to prior exams. No adenopathy or pulmonary vascular congestion. Other: Trachea is midline. Osseous structures unremarkable for age. IMPRESSION: Unremarkable chest for age and body size, stable. No pneumonia, CHF or other demonstrated cause for the patient's symptoms. RADIA
[2019-09-04] MEDS ORDERED: SODIUM CHLORIDE FLUSH 0.9% 10 ML SYRINGE IVP PRN (11:34)
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
[2019-09-04] MEDS ORDERED: LACTATED RINGERS 1,000 ML IV ONE (12:24)
[2019-09-04] MEDS ORDERED: VANCOMYCIN PER PHARMACY 100 GM in SODIUM CHLORIDE 0.9% 250 ML IV SCH ×2 (13:00→15:00)
[2019-09-04] MEDS: CEFEPIME 2 GM in SODIUM CHLORIDE 0.9% MINIBAG 100 ML IV SCH ×2 (13:12→21:30)
--- NOTE | 2019-09-04 13:55 | ANESTHESIA PROCEDURE NOTE ---
Anesth Central Line Template - Central Line Central Line Preparation: Consent Obtained, Time out completed, Ultrasound used, Sterile prep and drape Central line location: Right IJ Central line type: Triple lumen Central line catheter tip site resides: Superior vena cava (SVC) Central line aftercare: Chlorhexidine disc placed, Secured, Placement confirmed, No complications, Bundle checklist complete, Pt tolerated well Other Info/Details: After informed consent obtained from DPOA, patient's right neck was prepped with chloroprep. Time out completed and the Right IJ was identified under ultrasound. Modified seldinger technique was used to access the right IJ and wire was advanced with ease. A triple lumen central line was placed over the wire and wire was removed. All ports aspirate and flush with ease. Line was suture in place and biopatch was placed over insertion site. All was secured with opsite. Patient tolerated well. Chest xray shows line in distal SVC.
[2019-09-04] MEDS ORDERED: VANCOMYCIN INJ 1 GM in SODIUM CHLORIDE 0.9% 250 ML IV ONE ×2 (14:00→14:30)
--- NOTE | 2019-09-04 14:02 | PHARMACY PROGRESS NOTE ---
- Best Possible Medication History Admit Date and Time: 09/04/19 1134 Processed by: Pharmacy Medication History completed: Yes Patient Interview: Pt unable to participate Secondary Source(s): Facility MAR as ONLY source As the person ultimately responsible for medication therapy, providers are able to order a medication from an existing home medication list in [facility] via the "Reconcile Routine" prior to Confirmation of that medication by support associate. Such practice is discouraged except when the physician, in their clinical judgment, deems that a medical need exists for a medication without regard to previous use.
--- NOTE | 2019-09-04 14:26 | PROVIDER PROGRESS NOTE ---
Hospitalist Cross-cover Note - Cross-Cover Note Cross-Cover Note: I was asked to take over care upon transfer of patient into ICU for iv pressors via CVP line, due to septic shock from urinary source. The admitting Provider spoke with the DPOA and family and that was the request. Steffi Barrett has been contacted to confirm this plan and she spoke to the family and was also told that DPOA wants patient to get iv pressor support. Chart reviewed and pt was examined. BP 77/54 , HR 86 , RR 20, Temp elevated at 38.6degrees C Obtunded elderly male, no response to sternal rub Oral mucosa dry Neck no JVD in supine position, no carotid bruits Chest clear Heart 3/6 systolic murmur Abd soft, no guarding Extrem no edema Labs: Lactic Acid 2.4, WBC 32 with 15% Bands, BUN/creat 25/1.5, U/A with WBCs, bacteria and elevated leukocyte esterase CXR unremarkable No troponin was done No EKG was done Imp/Dx: Septic shock Severe sepsis Complicated UTI Obtundation/metabolic encephalopathy Hx of dementia Hx of Parkinson's (his baseline is now wheelchair bound) Hx of CAD with stents Heart murmur of aortic stenosis (no Echo done here to compare) Plan: transfer to ICU change status to critical telemetry remain DNR/DNI CVP line was already requested and already placed 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, awaiting CXR to confirm position and to use saline iv at rapid rate as in Sepsis protocol, then maintenance fluids with D5NS with KCl start Levophed, maintain MAP> 60 Lui for I's and O's blood and urine cx already sent change diet to NPO while obtunded, consider ng tube continue Cefepime and Vanco hold any BP meds cycle troponins and obtain EKG to R/O cardiogenic shock and acute coronary syndrome Palliative Care consult with Steffi Barrett NP to help guide the family with care decisions Echo planned if he gets bacteremia or if he has an acute WA by troponins and EKG family reported that this has happened to him twice before and it takes him 3 days to awaken I spoke to the family and updated them on the above CRITICAL CARE TIME SPENT: 45 min
--- NOTE | 2019-09-04 14:32 | XRAY Report ---
Reason: CL placement verification Procedure Date: 09/04/2019 Accession Number: [id number] / [id number] Procedure: XR - Chest for Line Placement CPT Code: Final Report FULL RESULT: EXAM: CHEST RADIOGRAPHY EXAM DATE: 09/04/2019 02:09 PM. CLINICAL HISTORY: CL placement verification. COMPARISON: CHEST 1 VIEW 09/04/2019 10:30 AM. TECHNIQUE: 1 view. FINDINGS: The right internal jugular central venous catheter terminates in the distal superior vena cava. Heart size is unchanged. Calcified plaque in the thoracic aorta. No new consolidation. No pleural effusions or pneumothoraces. Mild diffuse prominence of the pulmonary interstitium could represent changes from chronic lung disease or mild edema. No significant change from the previous same day examination. Densities projecting over the proximal right humerus are likely external/artifactual. IMPRESSION: Right internal jugular central venous catheter terminating in the distal superior vena cava. RADIA
[2019-09-04] MEDS: SODIUM CHLORIDE 0.9% 1,000 ML IV SCH ×3 (14:35→17:00)
[2019-09-04] MEDS ORDERED: DEXTROSE 5% 250 ML IV ONE (15:01)
[2019-09-04] MEDS ORDERED: SODIUM CHLORIDE FLUSH 0.9% 10 ML SYRINGE IVP SCH (17:00)
[2019-09-04] MEDS: POTASSIUM CHLOR 20 MEQ/100 ML 20 MEQ/100 ML BAG IV SCH ×2 (17:00→18:05)
[2019-09-04] MEDS: SODIUM CHLORIDE FLUSH 0.9% 10 ML SYRINGE IVP SCH ×2 (17:04→21:27)
[2019-09-04] MEDS: SODIUM CHLORIDE FLUSH 0.9% 10 ML SYRINGE IVP PRN ×2 (18:05→23:56)
[2019-09-04] MEDS: FAMOTIDINE 20 MG/2 ML VIAL IVP SCH (21:27)
[2019-09-05] MEDS: SODIUM CHLORIDE FLUSH 0.9% 10 ML SYRINGE IVP PRN ×5 (04:04→18:49)
[2019-09-05] MEDS: ACETAMINOPHEN 1,000 MG/100 ML 100 ML IV PRN ×2 (04:23→13:47)
[2019-09-05 04:43] LABS: LYMPHOCYTES # (AUTO) 0.6 10^3/uL (1.5-3.5); LYMPHOCYTES % (AUTO) 1.3 %; MEAN CORPUSCULAR HEMOGLOBIN 30.1 pg (27.0-31.0); MEAN CORPUSCULAR HGB CONC 30.7 g/dL (32.0-36.0); MEAN CORPUSCULAR VOLUME 98.1 fL (80.0-94.0); MEAN PLATELET VOLUME 10.8 fL (7.4-11.4); MONOCYTES # (AUTO) 0.2 10^3/uL (0.0-1.0); MONOCYTES % (AUTO) 0.4 %; NEUTROPHILS # (AUTO) 45.1 10^3/uL (1.5-6.6); NEUTROPHILS % (AUTO) 95.9 %; PLT - PLATELET COUNT 364 10^3/uL (130-450); RED BLOOD COUNT 3.65 10^6/uL (4.70-6.10); RED CELL DISTRIBUTION WIDTH 14.5 % (12.0-15.0)
[2019-09-05 04:46] LABS: VBG PH 7.366 (7.31-7.41)
[2019-09-05 04:49] LABS: WHITE BLOOD COUNT 47.1 x10^3/uL (4.8-10.8)
[2019-09-05 04:58] LABS: ALBUMIN/GLOBULIN RATIO 0.5 (1.0-2.2); BILIRUBIN,TOTAL 1.1 mg/dL (0.2-1.0); CALCIUM 7.8 mg/dL (8.5-10.3); MAGNESIUM 1.7 mg/dL (1.7-2.8); PHOSPHORUS 2.5 mg/dL (2.5-4.6); TOTAL PROTEIN 5.7 g/dL (6.7-8.2)
[2019-09-05] MEDS: SODIUM CHLORIDE 0.9% 1,000 ML IV SCH (05:02)
[2019-09-05 05:13] LABS: PLATELET ESTIMATE, MANUAL NORMAL (130-450,000) (NORMAL); PLATELET MORPHOLOGY NORMAL APPEARANCE (NORMAL); RBC MORPHOLOGY (MULTIPLE) 2+ ANISOCYTOSIS (NORMAL)
[2019-09-05] MEDS ORDERED: DEXTROSE 10% 250 ML IV ONE (06:20)
[2019-09-05] MEDS ORDERED: DEXTROSE 10% 250 ML IV STA (06:26)
[2019-09-05] MEDS ORDERED: DEXTROSE 5% 1,000 ML IV SCH (07:00)
[2019-09-05] MEDS ORDERED: PIPERACILLIN/TAZOBACTAM 3.375 GM in SODIUM CHLORIDE 0.9% MINIBAG 100 ML IV SCH ×2 (07:00→15:00)
--- NOTE | 2019-09-05 07:02 | PROVIDER PROGRESS NOTE ---
Liquid Fertilizer Servicer Note - Liquid Fertilizer Servicer Note Liquid Fertilizer Servicer Note: Patient's morning labs showed a WBC of 47. His Troponin continue to trend up It was brought to my attention that he spiked a fever. Preliminaries on blood cultures showed gram negative bacilli. Blood glucose this morning was 61 I change antibiotics from Cefepime to Zosyn to offer anaerobic coverage Lactic acid level is pending. He is receiving 250ml of dextrose 10. After that he would receive D5+NS at 100ml/hr Suspect demand ischemia as a cause of the continuous Troponin rise. However I talked to his son who is at bedside and is the DPOA. He confirms that if the patient takes a turn for the worse, the focus should be to keep him comfortable. They would not want to undertake invasive procedures or measures. He states this is his 4th episode with a UTI and with each successive occurrence, the patient has progressively declined overall.
[2019-09-05] MEDS: DEXTROSE 5%-0.9% NACL 1,000 ML IV SCH ×2 (07:14→17:15)
[2019-09-05] MEDS ORDERED: MAGNESIUM SULFATE 2 GRAM 2 GM/50 ML BAG IV ONE (08:30)
[2019-09-05] MEDS: FAMOTIDINE 20 MG/2 ML VIAL IVP SCH ×2 (08:50→20:17)
--- NOTE | 2019-09-05 09:26 | PROVIDER PROGRESS NOTE ---
Assessment/Plan - Current Meds Current Meds: Current Medications Generic Name Dose Route Start Last Admin Trade Name Freq PRN Reason Stop Dose Admin Famotidine 10 mg 09/04/19 21:00 09/05/19 08:50 Pepcid IVP 10 mg BID TE Administration Heparin Sodium (Beef Lung) 30 - 50 unit 09/04/19 17:05 09/05/19 04:04 IVP 30 unit PRN PRN Administration Central Line Protocol (<24 hr) Norepinephrine Bitartrate 8 mg 250 mls @ 15 mls/hr 09/04/19 15:00 09/05/19 07:00 / Dextrose IV 4 mcg/min .[id number] TE 7.5 mls/hr Titration Protocol 8 MCG/MIN Acetaminophen 100 mls @ 400 mls/hr 09/05/19 03:54 09/05/19 04:47 Ofirmev IV Infused Q8HR PRN Infusion PAIN Dextrose/Sodium Chloride 1,000 mls @ 100 mls/hr 09/05/19 07:00 09/05/19 07:14 D5ns IV 100 mls/hr .Q10H TE Administration Magnesium Sulfate 2 gm in 50 mls @ 50 mls/hr 09/05/19 08:30 09/05/19 08:46 Magnesium Sulfate IV 09/05/19 09:29 50 mls/hr ONCE ONE Administration Protocol Sodium Chloride 10 ml 09/04/19 17:00 09/04/19 21:27 Normal Saline Flush 0.9% IVP 10 ml 0100,0900,1700 TE Administration Sodium Chloride 10 ml 09/04/19 14:01 09/05/19 06:52 Normal Saline Flush 0.9% IVP 20 ml PRN PRN Administration NEEDED PER PROVIDER ORDERS - Lab Result Fish Bone Diagrams: 09/05/19 04:00 09/05/19 04:00 - Additional Planning My Orders: My Active Orders 09/04/19 14:01 Blood Glucose POC [RC] 0000,0600,1200,1800 Initiate Bowel Care Protocol [RC] QSHIFT Initiate ICU Electrolyte Prot. [RC] .protocol Initiate Line Care Protocol [RC] .protocol Initiate Personal Care Protoco [RC] .protocol Vital Signs [RC] Q1HR Sodium Chloride Flush 0.9% [Normal Saline Flush 0.9%] 10 ml IVP PRN PRN 09/04/19 14:02 NPO except Meds [DIET] 09/04/19 14:03 Lui Insertion [RC] Routine Telemetry- [RC] Q4HR 09/04/19 14:04 Oral Care - Nursing [RC] Q4H Turn and Reposition [RC] Q2H 09/04/19 15:00 Dextrose 5% [D5w] 242 ml NORepinephrine [Levophed] 8 mg IV 8 mcg/min 09/04/19 15:14 Central Line Care [RC] Q4H 09/04/19 17:00 Sodium Chloride Flush 0.9% [Normal Saline Flush 0.9%] 10 ml IVP 0100,0900,1700 09/04/19 17:05 Heparin Flush 30 - 50 unit IVP PRN PRN 09/04/19 20:55 Zinc Oxide 20% Oint [Zinc Oxide] 1 applic TOP PRN PRN 09/04/19 21:00 Famotidine [Pepcid] 10 mg IVP BID 09/05/19 06:53 Sodium Chloride Flush 0.9% [Normal Saline Flush 0.9%] 20 ml IVP PRN PRN 09/05/19 07:33 Echo Transthoracic Complete [ECHO] Routine 09/05/19 08:30 Magnesium Sulfate 2 Gram [Magnesium Sulfate] 2 gm in 50 ml IV ONCE 09/05/19 10:00 Potassium Phosphate 15 mmol Sodium Chloride 0.9% [Normal Saline 0.9%] 250 ml IV ONCE 09/06/19 05:00 CALCIUM, IONIZED ([facility]) [BG] DAILYLAB PHOSPHORUS [CHEM] DAILYLAB 09/07/19 05:00 CALCIUM, IONIZED ([facility]) [BG] DAILYLAB PHOSPHORUS [CHEM] DAILYLAB Subjective - Subjective Patient Reports: Other (Obtunded, unchanged from yesterday) Objective Vital Signs: Vital Signs - 24 hr 09/04/19 09/04/19 09/04/19 09:40 10:00 10:15 Temperature 37.9 C H Heart Rate 102 H 95 95 Heart Rate [ Brachial] Heart Rate [ Monitoring electrodes] Respiratory 16 16 16 Rate Blood Pressure 81/57 L 81/54 L 101/61 Blood Pressure [Left Brachial artery] O2 Saturation 100 100 100 09/04/19 09/04/19 09/04/19 10:30 10:45 11:00 Temperature Heart Rate 99 100 82 Heart Rate [ Brachial] Heart Rate [ Monitoring electrodes] Respiratory 16 16 16 Rate Blood Pressure 94/56 L 82/56 L 82/56 L Blood Pressure [Left Brachial artery] O2 Saturation 100 100 100 09/04/19 09/04/19 09/04/19 11:30 11:45 12:03 Temperature 37.2 C 38.6 C H Heart Rate 84 Heart Rate [ 98 Brachial] Heart Rate [ Monitoring electrodes] Respiratory 16 22 Rate Blood Pressure 81/67 L Blood Pressure 73/50 L [Left Brachial artery] O2 Saturation 100 99 09/04/19 09/04/19 09/04/19 12:39 12:46 13:05 Temperature Heart Rate Heart Rate [ 88 84 88 Brachial] Heart Rate [ Monitoring electrodes] Respiratory 20 Rate Blood Pressure Blood Pressure 71/44 L 77/51 L 67/47 L [Left Brachial artery] O2 Saturation 09/04/19 09/04/19 09/04/19 13:15 13:23 13:32 Temperature Heart Rate Heart Rate [ 85 86 86 Brachial] Heart Rate [ Monitoring electrodes] Respiratory 16 16 Rate Blood Pressure Blood Pressure 75/50 L 81/54 L 77/54 L [Left Brachial artery] O2 Saturation 98 100 09/04/19 09/04/19 09/04/19 14:03 14:04 15:00 Temperature 37.3 C 36.6 C Heart Rate Heart Rate [ 89 88 91 Brachial] Heart Rate [ Monitoring electrodes] Respiratory 18 18 17 Rate Blood Pressure Blood Pressure 82/55 L 86/54 L 78/53 L [Left Brachial artery] O2 Saturation 99 99 100 09/04/19 09/04/19 09/04/19 15:15 15:30 16:00 Temperature Heart Rate Heart Rate [ 87 87 85 Brachial] Heart Rate [ Monitoring electrodes] Respiratory 18 17 18 Rate Blood Pressure Blood Pressure 124/69 100/62 99/60 [Left Brachial artery] O2 Saturation 98 99 98 09/04/19 09/04/19 09/04/19 17:00 18:00 19:00 Temperature 97.5 C H 36.6 C Heart Rate Heart Rate [ 90 87 80 Brachial] Heart Rate [ Monitoring electrodes] Respiratory 21 18 18 Rate Blood Pressure Blood Pressure 98/60 118/71 103/74 [Left Brachial artery] O2 Saturation 97 98 99 09/04/19 09/04/19 09/04/19 19:21 20:00 20:05 Temperature 36.5 C Heart Rate Heart Rate [ 78 81 Brachial] Heart Rate [ Monitoring electrodes] Respiratory 17 Rate Blood Pressure Blood Pressure 108/52 L 92/58 L [Left Brachial artery] O2 Saturation 98 09/04/19 09/04/19 09/04/19 20:10 20:15 20:20 Temperature Heart Rate Heart Rate [ 80 82 79 Brachial] Heart Rate [ Monitoring electrodes] Respiratory Rate Blood Pressure Blood Pressure 89/65 L 85/64 L 91/65 [Left Brachial artery] O2 Saturation 09/04/19 09/04/19 09/04/19 20:25 20:30 20:35 Temperature Heart Rate Heart Rate [ 75 81 Brachial] Heart Rate [ 78 Monitoring electrodes] Respiratory Rate Blood Pressure Blood Pressure 98/69 103/70 107/70 [Left Brachial artery] O2 Saturation 09/04/19 09/04/19 09/04/19 20:45 21:00 21:30 Temperature Heart Rate Heart Rate [ Brachial] Heart Rate [ 75 73 73 Monitoring electrodes] Respiratory 18 Rate Blood Pressure Blood Pressure 100/70 93/70 108/70 [Left Brachial artery] O2 Saturation 98 09/04/19 09/04/19 09/04/19 22:00 23:00 23:56 Temperature 36.5 C Heart Rate Heart Rate [ Brachial] Heart Rate [ 77 63 Monitoring electrodes] Respiratory 17 15 Rate Blood Pressure Blood Pressure 122/72 113/65 [Left Brachial artery] O2 Saturation 98 98 09/05/19 09/05/19 09/05/19 00:00 01:00 02:00 Temperature Heart Rate Heart Rate [ Brachial] Heart Rate [ 88 81 82 Monitoring electrodes] Respiratory 18 20 18 Rate Blood Pressure Blood Pressure 120/80 127/69 115/68 [Left Brachial artery] O2 Saturation 98 98 98 09/05/19 09/05/19 09/05/19 03:00 03:05 03:10 Temperature Heart Rate Heart Rate [ Brachial] Heart Rate [ 85 89 89 Monitoring electrodes] Respiratory 14 Rate Blood Pressure Blood Pressure 131/73 H 121/71 120/81 H [Left Brachial artery] O2 Saturation 100 09/05/19 09/05/19 09/05/19 03:15 03:30 03:44 Temperature 37 C Heart Rate Heart Rate [ Brachial] Heart Rate [ 91 102 H Monitoring electrodes] Respiratory Rate Blood Pressure Blood Pressure 118/88 H 136/101 H [Left Brachial artery] O2 Saturation 09/05/19 09/05/19 09/05/19 03:45 04:15 04:26 Temperature 38.1 C H Heart Rate Heart Rate [ Brachial] Heart Rate [ 105 H 105 H Monitoring electrodes] Respiratory 19 Rate Blood Pressure Blood Pressure 147/96 H 103/71 [Left Brachial artery] O2 Saturation 98 09/05/19 09/05/19 09/05/19 04:30 05:00 05:35 Temperature Heart Rate Heart Rate [ Brachial] Heart Rate [ 101 H 110 H 109 H Monitoring electrodes] Respiratory 28 H Rate Blood Pressure Blood Pressure 99/68 99/62 96/55 L [Left Brachial artery] O2 Saturation 97 09/05/19 09/05/19 09/05/19 05:36 05:40 05:42 Temperature 37.6 C H Heart Rate Heart Rate [ Brachial] Heart Rate [ 103 H 106 H Monitoring electrodes] Respiratory Rate Blood Pressure Blood Pressure 92/55 L 92/55 L [Left Brachial artery] O2 Saturation 09/05/19 09/05/19 09/05/19 05:45 05:50 05:55 Temperature Heart Rate Heart Rate [ Brachial] Heart Rate [ 106 H 107 H 109 H Monitoring electrodes] Respiratory Rate Blood Pressure Blood Pressure 96/60 100/51 L 94/53 L [Left Brachial artery] O2 Saturation 09/05/19 09/05/19 09/05/19 06:00 06:15 06:30 Temperature 37.0 C Heart Rate Heart Rate [ Brachial] Heart Rate [ 103 H 103 H 97 Monitoring electrodes] Respiratory 26 H Rate Blood Pressure Blood Pressure 110/56 L 90/52 L 93/56 L [Left Brachial artery] O2 Saturation 96 09/05/19 09/05/19 09/05/19 07:00 08:00 08:18 Temperature 36.5 C Heart Rate Heart Rate [ Brachial] Heart Rate [ 103 H 99 106 H Monitoring electrodes] Respiratory 22 24 Rate Blood Pressure Blood Pressure 99/58 L 96/62 106/57 L [Left Brachial artery] O2 Saturation 97 96 Oxygen O2 Source Room air I&O (Last 24 Hrs): Intake and Output Totals x24h 09/03/19 09/04/19 09/05/19 23:59 23:59 23:59 Intake Total 6308.770 1005.461 Output Total 1055 650 Balance 5253.770 355.461 - Results Results: Laboratory Results WBC 47.1 x10^3/uL (4.8-10.8) H* 09/05/19 04:00 RBC 3.65 10^6/uL (4.70-6.10) L 09/05/19 04:00 Hgb 11.0 g/dL (14.0-18.0) L 09/05/19 04:00 Hct 35.8 % (42.0-52.0) L 09/05/19 04:00 MCV 98.1 fL (80.0-94.0) H 09/05/19 04:00 MCH 30.1 pg (27.0-31.0) 09/05/19 04:00 MCHC 30.7 g/dL (32.0-36.0) L 09/05/19 04:00 RDW 14.5 % (12.0-15.0) 09/05/19 04:00 Plt Count 364 10^3/uL (130-450) 09/05/19 04:00 MPV 10.8 fL (7.4-11.4) 09/05/19 04:00 Neut # (Auto) 45.1 10^3/uL (1.5-6.6) H 09/05/19 04:00 Lymph # (Auto) 0.6 10^3/uL (1.5-3.5) L 09/05/19 04:00 Lares # (Auto) 0.2 10^3/uL (0.0-1.0) 09/05/19 04:00 Eos # (Auto) 0.0 10^3/uL (0.0-0.7) 09/05/19 04:00 Baso # (Auto) 0.0 10^3/uL (0.0-0.1) 09/05/19 04:00 Absolute Nucleated RBC 0.00 x10^3/uL 09/05/19 04:00 Total Counted 100 09/04/19 09:45 Band Neuts % (Manual) 15 % (0-10) H 09/04/19 09:45 Reactive Lymphs % (Man) 1 % 09/04/19 09:45 Abnorm Lymph % (Manual) 0 % 02/27/20 09:45 Myelocytes % 2 % (-0) H 09/04/19 09:45 Nucleated RBC % 0.0 /100WBC 09/05/19 04:00 Neutrophils # (Manual) 30.1 10^3/uL (1.5-6.6) H 09/04/19 09:45 Lymphocytes # (Manual) 1.0 10^3/uL (1.5-3.5) L 09/04/19 09:45 Monocytes # (Manual) 0.3 10^3/uL (0.0-1.0) 09/04/19 09:45 Eosinophils # (Manual) 0.0 10^3/uL (0-0.7) 09/04/19 09:45 Basophils # (Manual) 0.0 10^3/uL (0-0.1) 09/04/19 09:45 Differential Comment MANUAL DIFFERENTIAL 09/04/19 09:45 Manual Slide Review Indicated 09/05/19 04:00 Platelet Estimate NORMAL (130-450,000) (NORMAL) 09/05/19 04:00 Platelet Morphology NORMAL APPEARANCE (NORMAL) 09/05/19 04:00 RBC Morph Micro Appear 2+ ANISOCYTOSIS (NORMAL) 09/05/19 04:00 PT 17.9 secs (9.9-12.6) H 09/04/19 10:15 INR 1.6 (0.8-1.2) H 09/04/19 10:15 VBG pH 7.366 (7.31-7.41) 09/05/19 04:00 Ionized Calcium 1.11 mmol/L (1.15-1.33) L 09/05/19 04:00 Sodium 144 mmol/L (135-145) 09/05/19 04:00 Potassium 3.7 mmol/L (3.5-5.0) 09/05/19 04:00 Chloride 117 mmol/L (101-111) H 09/05/19 04:00 Carbon Dioxide 20 mmol/L (21-32) L 09/05/19 04:00 Anion Gap 7.0 (6-13) 09/05/19 04:00 BUN 20 mg/dL (6-20) 09/05/19 04:00 Creatinine 1.0 mg/dL (0.6-1.2) 09/05/19 04:00 Estimated GFR (MDRD) 71 (>89) L 09/05/19 04:00 Glucose 80 mg/dL (70-100) 09/05/19 04:00 Lactic Acid 1.5 mmol/L (0.5-2.2) 09/05/19 06:45 Calcium 7.8 mg/dL (8.5-10.3) L 09/05/19 04:00 Phosphorus 2.5 mg/dL (2.5-4.6) 09/05/19 04:00 Magnesium 1.7 mg/dL (1.7-2.8) 09/05/19 04:00 Total Bilirubin 1.1 mg/dL (0.2-1.0) H 09/05/19 04:00 AST 31 IU/L (10-42) 09/05/19 04:00 ALT 18 IU/L (10-60) 09/05/19 04:00 Alkaline Phosphatase 61 IU/L (42-121) 09/05/19 04:00 Troponin I High Sens 302.8 ng/L (2.3-19.7) H* 09/05/19 06:45 Total Protein 5.7 g/dL (6.7-8.2) L 09/05/19 04:00 Albumin 2.0 g/dL (3.2-5.5) L 09/05/19 04:00 Globulin 3.7 g/dL (2.1-4.2) 09/05/19 04:00 Albumin/Globulin Ratio 0.5 (1.0-2.2) L 09/05/19 04:00 Lipase 26 U/L (22-51) 09/04/19 09:45 Urine Color YELLOW 09/04/19 10:17 Urine Clarity CLOUDY (CLEAR) 09/04/19 10:17 Urine pH 6.0 PH (5.0-7.5) 09/04/19 10:17 Ur Specific [place] 1.020 (1.002-1.030) 09/04/19 10:17 Urine Protein 30 mg/dL (NEGATIVE) H 09/04/19 10:17 Urine Glucose (UA) NEGATIVE mg/dL (NEGATIVE) 09/04/19 10:17 Urine Ketones NEGATIVE mg/dL (NEGATIVE) 09/04/19 10:17 Urine Occult Blood LARGE (NEGATIVE) H 09/04/19 10:17 Urine Nitrite NEGATIVE (NEGATIVE) 09/04/19 10:17 Urine Bilirubin NEGATIVE (NEGATIVE) 09/04/19 10:17 Urine Urobilinogen 1 (NORMAL) E.U./dL (NORMAL) 09/04/19 10:17 Ur Leukocyte Esterase LARGE (NEGATIVE) H 09/04/19 10:17 Urine RBC 6-10 /HPF (0-5) H 09/04/19 10:17 Urine WBC >25 /HPF (0-3) H 09/04/19 10:17 Ur Squamous Epith Cells NONE SEEN (<= Few) 09/04/19 10:17 Urine Bacteria Moderate /HPF (None Seen) H 09/04/19 10:17 Ur Microscopic Review INDICATED 09/04/19 10:17 Urine Culture Comments INDICATED 09/04/19 10:17 Nasal Screen MRSA (PCR) NEGATIVE (NEGATIVE) 09/04/19 14:25 - Procedures Procedures: Procedures EXCISE CORD/EPID LES NEC (06/20/13) OTH & OPEN REPAIR INDIRECT INGUINAL HERNIA W GRFT OR PROSTH (06/20/13) Sepsis Event Note (H) - Evaluation Current Stage of Sepsis: Severe sepsis Possible source of Sepsis: positive: Genitourinary - Sepsis Criteria Sepsis Criteria: Recorded Temperature greater than 38.3C or Less than 36C, Recorded Heart Rate greater than 90 bpm, WBC count greater than 12,000 or less than 4000, PROGRAM DIRECTOR SUBSTANCE ABUSE: altered consciousness (unrelated to primary neuro pathology), SBP drop more than 40mHg, SBP less than 90 mmHg, Metabolic: lactate > 2 mmol/L
[2019-09-05] MEDS: ZINC OXIDE 20% OINT 30 GM TUBE TOP PRN ×3 (09:43→19:15)
[2019-09-05] MEDS: SODIUM CHLORIDE FLUSH 0.9% 10 ML SYRINGE IVP SCH ×2 (09:51→17:20)
[2019-09-05] MEDS ORDERED: POTASSIUM PHOSPHATE 15 MMOL in SODIUM CHLORIDE 0.9% 250 ML IV ONE (10:00)
[2019-09-05] MEDS ORDERED: SODIUM CHLORIDE 0.9% 500 ML IV PRN (11:14)
[2019-09-05] MEDS: BRIMONIDINE 0.15% OPHTH DROPS 5 ML EACHEYE SCH ×2 (12:45→20:02)
[2019-09-05] MEDS: DORZOLAMIDE/TIMOLOL OPHTH DROPS EACHEYE SCH ×2 (12:50→20:12)
--- NOTE | 2019-09-05 16:08 | CONSULTATION NOTE ---
Palliative Care Follow Up - Referral Referring Provider: Suly Archibald MD Time of Visit: Referral setting: Hospitalized patient Referral Reason: Sepsis/Goals of Care - Information Sources Records reviewed: Previous records reviewed History/Review of Systems obtained from: Patient, Family ( Lara; son and TONY Fleming and his ) Exam limitations: Clinical condition (patient not responsive) - History of Present Illness Update Brief HPI Update: This is an 84-year-old gentleman well-known to me, who was sent in from [facility] as a result of patient spiking a temp of 103, presenting with hypotension, and nonresponsiveness. Patient had had acute changes over the last couple days with decreased intake, worsening weight loss, more lethargy, and needing to be fed. He had been declining from previous baseline over the last couple of months, no longer able to walk, sleeping more, eating less and less interactive with and family. Patient at baseline is well mannered, smiles a lot, and easily pleased, still recognizing family though not able to engage in sustained meaningful dialogue. Patient admitted with sepsis, severe hypotension, decision made in the context of previous experiences, of severe infection and patient has "rallied back". Though he has not ever return to previous level of functioning, family has always perceived is been still acceptable quality of life. His most recent hospitalization was in May, and at that point in time was found to have a ureteropelvic junction calculi, with moderate right hydro-nephrosis. Patient did recover, and return back to [facility] setting. Patient was placed at [facility] after hospitalization in September of last year, due to increasing care needs and functional and cognitive decline. Family, said in particular, has always struggled with when it is enough enough, and what is comfort measures versus reasonable attempts to reverse reversible conditions. In the context of this was offered CVP line and pressors, did feel this still met the intent which is for comfort, with the hope of patient recovering as he had in the past. Patient currently with spiked WBC up to 47.1, had a difficult night last night with fever and chilling, better today but still unresponsive. He is on low dose of pressor currently. Patient's blood cultures are positive. Has had ECHO, and is in ICU. Patient's past medical history includes Parkinson's, atypical with poor response to medications. Known Lewy body dementia, atrial fib, BPH, coronary artery disease status post stent, narcolepsy, hypertension, aortic stenosis with murmur, history of urinary retention, left and right inguinal hernia repairs, scoliosis, epidural hematoma 2017. Social History - Living Situation Living arrangement: Assisted living (Patient has lived at [facility] since 09/2018; this has been difficult for Lara, she has "missed" him but no longer able to care for him, has initially started as respite stay, but patient did not return to previous level of juction) Support System: has her own health issues, she gets quite stressed particularly around the situations. She does defer to her son Lonnie, who is the D POA. He has another son Tarun, who Lonnie and Tarun agree on approach and most decisions. It has been difficult weighing benefits and burdens of how much is too much for Lonnie, he does visit weekly. tries to visit daily at lunchtime to help with feeding, they have been for over 60 years. 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 They have been lived in [place] since 1970 and he was well known and liked in the community Medications/Allergies - Medications Active Medication List: Active Medications Brimonidine Tartrate (Alphagan P 0.15% Ophth Drops) 1 drops EACHEYE BID [facility] Last Admin: 09/05/19 12:45 Dose: 1 drops Dorzolamide/Timolol (Cosopt) 1 drops EACHEYE BID [facility] Last Admin: 09/05/19 12:50 Dose: 1 drops Famotidine (Pepcid) 10 mg IVP BID [facility] Last Admin: 09/05/19 08:50 Dose: 10 mg Heparin Sodium (Beef Lung) () 30 - 50 unit IVP PRN PRN PRN Reason: Central Line Protocol (<24 hr) Last Admin: 09/05/19 04:04 Dose: 30 unit Norepinephrine Bitartrate 8 mg (/ Dextrose) 250 mls @ 15 mls/hr IV .[id number] [facility]; Protocol Last Admin: 09/05/19 14:06 Dose: Not Given Acetaminophen (Ofirmev) 100 mls @ 400 mls/hr IV Q8HR PRN PRN Reason: PAIN Last Infusion: 09/05/19 14:05 Dose: Infused Piperacillin Sod/Tazobactam (Sod 3.375 gm/ Sodium Chloride) 100 mls @ 25 mls/hr IV Q8H [facility] Last Admin: 09/05/19 15:08 Dose: 25 mls/hr Dextrose/Sodium Chloride (D5ns) 1,000 mls @ 100 mls/hr IV .Q10H [facility] Last Infusion: 09/05/19 15:13 Dose: 100 mls/hr Sodium Chloride (Normal Saline 0.9%) 500 mls @ 0 mls/hr IV Q24H PRN PRN Reason: TKO RATE Last Infusion: 09/05/19 15:12 Dose: 0 mls/hr Latanoprost (Xalatan Ophth Drops) 1 drops EACHEYE QPM [facility] Multi-Ingredient Ointment (Zinc Oxide) 1 applic TOP PRN PRN PRN Reason: Skin Care Last Admin: 09/05/19 09:43 Dose: 1 applic Sodium Chloride (Normal Saline Flush 0.9%) 10 ml IVP 0100,0900,1700 [facility] Last Admin: 09/05/19 09:51 Dose: 20 ml Sodium Chloride (Normal Saline Flush 0.9%) 10 ml IVP PRN PRN PRN Reason: NEEDED PER PROVIDER ORDERS Last Admin: 09/05/19 14:04 Dose: 10 ml Sodium Chloride (Normal Saline Flush 0.9%) 20 ml IVP PRN PRN PRN Reason: After Blood Draw Aspirin Chewable [St Kevin Aspirin] 81 mg PO DAILY 06/19/13 Brimonidine 0.15% Ophth Drops [Alphagan P 0.15% Ophth Drops] 1 drops EACHEYE BID 06/19/13 Atorvastatin Calcium [Lipitor] 40 mg PO QPM 06/20/13 Carbidopa/Levodopa [Carbidopa-Levo ER 50-200 Tab] 1 tab PO QPM 05/28/16 Rivastigmine Tartrate [Rivastigmine] 6 mg PO BID 06/26/18 Dorzolamide/Timolol Ophth Soln [Cosopt] 1 drops EACHEYE BID 09/06/18 Latanoprost 0.005% Ophth Drops [Xalatan Ophth Drops] 1 drops EACHEYE QPM 9 Multivitamin/Iron/Folic Acid [Centrum Adults Tablet] 1 tab PO DAILY 09/06/18 Senna [Senokot] 17.2 mg PO DAILY 09/06/18 Tamsulosin [Flomax] 0.4 mg PO QPM 09/06/18 Carbidopa/Levodopa 25/100 [Sinemet 25 mg/100 mg] 1.5 tab PO TID 09/11/18 Acetaminophen [Tylenol] 650 mg PO Q6H PRN 09/18/18 Bisacodyl Supp [Dulcolax Supp] 10 mg NM DAILY PRN 09/18/18 Magnesium Hydroxide [Milk of Magnesia] 30 ml PO DAILY PRN 09/18/18 Methylphenidate [Ritalin] 5 mg PO .AFTERNOON PRN MDD somnulence 09/29/18 Methylphenidate [Ritalin] 5 mg PO DAILY 09/29/18 polyethylene glycoL 3350 [Miralax] 17 gm PO Q48H 10/16/18 Mag Hydrox/Al Hydrox/Simeth [Antacid Suspension] 30 ml PO Q4H PRN MDD 4 doses in 24 hours 05/22/19 Loperamide [Imodium] 2 - 4 mg PO PRN PRN MDD 16MG 09/04/19 - Allergies Allergies/Adverse Reactions: Allergies Allergy/AdvReac Type Severity Reaction Status Date / Time niacin Allergy Unknown Verified 09/11/18 13:40 Review of Systems - Constitutional Constitutional: reports: Fatigue, Fever, Chills (last night), Weight loss - Ears, Nose & Throat Ears, Nose & Throat: reports: Dry mouth - Genitourinary Genitourinary: reports: Other (has reynolds) - Musculoskeletal Musculoskeletal: reports: Stiffness, Limited range of motion, Muscle weakness, Other (currently bedbound) - Integumentary Integumentary: reports: Dryness - Neurological Neurological: reports: Memory problems - Psychiatric Psychiatric: reports: Behavior disturbances (rarely resistant to care) - Hematologic/Lymphatic Hematologic/Lymphatic: reports: Recurrent infections - All Other Systems All Other Systems: reports: Other (limited ROS) Physical Exam - Vital Signs Vital Signs: Vital Signs x48h Temp Pulse Resp BP Pulse Ox 09/05/19 15:57 65 17 88/61 L 97 09/05/19 15:00 66 17 84/58 L 96 09/05/19 14:00 66 21 96/68 97 09/05/19 13:00 72 13 88/65 L 09/05/19 12:45 74 96/70 09/05/19 12:32 72 88/66 L 09/05/19 12:15 75 99/76 09/05/19 12:08 78 100/71 09/05/19 12:03 80 105/69 09/05/19 12:00 36.5 C 85 18 111/75 99 09/05/19 11:00 80 23 93/64 97 09/05/19 10:30 86 90/60 09/05/19 10:15 87 89/64 L 09/05/19 10:00 86 17 95/63 95 09/05/19 09:58 87 98/64 09/05/19 09:50 86 88/62 L 09/05/19 09:45 88 84/60 L 09/05/19 09:41 95 104/66 09/05/19 09:30 95 106/65 09/05/19 09:00 96 22 103/68 97 09/05/19 08:18 106 H 106/57 L - Physical Exam General Appearance: positive: Nonresponsive Eyes Bilateral: positive: Other (eyes matted) ENT: positive: Dry mucous membranes Neck: positive: Stiff neck Cardiovascular: positive: Regular rate & rhythm, Other (murmer) Respiratory: positive: Other (breathing with some effort; no cough noted; decreased anteriorly) Abdomen: positive: Soft Skin: positive: Pallor, Dryness Extremities: positive: Pedal edema Neurologic/Psychiatric: positive: Other (patient non responsive; flutters eyelids only) Palliative Care - POLST Patient has POLST: Yes POLST Status: DNR, Selective Treatment Pain: No pain Performance Status: Patient at baseline, is dependent for all ADLs. Patient does have incontinence of both urine and bowel, is dependent for dressing. He has needed feeding over the last week or 2, fluctuates for independent self feed. Is mostly wheelchair- bound, does "walk himself" around facility at baseline. - Palliative Care Discussion: Met with Lara, acknowledged how difficult this must be, patient reports she "worries about everything" when asked what she worries about. She reports he worries if she is eating or not if he is losing weight if he is not talking. She reports things like this stresses her out, and she is thankful to be able to defer to Lonnie, she remains quite quiet through the conversation. Had been making arrangements for palliative care social services specialist to meet with her as son feels she is having a difficult time of this, and not accepting of his decline. Conversation with Lonnie and , regarding current situation, recognize he is severely ill, though he does seem to be improving some. Discussed questions about weighing decision-making, at this point a "time trial", seeing if patient will respond. They are hopeful he will come back, are concerned about what his quality of life is going to be like. They perceive it was pretty good before they left on a trip 5 weeks ago, still able to take him out to lunch, though is less able to walk, but was still interacting, eye contact and smiling. Do understand if patient does not improve, over the next few days, most likely will transition to comfort measures. Their point of context though, as he has come back to previous times, and is improved today though not responsive. They do want to limit any further invasive interventions. These decisions weigh heavily on Lonnie. Discussion continues regarding if patient's quality of life will be impacted after this episode, can weigh this in the context of what his new normal will be, have been talking about transition to hospice, with threshold for this, as well as at what point not to return to the hospital and focus on comfort only. Palliative care will continue to follow. If patient does not improve or worsens, patient could be discharged back to [facility], they do support hospice and end-of-life care in that setting. Results - Lab Results Lab results reviewed: Yes Fish Bones: 09/05/19 04:00 09/05/19 04:00 Lab and Imaging Results: Lab Results x24hrs 09/05/19 09/05/19 09/05/19 Range/Units 06:45 06:45 04:00 WBC (4.8-10.8) x10^3/uL RBC (4.70-6.10) 10^6/uL Hgb (14.0-18.0) g/dL Hct (42.0-52.0) % MCV (80.0-94.0) fL MCH (27.0-31.0) pg MCHC (32.0-36.0) g/dL RDW (12.0-15.0) % Plt Count (130-450) 10^3/uL MPV (7.4-11.4) fL Neut # (Auto) (1.5-6.6) 10^3/uL Lymph # (Auto) (1.5-3.5) 10^3/uL [place] # (Auto) (0.0-1.0) 10^3/uL Eos # (Auto) (0.0-0.7) 10^3/uL Baso # (Auto) (0.0-0.1) 10^3/uL Absolute Nucleated RBC x10^3/uL Nucleated RBC % /100WBC Manual Slide Review Platelet Estimate (NORMAL) Platelet Morphology (NORMAL) RBC Morph Micro Appear (NORMAL) VBG pH 7.366 (7.31-7.41) Ionized Calcium 1.11 L (1.15-1.33) mmol/L Sodium (135-145) mmol/L Potassium (3.5-5.0) mmol/L Chloride (101-111) mmol/L Carbon Dioxide (21-32) mmol/L Anion Gap (6-13) BUN (6-20) mg/dL Creatinine (0.6-1.2) mg/dL Estimated GFR (MDRD) (>89) Glucose (70-100) mg/dL Lactic Acid 1.5 (0.5-2.2) mmol/L Calcium (8.5-10.3) mg/dL Phosphorus (2.5-4.6) mg/dL Magnesium (1.7-2.8) mg/dL Total Bilirubin (0.2-1.0) mg/dL AST (10-42) IU/L ALT (10-60) IU/L Alkaline Phosphatase (42-121) IU/L Troponin I High Sens 302.8 H* (2.3-19.7) ng/L Total Protein (6.7-8.2) g/dL Albumin (3.2-5.5) g/dL Globulin (2.1-4.2) g/dL Albumin/Globulin Ratio (1.0-2.2) Nasal Screen MRSA (PCR) (NEGATIVE) 09/05/19 09/05/19 09/04/19 Range/Units 04:00 04:00 23:45 WBC 47.1 H* (4.8-10.8) x10^3/uL RBC 3.65 L (4.70-6.10) 10^6/uL Hgb 11.0 L (14.0-18.0) g/dL Hct 35.8 L (42.0-52.0) % MCV 98.1 H (80.0-94.0) fL MCH 30.1 (27.0-31.0) pg MCHC 30.7 L (32.0-36.0) g/dL RDW 14.5 (12.0-15.0) % Plt Count 364 (130-450) 10^3/uL MPV 10.8 (7.4-11.4) fL Neut # (Auto) 45.1 H (1.5-6.6) 10^3/uL Lymph # (Auto) 0.6 L (1.5-3.5) 10^3/uL [place] # (Auto) 0.2 (0.0-1.0) 10^3/uL Eos # (Auto) 0.0 (0.0-0.7) 10^3/uL Baso # (Auto) 0.0 (0.0-0.1) 10^3/uL Absolute Nucleated RBC 0.00 x10^3/uL Nucleated RBC % 0.0 /100WBC Manual Slide Review Indicated Platelet Estimate NORMAL (130-450,000) (NORMAL) Platelet Morphology NORMAL APPEARANCE (NORMAL) RBC Morph Micro Appear 2+ ANISOCYTOSIS (NORMAL) VBG pH (7.31-7.41) Ionized Calcium (1.15-1.33) mmol/L Sodium 144 (135-145) mmol/L Potassium 3.7 (3.5-5.0) mmol/L Chloride 117 H (101-111) mmol/L Carbon Dioxide 20 L (21-32) mmol/L Anion Gap 7.0 (6-13) BUN 20 (6-20) mg/dL Creatinine 1.0 (0.6-1.2) mg/dL Estimated GFR (MDRD) 71 L (>89) Glucose 80 (70-100) mg/dL Lactic Acid (0.5-2.2) mmol/L Calcium 7.8 L (8.5-10.3) mg/dL Phosphorus 2.5 (2.5-4.6) mg/dL Magnesium 1.7 (1.7-2.8) mg/dL Total Bilirubin 1.1 H (0.2-1.0) mg/dL AST 31 (10-42) IU/L ALT 18 (10-60) IU/L Alkaline Phosphatase 61 (42-121) IU/L Troponin I High Sens 374.2 H* (2.3-19.7) ng/L Total Protein 5.7 L (6.7-8.2) g/dL Albumin 2.0 L (3.2-5.5) g/dL Globulin 3.7 (2.1-4.2) g/dL Albumin/Globulin Ratio 0.5 L (1.0-2.2) Nasal Screen MRSA (PCR) (NEGATIVE) 09/04/19 09/04/19 Range/Units 18:05 14:25 WBC (4.8-10.8) x10^3/uL RBC (4.70-6.10) 10^6/uL Hgb (14.0-18.0) g/dL Hct (42.0-52.0) % MCV (80.0-94.0) fL MCH (27.0-31.0) pg MCHC (32.0-36.0) g/dL RDW (12.0-15.0) % Plt Count (130-450) 10^3/uL MPV (7.4-11.4) fL Neut # (Auto) (1.5-6.6) 10^3/uL Lymph # (Auto) (1.5-3.5) 10^3/uL [place] # (Auto) (0.0-1.0) 10^3/uL Eos # (Auto) (0.0-0.7) 10^3/uL Baso # (Auto) (0.0-0.1) 10^3/uL Absolute Nucleated RBC x10^3/uL Nucleated RBC % /100WBC Manual Slide Review Platelet Estimate (NORMAL) Platelet Morphology (NORMAL) RBC Morph Micro Appear (NORMAL) VBG pH (7.31-7.41) Ionized Calcium (1.15-1.33) mmol/L Sodium (135-145) mmol/L Potassium (3.5-5.0) mmol/L Chloride (101-111) mmol/L Carbon Dioxide (21-32) mmol/L Anion Gap (6-13) BUN (6-20) mg/dL Creatinine (0.6-1.2) mg/dL Estimated GFR (MDRD) (>89) Glucose (70-100) mg/dL Lactic Acid (0.5-2.2) mmol/L Calcium (8.5-10.3) mg/dL Phosphorus (2.5-4.6) mg/dL Magnesium (1.7-2.8) mg/dL Total Bilirubin (0.2-1.0) mg/dL AST (10-42) IU/L ALT (10-60) IU/L Alkaline Phosphatase (42-121) IU/L Troponin I High Sens 252.8 H* (2.3-19.7) ng/L Total Protein (6.7-8.2) g/dL Albumin (3.2-5.5) g/dL Globulin (2.1-4.2) g/dL Albumin/Globulin Ratio (1.0-2.2) Nasal Screen MRSA (PCR) NEGATIVE (NEGATIVE) Impression and Recommendations - Palliative Care Impression: This is an 84-year-old gentleman with known atypical Parkinson's and Lewy body dementia who presents with acute sepsis. Currently is being managed in ICU, with goal to treat and hopeful outcome of reversing current condition. Patient quite frail, has had continued functional and cognitive decline, [facility]. Family continues to struggle with defining quality of life for patient in the midst of his decline, ultimate goal is for comfort and not prolong suffering. But given past history with responsiveness to antibiotics and acute intervention, have chose to do a time trial of limited interventions. Recommendations/Counseling Done: Family meeting to provide support, addressed questions and concerns regarding goals of care. They continue to struggle with ongoing defining quality of life, versus quantity of life and treating reversible conditions. We will continue to follow, if patient does not respond in the next few days, goal would be to transition to comfort, but patient will be discharged [facility] to [facility]. We will continue to monitor, whether discharged with ongoing palliative care or transition to hospice. Time Spent: 30 minutes with greater than 50% of this done in counseling related to continuum of care, goals of care, and anticipatory guidance.
--- NOTE | 2019-09-05 17:37 | PROVIDER PROGRESS NOTE ---
Subjective - Prog Note Date Prog Note Date: 09/05/19 Prog Note Time: 17:34 - Subjective Pt reports feeling: Improved Subjective: Chandra remains minimally responsive, comfortable, due to his illness. His son Lonnie is at the bedside, updated. Patient changed to med-surg status. Current Medications - Current Medications Current Medications: Active Medications: Brimonidine Tartrate 1 drops EACHEYE BID TE Dorzolamide/Timolol (Cosopt) 1 drops EACHEYE BID TE Famotidine (Pepcid) 10 mg IVP BID TE Heparin Sodium (Beef Lung) 30 - 50 unit IVP PRN PRN Acetaminophen (Ofirmev) 100 mls @ 400 mls/hr IV Q8HR PRN Dextrose/Sodium Chloride (D5ns) 1,000 mls @ 100 mls/hr IV .Q10H TE Meropenem 1G Q8H, IV Latanoprost (Xalatan Ophth Drops) 1 drops EACHEYE QPM TE Multi-Ingredient Ointment (Zinc Oxide) 1 applic TOP PRN PRN HOME meds: Aspirin Chewable [St Kevin Aspirin] 81 mg PO DAILY 06/19/13 Brimonidine 0.15% Ophth Drops 1 drops EACHEYE BID 06/19/13 Atorvastatin Calcium [Lipitor] 40 mg PO QPM 06/20/13 Carbidopa/Levodopa [Carbidopa-Levo ER 50-200 Tab] 1 tab PO QPM 05/28/16 Rivastigmine Tartrate [Rivastigmine] 6 mg PO BID 06/26/18 Dorzolamide/Timolol Ophth Soln 1 drops EACHEYE BID 09/06/18 Latanoprost 0.005% Ophth Drops 1 drops EACHEYE QPM 09/06/18 Multivitamin/Iron/Folic Acid [Centrum Adults Tablet] 1 tab PO DAILY 09/06/18 Senna [Senokot] 17.2 mg PO DAILY 09/06/18 Tamsulosin [Flomax] 0.4 mg PO QPM 09/06/18 Carbidopa/Levodopa 25/100 [Sinemet 25 mg/100 mg] 1.5 tab PO TID 09/11/18 Acetaminophen [Tylenol] 650 mg PO Q6H PRN 09/18/18 Bisacodyl Supp [Dulcolax Supp] 10 mg ND DAILY PRN 09/18/18 Magnesium Hydroxide [Milk of Magnesia] 30 ml PO DAILY PRN 09/18/18 Methylphenidate [Ritalin] 5 mg PO .AFTERNOON PRN MDD somnulence 09/29/18 Methylphenidate [Ritalin] 5 mg PO DAILY 09/29/18 polyethylene glycoL 3350 [Miralax] 17 gm PO Q48H 10/16/18 Mag Hydrox/Al Hydrox/Simeth 30 ml PO Q4H PRN MDD 4 doses in 24 hours 05/22/19 Loperamide [Imodium] 2 - 4 mg PO PRN PRN MDD 16MG 09/04/19 Objective - Vital Signs/Intake & Output Reviewed Vital Signs: Yes Vital Signs: Vital Signs x48h Temp Pulse Resp BP Pulse Ox 09/05/19 17:00 36.2 C L 63 18 104/74 99 09/05/19 15:57 65 17 88/61 L 97 09/05/19 15:00 66 17 84/58 L 96 09/05/19 14:00 66 21 96/68 97 09/05/19 13:00 72 13 88/65 L 09/05/19 12:45 74 96/70 09/05/19 12:32 72 88/66 L 09/05/19 12:15 75 99/76 09/05/19 12:08 78 100/71 09/05/19 12:03 80 105/69 09/05/19 12:00 36.5 C 85 18 111/75 99 09/05/19 11:00 80 23 93/64 97 09/05/19 10:30 86 90/60 09/05/19 10:15 87 89/64 L 09/05/19 10:00 86 17 95/63 95 09/05/19 09:58 87 98/64 09/05/19 09:50 86 88/62 L 09/05/19 09:45 88 84/60 L 09/05/19 09:41 95 104/66 Intake & Output: Intake & Output 09/02/19 09/03/19 09/04/19 09/05/19 23:59 23:59 23:59 23:59 Intake Total 6308.770 2716.670 Output Total 1055 1055 Balance 5253.770 1661.670 - Objective General Appearance: positive: No acute distress, Lethargic Eyes Bilateral: positive: No lid inflammation Eyes: OU Other (dry, crusty drainage) ENT: positive: No signs of dehydration Neck: positive: Thyroid nml, No JVD, Trachea midline, Stiff neck Respiratory: positive: Chest non-tender, No respiratory distress, Breath sounds nml, Other (diminished, bilaterally) Cardiovascular: positive: Regular rate & rhythm, Systolic murmur, Decreased pulse(s) Peripheral Pulses: 1+ Radial (R), 1+ Radial (L) Abdomen: positive: Non-tender, Nml bowel sounds Back: positive: Nml inspection Skin: positive: No rash, Warm, Dry, Other (pale) Extremities: positive: Non-tender, Pedal edema (pitting up to thighs, BLEs), Joint swelling Neurologic/Psychiatric: positive: Weakness, Sensory loss, Depressed mood/affect, Other (minimally responsive, painful stimuli) - Lab Results Fish Bones: 09/05/19 04:00 09/05/19 04:00 Other Labs: Lab Results x24hrs 09/05/19 09/05/19 09/05/19 Range/Units 06:45 06:45 04:00 WBC (4.8-10.8) x10^3/uL RBC (4.70-6.10) 10^6/uL Hgb (14.0-18.0) g/dL Hct (42.0-52.0) % MCV (80.0-94.0) fL MCH (27.0-31.0) pg MCHC (32.0-36.0) g/dL RDW (12.0-15.0) % Plt Count (130-450) 10^3/uL MPV (7.4-11.4) fL Neut # (Auto) (1.5-6.6) 10^3/uL Lymph # (Auto) (1.5-3.5) 10^3/uL [place] # (Auto) (0.0-1.0) 10^3/uL Eos # (Auto) (0.0-0.7) 10^3/uL Baso # (Auto) (0.0-0.1) 10^3/uL Absolute Nucleated RBC x10^3/uL Nucleated RBC % /100WBC Manual Slide Review Platelet Estimate (NORMAL) Platelet Morphology (NORMAL) RBC Morph Micro Appear (NORMAL) VBG pH 7.366 (7.31-7.41) Ionized Calcium 1.11 L (1.15-1.33) mmol/L Sodium (135-145) mmol/L Potassium (3.5-5.0) mmol/L Chloride (101-111) mmol/L Carbon Dioxide (21-32) mmol/L Anion Gap (6-13) BUN (6-20) mg/dL Creatinine (0.6-1.2) mg/dL Estimated GFR (MDRD) (>89) Glucose (70-100) mg/dL Lactic Acid 1.5 (0.5-2.2) mmol/L Calcium (8.5-10.3) mg/dL Phosphorus (2.5-4.6) mg/dL Magnesium (1.7-2.8) mg/dL Total Bilirubin (0.2-1.0) mg/dL AST (10-42) IU/L ALT (10-60) IU/L Alkaline Phosphatase (42-121) IU/L Troponin I High Sens 302.8 H* (2.3-19.7) ng/L Total Protein (6.7-8.2) g/dL Albumin (3.2-5.5) g/dL Globulin (2.1-4.2) g/dL Albumin/Globulin Ratio (1.0-2.2) 09/05/19 09/05/19 09/04/19 Range/Units 04:00 04:00 23:45 WBC 47.1 H* (4.8-10.8) x10^3/uL RBC 3.65 L (4.70-6.10) 10^6/uL Hgb 11.0 L (14.0-18.0) g/dL Hct 35.8 L (42.0-52.0) % MCV 98.1 H (80.0-94.0) fL MCH 30.1 (27.0-31.0) pg MCHC 30.7 L (32.0-36.0) g/dL RDW 14.5 (12.0-15.0) % Plt Count 364 (130-450) 10^3/uL MPV 10.8 (7.4-11.4) fL Neut # (Auto) 45.1 H (1.5-6.6) 10^3/uL Lymph # (Auto) 0.6 L (1.5-3.5) 10^3/uL [place] # (Auto) 0.2 (0.0-1.0) 10^3/uL Eos # (Auto) 0.0 (0.0-0.7) 10^3/uL Baso # (Auto) 0.0 (0.0-0.1) 10^3/uL Absolute Nucleated RBC 0.00 x10^3/uL Nucleated RBC % 0.0 /100WBC Manual Slide Review Indicated Platelet Estimate NORMAL (130-450,000) (NORMAL) Platelet Morphology NORMAL APPEARANCE (NORMAL) RBC Morph Micro Appear 2+ ANISOCYTOSIS (NORMAL) VBG pH (7.31-7.41) Ionized Calcium (1.15-1.33) mmol/L Sodium 144 (135-145) mmol/L Potassium 3.7 (3.5-5.0) mmol/L Chloride 117 H (101-111) mmol/L Carbon Dioxide 20 L (21-32) mmol/L Anion Gap 7.0 (6-13) BUN 20 (6-20) mg/dL Creatinine 1.0 (0.6-1.2) mg/dL Estimated GFR (MDRD) 71 L (>89) Glucose 80 (70-100) mg/dL Lactic Acid (0.5-2.2) mmol/L Calcium 7.8 L (8.5-10.3) mg/dL Phosphorus 2.5 (2.5-4.6) mg/dL Magnesium 1.7 (1.7-2.8) mg/dL Total Bilirubin 1.1 H (0.2-1.0) mg/dL AST 31 (10-42) IU/L ALT 18 (10-60) IU/L Alkaline Phosphatase 61 (42-121) IU/L Troponin I High Sens 374.2 H* (2.3-19.7) ng/L Total Protein 5.7 L (6.7-8.2) g/dL Albumin 2.0 L (3.2-5.5) g/dL Globulin 3.7 (2.1-4.2) g/dL Albumin/Globulin Ratio 0.5 L (1.0-2.2) 09/04/19 Range/Units 18:05 WBC (4.8-10.8) x10^3/uL RBC (4.70-6.10) 10^6/uL Hgb (14.0-18.0) g/dL Hct (42.0-52.0) % MCV (80.0-94.0) fL MCH (27.0-31.0) pg MCHC (32.0-36.0) g/dL RDW (12.0-15.0) % Plt Count (130-450) 10^3/uL MPV (7.4-11.4) fL Neut # (Auto) (1.5-6.6) 10^3/uL Lymph # (Auto) (1.5-3.5) 10^3/uL [place] # (Auto) (0.0-1.0) 10^3/uL Eos # (Auto) (0.0-0.7) 10^3/uL Baso # (Auto) (0.0-0.1) 10^3/uL Absolute Nucleated RBC x10^3/uL Nucleated RBC % /100WBC Manual Slide Review Platelet Estimate (NORMAL) Platelet Morphology (NORMAL) RBC Morph Micro Appear (NORMAL) VBG pH (7.31-7.41) Ionized Calcium (1.15-1.33) mmol/L Sodium (135-145) mmol/L Potassium (3.5-5.0) mmol/L Chloride (101-111) mmol/L Carbon Dioxide (21-32) mmol/L Anion Gap (6-13) BUN (6-20) mg/dL Creatinine (0.6-1.2) mg/dL Estimated GFR (MDRD) (>89) Glucose (70-100) mg/dL Lactic Acid (0.5-2.2) mmol/L Calcium (8.5-10.3) mg/dL Phosphorus (2.5-4.6) mg/dL Magnesium (1.7-2.8) mg/dL Total Bilirubin (0.2-1.0) mg/dL AST (10-42) IU/L ALT (10-60) IU/L Alkaline Phosphatase (42-121) IU/L Troponin I High Sens 252.8 H* (2.3-19.7) ng/L Total Protein (6.7-8.2) g/dL Albumin (3.2-5.5) g/dL Globulin (2.1-4.2) g/dL Albumin/Globulin Ratio (1.0-2.2) ABX Reporting Has patient been on IV antibiotics over the past 48 hours?: Yes Sepsis Event Note (H) - Evaluation Current Stage of Sepsis: Severe sepsis Possible source of Sepsis: positive: Genitourinary - Sepsis Criteria Sepsis Criteria: Recorded Heart Rate greater than 90 bpm, WBC count greater than 12,000 or less than 4000, DIE SETTER: altered consciousness (unrelated to primary neuro pathology), SBP drop more than 40mHg, SBP less than 90 mmHg Assessment/Plan - Problem List (1) Citrobacter infection Impression: -Blood cultures, and urine, pending final results -Changed IV antibiotics, now on meropenem Sepsis -Febrile with a temp max of 38.6 C, tachycardia, hypotension, lethargy, decreased consciousness, on room air -Status post Levophed gtt, ICU, now on medical floor -Blood cultures x2 are growing citrobacter, urine sample is positive for acute UTI -Changed antibiotics to Meropenem -Wrote to transfer out of the unit -Continue non-invasive treatment, routine labs, monitor vital signs Hypotension -Discussion with the family who would like a central line with vasopressors to prevent brain damage from low perfusion -Blood pressures systolic, much improved 90-100s -Central line by anesthesia was placed on 09/04 -Monitor VS, LOC Acute metabolic encephalopathy -Since illness, admission to hospital, patient has been unresponsive, minimally responsive -Monitor for improvement UTI -Likely the source of the sepsis -Recurrent, history of kidney stones, baseline incontinence & retention, no hematuria -Urine sample is positive for citrobacter, final is pending -Changed IV treatment to meropenem -Indwelling reynolds Lewy body dementia -[facility]ides at [facility] -Now more advanced, few word sentences, wheelchair bound, incontinent, poor swallow -Not responsive from this illness
[2019-09-05] MEDS ORDERED: AZTREONAM 2 GM in SODIUM CHLORIDE 0.9% MINIBAG 100 ML IV SCH (18:00)
[2019-09-05] MEDS: MEROPENEM 1 GM in SODIUM CHLORIDE 0.9% MINIBAG 100 ML IV SCH ×2 (18:10→23:56)
[2019-09-05] MEDS: LATANOPROST 0.005% OPHTH DROPS EACHEYE SCH (20:21)
[2019-09-06] MEDS: SODIUM CHLORIDE FLUSH 0.9% 10 ML SYRINGE IVP SCH ×3 (00:03→18:00)
[2019-09-06] MEDS: DEXTROSE 5%-0.9% NACL 1,000 ML IV SCH ×2 (03:02→08:40)
[2019-09-06] MEDS: SODIUM CHLORIDE FLUSH 0.9% 10 ML SYRINGE IVP PRN ×3 (05:33→20:26)
[2019-09-06] MEDS: MEROPENEM 1 GM in SODIUM CHLORIDE 0.9% MINIBAG 100 ML IV SCH ×3 (05:34→22:09)
[2019-09-06 05:42] LABS: VBG PH 7.393 (7.31-7.41)
[2019-09-06 05:52] LABS: BASOPHILS % (AUTO) 0.5 %; EOSINOPHILS % (AUTO) 0.3 %; HGB - HEMOGLOBIN 9.8 g/dL (14.0-18.0); LYMPHOCYTES % (AUTO) 1.5 %; MEAN CORPUSCULAR HEMOGLOBIN 31.8 pg (27.0-31.0); MEAN CORPUSCULAR HGB CONC 32.1 g/dL (32.0-36.0); MEAN PLATELET VOLUME 10.9 fL (7.4-11.4); MONOCYTES % (AUTO) 0.9 %; NEUTROPHILS % (AUTO) 94.4 %; PLT - PLATELET COUNT 238 10^3/uL (130-450); RED BLOOD COUNT 3.08 10^6/uL (4.70-6.10); RED CELL DISTRIBUTION WIDTH 14.5 % (12.0-15.0); WHITE BLOOD COUNT 34.9 x10^3/uL (4.8-10.8)
[2019-09-06 05:58] LABS: ABNORMAL LYMPHS % (MANUAL) 0 %
[2019-09-06 05:59] LABS: CALCIUM 7.6 mg/dL (8.5-10.3); CREATININE 0.8 mg/dL (0.6-1.2)
[2019-09-06 06:50] LABS: BAND NEUTROPHILS % (MANUAL) 8 %; DIFFERENTIAL COMMENT MANUAL DIFFERENTIAL; LYMPHOCYTES # (MANUAL) 0.7 10^3/uL (1.5-3.5); LYMPHOCYTES % (MANUAL) 2 %; PLATELET ESTIMATE, MANUAL NORMAL (130-450,000) (NORMAL); PLATELET MORPHOLOGY NORMAL APPEARANCE (NORMAL); RBC MORPHOLOGY (MULTIPLE) 1+ BURR CELLS (NORMAL)
[2019-09-06] MEDS ORDERED: POTASSIUM PHOSPHATE 15 MMOL in SODIUM CHLORIDE 0.9% 250 ML IV ONE (09:00)
[2019-09-06] MEDS: BRIMONIDINE 0.15% OPHTH DROPS 5 ML EACHEYE SCH ×2 (09:11→20:20)
[2019-09-06] MEDS: DORZOLAMIDE/TIMOLOL OPHTH DROPS EACHEYE SCH ×2 (09:11→20:25)
[2019-09-06] MEDS: FAMOTIDINE 20 MG/2 ML VIAL IVP SCH ×2 (09:23→20:25)
[2019-09-06] MEDS: POTASSIUM CHLOR 10 MEQ/100 ML 10 MEQ/100 ML BAG IV SCH ×4 (10:30→13:25)
--- NOTE | 2019-09-06 10:48 | PROVIDER PROGRESS NOTE ---
Subjective - Prog Note Date Prog Note Date: 09/06/19 Prog Note Time: 10:46 - Subjective Pt reports feeling: Improved Subjective: Roverto remains non-conversational today, reacts to painful stimuli. Son Lonnie notes that his father answered his question this morning with a 3 word response. The patient appears comfortable, sleeps with his mouth open. His murmur is difficult to hear, indicating intravascular overload. Current Medications - Current Medications Current Medications: Active Medications: Brimonidine Tartrate 1 drops EACHEYE BID TE Dorzolamide/Timolol (Cosopt) 1 drops EACHEYE BID TE Famotidine (Pepcid) 10 mg IVP BID TE Heparin Sodium (Beef Lung) 30 - 50 unit IVP PRN PRN Acetaminophen (Ofirmev) 100 mls @ 400 mls/hr IV Q8HR PRN Dextrose/Sodium Chloride (D5ns) 1,000 mls @ 40 mls/hr IV .Q10H TE Aztreonam 2 gm/ Sodium (Chloride) 100 mls @ 100 mls/hr IV TID TE Latanoprost (Xalatan Ophth Drops) 1 drops EACHEYE QPM TE Multi-Ingredient Ointment (Zinc Oxide) 1 applic TOP PRN Potassium chloride 10 mEq x4 IV Potassium phos x1 IV HOME meds: Aspirin Chewable [St Kevin Aspirin] 81 mg PO DAILY 06/19/13 Brimonidine 0.15% Ophth Drops 1 drops EACHEYE BID 06/19/13 Atorvastatin Calcium [Lipitor] 40 mg PO QPM 06/20/13 Carbidopa/Levodopa [Carbidopa-Levo ER 50-200 Tab] 1 tab PO QPM 05/28/16 Rivastigmine Tartrate [Rivastigmine] 6 mg PO BID 06/26/18 Dorzolamide/Timolol Ophth Soln 1 drops EACHEYE BID 09/06/18 Latanoprost 0.005% Ophth Drops 1 drops EACHEYE QPM 09/06/18 Multivitamin/Iron/Folic Acid [Centrum Adults Tablet] 1 tab PO DAILY 09/06/18 Senna [Senokot] 17.2 mg PO DAILY 09/06/18 Tamsulosin [Flomax] 0.4 mg PO QPM 09/06/18 Carbidopa/Levodopa 25/100 [Sinemet 25 mg/100 mg] 1.5 tab PO TID 09/11/18 Acetaminophen [Tylenol] 650 mg PO Q6H PRN 09/18/18 Bisacodyl Supp [Dulcolax Supp] 10 mg OR DAILY PRN 09/18/18 Magnesium Hydroxide [Milk of Magnesia] 30 ml PO DAILY PRN 09/18/18 Methylphenidate [Ritalin] 5 mg PO .AFTERNOON PRN MDD somnulence 09/29/18 Methylphenidate [Ritalin] 5 mg PO DAILY 09/29/18 polyethylene glycoL 3350 [Miralax] 17 gm PO Q48H 10/16/18 Mag Hydrox/Al Hydrox/Simeth 30 ml PO Q4H PRN MDD 4 doses in 24 hours 05/22/19 Loperamide [Imodium] 2 - 4 mg PO PRN PRN MDD 16MG 09/04/19 Objective - Vital Signs/Intake & Output Reviewed Vital Signs: Yes Vital Signs: Vital Signs x48h Temp Pulse Resp BP Pulse Ox 09/06/19 08:00 36.5 C 72 18 121/79 100 09/06/19 05:00 36.5 C 09/06/19 04:01 73 20 122/89 H 97 Intake & Output: Intake & Output 09/03/19 09/04/19 09/05/19 09/06/19 23:59 23:59 23:59 23:59 Intake Total 6308.770 3416.253 1539.333 Output Total 1055 1100 1175 Balance 5253.770 2316.253 364.333 - Objective General Appearance: positive: No acute distress, Lethargic Eyes Bilateral: positive: No lid inflammation Eyes: OU Other (mild erythema, crusty drainage bilaterally) ENT: positive: Dry mucous membranes, Other (mouth is open) Neck: positive: No JVD, Trachea midline, Stiff neck, Other (central line without s/s of infection on right neck) Respiratory: positive: Chest non-tender, No respiratory distress, Other (diminshed) Cardiovascular: positive: Regular rate & rhythm, No gallop, Systolic murmur, Decreased pulse(s) Peripheral Pulses: 1+ Radial (R), 1+ Radial (L) Abdomen: positive: Non-tender, Nml bowel sounds Skin: positive: No rash, Warm, Dry, Other (pale) Extremities: positive: Pedal edema (+1 pitting to BLEs, does not extend past knees, very sensitive to posterior feet) Neurologic/Psychiatric: positive: Disoriented to time, Weakness, Sensory loss, Depressed mood/affect, Other (sleepy, shouts out to painful stimuli, reacts when touching feet) - Lab Results Fish Bones: 09/06/19 05:30 09/06/19 05:30 Other Labs: Lab Results x24hrs 09/06/19 09/06/19 09/06/19 Range/Units 05:30 05:30 05:30 WBC 34.9 H (4.8-10.8) x10^3/uL RBC 3.08 L (4.70-6.10) 10^6/uL Hgb 9.8 L (14.0-18.0) g/dL Hct 30.5 L (42.0-52.0) % MCV 99.0 H (80.0-94.0) fL MCH 31.8 H (27.0-31.0) pg MCHC 32.1 (32.0-36.0) g/dL RDW 14.5 (12.0-15.0) % Plt Count 238 (130-450) 10^3/uL MPV 10.9 (7.4-11.4) fL Neut # (Auto) Not Reportable Lymph # (Auto) Not Reportable [place] # (Auto) Not Reportable Eos # (Auto) Not Reportable Baso # (Auto) Not Reportable Absolute Nucleated RBC Not Reportable Total Counted 100 Band Neuts % (Manual) 8 (0 - 10) % Abnorm Lymph % (Manual) 0 % Nucleated RBC % Not Reportable Neutrophils # (Manual) 34.2 H (1.5-6.6) 10^3/uL Lymphocytes # (Manual) 0.7 L (1.5-3.5) 10^3/uL Monocytes # (Manual) 0.0 (0.0-1.0) 10^3/uL Eosinophils # (Manual) 0.0 (0-0.7) 10^3/uL Basophils # (Manual) 0.0 (0-0.1) 10^3/uL Differential Comment MANUAL DIFFERENTIAL WBC Morphology NORMAL APPEARANCE (NORMAL) Platelet Estimate NORMAL (130-450,000) (NORMAL) Platelet Morphology NORMAL APPEARANCE (NORMAL) RBC Morph Micro Appear 1+ RAKEL CELLS (NORMAL) VBG pH 7.393 (7.31-7.41) Ionized Calcium 1.16 (1.15-1.33) mmol/L Sodium 146 H (135-145) mmol/L Potassium 2.9 L (3.5-5.0) mmol/L Chloride 119 H (101-111) mmol/L Carbon Dioxide 21 (21-32) mmol/L Anion Gap 6.0 (6-13) BUN 18 (6-20) mg/dL Creatinine 0.8 (0.6-1.2) mg/dL Estimated GFR (MDRD) 92 (>89) Glucose 145 H (70-100) mg/dL Calcium 7.6 L (8.5-10.3) mg/dL Phosphorus 2.0 L (2.5-4.6) mg/dL ABX Reporting Has patient been on IV antibiotics over the past 48 hours?: Yes Sepsis Event Note (H) - Evaluation Current Stage of Sepsis: Sepsis (improving each day) Possible source of Sepsis: positive: Genitourinary - Sepsis Criteria Sepsis Criteria: WBC count greater than 12,000 or less than 4000, GUEST EXPERIENCE SPECIALIST: altered consciousness (unrelated to primary neuro pathology) Assessment/Plan - Problem List (1) Sepsis Impression: -Febrile with a temp max of 38.6 C, tachycardia, hypotension, lethargy, decreased consciousness, on room air -Status post Levophed gtt, ICU, now on medical floor -Blood cultures x2 are growing citrobacter, urine sample is positive for acute UTI -Changed antibiotics to Meropenem -Wrote to transfer out of the unit -Continue non-invasive treatment, routine labs, monitor vital signs Citrobacter infection (bacteremia) -Blood cultures, and urine, pending final results -Changed IV antibiotics, now on meropenem UTI, complicated -Likely the source of the sepsis -Recurrent, history of kidney stones, baseline incontinence & retention, no veronica turia -Urine sample is positive for citrobacter, final is pending -Changed IV treatment to meropenem -Indwelling reynolds Hypokalemia -Serum K+ today is 2.9, suspect due to no PO intake -Replace with 4 riders of 10 Meq each -Routine labs Hypotension -Discussion with the family who would like a central line with vasopressors to prevent brain damage from low perfusion -Blood pressures systolic, much improved 90-100s -Central line by anesthesia was placed on 09/04 -Monitor VS, LOC Acute metabolic encephalopathy -Since illness, admission to hospital, patient has been unresponsive, minimally responsive -Ongoing sleepiness today -Monitor for improvement Severe aortic stenosis -Quiet on exam today -Noted on echo from this hospital stay -Ensure rate is controlled, monitor fluid status Atrial fibrillation -Heart sounds are regular today, telemetry discontinued -No anticoagulation due to risk benefit disadvantage and advanced age -No usual home meds for rate control -Heart rates have been 60/70s, so not indicated -Monitor vital signs Parkinsons disease -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 and takes Ritalin to p romote awake times during the day, very sleepy today -Normally takes Carbidopa/Levodopa, now on hold due to NPO, not awake enough yet -Consider resuming -Patient normally has a resting tremor, felt during exam when squeezing hands -Monitor for tremors, resume meds when tolerating PO Lewy body dementia -Resides at [facility] -Family noted how the patient has been overall sleeping more often on a daily basis -Now more advanced, few word sentences, wheelchair bound, incontinent, poor swallow -Basic change in level of consciousness since becoming septic -Not tolerating PO today again due to profound illness Qualifiers:
[2019-09-06] MEDS ORDERED: CARBOXYMETHYLCELLULOSE OPHTH DROPS EACHEYE PRN (19:11)
[2019-09-06] MEDS: ZINC OXIDE 20% OINT 30 GM TUBE TOP PRN (20:00)
[2019-09-06] MEDS: LATANOPROST 0.005% OPHTH DROPS EACHEYE SCH (20:25)
[2019-09-07] MEDS: SODIUM CHLORIDE FLUSH 0.9% 10 ML SYRINGE IVP SCH ×3 (00:22→18:13)
[2019-09-07] MEDS: MEROPENEM 1 GM in SODIUM CHLORIDE 0.9% MINIBAG 100 ML IV SCH ×3 (05:08→22:16)
[2019-09-07] MEDS: SODIUM CHLORIDE FLUSH 0.9% 10 ML SYRINGE IVP PRN ×2 (05:10→22:16)
[2019-09-07 05:50] LABS: BASOPHILS % (AUTO) 0.4 %; EOSINOPHILS % (AUTO) 0.9 %; HGB - HEMOGLOBIN 10.3 g/dL (14.0-18.0); LYMPHOCYTES % (AUTO) 3.4 %; MEAN CORPUSCULAR HEMOGLOBIN 31.6 pg (27.0-31.0); MEAN CORPUSCULAR HGB CONC 31.8 g/dL (32.0-36.0); MEAN CORPUSCULAR VOLUME 99.4 fL (80.0-94.0); MEAN PLATELET VOLUME 11.6 fL (7.4-11.4); MONOCYTES % (AUTO) 1.5 %; NEUTROPHILS % (AUTO) 90.8 %; PLT - PLATELET COUNT 218 10^3/uL (130-450); RED BLOOD COUNT 3.26 10^6/uL (4.70-6.10); RED CELL DISTRIBUTION WIDTH 14.6 % (12.0-15.0); WHITE BLOOD COUNT 23.8 x10^3/uL (4.8-10.8)
[2019-09-07 05:56] LABS: ABNORMAL LYMPHS % (MANUAL) 0 %
[2019-09-07 05:59] LABS: VBG PH 7.399 (7.31-7.41)
[2019-09-07 06:07] LABS: CALCIUM 7.6 mg/dL (8.5-10.3); CREATININE 0.6 mg/dL (0.6-1.2); PHOSPHORUS 2.1 mg/dL (2.5-4.6)
[2019-09-07 06:36] LABS: BAND NEUTROPHILS % (MANUAL) 4 %; LYMPHOCYTES # (MANUAL) 0.5 10^3/uL (1.5-3.5); LYMPHOCYTES % (MANUAL) 2 %
[2019-09-07 06:37] LABS: DIFFERENTIAL COMMENT MANUAL DIFFERENTIAL; PLATELET ESTIMATE, MANUAL NORMAL (130-450,000) (NORMAL); PLATELET MORPHOLOGY NORMAL APPEARANCE (NORMAL); RBC MORPHOLOGY (MULTIPLE) NORMAL APPEARANCE (NORMAL)
--- NOTE | 2019-09-07 08:48 | PROVIDER PROGRESS NOTE ---
Subjective - Prog Note Date Prog Note Date: 09/07/19 Prog Note Time: 08:43 - Subjective Pt reports feeling: Improved Subjective: Roverto barely responds to verbal stimuli, +response when touching feet. Shared with the son, Lonnie HODGES about prognosis, pointing out that by day 5, he should be eating, if not, difficult to say how long he may live. This sepsis was very devastating. Current Medications - Current Medications Current Medications: Active Medications: Brimonidine Tartrate 1 drops EACHEYE BID TE Carboxymethylcellulose (Refresh 1% Ophth Drops) 1 drops EACHEYE PRN PRN Dorzolamide/Timolol (Cosopt) 1 drops EACHEYE BID TE Famotidine (Pepcid) 10 mg IVP BID TE Heparin Sodium (Beef Lung) () 30 - 50 unit IVP PRN PRN Acetaminophen (Ofirmev) 100 mls @ 400 mls/hr IV Q8HR PRN Meropenem 1 gm/ Sodium (Chloride) 100 mls @ 200 mls/hr IV Q8HR TE Dextrose/Sodium Chloride (D5ns) 1,000 mls @ 40 mls/hr IV .Q25H TE Potassium Chloride (Potassium Chloride)10 meq in 100 mls @ 100 mls/hr IV Q1H TE (x4 doses) Latanoprost (Xalatan Ophth Drops) 1 drops EACHEYE QPM TE Multi-Ingredient Ointment (Zinc Oxide) 1 applic TOP PRN HOME meds: Aspirin Chewable [St Kevin Aspirin] 81 mg PO DAILY 06/19/13 Brimonidine 0.15% Ophth Drops 1 drops EACHEYE BID 06/19/13 Atorvastatin Calcium [Lipitor] 40 mg PO QPM 06/20/13 Carbidopa/Levodopa [Carbidopa-Levo ER 50-200 Tab] 1 tab PO QPM 05/28/16 Rivastigmine Tartrate [Rivastigmine] 6 mg PO BID 06/26/18 Dorzolamide/Timolol Ophth Soln [Cosopt] 1 drops EACHEYE BID 09/06/18 Latanoprost 0.005% Ophth Drops 1 drops EACHEYE QPM 09/06/18 Multivitamin/Iron/Folic Acid [Centrum Adults Tablet] 1 tab PO DAILY 09/06/18 Senna [Senokot] 17.2 mg PO DAILY 09/06/18 Tamsulosin [Flomax] 0.4 mg PO QPM 09/06/18 Carbidopa/Levodopa 25/100 [Sinemet 25 mg/100 mg] 1.5 tab PO TID 09/11/18 Acetaminophen [Tylenol] 650 mg PO Q6H PRN 09/18/18 Bisacodyl Supp [Dulcolax Supp] [address] DAILY PRN 09/18/18 Magnesium Hydroxide [Milk of Magnesia] 30 ml PO DAILY PRN 09/18/18 Methylphenidate [Ritalin] 5 mg PO .AFTERNOON PRN MDD somnulence 09/29/18 Methylphenidate [Ritalin] 5 mg PO DAILY 09/29/18 polyethylene glycoL 3350 [Miralax] 17 gm PO Q48H 10/16/18 Mag Hydrox/Al Hydrox/Simeth 30 ml PO Q4H PRN MDD 4 doses in 24 hours 05/22/19 Loperamide [Imodium] 2 - 4 mg PO PRN PRN MDD 16MG 09/04/19 Objective - Vital Signs/Intake & Output Reviewed Vital Signs: Yes Vital Signs: Vital Signs x48h Temp Pulse Resp BP Pulse Ox 09/07/19 07:43 36.5 C 65 16 140/94 H 98 Intake & Output: Intake & Output 09/04/19 09/05/19 09/06/19 09/07/19 23:59 23:59 23:59 23:59 Intake Total 6308.770 3416.253 2776.000 100 Output Total 1055 1100 1970 1250 Balance 5253.770 2316.253 806.000 -1150 - Objective General Appearance: positive: No acute distress, Lethargic Eyes Bilateral: positive: No lid inflammation ENT: positive: Pharynx nml, No signs of dehydration, Other (mouth dry, from being open) Neck: positive: No JVD, Trachea midline Respiratory: positive: Chest non-tender, No respiratory distress, Other (diminished) Cardiovascular: positive: Regular rate & rhythm, Diastolic murmur, Decreased pulse(s) Peripheral Pulses: 1+ Radial (R), 1+ Radial (L) Abdomen: positive: Non-tender, Nml bowel sounds Back: positive: Nml inspection Skin: positive: No rash, Warm, Dry, Other (pale, light bronze toned) Extremities: positive: Pedal edema (trace pitting, +1 BLEs), Joint swelling Neurologic/Psychiatric: positive: Disoriented to person, Disoriented to place, Disoriented to time, Weakness, Sensory loss, Other (not talking, will not follow commands to accurately evaluate neuro status) - Lab Results Fish Bones: 09/07/19 05:00 09/07/19 05:00 Other Labs: Lab Results x24hrs 09/07/19 09/07/19 09/07/19 Range/Units 05:00 05:00 05:00 WBC 23.8 H (4.8-10.8) x10^3/uL RBC 3.26 L (4.70-6.10) 10^6/uL Hgb 10.3 L (14.0-18.0) g/dL Hct 32.4 L (42.0-52.0) % MCV 99.4 H (80.0-94.0) fL MCH 31.6 H (27.0-31.0) pg MCHC 31.8 L (32.0-36.0) g/dL RDW 14.6 (12.0-15.0) % Plt Count 218 (130-450) 10^3/uL MPV 11.6 H (7.4-11.4) fL Neut # (Auto) Not Reportable Lymph # (Auto) Not Reportable [place] # (Auto) Not Reportable Eos # (Auto) Not Reportable Baso # (Auto) Not Reportable Absolute Nucleated RBC Not Reportable Total Counted 100 Band Neuts % (Manual) 4 (0 - 10) % Abnorm Lymph % (Manual) 0 % Nucleated RBC % Not Reportable Neutrophils # (Manual) 23.3 H (1.5-6.6) 10^3/uL Lymphocytes # (Manual) 0.5 L (1.5-3.5) 10^3/uL Monocytes # (Manual) 0.0 (0.0-1.0) 10^3/uL Eosinophils # (Manual) 0.0 (0-0.7) 10^3/uL Basophils # (Manual) 0.0 (0-0.1) 10^3/uL Differential Comment MANUAL DIFFERENTIAL WBC Morphology NORMAL APPEARANCE (NORMAL) Platelet Estimate NORMAL (130-450,000) (NORMAL) Platelet Morphology NORMAL APPEARANCE (NORMAL) RBC Morph Micro Appear NORMAL APPEARANCE (NORMAL) VBG pH 7.399 (7.31-7.41) Ionized Calcium 1.15 (1.15-1.33) mmol/L Sodium 147 H (135-145) mmol/L Potassium 3.2 L (3.5-5.0) mmol/L Chloride 119 H (101-111) mmol/L Carbon Dioxide 24 (21-32) mmol/L Anion Gap 4.0 L (6-13) BUN 18 (6-20) mg/dL Creatinine 0.6 (0.6-1.2) mg/dL Estimated GFR (MDRD) 129 (>89) Glucose 90 (70-100) mg/dL Calcium 7.6 L (8.5-10.3) mg/dL Phosphorus 2.1 L (2.5-4.6) mg/dL ABX Reporting Has patient been on IV antibiotics over the past 48 hours?: Yes Sepsis Event Note (H) - Evaluation Current Stage of Sepsis: Resolved (improving each day) Assessment/Plan - Problem List (1) Bacteremia Impression: -Febrile with a temp max of 38.6 C, tachycardia, hypotension, lethargy, decreased consciousness, on room air -Status post Levophed gtt, ICU, now on medical floor -Blood cultures x2 grew citrobacter, urine sample is positive for acute UTI, also with citrobacter -Continues antibiotics to Meropenem -Continue non-invasive treatment, routine labs, monitor vital signs UTI, complicated -Likely the source of the sepsis -Recurrent, history of kidney stones, baseline incontinence & retention, no hematuria -Urine sample is positive for citrobacter -Continues on IV treatment, meropenem -Indwelling reynolds Hypokalemia -Serum K+ today is 3.2, suspect due to no PO intake -Replace with 4 riders of 10 Meq each -Routine labs Hypotension -Discussion with the family who would like a central line with vasopressors to prevent brain damage from low perfusion -Blood pressures systolic, much improved 100-130's -Central line by anesthesia was placed on 09/04 -Monitor VS, LOC Acute metabolic encephalopathy -Since illness, admission to hospital, patient has been unresponsive, minimally responsive -Ongoing sleepiness today, not conversational, responds to touching feet -Monitor for improvement Severe aortic stenosis -Louder than yesterday, likely due to euvolemia -Noted on echo from this hospital stay -Ensure rate is controlled, monitor fluid status Atrial fibrillation -Heart sounds are regular today, telemetry discontinued -No anticoagulation due to risk benefit disadvantage and advanced age -No usual home meds for rate control -Heart rates have been 60/70s, so not indicated -Monitor vital signs Parkinsons disease -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 and takes Ritalin to prom ote awake times during the day, very sleepy today -Normally takes Carbidopa/Levodopa, now on hold due to NPO, not awake enough yet -Consider resuming -Patient normally has a resting tremor, felt during exam when squeezing hands -Monitor for tremors, resume meds when tolerating PO Lewy body dementia -Resides at [facility] for his dementia -Family noted how the patient has been overall sleeping more often on a daily basis -Now more advanced, few word sentences, wheelchair bound, incontinent, poor swallow -Basic change in level of consciousness since becoming septic -Not tolerating PO today again due to profound illness
[2019-09-07] MEDS: POTASSIUM CHLOR 10 MEQ/100 ML 10 MEQ/100 ML BAG IV SCH ×4 (09:58→14:07)
[2019-09-07] MEDS: BRIMONIDINE 0.15% OPHTH DROPS 5 ML EACHEYE SCH ×2 (10:01→22:13)
[2019-09-07] MEDS: FAMOTIDINE 20 MG/2 ML VIAL IVP SCH ×2 (10:02→22:15)
[2019-09-07] MEDS: DORZOLAMIDE/TIMOLOL OPHTH DROPS EACHEYE SCH ×2 (10:15→22:29)
[2019-09-07] MEDS: DEXTROSE 5%-0.9% NACL 1,000 ML IV SCH (18:12)
[2019-09-07] MEDS ORDERED: DEXTROSE 25% ABBOJECT 2.5 GM/10 ML SYRINGE IVP ONE (18:52)
[2019-09-07] MEDS ORDERED: DEXTROSE 10% 250 ML IV STA (19:11)
[2019-09-07] MEDS: SALIVA STIMULANT SPRAY 44.3 ML BOTTLE PO SCH (22:13)
[2019-09-07] MEDS: LATANOPROST 0.005% OPHTH DROPS EACHEYE SCH (22:29)
[2019-09-08] MEDS: SODIUM CHLORIDE FLUSH 0.9% 10 ML SYRINGE IVP SCH ×2 (01:10→09:07)
[2019-09-08] MEDS: SALIVA STIMULANT SPRAY 44.3 ML BOTTLE PO SCH ×7 (01:10→22:43)
[2019-09-08] MEDS: MEROPENEM 1 GM in SODIUM CHLORIDE 0.9% MINIBAG 100 ML IV SCH (05:32)
[2019-09-08] MEDS: SODIUM CHLORIDE FLUSH 0.9% 10 ML SYRINGE IVP PRN ×2 (05:35)
[2019-09-08 05:56] LABS: BASOPHILS % (AUTO) 0.4 %; EOSINOPHILS # (AUTO) 0.2 10^3/uL (0.0-0.7); EOSINOPHILS % (AUTO) 1.9 %; HGB - HEMOGLOBIN 10.9 g/dL (14.0-18.0); LYMPHOCYTES # (AUTO) 1.1 10^3/uL (1.5-3.5); LYMPHOCYTES % (AUTO) 9.4 %; MEAN CORPUSCULAR HEMOGLOBIN 30.2 pg (27.0-31.0); MEAN CORPUSCULAR HGB CONC 31.1 g/dL (32.0-36.0); MEAN PLATELET VOLUME 11.4 fL (7.4-11.4); MONOCYTES # (AUTO) 0.3 10^3/uL (0.0-1.0); MONOCYTES % (AUTO) 2.8 %; NEUTROPHILS # (AUTO) 9.3 10^3/uL (1.5-6.6); PLT - PLATELET COUNT 238 10^3/uL (130-450); RED BLOOD COUNT 3.61 10^6/uL (4.70-6.10); RED CELL DISTRIBUTION WIDTH 14.5 % (12.0-15.0); WHITE BLOOD COUNT 11.1 x10^3/uL (4.8-10.8)
[2019-09-08 06:01] LABS: CALCIUM 7.7 mg/dL (8.5-10.3); CREATININE 0.6 mg/dL (0.6-1.2)
[2019-09-08] MEDS ORDERED: BISACODYL 10 MG SUPP PR ONE (09:00)
[2019-09-08] MEDS: DORZOLAMIDE/TIMOLOL OPHTH DROPS EACHEYE SCH ×2 (09:06→20:28)
[2019-09-08] MEDS: BRIMONIDINE 0.15% OPHTH DROPS 5 ML EACHEYE SCH ×2 (09:07→20:28)
[2019-09-08] MEDS: FAMOTIDINE 20 MG/2 ML VIAL IVP SCH (09:07)
[2019-09-08] MEDS ORDERED: IPRATROPIUM/ALBUTEROL 3 ML NEB INH STA (09:18)
[2019-09-08] MEDS ORDERED: IPRATROPIUM/ALBUTEROL 3 ML NEB INH PRN (09:18)
[2019-09-08] MEDS ORDERED: ACETAMINOPHEN 1,000 MG/100 ML 100 ML IV PRN (09:19)
[2019-09-08] MEDS: POTASSIUM CHLOR 10 MEQ/100 ML 10 MEQ/100 ML BAG IV SCH ×4 (10:52→13:51)
[2019-09-08] MEDS: DEXTROSE 5%-0.9% NACL 1,000 ML IV SCH (10:52)
[2019-09-08] MEDS ORDERED: LORazepam 1 MG TABLET PO PRN (12:56)
[2019-09-08] MEDS ORDERED: MORPHINE 2 MG/ML CARPUJECT IVP PRN (12:56)
[2019-09-08] MEDS ORDERED: bisacodyL 5 MG TABLET PO PRN (12:56)
[2019-09-08] MEDS ORDERED: MORPHINE SOL 10 MG/0.5 ML SYRINGE PO PRN (12:56)
[2019-09-08] MEDS ORDERED: ATROPINE 1% OPHTH DROPS 2 ML SL PRN (12:56)
--- NOTE | 2019-09-08 13:08 | PROVIDER PROGRESS NOTE ---
Subjective - Prog Note Date Prog Note Date: 09/08/19 Prog Note Time: 13:04 - Subjective Pt reports feeling: No change Subjective: Roverto has no response, and is now on comfort cares only. Await equipment delivery from Hospice to [facility], discharge tomorrow. Current Medications - Current Medications Current Medications: Active Medications: Albuterol/Ipratropium (Duoneb) 3 ml INH Q4HR PRN Atropine Sulfate (Isopto Atropine 1% Ophth Drops) 1 - 4 drops SL Q2H PRN Bisacodyl (Dulcolax) 10 mg PO DAILY PRN Brimonidine Tartrate (Alphagan P 0.15% Ophth Drops) 1 drops EACHEYE BID TE Carboxymethylcellulose (Refresh 1% Ophth Drops) 1 drops EACHEYE PRN PRN Dorzolamide/Timolol (Cosopt) 1 drops EACHEYE BID TE Latanoprost (Xalatan Ophth Drops) 1 drops EACHEYE QPM TE Lorazepam (Ativan) 1 mg PO Q6H PRN Morphine Sulfate (Morphine (Carpuject) 2 mg IVP Q2HR PRN Morphine Sulfate (Roxanol) 10 mg PO Q2HR PRN Multi-Ingredient Ointment (Zinc Oxide) 1 applic TOP PRN PRN Saliva Substitute (Biotene Moisturizing Mouth Etoile) 2 sprays PO Q4H [facility] HOME meds: N/A Objective - Vital Signs/Intake & Output Reviewed Vital Signs: Yes Vital Signs: Vital Signs x48h Temp Pulse Pulse Resp BP Pulse Ox 09/08/19 11:42 36.6 C 70 18 132/84 H 96 09/08/19 11:02 60 16 Intake & Output: Intake & Output 09/05/19 09/06/19 09/07/19 09/08/19 23:59 23:59 23:59 23:59 Intake Total 3416.253 2776.000 7957.721 6658.334 Output Total 1100 2568 3975 1150 Balance 2316.253 806.000 -2573.667 63.334 - Objective General Appearance: positive: No acute distress, Lethargic Eyes Bilateral: positive: No lid inflammation Eyes: OU Other (mild crusty discharge) ENT: positive: Pharyngeal erythema, Dry mucous membranes Neck: positive: No JVD, Trachea midline, Stiff neck Respiratory: positive: No respiratory distress, Rhonchi Cardiovascular: positive: Regular rate & rhythm, No gallop, Systolic murmur, Diastolic murmur Peripheral Pulses: 1+ Radial (R), 1+ Radial (L) Abdomen: positive: Guarding, Abnml bowel sounds Skin: positive: No rash, Warm, Dry, Other (pale) Extremities: positive: Pedal edema, Joint swelling, Other (stiffness to all joints) Neurologic/Psychiatric: positive: Disoriented to person, Disoriented to place, Disoriented to time, Weakness, Sensory loss, Other (non-responsive) - Lab Results Fish Bones: 09/08/19 05:10 09/08/19 05:10 Other Labs: Lab Results x24hrs 09/08/19 09/08/19 Range/Units 05:10 05:10 WBC 11.1 H (4.8-10.8) x10^3/uL RBC 3.61 L (4.70-6.10) 10^6/uL Hgb 10.9 L (14.0-18.0) g/dL Hct 35.0 L (42.0-52.0) % MCV 97.0 H (80.0-94.0) fL MCH 30.2 (27.0-31.0) pg MCHC 31.1 L (32.0-36.0) g/dL RDW 14.5 (12.0-15.0) % Plt Count 238 (130-450) 10^3/uL MPV 11.4 (7.4-11.4) fL Neut # (Auto) 9.3 H (1.5-6.6) 10^3/uL Lymph # (Auto) 1.1 L (1.5-3.5) 10^3/uL [place] # (Auto) 0.3 (0.0-1.0) 10^3/uL Eos # (Auto) 0.2 (0.0-0.7) 10^3/uL Baso # (Auto) 0.0 (0.0-0.1) 10^3/uL Absolute Nucleated RBC 0.00 x10^3/uL Nucleated RBC % 0.0 /100WBC Sodium 147 H (135-145) mmol/L Potassium 3.2 L (3.5-5.0) mmol/L Chloride 118 H (101-111) mmol/L Carbon Dioxide 26 (21-32) mmol/L Anion Gap 3.0 L (6-13) BUN 15 (6-20) mg/dL Creatinine 0.6 (0.6-1.2) mg/dL Estimated GFR (MDRD) 129 (>89) Glucose 104 H (70-100) mg/dL Calcium 7.7 L (8.5-10.3) mg/dL ABX Reporting Has patient been on IV antibiotics over the past 48 hours?: No Sepsis Event Note (H) - Evaluation Current Stage of Sepsis: Resolved (now comfort cares) Assessment/Plan - Problem List (1) Bacteremia Impression: -Febrile with a temp max of 38.6 C, tachycardia, hypotension, lethargy, decreased consciousness, on room air -Status post Levophed gtt, ICU, now on medical floor -Blood cultures x2 grew citrobacter, urine sample is positive for acute UTI, also with citrobacter -Stopped antibiotics today for comfort cares -Continue comfort cares UTI, complicated -Likely the source of the sepsis -Recurrent, history of kidney stones, baseline incontinence & retention, no hematuria -Urine sample is positive for citrobacter -Stopped IV treatment, meropenem, now comfort cares only -Indwelling reynolds End of life care -Since the Palliative care conference, the patient will now be comfort cares only -He has not been responsive or interactive since arriving to the hospital during this stay -Comfort care orders, stop IV treatment, stop IV, allow a natural Hypokalemia -Resolved Hypotension -Resolved, stable, no further treatment Acute metabolic encephalopathy -Still non-conversational, no meaningful responses Severe aortic stenosis -No further treatment Atrial fibrillation -No further treatment Parkinsons disease -Not tolerating PO, no further treatment Lewy body dementia -No further treatment
--- NOTE | 2019-09-08 16:50 | CONSULTATION NOTE ---
Palliative Care Follow Up - Referral Referring Provider: Bertha DONOVAN Time of Visit: [id number] Referral setting: Hospitalized patient - Information Sources Records reviewed: RN notes reviewed, Previous records reviewed History/Review of Systems obtained from: Family (Sons Lonnie and his , and Tarun present), Caregiver (update from clinical staff) Exam limitations: Clinical condition (patient nonresponsive) - History of Present Illness Update Brief HPI Update: This is an 84-year-old gentleman well-known to me, who came in from [facility] as result of temperature spike of 103, hypotension and unresponsiveness. Ludy moura had acute changes over the last couple days previous to admit with decreased intake, weight loss, more lethargy and needing to be fed. He has been declining from his previous baseline over the last couple months, is no longer to walk, sleeping more, eating less and less interactive with and family. Patient at baseline is well mannered smiles a lot and easily engaged, unfortunately has continued to be nonresponsive. Patient's history includes a diagnosis of atypical Parkinson's and dementia, with poor response to medications. He has known Lewy body dementia, atrial fib, BPH, coronary artery disease status post stent, narcolepsy, hypertension, aortic stenosis with murmur and a history of urinary retention. He has had previous stays at [facility], with urosepsis, today's time he presents with positive blood cultures as well. Patient is a DO NOT RESUSCITATE, on on admit presented with severe hypotension, family did choose to do CVP and fluids as well as pressors. He did initially respond some, his white count has been decreasing, today was 11.1 from a high of 47.1. He has received antibiotics, he continues to be minimally responsive, has not been able to eat or drink, has had intermittent episodes of hypoglycemia, and is essentially bedbound. Discussion with palliative care previous to the weekend, was to do a time trial see if he responds or perks up, but keeping in mind patient's ongoing declining quality of life, and to make a decision regarding transitioning to comfort measures and/or hospice today. Social History - Living Situation Living arrangement: Assisted living Support System: Patient was placed [facility] a memory care unit after his inpatient stay in September 2018. This was a difficult transition for his , but he had significant increasing care needs and he ate she was no longer able to given her frail state as well to be able to care for him. His Lara and he had been for almost 60 years, patient's son Lonnie this is medical D CARROLL, he has been overseeing and advocates for medical appointments. 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 He has traveled extensively, he has a love of cars and history of collecting [employer]. He has always been good-natured, even in his staff at [facility] finding quite delightful and easygoing. Medications/Allergies - Medications Active Medication List: Active Medications Albuterol/Ipratropium (Duoneb) 3 ml INH Q4HR PRN PRN Reason: Wheezing Atropine Sulfate (Isopto Atropine 1% Ophth Drops) 1 - 4 drops SL Q2H PRN PRN Reason: Excessive secretions Bisacodyl (Dulcolax) 10 mg PO DAILY PRN PRN Reason: Constipation Brimonidine Tartrate (Alphagan P 0.15% Ophth Drops) 1 drops EACHEYE BID [facility] Last Admin: 09/08/19 09:07 Dose: 1 drops Carboxymethylcellulose (Refresh 1% Ophth Drops) 1 drops EACHEYE PRN PRN PRN Reason: Dry Eye Dorzolamide/Timolol (Cosopt) 1 drops EACHEYE BID [facility] Last Admin: 09/08/19 09:06 Dose: 1 drops Heparin Sodium (Beef Lung) () 30 - 50 unit IVP PRN PRN PRN Reason: Central Line Protocol (<24 hr) Last Admin: 09/07/19 18:14 Dose: 50 unit Sodium Chloride (Normal Saline 0.9%) 500 mls @ 0 mls/hr IV Q24H PRN PRN Reason: TKO RATE Last Infusion: 09/07/19 16:44 Dose: Infused Latanoprost (Xalatan Ophth Drops) 1 drops EACHEYE QPM [facility] Last Admin: 09/07/19 22:29 Dose: 1 drops Lorazepam (Ativan) 1 mg PO Q6H PRN PRN Reason: Anxiety/Agitation Morphine Sulfate (Morphine (Carpuject)) 2 mg IVP Q2HR PRN PRN Reason: Pain or Shortness of air Morphine Sulfate (Roxanol) 10 mg PO Q2HR PRN PRN Reason: PAIN Multi-Ingredient Ointment (Zinc Oxide) 1 applic TOP PRN PRN PRN Reason: Skin Care Last Admin: 09/06/19 20:00 Dose: 1 applic Saliva Substitute (Biotene Moisturizing Mouth Lewis) 2 sprays PO Q4H TE Last Admin: 09/08/19 14:37 Dose: 2 sprays Aspirin Chewable [St Kevin Aspirin] 81 mg PO DAILY 06/19/13 Brimonidine 0.15% Ophth Drops [Alphagan P 0.15% Ophth Drops] 1 drops EACHEYE BID 06/19/13 Atorvastatin Calcium [Lipitor] 40 mg PO QPM 06/20/13 Carbidopa/Levodopa [Carbidopa-Levo ER 50-200 Tab] 1 tab PO QPM 05/28/16 Rivastigmine Tartrate [Rivastigmine] 6 mg PO BID 06/26/18 Dorzolamide/Timolol Ophth Soln [Cosopt] 1 drops EACHEYE BID 09/06/18 Latanoprost 0.005% Ophth Drops [Xalatan Ophth Drops] 1 drops EACHEYE QPM 09/06/18 Multivitamin/Iron/Folic Acid [Centrum Adults Tablet] 1 tab PO DAILY 09/06/18 Senna [Senokot] 17.2 mg PO DAILY 09/06/18 Tamsulosin [Flomax] 0.4 mg PO QPM 09/06/18 Carbidopa/Levodopa 25/100 [Sinemet 25 mg/100 mg] 1.5 tab PO TID 09/11/18 Acetaminophen [Tylenol] 650 mg PO Q6H PRN 09/18/18 Bisacodyl Supp [Dulcolax Supp] 10 mg ID DAILY PRN 09/18/18 Magnesium Hydroxide [Milk of Magnesia] 30 ml PO DAILY PRN 09/18/18 Methylphenidate [Ritalin] 5 mg PO .AFTERNOON PRN MDD somnulence 09/29/18 Methylphenidate [Ritalin] 5 mg PO DAILY 09/29/18 polyethylene glycoL 3350 [Miralax] 17 gm PO Q48H 10/16/18 Mag Hydrox/Al Hydrox/Simeth [Antacid Suspension] 30 ml PO Q4H PRN MDD 4 doses in 24 hours 05/22/19 Loperamide [Imodium] 2 - 4 mg PO PRN PRN MDD 16MG 09/04/19 - Allergies Allergies/Adverse Reactions: Allergies Allergy/AdvReac Type Severity Reaction Status Date / Time niacin Allergy Unknown Verified 09/11/18 13:40 Review of Systems - Constitutional Constitutional: reports: Diaphoresis - Eyes Eyes: reports: Other (patient has not opened eyes for days) - Ears, Nose & Throat Ears, Nose & Throat: reports: Dry mouth - Respiratory Respiratory: reports: Wheezing, Snoring - Gastrointestinal Gastrointestinal: reports: Other (not able to eat-oral care only) - Genitourinary Genitourinary: reports: Other (has reynolds; will leave for comfort) - Musculoskeletal Musculoskeletal: reports: Stiffness, Limited range of motion (curled in), Muscle weakness, Other (bedbound) - Integumentary Integumentary: reports: Dryness - Neurological Neurological: reports: Other (minimal response) - Psychiatric Psychiatric: denies: Aggitation - Endocrine Endocrine: reports: Intolerance to heat - Hematologic/Lymphatic Hematologic/Lymphatic: reports: Recurrent infections (white count decreasing but no improvement) - All Other Systems All Other Systems: reports: Other (limited ROS) Physical Exam - Vital Signs Vital Signs: Vital Signs x48h Temp Pulse Pulse Resp BP Pulse Ox 09/08/19 11:42 36.6 C 70 18 132/84 H 96 09/08/19 11:02 60 16 - Physical Exam General Appearance: positive: Nonresponsive Eyes Bilateral: positive: Other (eyes closed) ENT: positive: Dry mucous membranes Neck: positive: Trachea midline, Stiff neck (mild arching) Cardiovascular: positive: Regular rate & rhythm Respiratory: positive: No respiratory distress, Rhonchi (few upper airway rhonchi). negative: Wheezes Abdomen: positive: Soft, Nml bowel sounds Skin: positive: Pallor, Dryness Extremities: positive: No pedal edema Neurologic/Psychiatric: positive: Other (nonreponsive/no signs of agitation seems comfortable) Palliative Care - POLST Patient has POLST: Yes POLST Status: DNR, Comfort Measures Pain: No pain Feelings of wellbeing/Perceived Quality of Life: Poor, Worsening Performance Status: Patient has been bedbound, he has been moved to the [facility] floor. He is maximal in assisted for any bed mobility, he is quite stiff and difficult to unf old, does have some tremors on examination and his upper extremities. Son identified a few periods of being arousable, but for the most part is just sleeping, and appears quite comfortable. His previous baseline patient was wheelchair-bound, was a 2 person assist to the wheelchair, and most recently needed to be fed. - Palliative Care Discussion: Met initially with Kyra [id number], son Lonnie, and son Tarun. They are quite anxious as far as how best to support their mother through this transition. Counseling provided regarding patient's current quality of life, even if patient were to recover or arouse at some level, he would not be able to sustain appropriate read nutrition and hydration most likely would continue to decline. At this point time he is nonresponsive, but does appear comfortable. Tarun and Lonnie are in agreement, it is time to transition to comfort measures, recognizing he would not recover to a level of acceptable quality of life at this point in time. We discussed transitioning to hospice, and at this point withdrawing care including fluids and antibiotics. The focus will be on comfort medications, and providing comfortable respectful and transition. They would like him to return to [facility], they do not want to care for him at his home, feels like that be too traumatic for his mother. We did discuss how best to approach Lara, she does have some mild cognitive issues, is easily stressed, and very difficult at times to read as far as her emotional responses. We agreed I would meet with her later, regarding the decisions made, in simple terms and provide support. 1230 Family meeting with Kyra [id number], son Lonnie, son Tarun, and Lara. Did share the news that patient is not responding to antibiotics and/or fluids. Discussed the role of comfort measures and transitioning to withdrawing care regarding antibiotics and fluids. Reframed the approach is allowing natural , not to extend suffering, and to transition back to home [facility] where he can have his care needs met there, and be supported by hospice. Patient appears quite comfortable, she is not surprised actually in our conversation, she is quite tearful and asked appropriate questions. Psychosocial support given. Results - Lab Results Lab results reviewed: Yes Fish Bones: 09/08/19 05:10 09/08/19 05:10 Lab and Imaging Results: Lab Results x24hrs 03/02/20 03/02/20 Range/Units 05:10 05:10 WBC 11.1 H (4.8-10.8) x10^3/uL RBC 3.61 L (4.70-6.10) 10^6/uL Hgb 10.9 L (14.0-18.0) g/dL Hct 35.0 L (42.0-52.0) % MCV 97.0 H (80.0-94.0) fL MCH 30.2 (27.0-31.0) pg MCHC 31.1 L (32.0-36.0) g/dL RDW 14.5 (12.0-15.0) % Plt Count 238 (130-450) 10^3/uL MPV 11.4 (7.4-11.4) fL Neut # (Auto) 9.3 H (1.5-6.6) 10^3/uL Lymph # (Auto) 1.1 L (1.5-3.5) 10^3/uL Harris # (Auto) 0.3 (0.0-1.0) 10^3/uL Eos # (Auto) 0.2 (0.0-0.7) 10^3/uL Baso # (Auto) 0.0 (0.0-0.1) 10^3/uL Absolute Nucleated RBC 0.00 x10^3/uL Nucleated RBC % 0.0 /100WBC Sodium 147 H (135-145) mmol/L Potassium 3.2 L (3.5-5.0) mmol/L Chloride 118 H (101-111) mmol/L Carbon Dioxide 26 (21-32) mmol/L Anion Gap 3.0 L (6-13) BUN 15 (6-20) mg/dL Creatinine 0.6 (0.6-1.2) mg/dL Estimated GFR (MDRD) 129 (>89) Glucose 104 H (70-100) mg/dL Calcium 7.7 L (8.5-10.3) mg/dL Impression and Recommendations - Palliative Care Impression: This is a urmila 84-year-old gentleman who has Parkinson's with Lewy body dementia, who now presents with the sequela from acute sepsis. Patient is not responsive, has not responded to antibiotics, though white count has decreased, family acknowledges even if patient were to regain some consciousness most likely will still be quite frail and appropriate for hospice. They do feel like they have met their time trial, and are ready to withdraw care on antibiotics and fluids, with a focus of comfort. Palliative care to facilitate hospice tr ansition. Recommendations/Counseling Done: 1. Advanced care planning. Family conference with Sajan CARROLL Fleming and son Tarun as well as [id number] Kyra. Shared decision made to withdraw care, and transition to comfort measures. This was defined as withdrawing antibiotics, stopping IV fluids, and focus on keeping him comfortable. Patient at this point in time appears to be resting easily, no signs or symptoms of distress, recommend initiating comfort measure orders including comfort medications of lorazepam and morphine as needed. Coordination of care provided in the context of facilitating hospice referral, family has experience with [facility] hospice from care of [id number]'s family. Follow-up with home [facility], do need mattress they do have a adjustable bed frame, oxygen concentrator, over the bed table. Hospice to arrange for delivery, then patient can be discharged to [facility]. Hospice still working on whether to admit tomorrow afternoon or Sunday morning. This was reviewed with family, they are comfortable with [facility] staff, as long as [facility] staff have appropriate medications needed are comfortable with taking him back prior to hospice admit. New POLST done, to reflect new goals, which is focus on comfort, allow natural and not to prolong suffering. Second Family meeting provided to address the transition to hospice with Lara. Discussed prognosis most likely days no weeks. Psychosocial support provided. Time Spent: 75 minutes with greater than 50% of this done in counseling regarding goals of care, shared decision making with transition to hospice, and anticipatory guidan ce. Coordination of care with hospitalist, discharge planning, and hospice team.
[2019-09-08] MEDS: LATANOPROST 0.005% OPHTH DROPS EACHEYE SCH (20:27)
[2019-09-09] MEDS: SALIVA STIMULANT SPRAY 44.3 ML BOTTLE PO SCH ×3 (03:05→11:59)
[2019-09-09 07:48] VITALS: BP 165/79
[2019-09-09] MEDS: DORZOLAMIDE/TIMOLOL OPHTH DROPS EACHEYE SCH (08:53)
[2019-09-09] MEDS: BRIMONIDINE 0.15% OPHTH DROPS 5 ML EACHEYE SCH (08:53)
[2019-09-09] MEDS ORDERED: MORPHINE 2 MG/ML CARPUJECT IVP PRN (11:46)
[2019-09-09] MEDS ORDERED: ACETAMINOPHEN 1,000 MG/100 ML 100 ML IV PRN (11:48)
--- NOTE | 2019-09-09 11:48 | Discharge Plan ---
"Discharge Plan for SNF / [facility] - Discharge Plan And Transition Orders Problem Reviewed?: Yes Disposition: 50 Hospice/Home DC/Xfer Condition: Critical Allergies and Adverse Reactions: Allergies Allergy/AdvReac Type Severity Reaction Status Date / Time niacin Allergy Unknown Verified 09/11/18 13:40 Health Concerns: hospice care Plan of Treatment: followup hosp[facility] care in [facility] Care Goals: comfortable with hospice care Assessment: discussed with pt's family for the care plan, they understood and agreed - SNF / [facility] Transition Orders Admit to (Facility): [facility] Under the care of (Name): and hospice care Discharge Diagnosis: unresponsive, hospice care, bacteremia, AMS, severe aortic stenosis, afib, Parkinsons disease, lewy body dementia, UTI. Medicare Certification Statement: I do not certify that [facility] is medically necessary on a continuing basis for any of the conditions for which she/he is receiving care during hospitalization. Notify PCP of admission and forward orders to primary provider for signature. Other Notification Orders: Call PCP immediately if patient develops dyspnea, chest pain/tightness or edema. Additional Bowel Program Orders: If no BM after 2 days, nurse may give M.O.M. 30ml PO PRN and/or ducolax Supp 1 MO and/or SHAUN 250mg P.O., and/or senna 1-2 tabs PO. On day 3 nurse may give repeat above order until residents constipation is resolved. Treatments & Other Orders: followup hospice care after pt is arrival to [facility] Medication Orders: PLEASE REFER TO THE DISCHARGE MEDICATION LIST. Insulin Orders?: No - Medications New Prescriptions: LORazepam [Ativan] 0.5 mg PO Q6H PRN #10 tablet PRN Reason: Agitation Morphine Sulfate [Morphine Sulf Oral (Roxanol)] 5 mg PO Q2H PRN #30 ml PRN Reason: Pain/Dyspnea - Therapies | Activity Additional Instructions: followup by hospice care"
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
== END 2019-09-09 14:45 | disposition home or self-care (01) | DRG 871 ==
LOC: EDUNIT# → ED 09:36 → MS2 11:34 → ICU 14:47 → MS3 09-06 21:22
PROVIDERS: ADMIT Nurse Practitioner; ATTEND Nurse Practitioner Gerontology
PROC: 02HV33Z Insertion of Infusion Device into Superior Vena Cava, Percutaneous Approach (ICD-10-PCS; principal; 2019-09-04)
DX: A41.9 Sepsis, unspecified organism (principal); A41.59 Other Gram-negative sepsis; N30.01 Acute cystitis with hematuria; I95.9 Hypotension, unspecified; R65.21 Severe sepsis with septic shock; G20 Parkinson's disease; I48.91 Unspecified atrial fibrillation; G93.41 Metabolic encephalopathy; N39.0 Urinary tract infection, site not specified; I48.20 Chronic atrial fibrillation, unspecified; A41.53 Sepsis due to Serratia; G31.83 Neurocognitive disorder with Lewy bodies; F02.80 Dementia in other diseases classified elsewhere, unspecified severity, without behavioral disturbance, psychotic disturbance, mood disturbance, and anxiety; I35.0 Nonrheumatic aortic (valve) stenosis; I10 Essential (primary) hypertension; I25.10 Atherosclerotic heart disease of native coronary artery without angina pectoris; I73.9 Peripheral vascular disease, unspecified; E78.5 Hyperlipidemia, unspecified; G47.33 Obstructive sleep apnea (adult) (pediatric); N40.1 Benign prostatic hyperplasia with lower urinary tract symptoms; N39.498 Other specified urinary incontinence; R35.1 Nocturia; R33.8 Other retention of urine; H40.9 Unspecified glaucoma; R13.10 Dysphagia, unspecified; R15.9 Full incontinence of feces; E16.2 Hypoglycemia, unspecified; E87.6 Hypokalemia; G47.419 Narcolepsy without cataplexy; I25.2 Old myocardial infarction; Z51.5 Encounter for palliative care; Z66 Do not resuscitate; Z87.442 Personal history of urinary calculi; Z79.82 Long term (current) use of aspirin; Z79.899 Other long term (current) drug therapy; Z91.81 History of falling; Z95.5 Presence of coronary angioplasty implant and graft; Z99.3 Dependence on wheelchair
CPT/HCPCS: 36415; 71045; 80048; 80053; 81001; 82330; 83605; 83690; 83735; 84100; 84484; 85025; 85610; 87040; 87077; 87086; 87150; 87181; 93005; 93306; 94640; 96360; 99232; 99233; 99285; A9270; J0131; J2185; J3370; J3490; J7120; 81003

== ENCOUNTER 2019-09-09 14:42 | Outpatient (CLI) | payer MEDICARE, OTHER | END 2019-09-09 14:43 | disposition hospice, home (50) | LOC: EMS 14:42 | PROVIDERS: ATTEND Surgery | DX: R41.82 Altered mental status, unspecified (principal); Z74.01 Bed confinement status | CPT/HCPCS: A0425; A0428 ==